=== PATIENT | male | born 1950 | race Caucasian/White ===

== ENCOUNTER 2024-03-04 16:50 | Emergency (ER) | payer MEDICARE, BC, SELFPAY ==
[2024-03-04 17:00] VITALS: BP 147/86; PULSE 87; RESP 16; TEMP 36.9; O2SAT 94; BMI 26.6
--- NOTE | 2024-03-04 17:14 | ED_ITS ---
HPI - Extremity Injury (Lower) General Time Seen by Provider: 17:14 Date Seen: 03/04/24 Chief Complaint: Extremity Pain/Injury, Lower Stated Complaint: L knee injury Time Seen by Provider: 03/04/24 17:10 Source: patient and RN notes reviewed Mode of arrival: ambulatory Limitations: no limitations History of Present Illness HPI Narrative: Amilcar is a very pleasant well-spoken gentleman 73 years of age who comes to the emergency room for evaluation of left knee pain. Amilcar states that he was bowling this evening any does not know if he turned wrong but he had significant pain in the medial aspect of his left knee that caused him to limp. In retrospect he states he fell 1 year ago and when he went to the clinic he was told that he had arthritis. No x-rays were done at that time. However, over the past year he has had continued discomfort. He describes pain after prolonged sitting. He states when he 1st gets up he has a lot of discomfort and the 1st few steps are hard. He notes that after 0 just a bit of walking he is able to walk well but still has mild persisting discomfort. Going up and down steps also seems to cause him pain. He he denies any numbness or tingling with his knee tonight. He is not currently on blood thinners and has no history of cancer. While we are talking he does describe some blood in his urine within the last week. He notes that it is much improved after having had some water and has not recurred. He does note that he is not good about staying hydrated. Related Data Home Medications ?Medication ?Instructions ?Recorded ?Confirmed Tylenol Arthritis 03/04/24 alfuzosin 10 mg tablet,extended 10 mg PO DAILY 03/04/24 03/04/24 release 24 hr aspirin 81 mg capsule 81 mg PO DAILY 03/04/24 03/04/24 atorvastatin 40 mg tablet 40 mg PO DAILY 03/04/24 03/04/24 pantoprazole 40 mg tablet,delayed 40 mg PO DAILY 03/04/24 03/04/24 release Allergies Allergy/AdvReac Type Severity Reaction Status Date / Time No Known Drug Allergies Allergy Verified 03/04/24 17:04 Review of Systems Status of ROS: Reports: 6 or more systems reviewed and unremarkable except as noted in History and below PFSH PFSH Social History Smoking Status: Never smoker Do you use any of these nicotine containing products: None How often do you have a drink containing alcohol: 4 or more times a week How many standard drinks containing alcohol do you have on a typical day: 1 or 2 AUDIT-C Alcohol total score: 4 Non-prescribed substance use: denies use Exam Narrative: Exam Narrative: Alert and oriented. Very well-spoken gentleman in no acute distress. No respiratory distress. Examination of the knee shows no effusion. Palpation along the medial and lateral joint lines without discomfort. No pain with palpation over the patella. Valgus stressing increases pain on the medial joint line. Distally sensation and motor is intact. Const: Vital Signs, click to edit/add: Vital Signs - 24 hr 03/04/24 17:00 Temperature 98.4 F Pulse Rate [Left P ulse Oximeter] 87 Respiratory Rate 16 Blood Pressure [Ri ght Upper Arm] 147/86 H Pulse Oximetry 94 Oxygen Delivery Me thod Room Air Documenting provider has reviewed patient's vital signs: yes Course Course ED Course: At this time will obtain two view of the knee. I did state that this would show us the bony aspect of the knee but likely not the cartilage or ligaments which may actually be causing the problem. Will also obtain urinalysis given what patient describes as gross hematuria. Vital Signs Vital signs: Initial Vital Signs Temperature 98.4 F 03/04/24 17:00 Temperature Source Temporal Artery Scan 03/04/24 17:00 Pulse Rate 87 03/04/24 17:00 Respiratory Rate 16 03/04/24 17:00 Blood Pressure 147/86 H 03/04/24 17:00 Blood Pressure Mean 106 H 03/04/24 17:00 Blood Pressure Position Sitting 03/04/24 17:00 Pulse Oximetry 94 03/04/24 17:00 Oxygen Delivery Method Room Air 03/04/24 17:00 Vital Signs Temperature 98.4 F 03/04/24 17:00 Pulse Rate 87 03/04/24 17:00 Respiratory Rate 16 03/04/24 17:00 Blood Pressure 147/86 H 03/04/24 17:00 Pulse Oximetry 94 03/04/24 17:00 Oxygen Delivery Method Room Air 03/04/24 17:00 Temperature 98.4 F 03/04/24 17:00 Pulse Rate 87 03/04/24 17:00 Respiratory Rate 16 03/04/24 17:00 Blood Pressure 147/86 H 03/04/24 17:00 Pulse Oximetry 94 03/04/24 17:00 Oxygen Delivery Method Room Air 03/04/24 17:00 MDM - Extremity Injury (Lower) MDM Narrative Medical decision making narrative: 1. Left knee pain-no evidence of fracture on x-ray. I suspect based on his history and exam today he has injured his labrum or MCL. I have referred Amilcar to Orthopedics here in town for evaluation and or MRI and PT. he does note that he feels better with the knee immobilizer in place. Does not need crutches at this time. 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 I do not feel that we should be using narcotics in this particular case. 2. Hematuria-no evidence of blood in urine today. Upon further discussion however Amilcar states that he has had blood in his urine previously. At his ag e I do think this prompts a urological evaluation and have referred him to his primary for further follow-up. 3. Disposition -home at this time. Seek medical attention for worsening symptoms. Suggest icing and elevation of the knee. Return as needed. Lab Data Attestation: I reviewed the patient's lab results. Labs: Lab Results 03/04/24 Range/Units 17:30 Urine Color Yellow (Yellow) Urine Appearance Clear (Clear) Urine pH 6.0 (5.0-8.5) Ur Specific [place] 1.020 (1.000-1.030) Urine Protein Negative (Negative) Urine Glucose (UA) Negative (Negative) Urine Ketones Negative (Negative) Urine Blood Negative (Negative) Urine Nitrite Negative (Negative) Urine Bilirubin Negative (Negative) Urine Urobilinogen 0.2 (0.2-1.0) Ur Leukocyte Esterase Trace A (Negative) Urine RBC 0-2 (0-2) Urine WBC 0-2 (0-5) Ur Squamous Epith Cells None (None-Few) Urine Bacteria None (None) Imaging Data Left knee x-ray: My impression: I do not note any acute fractures. Joint space is maintained in the medial compartment. There are signs of some mild arthritis. Radiologist's impression: Bone: No acute fractures or aggressive bone lesions are identified. Joint: Mild osteoarthritis is noted in the medial and patellofemoral compartments. No significant knee effusion is seen. Soft tissue: Unremarkable. No radiopaque foreign bodies are seen. IMPRESSION: 1. No acute osseous injuries or abnormalities are noted. Discharge Plan Discharge Clinical Impression: Left knee pain, Hx of hematuria Additional Instructions: Follow-up with orthopedics for further evaluation, possible MRI and or physical therapy. The phone number for the [facility] is [phone]. Follow-up with your primary for evaluation of blood in the urine. Your urine was clear today with no evidence of blood or infection. We do send the sample for a culture and if it would become positive for an infection you would receive a phone call in the next 24-72 hours. Intermittent icing 20 minutes at a time 3 to 4 times a day would likely be helpful for some of the discomfort your experiencing. Tylenol may help with the pain. Ibuprofen also known as Motrin and Advil is an anti-inflammatory which would likely be more helpful but as you stated you have to be very careful with this because of history of heart problems. Knee immobilizer for comfort. Try to keep leg elevated. Return for worsening symptoms. Prescriptions: No Action atorvastatin 40 mg tablet 40 mg PO DAILY pantoprazole 40 mg tablet,delayed release (DR/EC) 40 mg PO DAILY alfuzosin 10 mg tablet extended release 24 hr 10 mg PO DAILY aspirin 81 mg capsule 81 mg PO DAILY Tylenol Arthritis Follow Up/Referrals: Suresh Urias MD [Primary Care Provider] - Stand Alone Forms: [employer] Info Instructions
--- NOTE | 2024-03-04 17:23 | CRLHL7_ITS ---
For Patients: As a result of the Cures Act, medical imaging exams and procedure reports are released immediately into your electronic medical record. You may view this report before your referring provider. If you have questions, please contact your health care provider. INDICATION: Medial knee pain, injury TECHNIQUE: Knee radiograph 3 views left COMPARISON: None FINDINGS: Bone: No acute fractures or aggressive bone lesions are identified. Joint: Mild osteoarthritis is noted in the medial and patellofemoral compartments. No significant knee effusion is seen. Soft tissue: Unremarkable. No radiopaque foreign bodies are seen. IMPRESSION: 1. No acute osseous injuries or abnormalities are noted. Dictated by: Navid Reyes MD @ 03/04/2024 18:04:44 (Electronically Signed)
[2024-03-04 17:37] LABS: Appearance Urine Clear (Clear); Bilirubin Urine Negative (Negative); Blood Urine Negative (Negative); Color Urine Yellow (Yellow); Glucose Urine Negative (Negative); Ketones Urine Negative (Negative); Leukocyte Esterase Urine Trace (Negative); Nitrite Urine Negative (Negative); Protein Urine Negative (Negative); Urobilinogen Urine 0.2 (0.2-1.0)
[2024-03-04 17:45] LABS: RBC Urine 0-2 (0-2); WBC Urine 0-2 (0-5)
== END 2024-03-04 18:39 | disposition home or self-care (01) ==
PROVIDERS: Emergency Provider Family Medicine; PCP Family Medicine
DX: M25.562 Pain in left knee (principal); Y93.54 Activity, bowling
CPT/HCPCS: 73562; 81001; 87086; 99283

== ENCOUNTER 2024-03-18 07:02 | Outpatient (CLI) | payer MEDICARE, BC, SELFPAY ==
--- NOTE | 2024-03-18 07:15 | MR_ITS ---
[address] [address] Phone:?[phone] Fax:?[phone] Referring Physician Information: Tyrone De Oliveira [address] [facility] [address] Phone:?[phone] Fax:?[phone] Patient:?Amilcar Diaz D.O.B:?1950 Sex:?Male Phone:?[phone] [facility] MRN:?[id number] Exam Date:?03/18/2024 EXAM: MRI of the LEFT KNEE, without contrast CLINICAL: Left knee pain. Evaluate medial meniscus. COMPARISONS: X-rays dated 03/04/2024. TECHNICAL: Multiplanar multisequence MRI of the left knee was obtained. SEDATION: None. CONTRAST: None. FINDINGS: Evaluation of the coronal STIR sequences is limited by motion artifact. Ligaments: ACL: Intact and unremarkable. PCL: Intact and unremarkable. MCL: Intact and unremarkable. LCL: Intact and unremarkable. Posterolateral corner: Popliteus, biceps femoris, iliotibial band, and the popliteofibular ligament appear intact. Posteromedial corner: Semimembranosus, pes anserine tendons and posterior oblique ligament appear intact. Extensor mechanism: Patellar tendon: Intact, without tendinopathy. Quadriceps tendon: Intact, without tendinopathy. Retinacula: Medial and lateral retinacula are intact. Fat pads: There is increased edema involving the quadriceps fat, nonspecific. Patellofemoral joint: Patella: No significant chondromalacia. Trochlea: No significant chondromalacia. Medial compartment: Medial meniscus: There is complex tearing involving the posterior horn and body segment as seen on sagittal series 6 image 7-11 and coronal series 7 image 16- 20. There is displacement of torn meniscal tissue along the peripheral undersurface of the body segment on coronal series 7 image 16-19. Medial cartilage: Small segment of high-grade/full-thickness chondral loss involves the weightbearing medial femoral condyle adjacent to the free edge of the posterior horn medial meniscus on sagittal series 6 image 10. Grade 2-3 chondral thinning involves the medial tibial plateau. Lateral compartment: Lateral meniscus: No evidence of discrete meniscal tear or meniscal displacement. Lateral cartilage: Small segment of high-grade chondral loss involving the medial aspect of the posterior lateral tibial plateau on sagittal series 6 image 20 and coronal series 8 image 22. Lateral femoral condyle cartilage is preserved. Knee joint: Effusion: Physiologic left knee effusion. Intra-articular bodies:?No convincing bodies identified. Popliteal cyst: None. Bones: There is minimal reactive marrow edema involving the peripheral medial tibial plateau adjacent to the medial meniscal tear. No evidence of fracture. IMPRESSION: 1. Tearing of the medial meniscus as above with displacement of torn meniscal tissue along the peripheral undersurface of the body segment medial meniscus. 2. Chondral loss involving the medial and lateral compartments as above. 3. No evidence of ligamentous injury or fracture. JCZ Electronically signed on 03/18/2024 12:38:00 PM by Good Pate D.O.
== END 2024-03-18 07:03 | disposition home or self-care (01) ==
LOC: MRI 07:03
PROVIDERS: PCP Family Medicine; Visit Provider Physician Assistant
DX: M25.562 Pain in left knee (principal); S83.242A Other tear of medial meniscus, current injury, left knee, initial encounter; G89.29 Other chronic pain
CPT/HCPCS: 73721

== ENCOUNTER 2024-07-07 00:12 | Emergency (ER) | payer MEDICARE, BC, SELFPAY ==
--- OUTSIDE RECORDS SUMMARY | 2024-07-07 00:14 | XMS_ITS | Clinical Summary ---
Author Organization [facility] Address [address] [place] [address] Care Team Providers Care Spares Scheduler Name Role Phone Unavailable Primary Care Provider Unavailabl e Source Comments Patient records contain information from all sites at [facility]. For routine questions regarding patient records, call [phone] during business hours, M-F 8:00 AM - 5:00 PM Central Time. Record requests for emergency care only can be directed to [phone] at any time.[facility] Allergies Active Allergy Reactions Criticality Noted Date Comments House Dust Mite Cough 03/12/2019 Medications pantoprazole (PROTONIX) 40 mg EC tablet Take 40 mg by mouth daily. 9 Active omega-3 fatty acids-fish oil 360-1,200 mg capsule Take 1 capsule by mouth daily. Active famciclovir (FAMVIR) 250 mg tablet Take 250 mg by mouth as needed. 9 Active cholecalciferol , vitamin D3, 1,000 Unit tablet Take 1,000 Units by mouth daily. Active calcium carbonate (TUMS) 500 mg (200 mg calcium) chewable tablet Chew 500 mg as needed. Active atorvastatin (LIPITOR) 40 mg tablet Take 40 mg by mouth daily. 9 Active aspirin 81 mg chewable tablet Chew 81 mg daily. 8 Active ascorbic acid, vitamin C, (vitamin C) 1,000 mg tablet Take 1,000 mg by mouth daily. Active alfuzosin (UROXATRAL) 10 mg 24 hr tablet Take 10 mg by mouth daily. 9 Active UNABLE TO FIND Take 1 tablet by mouth daily. Dermatrophin PMG Active losartan (COZAAR) 25 mg tabletIndicatio ns:Chronic Cough,Hypertens ion Essential Primary Take 1 tablet (25 mg total) by mouth daily. 90 tablet 3 1 Active Active Problems Problem Noted Date Diagnosed Date Stroke 06/25/2019 Patent Foramen Ovale 06/25/2019 Encounters Date Type Department Care Team Description 06/11/2024 3:[address] [facility] Comprehensive Visit Department of Urology in [place], [place] [address] [place] [address] Gonzalo Orellana M.D. Benign Prostatic Hyperplasia Without Obstruction (Primary Dx); Symptom Urinary 05/24/2024 Orders Only Department of Urology in [place], [place] [address] [place] [address] Isak Austin M.D. Benign Prostatic Hyperplasia Hypertrophy With Obstruction (Primary Dx) from Last 3 Months Immunizations Immunization Administration Dates Next Due DTaP (Infanrix, Tripedia) 09/25/2008 HZV (ZOSTAVAX) 10/12/2011 HepA Adult 03/12/2019(Deferred: Other - received the series) HepB Adult 03/12/2019(Deferred: Other - received the series date unknown) PCV13 03/12/2019(Deferred: Patient Ref used) RZV (SHINGRIX) 03/05/2019 Rabies, intramuscular, historical 2013,12/25/2013,12/21/2013,2013 Tdap 10/02/2018,09/25/2008 influenza trivalent high dos e (HD)(PF) 03/12/2019(Deferred: Patient Refused) Family History Medical History Relation Name Comments Alcohol abuse Brother 1 herminio joe Liver disease Brother 1 herminio joe Alcohol abuse Brother 2 kim joe Dementia Brother 2 kim joe Liver disease Brother 2 kim joe Hyperlipidemia Brother 3 [place] Hypertension Brother 3 colt joe Coronary artery disease Brother 4 geovany joe Hyperlipidemia Brother 4 geovany joe Hypertension Brother 4 geovany joe Skin cancer Brother 5 Herminio Joe Skin cancer Brother 6 Zi StuartNeill Prostate cancer Father Scott Diaz Coronary artery disease Mother haley diaz Hyperlipidemia Mother haley diaz Hypertension Mother haley diaz Relation Name Status Comments Brother 1 herminio diaz Brother 2 kim diaz Brother 3 colt diaz Brother 4 geovany diaz Brother 5 Herminio Diaz Brother 6 Zi Diaz Father Scott Diaz Mother haley diaz Social History Tobacco Use Types Packs/Day Years Used Date Smoking Tobacco: Never Smokeless Tobacco: Never Alcohol Use Standard Drinks/Week Comments Yes 11 (1 standard drink = 0.6 oz pu re alcohol) [facility] Utilities Answer Date Recorded In the past 12 months has e electric, gas, oil, or water company threatened to shut off services in your home? No 06/08/2024 Humiliation, Afraid, Rape, and Kick questionnair e Answer Date Recorded Fear of Current or Ex-Partner No Emotionally Abused No 03/09/2019 Physically Abused No 03/09/2019 Sexually Abused No 03/09/2019 Social Connection and Isolation Panel [NHANES] A nswer Date Recorded Frequency of Communication with Friends and Fami ly Never 03/09/2019 Frequency of Social Gatherings with Friends and Family Never 03/09/2019 Attends Jehovah'S Witness Services Never 03/09 Active Member of Clubs or Organizations Yes 03/09/2019 Attends Club or Organization Meetings Never 03/09/2019 Marital Status 03/09/2019 AUDIT-C Answer Date Recorded Frequency of Alcohol Consumption 4 or more times a week 03/09/2019 Average Number of Drinks 1 or 2 019 Frequency of Binge Drinking Less than monthly Overall Financial Resource Strain (CARDIA) Answe r Date Recorded Difficulty of Paying Living Expenses Not hard at all 03/09/2019 PHQ-2 Answer Date Recorded PHQ-2 Score 0 03/09/2019 [facility] - Occupational Stress Questionnaire Answer Date Recorded Feeling of Stress To some extent 03/09/2019 Exercise Vital Sign Answer Date Recorde d On average, how many days pe r week do you engage in moderate to strenuous exercise (like a brisk walk)? 1 day 06/08/2024 On average, how many minutes do you engage in exercise at this level? 120 min 06/08/2024 Hunger Vital Sign Answer Date Recorded Within the past 12 months, y ou worried that your food would run out before you got the money to buy more. Never true 06/08/19 Within the past 12 months, t he food you bought just didn't last and you didn't have money to get more. Never true 06/08/2024 PRAPARE - Transportation Answer Date Re corded In the past 12 months, has l ack of transportation kept you from medical appointments or from getting medications? No 11/2024 In the past 12 months, has l ack of transportation kept you from meetings, work, or from getting things needed for daily living? No 06/08/2024 Nutrition Answer Date Recorded On average, how many serving s of fruits and vegetables do you eat per day (serving size is equal to 1 cup or approximately the size of a tennis ball)? 0-2 06/08/2024 Dental Answer Date Recorded Dental: Regular Dentist Yes 06/08/19 Employment Answer Date Recorded Employment status Retired 06/08/2024 Housing Stability Answer Date Recorded What is your living situation today? I have a [facility] place to live 06/08/2024 Education Answer Date Recorded What is the highest level of school you have completed or the highest degree you have received? Bachelor's degree (e.g., BA, AB, BS) 03/09/2019 Sex and Gender Information Value Date Recorded Sex Assigned at Male 05/23/2018 5:05 PM [employer]INT [employer] SU[employer] Legal Sex Male 4:32 AM [employer] SUPER[employer] Gender Identity Male 05/23/2018 5:05 PM [employer] SU[employer] Sexual Orientation Straight 05/23/2018 5: 05 PM [employer] SUPERVISOR Last Filed Vital Signs Vital Sign Reading Time Taken Comments Blood Pressure 114/79 06/25/2019 8:00 AM [employer]INT LINE SUPERVISOR Pulse 92 06/25/2019 8:00 AM [employer]INT LINE SUPERVISOR Temperature 37 C (98.6 F) 06/25/2019 8:00 AM [employer]INT LINE SUPERVISOR Respiratory Rate 19 04/10/2019 1:37 PM [employer] SUPER[employer] Oxygen Saturation 94% 04/10/2019 1:39 PM [employer]INT LINE SUPER[employer]OR Inhaled Oxygen Concentration - - Weight 70.5 kg (155 lb 6.8 oz) 04/10/2019 12:06 PM [employer]INT LINE SUPERVIS[employer] Height 162 cm (5' 3.78) 04/10/2019 12:06 PM [employer] SUPERVIS[employer] Body Mass Index 26.86 04/10/2019 12:06 PM [employer]INT [employer] SUPERVIS[employer] Plan of Treatment Health Maintenance Due Date Last Done Comments CT Colonography 1950 Cologuard 1950 Hepatitis C Screening 1950 Office Visit for Blood Pressure Check / Re-check 1950 RSV vaccine - (32-36 weeks) or 60+ years (1 - Risk 60-74 years 1-dose series) 2010 COVID-19 Vaccine ( - season) 2023 07/24/2020, 07/03/2020 Influenza Vaccine (#1) 2024 Depression Screening (Annual PHQ-2) 05/01/2024 Fall Risk Screen (Annual) 05/01/2024 Creatinine Level (Kidney Function Test) 01/01/2025 01/02/2024, 03/30/2023, 02/15/2022, Additional history exists Potassium Level 01/01/2025 01/02/2024, 03/03, 02/15/2022, Additional history exists Sodium Level 01/01/2025 01/02/2024, 03/03, 02/15/2022, Additional history exists Colonoscopy 02/05/2026 02/05/2021, 11/2020, 05/08/2017 (Performed elsewhere), Additional history exists Colorectal Cancer Surveillance 02/05/2026 Fasting Glucose for Diabetes Screening 01/01/2027 01/02/2024, 03/30/2023, 02/15/2022, Additional history exists DTaP,Tdap,and Td Vaccines (4 - Td or Tdap) 10/02/2028 10/02/2018, 09/25/2008, 09/25/2008 Lipid (Cholesterol) Screening 01/01/2029 01/02/2024, 03/30/2023, 02/15/2022, Additional history exists Zoster Vaccines Completed 06/25/2019, 08/2018, 10/12/2011 Pneumococcal vaccine (50+ years) Completed 02/15/2022, 11/26/2020 IPV Vaccines Aged Out No longer eligi ble based on patient's age to complete this topic Medical Devices Implanted Type Area Pricing Actuary Device Identifier Shelf Expiration Date Model / Serial / Lot Cardiac Stent Cardiac Stent Heart Description:One stent Procedures Procedure Name Priority Date/Time Associated Diagnosis Comments BASIC METABOLIC PANEL, S/P Routine 03/13/2019 6:22 AM [employer]INT LINE SUPERVIS[employer] Cough Chronic from Last 3 Months or Most Recently Relevant to Health Maintenance Results * Basic Metabolic Panel (03/13/2019 6:22 AM PRINT LINE SUPERVISOR) Potassium, S 4.2 3.6 - 5.2 mmol/L 03/13/2019 7:34 AM [employer]INT LINE SUPERVISOR DTL Sodium, S 142 135 - 145 mmol/L 03/13/2019 7:34 AM [employer] SUPERVIS[employer] DTL Chloride, S 100 98 - 107 mmol/L 03/13/2019 7:34 AM [employer] SUPERVISOR DTL Bicarbonate, S 27 22 - 29 mmol/L 03/13/2019 7:34 AM [employer] SUPERVISOR DTL Anion Gap 15 7 - 15 03/13/2019 7:34 AM [employer] SUPERVISOR DTL BUN (Blood Urea Nitrogen), S 14 8 - 24 mg/dL 03/13/2019 7:34 AM PRINT [employer] SUPERVISOR DTL Creatinine 1.13 0.74 - 1.35 mg/dL 03/13/2019 7:34 AM PRINT LINE SUPERVISOR DTL eGFR-Non Black/ 66 >=60 mL/min/BSA 03/13/2019 7:34 AM PRINT LINE SUPERVISOR DTL Comment: ----ADDITIONAL INFORMATION---- Estimated GFR calculated using the 2009 CKD_EPI creatinine equation. eGFR-Black/Afric an Gambian 77 >=60 mL/min/BSA 03/13/2019 7:34 AM PRINT LINE SUPERVISOR DTL Comment: ----ADDITIONAL INFORMATION---- Estimated GFR calculated using the 2009 CKD_EPI creatinine equation. Calcium, Total, S 9.7 8.8 - 10.2 mg/dL 03/13/2019 7:34 AM PRINT LINE SUPERVISOR DTL Glucose, S 103 70 - 140 mg/dL 03/13/2019 7:34 AM PRINT LINE SUPERVISOR DTL Blood (Blood, Venous) 03/13/2019 6:22 AM PRINT LINE SUPERVISOR 03/13/2019 6:44 AM [employer] SUPERVISOR us Alcira Javed M.D. LAB BLOOD ADD-ON Elizabeth l Result [facility] [address] [place] [address], [place] DTL [facility] [address] [place] [address] from Last 3 Months or Most Recently Relevant to Health Maintenance Insurance MEDICARE [facility]
--- OUTSIDE RECORDS SUMMARY | 2024-07-07 00:14 | XMS_ITS | Encounter Summary ---
Author Organization [facility] Address [address] [place] [address] Care Team Providers Care Cardiac/Vascular Sonographer Name Role Phone Unavailable Primary Care Provider Unavailabl e Reason for Visit * Appointment Request (Routine) - Closed Specialty Diagnoses / Procedures Referred By Sagrario t Referred To Contact Urology Diagnoses Benign Prostatic Hyperplasia Hypertrophy With Obstruction Referral ID Status Reason Start Date Expiration Date Visits Re quested Visits Authorized [id number] Closed 05/21/2024 08/21/2025 1 1 Encounter Details Date Type Department Care Team (Latest Contact Info) Description 06/11/2024 3:30 PM [facility] Comprehensive Visit Department of Urology in [place], [place] [address] [place] [phone] Gonzalo Orellana M.D. [address] [place] [id number] Benign Prostatic Hyperplasia Without Obstruction (Primary Dx); Symptom Urinary Social History Tobacco Use Types Packs/Day Years Used Date Smoking Tobacco: Never Smokeless Tobacco: Never Alcohol Use Standard Drinks/Week Comments Yes 11 (1 standard drink = 0.6 oz pu re alcohol) [facility] Utilities Answer Date Recorded In the past [...] with Friends and Family Never 03/09/2019 Attends Islam Services Never 03/09 Active Member of Clubs [...] Answer Date Recorded PHQ-2 Score 0 03/09/2019 [facility] - Occupational Stress [...] money to buy more. Never true 06/08/19 25 Within the past 12 months, t he [...] Date Recorded Dental: Regular Dentist Yes 06/08/19 25 Employment Answer Date Recorded Employment status Retired 06/08/2024 Housing Stability Answer Date Recorded What is your living situation today? I have a [place] place to live 06/08/2024 Education Answer Date Recorded What is the highest level of school you have completed or the highest degree you have received? 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 - 06/11/2024 3:30 PM MST Images from the original note were not included. UROLOGY CLINIC CONSULT NOTE Attending: Dr. Yandel Orellana Referring provider: No ref. provider found CHIEF COMPLAINT/REASON FOR VISIT/CONSULT: BPH HISTORY OF PRESENT ILLNESS: Amilcar Diaz is a 74 y.o. male with HTN, HLD, CAD s/p stentx1 (ASA 81), known PFO (untreated), history of stroke 2016 without deficits, GERD, BPH (currently on alfuzosin) His brother, Ronak and Jatinder both had a HoLEP with Dr. Orellana. He is also Renetta Santos's uncle. Patient notes that in terms of his flow, he has a weak stream with difficulty urinating, postvoid dribbling, [id number], and urge incontinence with inability to completely empty his bladder. In terms of his nocturia, he gets up once per night. The patient denies any dysuria, frequency, urgency, or other problems. He has previously tried tamsulosin and Uroxatral (discontinued due to retrograde ejaculation), and is currently on alfuzosin with moderate retrograde ejaculation which is tolerable. He did have an episode of hematuria in 2018 for which he had a CT urogram (03/2018 with benign renalcysts bilaterally, otherwise negative), but no cystoscopy. He has been cautioned that his urinary flow is improved with retraction of his foreskin. In terms of his continence, he reports no issues. Workup: Cystoscopy never UDS never Prostate volume = Flow/PVR: 03/2019 Peak flow 5 ml/sec Average flow 3 ml/sec Voiding time 40 sec Total voided volume 141 mls Residual urine 277 ml by ultrasound 05/2018 PVR 360 CTU (03/05/18):Bilateral renal cysts - enlarged prostate - no stones, renal masses, or filling defects. I-PSS I-PSS Urinary Symptoms Score: (Patient-Rptd) 18 I-PSS Quality of Life Score: (Patient-Rptd) 3 Smoking History: Never Family history: Father with prostate cancer in 80s Anticoagulation: ASA 81 Other Urologic History: Lab Results Component Value Date PSA 1.7 03/13/2019 EXT Creatinine, S Date/Time Value Ref Range Status 01/02/2024 10:37 AM 1.12 0.70 - 1.20 mg/dL Final 03/30/2023 03:56 PM 1.20 0.70 - 1.20 mg/dL Final 02/15/2022 11:45 AM 1.13 0.72 - 1.25 mg/dL Final CURRENT MEDICATIONS: Current Medications[1] REVIEW OF SYSTEMS: A complete review of systems was performed, all of which were negative except as noted in the HPI. PAST MEDICAL HISTORY: PAST SURGICAL HISTORY: Medical History[2] Coronary stent Vasectomy OBJECTIVE PHYSICAL EXAMINATION: General: Well developed, well nourished, in no apparent distress. Eyes: Lids and conjunctiva normal, no scleral icterus ENMT: Normal external ears and nose, moist mucous membranes Neck: No masses or tenderness, thyroid not grossly enlarged Respiratory: Normal respiratory rate and pattern with no distress CV: Regular rate, palpable pulse GI: No rebound, no guarding, no tenderness, no masses Psychiatric: Normal mood, normal affect, alert and cooperative Neurologic Exam: Alert and oriented x 3, speech normal, follows commands. ASSESSMENT / PLAN ASSESSMENT/PLAN: This is a very pleasant 74 y.o. male with HTN, HLD, CAD s/p stentx1 (on ASA 81), known PFO (untreated), history of stroke 2016 without deficits, GERD, BPH (currently on Uroxatral) Patient was seen with, examined by, and discussed with Dr. Yandel Orellana who is in agreement withthe above plan of treatment. Please refer to their supervisory note for complete assessment & plan. Elio Fofana MD Urology PGY-3 Pager: [phone] [1] Current Outpatient Medications: alfuzosin (UROXATRAL) 10 mg 24 hr tablet, Take 10 mg by mouth daily., Disp: , Rfl: ascorbic acid, vitamin C, (vitamin C) 1,000 mg tablet, Take 1,000 mg by mouth daily., Disp: , Rfl: aspirin 81 mg chewable tablet, Chew 81 mg daily., Disp: , Rfl: atorvastatin (LIPITOR) 40 mg tablet, Take 40 mg by mouth daily., Disp: , Rfl: calcium carbonate (TUMS) 500 mg (200 mg calcium) chewable tablet, Chew 500 mg as needed., Disp: , Rfl: cholecalciferol, vitamin D3, 1,000 Unit tablet, Take 1,000 Units by mouth daily., Disp: , Rfl: famciclovir (FAMVIR) 250 mg tablet, Take 250 mg by mouth as needed., Disp: , Rfl: losartan (COZAAR) 25 mg tablet, Take 1 tablet (25 mg total) by mouth daily., Disp: 90 tablet, Rfl: 3 omega-3 fatty acids-fish oil 360-1,200 mg capsule, Take 1 capsule by mouth daily., Disp: , Rfl: pantoprazole (PROTONIX) 40 mg EC tablet, Take 40 mg by mouth daily., Disp: , Rfl: UNABLE TO FIND, Take 1 tablet by mouth daily. Dermatrophin PMG, Disp: , Rfl: [2] Past Medical History: Diagnosis Date Anxiety Generalized Disorder BenignProstatic Hyperplasia Localized Eczema Gastroesophageal Reflux Disease NOS Headache Hyperlipidemia Hypertension NOS Polyp Colon Stroke (HCC) Transient Ischemic Attack Cosigned by Gonzalo Orellana M.D. at 06/11/2024 3:56 PM MST H BREAKER MACHINE OPERATOR H BREAKER MACHINE OPERATOR Associated attestation - Gonzalo Orellana M.D. - 06/11/2024 4:56 PM BUNCH BREAKER MACHINE OPERATOR I saw and evaluated the patient, participating in the shearer portions of the service. I reviewed the resident/fellow???s note. I agree with the resident/fellow???s findings and plan. This extremely pleasant gentleman that has family with 1 of our long time Urology care members. In terms of his urination he states he has a poor stream and this has been a lifelong issue for him. States that generally is able to generate good pressure but he has low volume. He states that he often has to strain to start his urinary stream. He denies that he is always able to empty his bladder has nocturia with least 1 time per night. He denies any hematuria occasionally gets some dysuria or pressure especially when he starts but it is not consistent. He does note some terminal dribbling but denies any leakage. From a medication standpoint he is taking alfuzosin 10 mg a day which he notes helps a little bit. Family history is significant for a father with prostate cancer. His IPSS score is 28 (5, 5, 4, 4, 5, 4, 1) Bother score of 4 Zhen score of 22 (3, 5, 5, 4, 5) MS HQ short form 11 (5, 2, 2, 2) In terms of his BPH with a long denny discussion regarding the natural history. We discussed various different treatment options including but not limited to maximal medical therapy, minimally invasive surgical therapies and definitive surgical management with procedure such as HoLEP. We discussed that we would need to evaluate his anatomy and get a cystoscopy, prostate ultrasound, uroflow with postvoid residual. We would then have her return visit we can discuss all this in the appropriate treatment for him. At this point he is not sure if he wants to proceed with the treatment and or the evaluation. If and when he does he will contact our department we would schedule these tests for appropriate time for him and then we can make it coordinated plan once we have this information. I answered all of his other questions or concerns he voices understanding will plan on proceeding as outlined above. documented in this encounter Plan of Treatment Not on file documented as of this encounter Visit Diagnoses Diagnosis Benign Prostatic Hyperplasia Without Obstruction- Primary Symptom Urinary documented in this encounter
--- OUTSIDE RECORDS SUMMARY | 2024-07-07 00:14 | XMS_ITS | Clinical Summary ---
Author Organization [facility] Address [address] [place] [address] Care Team Providers Care Optometrist President/Practice Owner Name Role Phone BatelSuresh MD Primary Care Provider + Allergies Active Allergy Reactions Criticality Noted Date Comments House Dust Other - Describe In Comment Field Sneezing Medications calcium carbonate (TUMS) 200 mg calcium (500 mg) chewable tablet Take 500 mg by mouth 4 times daily if needed. Active fish oil-omega-3 fatty acids (FISH OIL) 1,200-360 mg cap Take 1 capsule by mouth once daily. One capsule is 1200 mg-360 mg Active cholecalciferol (VITAMIN D3) 1,000 unit tablet Take 1,000 Units by mouth once daily. Active aspirin chewable 81 mg chewable tabletIndication s:ASHD (arterioscleroti c heart disease) Take 1 tablet by mouth once daily with a meal. 0 8 Active ascorbic acid, vitamin C, (VITAMIN C) 1,000 mg tablet Take 1,000 mg by mouth. Active pantoprazole (PROTONIX) 40 mg delayed-release tabletIndication s:Gastroesophage al reflux disease without esophagitis TAKE ONE TABLET (40 MG) BY MOUTH ONCE DAILY 90 Tablet 2 4 Active atorvastatin (LIPITOR) 40 mg tabletIndication s:ASHD (arterioscleroti c heart disease) TAKE ONE TABLET (40 MG) BY MOUTH NIGHTLY AT BEDTIME 90 Tablet 2 4 Active famciclovir (FAMVIR) 250 mg tabletIndication s:Hx of cold sores TAKE ONE TABLET BY MOUTH THREE TIMES A DAY NEEDED FOR COLD SORES 24 Tablet 5 Active alfuzosin (UROXATRAL) 10 mg Sustained-Releas e tabletIndication s:Benign non-nodular prostatic hyperplasia with lower urinary tract symptoms TAKE ONE TABLET BY MOUTH ONCE EVERY DAY WITH A MEAL DIRECTED . 90 Tablet 1 5 Active alfuzosin (UROXATRAL) 10 mg Sustained-Releas e tabletIndication s:Benign non-nodular prostatic hyperplasia with lower urinary tract symptoms TAKE ONE TABLET BY MOUTH ONCE EVERY DAY WITH A MEAL DIRECTED . 90 Tablet 2 4 06/23/19 25 Discontinu ed(*Availa bility/For mulary change/Cos t of medication ) Active Problems Problem Noted Date Diagnosed Date History of CVA (cerebrovascular accident) 2019 ASHD (arteriosclerotic heart disease) 11/08/2017 Overview (11/09/2017): - 11/02/17 CTA with circumflex disease - 11/08/17 s/p DAIANA to circumflex Vitamin D deficiency 05/24/2016 PFO (patent foramen ovale) 01/01/2013 Ataxia 12/31/2012 Arterial ischemic stroke, ve rtebrobasilar, cerebellar, acute 12/30/2012 Blurred vision, right eye 12/30/2012 Imbalance 12/30/2012 Colon polyp 11/11/2011 Overview (02/09/2021): Colonoscopy 10/2011 polyps repeat in 3 years Colonoscopy 05/2015 polyps repeat in 5 years Colonoscopy 01/2021 3-TA, repeat in 5 years MIGRAINE VARIANT - CLUSTER 08/27/2007 Overview (08/27/2007): Intermittent since 1972. Gastroesophageal reflux disease without esophagi tis 09/22/2006 Allergic rhinitis, cause unspecified 09/22/2006 Resolved Problems Problem Noted Date Diagnosed Date Resolved Date Depression, recurrent 03/30/20232023 Depression, recurrent 07/22/20212021 Unstable angina 11/08/2017 11/08/2017 JUANITA (acute kidney injury) 12/31/2012 HYDE (headache) 12/30/2012 02/15/2022 Encounters Date Type Department Care Team Description 06/21/2024 Refill [facility] [address] [facility] [place] [address] Suresh Urias MD Refill Request (Alfuzosin) 05/30/2024 10:50 AM CULL GRADER Office Visit [facility] [address] [facility] [address] Suresh Urias MD Blood Pressure (Follow up) 05/30/2024 Travel 05/25/2024 Travel 05/03/2024 Telephone [facility] [address] [place] [address] Suresh Urias MD Refill Request (famciclovir) 04/30/2024 12:50 PM CULL GRADER Office Visit [facility] [address] [place] [address] Suresh Urias MD Medicare ANNUAL (subsequent) Visit (73 year old male) 04/30/2024 Travel 04/25/2024 Travel from Last 3 Months Immunizations Immunization Administration Dates Next Due DTaP 09/25/2008 Hepatitis B, Unspecified 03/12/2019(Deferred: Miguel johnson Refused) Influenza Virus, Unspecified 03/12/2019(Deferred : Patient Refused) Pneumococcal Conj 20-valent (Prevnar 20) 02/15/2022 Pneumococcal conj 13-Valent (Prevnar 13) 11/26/2020 Pneumococcal, Unspecified 03/12/2019(Deferred: P atient Refused) Rabies Vaccine 01/01/2014, 4,12/21/2013,12/1812/21/2013 Tdap 10/02/2018,09/25/2008 Zoster (Shingrix-RZV, recombinant) 06/25/2019, Zoster (Zostavax-ZVL, live) 10/12/2011 Family History Medical History Relation Name Comments Hypertension Brother 4 X2 Alcohol/Drug Father of complic ations Asthma Father Heart Disease Mother in her sl eep age 86 Hypertension Mother Relation Name Status Comments Brother 1 Alive Brother 2 Alive Brother 3 Alive Brother 4 Father (Age 85) Mother (Age 86) Social History Tobacco Use Types Packs/Day Years Used Date Smoking Tobacco: Never Smokeless Tobacco: Never Tobacco Cessation:Counseling Given: Yes Alcohol Use Standard Drinks/Week Comments Yes 21 (1 standard drink = 0.6 oz pure alcohol) 1-2 a day when having visitors PHQ-2 Answer Date Recorded PHQ-2 TOTAL SCORE 0 04/25/2024 Social Connections Answer Date Recorded Do you often feel lonely or isolated from those around you? 0 08/16/2023 Financial Resource Strain Answer Date R ecorded Difficulty of Paying Living Expenses 3 08/16/2023 Difficulty of Paying Living Expenses Not on file 08/16/2023 Food Insecurity Answer Date Recorded Do you worry your food will run out before you are able to buy more? 1 08/16/2023 Transportation Needs Answer Date Record ed Does lack of transportation keep you from medica l appointments? 1 08/16/2023 Does lack of transportation keep you from work, meetings or getting things that you need? 1 08/16/2023 Housing Stability Answer Date Recorded What is your housing situation today? 1 08/16/2023 Utilities Answer Date Recorded Do you have trouble paying f or utilities (for example, heat, electricity, water, phone)? 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 file Not on file Not on file Obstetrics History Last Filed Vital Signs Vital Sign Reading Time Taken Comments Blood Pressure 125/77 05/30/2024 11:22 AM CULL GRADER Pulse 76 05/30/2024 10:58 AM CULL GRADER Temperature 36.6 C (97.8 F) 04/30/2024 1:00 PM CULL GRADER Respiratory Rate 18 11/09/2017 8:51 AM CDT Oxygen Saturation 95% 05/30/2024 10:58 AM CULL GRADER Inhaled Oxygen Concentration - - Weight 68.9 kg (152 lb) 05/30/2024 10:58 AM CULL GRADER Height 157.7 cm (5' 2.1) 05/30/2024 10:58 AM CS T Body Mass Index 27.71 05/30/2024 10:58 AM CULL GRADER Plan of Treatment Health Maintenance Due Date Last Done Comments RSV vaccine for adults or (1 - Risk 60-74 years 1-dose series) 2010 ([place]) Influenza for age 65+ 12/31/2023 COVID-19 vaccine series (2023- season) 2023 07/24/2020, 07/03/2020 Depression screening for age 12+ 04/25/2025 04/25/2024, 03/30/2023, 02/15/2022, Additional history exists Medicare Wellness for age 65+ 05/01/2025, 03/30/2023, 02/15/2022, Additional history exists BMI (ht and wt on same day) for age 18+ 05/30/2025 05/30/2024, 04/30/2024, 01/02/2024, Additional history exists Colonoscopy through age 75 02/05/202602/05, 02/05/2021, 02/05/2021, Additional history exists Tetanus booster 10/02/2028 10/02/2018, 09/25/2008 Lipids for age 45-75 01/01/2029 01/02/2024, 03/30/2023, 02/15/2022, Additional history exists Tdap Completed 10/02/2018, 09/25/2008 Zoster (shingles) series for age 50+ Completed 06/25/2019, 03/05/2019, 10/12/2011 Hepatitis C screening for ag e 18-79 Completed 02/15/2022 Pneumococcal series for age 50+ Completed , 11/26/2020 Procedures Procedure Name Priority Date/Time Associated Diagnosis Comments PSA TOTAL Routine 04/30/2024 1:53 PM CULL GRADER Prostate cancer screening VITAMIN D 25 (DEFICIENCY) Routine 04/30/2024 1:53 PM CULL GRADER Vitamin D deficiency LIPID PANEL W REFLEX MEASURED LDL Add On 01/02/2024 10:37 AM CDT Dyslipidemia, goal LDL below 70 ANTI HCV Routine 02/15/2022 11:45 AM CDT Need for hepatitis C screening test COLONOSCOPY SCREENING Routine 02/05/2021 9:13 AM CDT History of colon polyps from Last 3 Months or Most Recently Relevant to Health Maintenance Results * VITAMIN D 25 (DEFICIENCY) (04/30/2024 1:53 PM CULL GRADER) VITAMIN D,25-OH,TOTAL,IA 31 30 - 100 ng/mL [facility] Comment: Vitamin D Status 25-OH Vitamin D: Deficiency: <20 ng/mL Insufficiency: 20 - 29 ng/mL Optimal: > or = 30 ng/mL For 25-OH Vitamin D testing on patients on D2-supplementation and patients for whom quantitation of D2 and D3 fractions is required, the QuestAssureD(TM) 25-OH VIT D, (D2,D3), LC/MS/MS is recommended: order code 00830 (patients >2yrs). See Note 1 Note 1 For additional information, please refer to http://education.Blippex/faq/IFM624 (This link is being provided for informational/ educational purposes only.) Blood BLOOD SPECIMEN / Unknown 04/30/2024 1:53 PM CULL GRADER 04/30/2024 1:56 PM CULL GRADER Suresh Urias MD SEND OUTS Final Re sult [employer] [facility] [address] [place] [address], [facility] [address] [place] [address] * PSA TOTAL (04/30/2024 1:53 PM CULL GRADER) PSA, TOTAL 1.53 < OR = 4.00 ng/mL [facility] Comment: The total PSA value from this assay system is standardized against the WHO standard. The test result will be approximately 20% lower when compared to the equimolar-standardized total PSA (Rk [place]). Comparison of serial PSA results should be interpreted with this fact in mind. This test was performed using the Siemens chemiluminescent method. Values obtained from different assay methods cannot be used interchangeably. PSA levels, regardless of value, should not be interpreted as absolute evidence of the presence or absence of disease. Blood BLOOD SPECIMEN / Unknown 04/30/2024 1:53 PM CULL GRADER 04/30/2024 1:56 PM CULL GRADER Suresh Urias MD CHEMISTRY Final Re sult [employer] [facility] [address] [place] [address], [facility] [address] [place] [address] * LIPID PANEL W REFLEX MEASURED LDL (01/02/2024 10:37 AM CDT) Pathologist [facility] CHOLESTEROL,TOTAL 124 100 - 199 mg/dL 01/03/2024 1:28 AM CDT [facility] Comment: Cholesterol, Total Reference Ranges Desirable <200 mg/dL Borderline 200-239 mg/dL High >=240 mg/dL TRIGLYCERIDES 134 <150 mg/dL 01/03/2024 1:28 AM CDT [facility] HDL CHOLESTEROL 60 >40 mg/dL 1:28 AM CDT [facility] NON-HDL CHOLESTEROL 64 <145 mg/dl 01/03/2024 1:28 AM CDT [facility] CHOL/HDL RATIO 2.07 <4.50 01/03/2024 1:28 AM CDT [facility] LDL CHOLESTEROL 37 <=130 mg/dL 01/03/2024 1:28 AM CDT [facility] VLDL CHOLESTEROL 27 <=30 mg/dL 01/03/2024 1:28 AM CDT [facility] PROVIDER ORDERED STATUS RANDOM 01/03/2024 1:28 AM CDT [facility] Blood BLOOD SPECIMEN / Unknown Venipuncture / Unknown 01/02/2024 10:37 AM CDT 01/02/2024 10:37 AM CDT Suresh Urias MD CHEMISTRY Final Re sult [facility] [address] [place] [address], [place] * ANTI HCV [68920.2] (02/15/2022 11:45 AM CDT) HEPATITIS C ANTIBODY Non-React kelsy Non-React kelsy 02/16/2022 5:52 AM CDT [facility] Comment:Antibodies to HCV no t detected; does not exclude the possibility of exposure to HCV. Blood BLOOD SPECIMEN / Unknown Venipuncture / Unknown 02/15/2022 11:45 AM CDT 02/15/2022 11:45 AM CDT Suresh Urias MD SEND OUTS Final Re sult Performing Organization Address [facility]/ZIP Co de Phone Number [facility] [address] [place] [address], [place] * COLONOSCOPY (02/05/2021 9:20 AM CDT) 02/05/2021 9:20 AM CDT Narrative Transcriptions Dl Flor MD - 02/05/2021 10:22 AM CDT Patient Name: Amilcar Diaz Procedure Date: 02/05/2021 Gender: Male Date of : 1950 Admit Type: Outpatient Procedure: Colonoscopy Proceduralist: Dl Flor MD , Adrienne Becerra RN(Nurse) Referring MD: Suresh Urias Indications/Pre-Op Diagnosis: Surveillance: Personal history ofadenomatous polyps on last colonoscopy 5 years ago, Last colonoscopy: May 2015 Medications: Fentanyl 100 micrograms IV, Midazolam 2 mgIV, The level of sedation administered wasmoderate Procedure Description: The patient had risks, benefits and alternatives explained to andgave informed consent. The patient had a stable cardiopulmonary status and judged an adequate candidate for conscious sedation. The PCF-[id number] [id number] was passed through the anus and advanced tothe cecum, identified by appendiceal orifice and ileocecal valve. The colonoscopy was performed without difficulty. The patient toleratedthe procedure well. The quality of the bowel preparation was good. The ileocecal valve, appendiceal orifice, and rectum were photographed. Complications: No immediate complications. Estimated Blood Loss & Specimen: Estimated blood loss: none. Specimen collected - Yes and sent to Laboratory Findings: The perianal and digital rectal examinations were normal. Two sessile polyps were found in the ascending colon. The polyps were3 mm in size. These polyps were removed with a cold biopsy forceps. Resection and retrieval were complete. A 4 mm polyp was found in the ascending colon. The polyp was sessile. The polyp was removed with a cold snare. Resection and retrieval were complete. The exam was otherwise without abnormality. Impressions/Post-Op Diagnosis: - Two 3 mm polyps in the ascending colon, removed with a cold biopsy forceps. Resected and retrieved. - One 4 mm polyp in the ascending colon, removed with a cold snare. Resected and retrieved. - The examination was otherwise normal. Recommendation: - Patient has a contact number available for emergencies. The signsand symptoms of potential delayed complications were discussed with the patient. Return to normal activities tomorrow. Written discharge instructions were provided to the patient. - Resume previous diet. - Continue present medications. - Await pathology results. - Repeat colonoscopy is recommended for surveillance. The colonoscopy date will be determined after pathology results from today's exambecome available for review. Moderate Sedation: Moderate (conscious) sedation was administered by the endoscopy nurse and supervised by the endoscopist. The following parameters were monitored: oxygen saturation, heart rate, respiratory rate, blood pressure, adequacy of pulmonary ventilation and reponse to care. Please refer to the patient's medical record flowsheets and nursing notes for moderate sedation details. Total physician intraservice time was 14 minutes. Dl Flor MD 02/05/2021 10:21:55 AM This report has been signed electronically. Note Initiated On: 02/05/2021 9:20 AM Procedure Code(s): --- Professional --- 85551, Colonoscopy, flexible; with removalof tumor(s), polyp(s), or other lesion(s) bysnare technique 18762, 59, Colonoscopy, flexible; withbiopsy, single or multiple Diagnosis Code(s): --- Professional --- K63.5, Polyp of colon Z86.010, Personal history of colonicpolyps CPT copyright 2020 [employer]. All rights reserved. The codes documented in this report are preliminary and upon tnt line supervisor reviewmay be revised to meet current compliance requirements. Scope In: 9:56:29 AM Scope Withdrawal Time 0 hours 10 minutes 25 seconds Scope Out: 10:09:27 AM Dl Flor MD PROCEDURE ORD Final Res ult from Last 3 Months or Most Recently Relevant to Health Maintenance Insurance MEDICARE PART A HB ONLY MEDICARE PB ONLY [facility] MEDICARE PART B HB ONLY Advance Directives * Full Code (Latest Code Status on File) Date Activated Date Inactivated Comments 11/08/2017 11:20 AM 11/09/2017 2:34 PM * Full Code Date Activated Date Inactivated Comments 12/30/2012 6:59 PM 01/02/2013 1:20 PM Care Teams Optometrist President/Practice Owner Relationship Specialty Start Date End Date Votel, Suresh Jones MD [address] [place] [address] PCP - General Family Practice 03/27/12
--- OUTSIDE RECORDS SUMMARY | 2024-07-07 00:14 | XMS_ITS | Encounter Summary ---
Author Organization [facility] Address [address] [place] [address] Care Team Providers Care Pipe Line Inspector Name Role Phone Unavailable Primary Care Provider Unavailabl e Reason for Referral * Outpatient (Routine) - Authorized Specialty Diagnoses / Procedures Referred By Contac t Referred To Contact Diagnoses Benign Prostatic Hyperplasia Hypertrophy With Obstruction Procedures Cysto w/ Prostate US Isak Austin M.D. [address] [place] [address] Phone: tel: fax: Gonzalo Orellana M.D. [address] [place] [address] Phone: tel: fax: Referral ID Status Reason Start Date Expiration Date V isits Requested Visits Authorized [id number] Authorized 05/24/2024 08/24/2025 1 1 * Outpatient (Routine) - Authorized Specialty Diagnoses / Procedures Referred By Contac t Referred To Contact Diagnoses Benign Prostatic Hyperplasia Hypertrophy With Obstruction Procedures URO Uroflow Isak Austin M.D. [address] [place] [address] Phone: tel: fax: [facility] Referral ID Status Reason Start Date Expiration Date V isits Requested Visits Authorized [id number] Authorized 05/24/2024 08/24/2025 1 1 Encounter Details Date Type Department Care Team (Late st Contact Info) Description 05/24/2024 Orders Only Department of Urology in [place], [place] [address] [place] [phone] Isak Austin M.D. [address] [place] [phone] Benign Prostatic Hyperplasia Hypertrophy With Obstruction (Primary Dx) Social History Tobacco Use Types Packs/Day Years Used Date Smoking Tobacco: Never Smokeless Tobacco: Never Alcohol Use Standard Drinks/Week Comments Yes 11 (1 standard drink = 0.6 oz pu re alcohol) Humiliation, Afraid, Rape, and Kick questionnair e Answer Date Recorded Fear of Current or Ex-Partner No Emotionally Abused No 03/09/2019 Physically Abused No 03/09/2019 Sexually Abused No 03/09/2019 Social Connection and Isolation Panel [NHANES] A nswer Date Recorded Frequency of Communication with Friends and Fami ly Never 03/09/2019 Frequency of Social Gatherings with Friends and Family Never 03/09/2019 Attends [employer] Never 03/09 Active Member of Clubs [...] Answer Date Recorded PHQ-2 Score 0 03/09/2019 [employer] - Occupational Stress Questionnaire Answer Date Recorded Feeling of Stress To some extent 03/09/2019 Exercise Vital Sign Answer Date Recorde d Days of Exercise per Week 0 days 2018 Minutes of Exercise per Session 0 min 03/09/2019 Hunger Vital Sign Answer Date Recorded Worried About Running Out of Food in the Last Ye ar Never true 03/09/2019 Ran Out of Food in the Last Year Never true 03/09/2019 PRAPARE - Transportation Answer Date Re corded Lack of Transportation (Medical) No 03/09/2019 Lack of Transportation (Non-Medical) No 03/09/2019 Nutrition Answer Date Recorded Nutrition: EVOO Fat Source 12 03/11 On average, how many serving s of fruits and vegetables do you eat per day (serving size is equal to 1 cup or approximately the size of a tennis ball)? 0-1 03/11/2019 Dental Answer Date Recorded Dental: Regular Dentist Unknown 06/26/19 21 Education Answer Date Recorded What is the highest level of school you have completed or the highest degree you have received? Bachelor's degree (e.g., BA, AB, BS) 03/09/2019 Sex and Gender Information Value Date Recorded Sex Assigned at Male 05/23/2018 5:05 PM FISH AND WILDLIFE BIOLOGIST Legal Sex Male 4:32 AM FISH AND WILDLIFE BIOLOGIST Gender Identity Male 05/23/2018 5:05 PM FISH AND WILDLIFE BIOLOGIST Sexual Orientation Straight 05/23/2018 5: 05 PM FISH AND WILDLIFE BIOLOGIST documented as of this encounter Plan of Treatment Scheduled Orders Name Type Priority Associated Diagnoses Orde r Schedule URO Uroflow Procedure Routine Benign Prostatic Hyperplasia Hypertrophy With Obstruction Expected: 05/24/2024, Expires: 08/22/2025 documented as of this encounter Visit Diagnoses Diagnosis Benign Prostatic Hyperplasia Hypertrophy With Obstruction- Primary documented in this encounter
[2024-07-07 00:18] VITALS: BP 184/109; PULSE 95; RESP 16; TEMP 36.9; O2SAT 98; BMI 27.1
--- NOTE | 2024-07-07 00:29 | ED.GENADULT ---
HPI - General Adult General Time Seen by Provider: 00:29 Date Seen: 07/07/24 Chief complaint: Unspecified Complaint, Adult Stated complaint: blood pressure check Time Seen by Provider: 07/07/24 00:28 Source: patient and RN notes reviewed Mode of arrival: ambulatory Limitations: no limitations History of Present Illness HPI narrative: This 74-year-old male is coming into the ER with asymptomatic hypertension. He just decided to check his blood pressure tonight, was 180/100. He has no stroke symptoms, has had a history of a stroke. He has no chest pain, no headache. He had been monitoring his blood pressure for his doctor as some of the values had started to be high. He has read about exercise, lifestyle changes. We discussed minimization of alcohol, no tobacco products as well for a heart healthy, vascular healthy diet. He really does not want to be on medicine but when the number was this high, he was concerned with his history of a stroke. Again, patient is having no stroke symptomatology tonight. He does bring his machine in. Ours is consistent with his reading level. Related Data Home Medications ?Medication ?Instructions ?Recorded ?Confirmed alfuzosin 10 mg tablet,extended 10 mg PO DAILY 03/04/24 07/07/24 release 24 hr aspirin 81 mg capsule 81 mg PO DAILY 03/04/24 07/07/24 atorvastatin 40 mg tablet 40 mg PO DAILY 03/04/24 07/07/24 pantoprazole 40 mg tablet,delayed 40 mg PO DAILY 03/04/24 07/07/24 release Previous Rx's ?Medication ?Instructions ?Recorded amlodipine 5 mg tablet 5 mg PO DAILY #14 tabs 07/07/24 Allergies Allergy/AdvReac Type Severity Reaction Status Date / Time No Known Drug Allergies Allergy Verified 03/20/24 11:02 Review of Systems Status of ROS: Reports: 6 or more systems reviewed and unremarkable except as noted in History and below [facility] Medical History GERD (gastroesophageal reflux disease) ?K21.9 - Gastro-esophageal reflux disease without esophagitis (ICD-10) PFO (patent foramen ovale) ?Q21.12 - Patent foramen ovale (ICD-10) Allergic rhinitis ?J30.9 - Allergic rhinitis, unspecified (ICD-10) CVA (cerebral vascular accident) (12/30/12) ?I63.9 - Cerebral infarction, unspecified (ICD-10) ASHD (arteriosclerotic heart disease) ?I25.10 - Atherosclerotic heart disease of [place] coronary artery without angina pectoris (ICD-10) Surgical History History of coronary artery stent placement (11/08/17) ?Z95.5 - Presence of coronary angioplasty implant and graft (ICD-10) Social History Smoking Status: Never smoker Do you use any of these nicotine containing products: None How often do you have a drink containing alcohol: 4 or more times a week How many standard drinks containing alcohol do you have on a typical day: 1 or 2 AUDIT-C Alcohol total score: 4 Non-prescribed substance use: denies use Exam Const: Vital Signs, click to edit/add: Vital Signs - 24 hr 07/07/24 00:18 Temperature 98.4 F Pulse Rate [Pulse Oximeter] 95 Respiratory Rate 16 Blood Pressure [Ri ght Upper Arm] 184/109 H Pulse Oximetry 98 Oxygen Delivery Me thod Room Air This 74-year-old male is alert, interactive, no apparent distress. Ambulatory into the ED of his own accord. He has normal speech, symmetrical facial function. No jugular venous distension. Lungs are clear, good air entry, no wheezing crackles. Patient is moving all extremities. Does have his blood pressure cuff here and we did confirm his blood pressure cuff is reading similarly with our blood pressure monitoring. Documenting provider has reviewed patient's vital signs: yes Course Course ED Course: This is an asymptomatic patient with history of coronary artery disease with stent placement as well as cerebrovascular disease. Do recommend that he initiate blood pressure management. I have no chemistries on him, do not have all of his history to know if he has been on anything before. I think initiating amlodipine in the in room is a reasonable approach. Will start with 5 mg amlodipine, will give him a dose here tonight and send a 2 week prescription in for him. We have discussed that most common side effect is peripheral edema which will resolve if the medicine is stopped. He needs to follow up with his primary care provider this next week, they can address what potential class of antihypertensive might be best for him. They can also do any needed blood work or evaluation prior to initiating any other class of medicines. He is in agreement with this plan. Vital Signs Vital signs: Initial Vital Signs Temperature 98.4 F 07/07/24 00:18 Temperature Source Temporal Artery Scan 07/07/24 00:18 Pulse Rate 95 07/07/24 00:18 Respiratory Rate 16 07/07/24 00:18 Blood Pressure 184/109 H 07/07/24 00:18 Blood Pressure Mean 134 H 07/07/24 00:18 Blood Pressure Position Sitting 07/07/24 00:18 Pulse Oximetry 98 07/07/24 00:18 Oxygen Delivery Method Room Air 07/07/24 00:18 Vital Signs Temperature 98.4 F 07/07/24 00:18 Pulse Rate 95 07/07/24 00:18 Respiratory Rate 16 07/07/24 00:18 Blood Pressure 184/109 H 07/07/24 00:18 Pulse Oximetry 98 07/07/24 00:18 Oxygen Delivery Method Room Air 07/07/24 00:18 Temperature 98.4 F 07/07/24 00:18 Pulse Rate 95 07/07/24 00:18 Respiratory Rate 16 07/07/24 00:18 Blood Pressure 184/109 H 07/07/24 00:18 Pulse Oximetry 98 07/07/24 00:18 Oxygen Delivery Method Room Air 07/07/24 00:18 Discharge Plan Discharge Clinical Impression: Hypertension Patient Disposition: Home, Self-Care Condition: Stable Instructions: Low-Sodium Diet (ED), Hypertension (ED) Additional Instructions: Need to schedule a follow-up with your primary care provider within the next week. Can continue to track blood pressure values for them. Do recommend that you take the amlodipine. Dose was given here in the ER tonight and can continued to take it before bedtime. With high blood pressure, it is always important to continue to try to employ lifestyle modification such is 30 minutes of daily exercise, heart healthy diet encompassing low-sodium. Activity Level: Activity as Tolerated Discharge Diet: Heart Healthy (2 gm sodium, low fat) Prescriptions: New amlodipine 5 mg tablet 5 mg PO DAILY Qty: 14 0RF No Action atorvastatin 40 mg tablet 40 mg PO DAILY pantoprazole 40 mg tablet,delayed release (DR/EC) 40 mg PO DAILY alfuzosin 10 mg tablet extended release 24 hr 10 mg PO DAILY aspirin 81 mg capsule 81 mg PO DAILY Follow Up/Referrals: Suresh Urias MD [Primary Care Provider] - Stand Alone Forms: [employer] Info Instructions
[2024-07-07] MEDS: AMLODIPINE 5 MG TABLET PO (00:39)
--- OUTSIDE RECORDS SUMMARY | 2024-07-07 00:40 | XMS_ITS | Clinical Summary ---
Author Organization [facility] Address [address] [place] [address] Care Team Providers Care Injection Press Operator Name Role Phone BatelSuresh MD Primary Care [...] Type Department Care Team Description 06/21/2024 Refill [facility] [address] [facility] [id number] Suresh Urias MD Refill Request (Alfuzosin) 05/30/2024 10:50 AM EQUITY SALES ASSISTANT Office Visit [facility] [address] [facility] [id number] Suresh Urias MD Blood Pressure (Follow up) 05/30/2024 Travel 05/25/2024 Travel 05/03/2024 Telephone [facility] [address] [place] [id number] Suresh Urias MD Refill Request (famciclovir) 04/30/2024 12:50 PM EQUITY SALES ASSISTANT Office Visit [facility] [address] [place] [id number] Suresh Urias MD Medicare ANNUAL (subsequent) Visit [...] PM CDT Legal Sex Male 5:26 AM EQUITY SALES ASSISTANT Gender Identity Male 11/08/2020 9:25 PM CDT Sexual Orientation Not on file 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 on file Not on file Not on file Obstetrics History Last Filed Vital Signs Vital Sign Reading Time Taken Comments Blood Pressure 125/77 05/30/2024 11:22 AM EQUITY SALES ASSISTANT Pulse 76 05/30/2024 10:58 AM EQUITY SALES ASSISTANT Temperature 36.6 C (97.8 F) 04/30/2024 1:00 PM EQUITY SALES ASSISTANT Respiratory Rate 18 11/09/2017 8:51 AM CDT Oxygen Saturation 95% 05/30/2024 10:58 AM EQUITY SALES ASSISTANT Inhaled Oxygen Concentration - - Weight 68.9 kg (152 lb) 05/30/2024 10:58 AM EQUITY SALES ASSISTANT Height 157.7 cm (5' 2.1) 05/30/2024 10:58 AM CS T Body Mass Index 27.71 05/30/2024 10:58 AM EQUITY SALES ASSISTANT Plan of Treatment Health Maintenance Due Date [...] Comments PSA TOTAL Routine 04/30/2024 1:53 PM EQUITY SALES ASSISTANT Prostate cancer screening VITAMIN D 25 (DEFICIENCY) Routine 04/30/2024 1:53 PM EQUITY SALES ASSISTANT Vitamin D deficiency LIPID PANEL W REFLEX [...] VITAMIN D 25 (DEFICIENCY) (04/30/2024 1:53 PM EQUITY SALES ASSISTANT) VITAMIN D,25-OH,TOTAL,IA 31 30 - 100 ng/mL [facility] Comment: Vitamin D Status 25-OH Vitamin D: Deficiency: <20 ng/mL Insufficiency: 20 - 29 ng/mL Optimal: > or = 30 ng/mL For 25-OH Vitamin D testing on patients on D2-supplementation and patients for whom quantitation of D2 and D3 fractions is required, the QuestAssureD(TM) 25-OH VIT D, (D2,D3), LC/MS/MS is recommended: order code 25041 (patients >2yrs). See Note 1 Note 1 For additional information, please refer to http://education.[employer]/faq/XUX631 (This link is being provided for informational/ educational purposes only.) Blood BLOOD SPECIMEN / Unknown 04/30/2024 1:53 PM EQUITY SALES ASSISTANT 04/30/2024 1:56 PM EQUITY SALES ASSISTANT Suresh Urias MD SEND OUTS Final Re sult [employer] [facility] [address] [place] [address], [facility] [address] [place] [address] * PSA TOTAL (04/30/2024 1:53 PM EQUITY SALES ASSISTANT) PSA, TOTAL 1.53 < OR = 4.00 ng/mL [facility] Comment: The total PSA value from this assay system is standardized against the WHO standard. The test result will be approximately 20% lower when compared to the equimolar-standardized total PSA ([facility]k [place]). Comparison of serial PSA results should be interpreted with this fact in mind. This test was performed using the Siemens chemiluminescent method. Values obtained from different assay methods cannot be used interchangeably. PSA levels, regardless of value, should not be interpreted as absolute evidence of the presence or absence of disease. Blood BLOOD SPECIMEN / Unknown 04/30/2024 1:53 PM EQUITY SALES ASSISTANT 04/30/2024 1:56 PM EQUITY SALES ASSISTANT Suresh Urias MD CHEMISTRY Final Re sult [employer] [facility] [address] [place] [address], [facility] [address] [place] [address] * LIPID PANEL W REFLEX MEASURED LDL (01/02/2024 10:37 AM CDT) Pathologist [facility] CHOLESTEROL,TOTAL 124 100 - 199 mg/dL 01/03/2024 1:28 AM CDT [facility] Comment: Cholesterol, Total Reference Ranges Desirable <200 mg/dL Borderline 200-239 mg/dL High >=240 mg/dL TRIGLYCERIDES 134 <150 mg/dL 01/03/2024 1:28 AM CDT [facility] HDL CHOLESTEROL 60 >40 mg/dL 1:28 AM CDT [facility] NON-HDL CHOLESTEROL 64 <145 mg/dl 01/03/2024 1:28 AM CDT [facility] CHOL/HDL RATIO 2.07 <4.50 01/03/2024 1:28 AM CDT [facility] LDL CHOLESTEROL 37 <=130 mg/dL 01/03/2024 1:28 AM CDT [facility] VLDL CHOLESTEROL 27 <=30 mg/dL 01/03/2024 1:28 AM CDT [facility] PROVIDER ORDERED STATUS RANDOM 01/03/2024 1:28 AM CDT [facility] Blood BLOOD SPECIMEN / Unknown Venipuncture / Unknown 01/02/2024 10:37 AM CDT 01/02/2024 10:37 AM CDT Suresh Urias MD CHEMISTRY Final Re sult [facility] [address] [place] [address], [place] * ANTI HCV [75363.2] (02/15/2022 11:45 AM CDT) HEPATITIS C ANTIBODY Non-React kelsy Non-React kelsy 02/16/2022 5:52 AM CDT [facility] Comment:Antibodies to HCV no t detected; does not exclude the possibility of exposure to HCV. Blood BLOOD SPECIMEN / Unknown Venipuncture / Unknown 02/15/2022 11:45 AM CDT 02/15/2022 11:45 AM CDT Suresh Urias MD SEND OUTS Final Re sult Performing Organization Address [facility]/ZIP Co de Phone Number [facility] [address] [place] [address], [place] * COLONOSCOPY (02/05/2021 9:20 AM CDT) [...] adequate candidate for conscious sedation. The [id number] was passed through the anus and advanced [...] 9:20 AM Procedure Code(s): --- Professional --- 88840, Colonoscopy, flexible; with removalof tumor(s), polyp(s), or other lesion(s) bysnare technique 62826, 59, Colonoscopy, flexible; withbiopsy, single or multiple Diagnosis Code(s): --- Professional --- K63.5, Polyp of colon Z86.010, Personal history of colonicpolyps CPT copyright 2020 [employer]. All rights reserved. The codes documented in this report are preliminary and upon hospital coder reviewmay be revised to meet current compliance requirements. Scope In: 9:56:29 AM Scope Withdrawal Time 0 hours 10 minutes 25 seconds Scope Out: 10:09:27 AM Dl Flor MD PROCEDURE ORD Final Res ult from Last 3 Months or Most Recently Relevant to Health Maintenance Insurance MEDICARE PART A HB ONLY MEDICARE PB ONLY [facility] MEDICARE PART B HB ONLY Advance Directives * Full Code (Latest Code Status on File) Date Activated Date Inactivated Comments 11/08/2017 11:20 AM 11/09/2017 2:34 PM * Full Code Date Activated Date Inactivated Comments 12/30/2012 6:59 PM 01/02/2013 1:20 PM Care Teams Injection Press Operator Relationship Specialty Start Date End Date Votel, Suresh Jones MD [address] [place] [address] PCP - General Family Practice 03/27/12
--- OUTSIDE RECORDS SUMMARY | 2024-07-07 00:40 | XMS_ITS | Encounter Summary ---
Author Organization [facility] Address [address] [place] [address] Care Team Providers Care Digital Experience Manager Name Role Phone Unavailable Primary Care Provider Unavailabl e Reason for Referral * Outpatient (Routine) - Authorized Specialty Diagnoses / Procedures Referred By Contac t Referred To Contact Diagnoses Benign Prostatic Hyperplasia Hypertrophy With Obstruction Procedures Cysto w/ Prostate US Isak Austin M.D. [address] [place] [address] Phone: tel: fax: Gonzalo Orellana M.D. [address] [place] [address] Phone: tel: fax: Referral ID Status Reason Start Date Expiration Date V isits Requested Visits Authorized [id number] Authorized 05/24/2024 08/24/2025 1 1 * Outpatient (Routine) - Authorized Specialty Diagnoses / Procedures Referred By Contac t Referred To Contact Diagnoses Benign Prostatic Hyperplasia Hypertrophy With Obstruction Procedures URO Uroflow Isak Austin M.D. [address] [place] [address] Phone: tel: fax: [facility] Referral ID Status Reason Start Date Expiration Date V isits Requested Visits Authorized [id number] Authorized 05/24/2024 08/24/2025 1 1 Encounter Details Date Type Department Care Team (Late st Contact Info) Description 05/24/2024 Orders Only Department of Urology in [place], [place] [address] [place] [phone] Isak Austin M.D. [address] [place] [phone] Benign Prostatic Hyperplasia Hypertrophy With Obstruction (Primary [...] with Friends and Family Never 03/09/2019 Attends Latter Day Services Never 03/09 Active Member of Clubs [...] Answer Date Recorded PHQ-2 Score 0 03/09/2019 [place] of Occupat ional Health - Occupational Stress [...] Sex Assigned at Male 05/23/2018 5:05 PM BOILER ATTENDANT Legal Sex Male 4:32 AM BOILER ATTENDANT Gender Identity Male 05/23/2018 5:05 PM BOILER ATTENDANT Sexual Orientation Straight 05/23/2018 5: 05 PM BOILER ATTENDANT documented as of this encounter Plan of Treatment Scheduled Orders Name Type Priority Associated Diagnoses Orde r Schedule URO Uroflow Procedure Routine Benign Prostatic Hyperplasia Hypertrophy With Obstruction Expected: 05/24/2024, Expires: 08/22/2025 documented as of this encounter Visit Diagnoses Diagnosis Benign Prostatic Hyperplasia Hypertrophy With Obstruction- Primary documented in this encounter
--- OUTSIDE RECORDS SUMMARY | 2024-07-07 00:41 | XMS_ITS | Encounter Summary ---
Author Organization [facility] Address [address] [place] [address] Care Team Providers Care Steffen House Supervisor Name Role Phone Unavailable Primary Care Provider Unavailabl e Reason for Visit * Appointment Request (Routine) - Closed Specialty Diagnoses / Procedures Referred By Sagrario t Referred To Contact Urology Diagnoses Benign Prostatic Hyperplasia Hypertrophy With Obstruction Referral ID Status Reason Start Date Expiration Date Visits Re quested Visits Authorized [id number] Closed 05/21/2024 08/21/2025 1 1 Encounter Details Date Type Department Care Team (Latest Contact Info) Description 06/11/2024 3:30 PM [facility] Comprehensive Visit Department of Urology in [place], [place] [address] [place] [address] Gonzalo Orellana M.D. [address] [place] [phone] Benign Prostatic Hyperplasia Without Obstruction (Primary Dx); Symptom Urinary Social History Tobacco Use Types Packs/Day Years Used Date Smoking Tobacco: Never Smokeless Tobacco: Never Alcohol Use Standard Drinks/Week Comments Yes 11 (1 standard drink = 0.6 oz pu re alcohol) [facility] Utilities Answer Date Recorded In the [...] with Friends and Family Never 03/09/2019 Attends Mandaeism Services Never 03/09 Active Member of Clubs [...] Answer Date Recorded PHQ-2 Score 0 03/09/2019 [facility] of Occupat ional Health - Occupational Stress [...] Sex Assigned at Male 05/23/2018 5:05 PM HEALTH SERVICES ADMINISTRATOR Legal Sex Male 4:32 AM HEALTH SERVICES ADMINISTRATOR Gender Identity Male 05/23/2018 5:05 PM HEALTH SERVICES ADMINISTRATOR Sexual Orientation Straight 05/23/2018 5: 05 PM HEALTH SERVICES ADMINISTRATOR documented as of this encounter Consult Notes [...] weak stream with difficulty urinating, postvoid dribbling, [id number], and urge incontinence with inability to completely [...] plan. Elio Fofana MD Urology PGY-3 Pager: [phone] [1] Current Outpatient Medications: alfuzosin (UROXATRAL) 10 [...] Orellana M.D. at 06/11/2024 3:56 PM MST TH SERVICES ADMINISTRATOR TH SERVICES ADMINISTRATOR Associated attestation - Gonzalo Orellana M.D. - 06/11/2024 4:56 PM HEALTH SERVICES ADMINISTRATOR I saw and evaluated the patient, participating [...]
--- OUTSIDE RECORDS SUMMARY | 2024-07-07 00:41 | XMS_ITS | Clinical Summary ---
Author Organization [facility] Address [address] [place] [address] Care Team Providers Care Industrial Accountant Name Role Phone Unavailable Primary Care Provider Unavailabl e Source Comments Patient records contain information from all sites at [facility]. For routine questions regarding patient records, call [phone] during business hours, M-F 8:00 AM - 5:00 PM Central Time. Record requests for emergency care only can be directed to [phone] at any time.[facility] Allergies Active Allergy Reactions Criticality Noted [...] Department Care Team Description 06/11/2024 3:30 PM [facility] Comprehensive Visit Department of Urology in [place], [place] [address] [place] [phone] Gonzalo Orellana M.D. Benign Prostatic Hyperplasia Without Obstruction (Primary Dx); Symptom Urinary 05/24/2024 Orders Only Department of Urology in [place], [place] [address] [place] [address] Isak Austin M.D. Benign Prostatic Hyperplasia Hypertrophy [...] 2 kim joe Hyperlipidemia Brother 3 colt joe Hypertension Brother 3 colt joe Coronary artery [...] Brother 3 colt diaz Brother 4 geovany daiz Brother 5 Herminio Diaz Brother 6 Zi Diaz Father Scott Diaz Mother haley diaz Social History Tobacco Use Types Packs/Day Years Used Date Smoking Tobacco: Never Smokeless Tobacco: Never Alcohol Use Standard Drinks/Week Comments Yes 11 (1 standard drink = 0.6 oz pu re alcohol) [facility] Utilities Answer Date Recorded In the [...] with Friends and Family Never 03/09/2019 Attends Mosque Services Never 03/09 Active Member of Clubs [...] Answer Date Recorded PHQ-2 Score 0 03/09/2019 [facility] [place] of Occupat ional Health - Occupational Stress [...] your living situation today? I have a [facility] place to live 06/08/2024 Education Answer Date Recorded What is the highest level of school you have completed or the highest degree you have received? Bachelor's degree (e.g., BA, AB, BS) 03/09/2019 Sex and Gender Information Value Date Recorded Sex Assigned at Male 05/23/2018 5:05 PM REEL OPERATOR Legal Sex Male 4:32 AM REEL OPERATOR Gender Identity Male 05/23/2018 5:05 PM REEL OPERATOR Sexual Orientation Straight 05/23/2018 5: 05 PM REEL OPERATOR Last Filed Vital Signs Vital Sign Reading Time Taken Comments Blood Pressure 114/79 06/25/2019 8:00 AM REEL OPERATOR Pulse 92 06/25/2019 8:00 AM REEL OPERATOR Temperature 37 C (98.6 F) 06/25/2019 8:00 AM REEL OPERATOR Respiratory Rate 19 04/10/2019 1:37 PM REEL OPERATOR Oxygen Saturation 94% 04/10/2019 1:39 PM REEL OPERATOR Inhaled Oxygen Concentration - - Weight 70.5 kg (155 lb 6.8 oz) 04/10/2019 12:06 PM REEL OPERATOR Height 162 cm (5' 3.78) 04/10/2019 12:06 PM REEL OPERATOR Body Mass Index 26.86 04/10/2019 12:06 PM REEL OPERATOR Plan of Treatment Health Maintenance Due Date [...] this topic Medical Devices Implanted Type Area Furniture Assembly Supervisor Device Identifier Shelf Expiration Date Model / Serial / Lot Cardiac Stent Cardiac Stent Heart Description:One stent Procedures Procedure Name Priority Date/Time Associated Diagnosis Comments BASIC METABOLIC PANEL, S/P Routine 03/13/2019 6:22 AM REEL OPERATOR Cough Chronic from Last 3 Months or Most Recently Relevant to Health Maintenance Results * Basic Metabolic Panel (03/13/2019 6:22 AM REEL OPERATOR) Potassium, S 4.2 3.6 - 5.2 mmol/L 03/13/2019 7:34 AM REEL OPERATOR DTL Sodium, S 142 135 - 145 mmol/L 03/13/2019 7:34 AM REEL OPERATOR DTL Chloride, S 100 98 - 107 mmol/L 03/13/2019 7:34 AM REEL OPERATOR DTL Bicarbonate, S 27 22 - 29 mmol/L 03/13/2019 7:34 AM REEL OPERATOR DTL Anion Gap 15 7 - 15 03/13/2019 7:34 AM REEL OPERATOR DTL BUN (Blood Urea Nitrogen), S 14 8 - 24 mg/dL 03/13/2019 7:34 AM REEL OPERATOR DTL Creatinine 1.13 0.74 - 1.35 mg/dL 03/13/2019 7:34 AM REEL OPERATOR DTL eGFR-Non Black/ 66 >=60 mL/min/BSA 03/13/2019 7:34 AM REEL OPERATOR DTL Comment: ----ADDITIONAL INFORMATION---- Estimated GFR calculated using the 2009 CKD_EPI creatinine equation. eGFR-Black/Afric an Turkish 77 >=60 mL/min/BSA 03/13/2019 7:34 AM REEL OPERATOR DTL Comment: ----ADDITIONAL INFORMATION---- Estimated GFR calculated using the 2009 CKD_EPI creatinine equation. Calcium, Total, S 9.7 8.8 - 10.2 mg/dL 03/13/2019 7:34 AM REEL OPERATOR DTL Glucose, S 103 70 - 140 mg/dL 03/13/2019 7:34 AM REEL OPERATOR DTL Blood (Blood, Venous) 03/13/2019 6:22 AM REEL OPERATOR 03/13/2019 6:44 AM REEL OPERATOR us Alcira Javed M.D. LAB BLOOD ADD-ON Elizabeth l Result [facility] [address] [place] [address], [place] DTL [facility] [address] [place] [address] from Last 3 Months or Most Recently Relevant to Health Maintenance Insurance MEDICARE [facility]
[2024-07-07 00:42] VITALS: BP 178/89; PULSE 90; RESP 16; TEMP 36.9; O2SAT 98
[2024-07-07 00:43] VITALS: BP 178/89; PULSE 90; RESP 16; TEMP 36.9
== END 2024-07-07 00:44 | disposition home or self-care (01) ==
LOC: ED 00:38
PROVIDERS: Emergency Provider Family Medicine; PCP Family Medicine
DX: I10 Essential (primary) hypertension (principal)
CPT/HCPCS: 99283; A9270

== ENCOUNTER 2024-12-02 16:46 | Emergency (ER) | payer MEDICARE, BC, SELFPAY ==
[2024-12-02 16:48] VITALS: BP 141/72; PULSE 92; RESP 18; TEMP 35.9; O2SAT 97; BMI 26.2
--- OUTSIDE RECORDS SUMMARY | 2024-12-02 16:48 | XMS_ITS | Clinical Summary ---
Author Organization [facility] Address [address] [place] [id number] Care Team Providers Care Help Desk Assistant Name Role Phone BatelSuresh MD Primary Care [...] DIRECTED . 90 Tablet 1 5 Active Active Problems Problem Noted Date Diagnosed [...] Encounters Date Type Department Care Team Description 09/07/2024 Travel from Last 3 Months Immunizations Immunization Administration Dates Next Due DTaP 09/25/2008 Hepatitis A (Adult) 03/12/2019 Hepatitis B (Adult) 03/12/2019 Hepatitis B, Unspecified 03/12/2019(Deferred: Miguel johnson Refused) Influenza Virus, Unspecified 03/12/2019(Deferred : Patient Refused) Pneumococcal Conj 20-valent (Prevnar 20) 02/15/2022 Pneumococcal Poly,23-Valent (Pneumovax) 03/12/2019 Pneumococcal conj 13-Valent (Prevnar 13) 11/26/2020 Pneumococcal, Unspecified 03/12/2019(Deferred: P atient Refused) Rabavert 01/01/2014, 4,12/21/2013,12/18 Rabies Vaccine 01/01/2014, 4,12/21/2013,12/1812/21/2013 Tdap 10/02/2018,09/25/2008 Zoster [...] or isolated from those around you? 0 09/07/2024 Financial Resource Strain Answer Date R ecorded Difficulty of Paying Living Expenses 3 09/07/2024 Difficulty of Paying Living Expenses Not on file 09/07/2024 Food Insecurity Answer Date Recorded Do you worry your food will run out before you are able to buy more? 1 09/07/2024 Transportation Needs Answer Date Record ed Does lack of transportation keep you from medica l appointments? 1 09/07/2024 Does lack of transportation keep you from work, meetings or getting things that you need? 1 09/07/2024 Housing Stability Answer Date Recorded What is your housing situation today? 1 09/07/2024 Utilities Answer Date Recorded Do you have trouble paying f or utilities (for example, heat, electricity, water, phone)? 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 Not on file Not on file Obstetrics History Last Filed Vital Signs Vital Sign Reading Time Taken Comments Blood Pressure 140/80 08/13/2024 2:17 PM CDT Pulse 59 08/13/2024 1:47 PM CDT Temperature 36.6 C (97.8 F) 04/30/2024 1:00 PM CARE TRAINER Respiratory Rate 18 11/09/2017 8:51 AM CDT Oxygen Saturation 98% 08/13/2024 1:47 PM CDT Inhaled Oxygen Concentration - - Weight 69.6 kg (153 lb 6.4 oz) 08/13/2024 1:47 P M CDT Height 158.5 cm (5' 2.4) 08/13/2024 1:47 PM CDT Body Mass Index 27.7 08/13/2024 1:47 PM CDT Plan of Treatment Upcoming Encounters Date Type Department Care Team (Late st Contact Info) Description 12/09/2024 10:15 AM CDT Office Visit [facility] [address] [place] [address] Christine Alberts MD [address] [place] [address] Health Maintenance Due Date Last Done Comments RSV vaccine for adults or (1 - Risk 60-74 years 1-dose series) 2010 Hepatitis B series for 19+ ( 2 of 3 - 19+ 3-dose series) 04/09/2019 03/12/2019 COVID-19 vaccine series ( - 2023- season) 2023 07/24/2020, 07/03/2020 Influenza Vaccine (#1) 2024 Depression screening for age 12+ 04/25/2025 04/25/2024, 03/30/2023, 02/15/2022, Additional history exists Medicare Wellness for age 65+ 05/01/2025, 03/30/2023, 02/15/2022, Additional history exists BMI (ht and wt on same day) for age 18+ 08/13/2025 08/13/2024, 07/11/2024, 05/30/2024, Additional history exists Colonoscopy through age 75 02/05/202602/05, 02/05/2021, 02/05/2021, Additional history exists Tetanus booster 10/02/2028 10/02/2018, 09/25/2008 Lipids for age 45-75 01/01/2029 01/02/2024, 03/30/2023, 02/15/2022, Additional history exists Zoster (shingles) series for age 50+ Completed 06/25/2019, 03/05/2019, 10/12/2011 Hepatitis C screening for ag e 18-79 Completed 02/15/2022 Pneumococcal series for age 50+ Completed 02/15/2022, 11/26/2020, 03/12/2019 Procedures Procedure Name Priority Date/Time Associated Diagnosis Comments LIPID PANEL W REFLEX MEASURED LDL Add On 01/02/2024 10:37 AM CDT Dyslipidemia, goal LDL below 70 ANTI HCV Routine 02/15/2022 11:45 AM CDT Need for hepatitis C screening test COLONOSCOPY SCREENING Routine 02/05/2021 9:13 AM CDT History of colon polyps from Last 3 Months or Most Recently Relevant to Health Maintenance Results * LIPID PANEL W REFLEX MEASURED LDL (01/02/2024 10:37 AM CDT) CHOLESTEROL,TOTAL 124 100 - 199 mg/dL 01/03/2024 1:28 AM CDT [facility] Comment: Cholesterol, Total Reference Ranges Desirable <200 mg/dL Borderline 200-239 mg/dL High >=240 mg/dL TRIGLYCERIDES 134 <150 mg/dL 01/03/2024 1:28 AM CDT [facility] HDL CHOLESTEROL 60 >40 mg/dL 1:28 AM CDT [facility] NON-HDL CHOLESTEROL 64 <145 mg/dl 01/03/2024 1:28 AM CDT [facility] CHOL/HDL RATIO 2.07 <4.50 01/03/2024 1:28 AM CDT [facility] LDL CHOLESTEROL 37 <=130 mg/dL 01/03/2024 1:28 AM CDT [facility] VLDL CHOLESTEROL 27 <=30 mg/dL 01/03/2024 1:28 AM CDT [facility] PROVIDER ORDERED STATUS RANDOM 01/03/2024 1:28 AM CDT [facility] Blood BLOOD SPECIMEN / Unknown Venipuncture / Unknown 01/02/2024 10:37 AM CDT 01/02/2024 10:37 AM CDT Suresh Urias MD CHEMISTRY Final Re sult [facility] [address] [place] [address], [place] * ANTI HCV [70112.2] (02/15/2022 11:45 AM CDT) HEPATITIS C ANTIBODY Non-React kelsy Non-React kelsy 02/16/2022 5:52 AM CDT [facility] Comment:Antibodies to HCV no t detected; does not exclude the possibility of exposure to HCV. Blood BLOOD SPECIMEN / Unknown Venipuncture / Unknown 02/15/2022 11:45 AM CDT 02/15/2022 11:45 AM CDT us Suresh Urias MD SEND OUTS Final Re sult [facility] [address] [place] [address], [place] * COLONOSCOPY (02/05/2021 9:20 AM CDT) 02/05/2021 9:20 AM CDT Narrative Transcriptions Dl Flor MD - 02/05/2021 10:22 AM CDT Patient Name: Amilcar Diaz Procedure Date: 02/05/2021 Gender: Male Date of : 1950 Admit Type: Outpatient Procedure: Colonoscopy Proceduralist: Dl Flor MD , Adrienne Becerra, RN(Nurse) Referring MD: Suresh Urias Indications/Pre-Op Diagnosis: [...] adequate candidate for conscious sedation. The [id number] was passed through the anus and advanced [...] 9:20 AM Procedure Code(s): --- Professional --- 13471, Colonoscopy, flexible; with removalof tumor(s), polyp(s), or other lesion(s) bysnare technique 91294, 59, Colonoscopy, flexible; withbiopsy, single or multiple Diagnosis Code(s): --- Professional --- K63.5, Polyp of colon Z86.010, Personal history of colonicpolyps CPT copyright 2020 [employer]. All rights reserved. The codes documented in this report are preliminary and upon icd 9 coder reviewmay be revised to meet current compliance requirements. Scope In: 9:56:29 AM Scope Withdrawal Time 0 hours 10 minutes 25 seconds Scope Out: 10:09:27 AM us lD Flor MD PROCEDURE ORD Final Res ult from Last 3 Months or Most Recently Relevant to Health Maintenance Insurance MEDICARE PART A HB ONLY MEDICARE PB ONLY [facility] MEDICARE PART B HB ONLY Advance Directives * Full Code (Latest Code Status on File) Date Activated Date Inactivated Comments 11/08/2017 11:20 AM 11/09/2017 2:34 PM * Full Code Date Activated Date Inactivated Comments 12/30/2012 6:59 PM 01/02/2013 1:20 PM Care Teams Help Desk Assistant Relationship Specialty Start Date End Date Votel, Suresh Jones MD [address] [place] [address] PCP - General Family Practice 03/27/12
--- OUTSIDE RECORDS SUMMARY | 2024-12-02 16:48 | XMS_ITS | Clinical Summary ---
Author Organization [facility] Address [address] [place] [address] Care Team Providers Care Manager Creative Name Role Phone Unavailable Primary Care Provider Unavailabl e Source Comments Patient records contain information from all sites at [facility]. For routine questions regarding patient records, call [phone] during business hours, M-F 8:00 AM - 5:00 PM Central Time. Record requests for emergency care only can be directed to [phone] at any time.[facility] Allergies Active Allergy Reactions Criticality Noted Date Comments House Dust Mite Cough 03/12/2019 Medications * This document contains information received from the source organization and may not represent a complete record from that organization. pantoprazole (PROTONIX) 40 mg EC tablet Take [...] Date Stroke 06/25/2019 Patent Foramen Ovale 06/25/2019 Immunizations Immunization Administration Dates Next Due DTaP [...] joe Coronary artery disease Brother 4 geovany oje Hyperlipidemia Brother 4 geovany joe Hypertension Brother 4 geovany joe Skin cancer Brother 5 Herminio Joe Skin cancer Brother 6 Zi Joe Prostate cancer Father Scott StuartNeill Coronary artery disease Mother haley joe Hyperlipidemia Mother haley joe Hypertension Mother haley joe Relation Name Status Comments Brother 1 herminio joe Brother 2 kim joe Brother 3 colt joe Brother 4 geovany joe Brother 5 Herminio Joe Brother 6 Zi Joe Father Scott Joe Mother haley joe Social History Tobacco Use Types Packs/Day Years Used Date Smoking Tobacco: Never Smokeless Tobacco: Never Alcohol Use Standard Drinks/Week Comments Yes 11 (1 standard drink = 0.6 oz pu re alcohol) [facility] Utilities Answer Date Recorded In the past 12 months has th e electric, gas, oil, or water company threatened to shut off services in your home? No 06/08/2024 Humiliation, Afraid, Rape, and Kick questionnair e Answer Date Recorded Fear of Current or Ex-Partner No Emotionally Abused No 03/09/2019 Physically Abused No 03/09/2019 Sexually Abused No 03/09/2019 Hunger Vital Sign Answer Date Recorded Within [...] things needed for daily living? No 06/08/2024 Housing Stability Answer Date Recorded What is your living situation today? [facility] live 06/08/2024 Education Answer Date Recorded What is the highest level of school you have completed or the highest degree you have received? Bachelor's degree (e.g., BA, AB, BS) 03/09/2019 Sex and Gender Information Value Date Recorded Sex Assigned at Male 05/23/2018 5:05 PM LENS GRINDER AND POLISHER Legal Sex Male 4:32 AM LENS GRINDER AND POLISHER Gender Identity Male 05/23/2018 5:05 PM LENS GRINDER AND POLISHER Sexual Orientation Straight 05/23/2018 5: 05 PM LENS GRINDER AND POLISHER Last Filed Vital Signs Vital Sign Reading Time Taken Comments Blood Pressure 114/79 06/25/2019 8:00 AM LENS GRINDER AND POLISHER Pulse 92 06/25/2019 8:00 AM LENS GRINDER AND POLISHER Temperature 37 C (98.6 F) 06/25/2019 8:00 AM LENS GRINDER AND POLISHER Respiratory Rate 19 04/10/2019 1:37 PM LENS GRINDER AND POLISHER Oxygen Saturation 94% 04/10/2019 1:39 PM LENS GRINDER AND POLISHER Inhaled Oxygen Concentration - - Weight 70.5 kg (155 lb 6.8 oz) 04/10/2019 12:06 PM LENS GRINDER AND POLISHER Height 162 cm (5' 3.78) 04/10/2019 12:06 PM LENS GRINDER AND POLISHER Body Mass Index 26.86 04/10/2019 12:06 PM LENS GRINDER AND POLISHER Plan of Treatment Health Maintenance Due Date Last Done Comments CT Colonography 1950 Cologuard 1950 Hepatitis C Screening 1950 Office Visit for Blood Pressure Check / Re-check 1950 RSV vaccine - (32-36 weeks) or 60+ years (1 - Risk 60-74 years 1-dose series) 2010 COVID-19 Vaccine ( season) 2023 07/24/2020, 07/03/2020 Depression Screening (Annual PHQ-2) 05/01/2024 Fall Risk Screen (Annual) 05/01/2024 Creatinine Level (Kidney Function Test) 01/01/2025 01/02/2024, 03/30/2023, 02/15/2022, Additional history exists Potassium Level 01/01/2025 01/02/2024, 03/03, 02/15/2022, Additional history exists Sodium Level 01/01/2025 01/02/2024, 03/03, 02/15/2022, Additional history exists Influenza Vaccine (#1) 2025 Colonoscopy 02/05/2026 02/05/2021, 11/2020, 05/08/2017 (Performed elsewhere), Additional history exists Colorectal Cancer Surveillance 02/05/2026 Fasting Glucose for Diabetes Screening 01/01/2027 01/02/2024, 03/30/2023, 02/15/2022, Additional history exists DTaP,Tdap,and Td Vaccines (4 - Td or Tdap) 10/02/2028 10/02/2018, 09/25/2008, 09/25/2008 Lipid (Cholesterol) Screening 01/01/2029 01/02/2024, 03/30/2023, 02/15/2022, Additional history exists Zoster Vaccines Completed 06/25/2019, 11/0 08/2018, 10/12/2011 Pneumococcal vaccine (50+ years) Completed 02/15/2022, 11/26/2020, 03/12/2019 IPV Vaccines Aged Out No longer eligi ble based on patient's age to complete this topic Medical Devices Implanted Type Area Title 1 Tutor Device Identifier Shelf Expiration Date Model / Serial / Lot Cardiac Stent Cardiac Stent Heart Description:One stent Procedures Procedure Name Priority Date/Time Associated Diagnosis Comments BASIC METABOLIC PANEL, S/P Routine 03/13/2019 6:22 AM LENS GRINDER AND POLISHER Cough Chronic from Last 3 Months or Most Recently Relevant to Health Maintenance Results * Basic Metabolic Panel (03/13/2019 6:22 AM LENS GRINDER AND POLISHER) Pathologist [facility] Potassium, S 4.2 3.6 - 5.2 mmol/L 03/13/2019 7:34 AM LENS GRINDER AND POLISHER DTL Sodium, S 142 135 - 145 mmol/L 03/13/2019 7:34 AM LENS GR[employer]ER AND POLISHER DTL Chloride, S 100 98 - 107 mmol/L 03/13/2019 7:34 AM LENS [employer]ER [employer] POLISHER DTL Bicarbonate, S 27 22 - 29 mmol/L 03/13/2019 7:34 AM LENS [employer]ER [employer] POLISHER DTL Anion Gap 15 7 - 15 03/13/2019 7:34 AM LENS [employer]ER [employer] POLISHER DTL BUN (Blood Urea Nitrogen), S 14 8 - 24 mg/dL 03/13/2019 7:34 AM LENS [employer] POLISHER DTL Creatinine 1.13 0.74 - 1.35 mg/dL 03/13/2019 7:34 AM LENS GR[employer]ER AND POLISHER DTL eGFR-Non Black/ 66 >=60 mL/min/BSA 03/13/2019 7:34 AM [employer]ER [employer] POLISHER DTL Comment: ----ADDITIONAL INFORMATION---- Estimated GFR calculated using the 2009 CKD_EPI creatinine equation. eGFR-Black/Afric an Ghanaian 77 >=60 mL/min/BSA 03/13/2019 7:34 AM LENS GR[employer]ER AND POLISHER DTL Comment: ----ADDITIONAL INFORMATION---- Estimated GFR calculated using the 2009 CKD_EPI creatinine equation. Calcium, Total, S 9.7 8.8 - 10.2 mg/dL 03/13/2019 7:34 AM LENS GR[employer]ER AND POLISHER DTL Glucose, S 103 70 - 140 mg/dL 03/13/2019 7:34 AM LENS GR[employer]ER AND POLISHER DTL Blood (Blood, Venous) 03/13/2019 6:22 AM LENS GR[employer]ER AND POLISHER 03/13/2019 6:44 AM LENS GR[employer]ER AND POLISHER Alcira Javed M.D. LAB BLOOD ADD-ON Elizabeth l Result [facility] [address] [place] [address], [place] DTL [facility] [address] [place] [address] from Last 3 Months or Most Recently Relevant to Health Maintenance Insurance MEDICARE [facility]
[2024-12-02 17:01] LABS: Appearance Urine Clear (Clear)
--- NOTE | 2024-12-02 18:00 | ED.GENADULT ---
HPI - General Adult General Chief complaint: Urogenital Problems, Male Stated complaint: uti Time Seen by Provider: 12/02/24 17:53 Source: patient Mode of arrival: ambulatory Limitations: no limitations History of Present Illness HPI narrative: 74-year-old male presenting today with increased urinary frequency and urgency. This has been going on for approximately 2 days. He denies any fevers or chills. He denies any blood in his urine, he denies any change in the color or sent of his urine. He does state that he has a history prostatic hypertrophy, but never has he had to urinate as frequently as he had to this weekend. He states that he has to urinate every 10 minutes. He states when he goes very little comes out and it causes him discomfort. He denies any swelling of the penis or scrotum. Related Data Home Medications ?Medication ?Instructions ?Recorded ?Confirmed alfuzosin 10 mg tablet,extended 10 mg PO DAILY 03/04/24 12/02/24 release 24 hr aspirin 81 mg capsule 81 mg PO DAILY 03/04/24 12/02/24 atorvastatin 40 mg tablet 40 mg PO DAILY 03/04/24 12/02/24 pantoprazole 40 mg tablet,delayed 40 mg PO DAILY 03/04/24 12/02/24 release Allergies Allergy/AdvReac Type Severity Reaction Status Date / Time No Known Drug Allergies Allergy Verified 03/20/24 11:02 Review of Systems Status of ROS: Reports: 10 or more systems reviewed and unremarkable except as noted in History and below PFSH PFS Medical History GERD (gastroesophageal reflux disease) ?K21.9 - Gastro-esophageal reflux disease without esophagitis (ICD-10) PFO (patent foramen ovale) ?Q21.12 - Patent foramen ovale (ICD-10) Allergic rhinitis ?J30.9 - Allergic rhinitis, unspecified (ICD-10) CVA (cerebral vascular accident) (12/30/12) ?I63.9 - Cerebral infarction, unspecified (ICD-10) ASHD (arteriosclerotic heart disease) ?I25.10 - Atherosclerotic heart disease of [place] coronary artery without angina pectoris (ICD-10) Surgical History History of coronary artery stent placement (11/08/17) ?Z95.5 - Presence of coronary angioplasty implant and graft (ICD-10) Social History Smoking Status: Never smoker Do you use any of these nicotine containing products: None How often do you have a drink containing alcohol: 4 or more times a week How many standard drinks containing alcohol do you have on a typical day: 1 or 2 AUDIT-C Alcohol total score: 4 Non-prescribed substance use: denies use Exam Narrative: Exam Narrative: Well-nourished well-developed patient in no acute distress. Alert and oriented. Answers questions appropriately. Mood and affect are appropriate. Thoughts are goal oriented and rational. No tangential or magical thinking noted. Patient speaks in full sentences without needing to catch His breath. HEENT: Normocephalic atraumatic. Extraocular muscles are intact. Conjunctivae are moist without any icterus noted. Moist mucous membranes. Abdomen: Soft with normal bowel sounds. He does have mild suprapubic tenderness. Skin: Well perfused without any obvious rashes. Const: Vital Signs, click to edit/add: Vital Signs - 24 hr 12/02/24 16:48 Temperature 96.7 F L Pulse Rate [Pulse Oximeter] 92 Respiratory Rate 18 Blood Pressure [Ri ght Upper Arm] 141/72 H Pulse Oximetry 97 Oxygen Delivery Me thod Room Air Course Course ED Course: UA was obtained, this was entirely normal. We did proceed with a bladder scan. this showed 360 mL of urine, right after the patient had urinated Multiple times. Because of this we did go ahead and proceed with Fay insertion. 550 mL of clear straw-colored urine drained after Fay insertion. Vital Signs Vital signs: Initial Vital Signs Temperature 96.7 F L 12/02/24 16:48 Temperature Source Temporal Artery Scan 12/02/24 16:48 Pulse Rate 92 12/02/24 16:48 Respiratory Rate 18 12/02/24 16:48 Blood Pressure 141/72 H 12/02/24 16:48 Blood Pressure Mean 95 12/02/24 16:48 Blood Pressure Position Sitting 12/02/24 16:48 Pulse Oximetry 97 12/02/24 16:48 Oxygen Delivery Method Room Air 12/02/24 16:48 Vital Signs Temperature 96.7 F L 12/02/24 16:48 Pulse Rate 92 12/02/24 16:48 Respiratory Rate 18 12/02/24 16:48 Blood Pressure 141/72 H 12/02/24 16:48 Pulse Oximetry 97 12/02/24 16:48 Oxygen Delivery Method Room Air 12/02/24 16:48 Temperature 96.7 F L 12/02/24 16:48 Pulse Rate 92 12/02/24 16:48 Respiratory Rate 18 12/02/24 16:48 Blood Pressure 141/72 H 12/02/24 16:48 Pulse Oximetry 97 12/02/24 16:48 Oxygen Delivery Method Room Air 12/02/24 16:48 Medical Decision Making MDM Narrative Medical decision making narrative: 74-year-old male with acute urinary retention. Indwelling catheter was placed. Patient will follow-up with primary care in 2-3 days for removal and follow-up plan. Lab Data Lab results reviewed: Yes I reviewed the patient's lab results Labs: Lab Results 12/02/24 Range/Units 16:53 Urine Color Yellow (Yellow) Urine Appearance Clear (Clear) Urine pH 6.0 (5.0-8.5) Ur Specific [place] 1.015 (1.000-1.030) Urine Protein Negative (Negative) Urine Glucose (UA) Negative (Negative) Urine Ketones Negative (Negative) Urine Blood Negative (Negative) Urine Nitrite Negative (Negative) Urine Bilirubin Negative (Negative) Urine Urobilinogen 0.2 (0.2-1.0) Ur Leukocyte Esterase Negative (Negative) Discharge Plan Discharge Clinical Impression: Acute urinary retention Patient Disposition: Home, Self-Care Condition: Stable Instructions: Fay Catheter Placement and Care (ED), How to Change a Catheter Drainage Bag (DC) Additional Instructions: Follow-up with your primary care provider in 2-3 days to discuss removal of the urinary catheter and next steps in management. Prescriptions: No Action atorvastatin 40 mg tablet 40 mg PO DAILY pantoprazole 40 mg tablet,delayed release (DR/EC) 40 mg PO DAILY alfuzosin 10 mg tablet extended release 24 hr 10 mg PO DAILY aspirin 81 mg capsule 81 mg PO DAILY Follow Up/Referrals: Suresh Urias MD [Primary Care Provider, Family Practice] Stand Alone Forms: extraTKT Info Instructions
[2024-12-02 19:30] VITALS: BP 128/68; PULSE 74; RESP 18; O2SAT 97
== END 2024-12-02 19:40 | disposition home or self-care (01) ==
PROVIDERS: Emergency Provider Family Medicine; PCP Family Medicine
DX: R33.9 Retention of urine, unspecified (principal)
CPT/HCPCS: 51702; 81003; 99283; 99284

== ENCOUNTER 2024-12-04 21:24 | Emergency (ER) | payer MEDICARE, BC, SELFPAY ==
--- OUTSIDE RECORDS SUMMARY | 2024-12-04 21:26 | XMS_ITS | Clinical Summary ---
Author Organization [facility] Address [address] [place] [address] Care Team Providers Care District Manager Postal Service Name Role Phone BatelSuresh MD Primary Care [...] DIRECTED . 90 Tablet 1 5 Active finasteride (PROSCAR) 5 mg tabletIndication s:BPH with urinary obstruction Take 1 Tablet (5 mg) by mouth once daily in the morning. 90 Tablet 1 5 Active Active Problems [...] Encounters Date Type Department Care Team Description 12/04/2024 2:55 PM CDT Office Visit [facility] [address] [place] [address] Suresh Urias MD ER Follow up (urinary, [place], 12/02/24, catheter) 12/04/2024 Travel 12/02/2024 Telephone [facility] [address] [place] [address] Suresh Urias MD Appointment Request 09/07/2024 Travel from Last 3 Months Immunizations Immunization Administration Dates Next Due DTaP 09/25/2008 Hepatitis A (Adult) 03/12/2019 Hepatitis B (Adult) 03/12/2019 Hepatitis B, Unspecified 03/12/2019(Deferred: Miguel tiemiguelina Refused) Influenza Virus, Unspecified 03/12/2019(Deferred : Patient [...] PM CDT Legal Sex Male 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 Gender Identity Male 11/08/2020 9:25 PM CDT Sexual Orientation Not on file 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 Not on file Not on file Not on file Obstetrics History Last Filed Vital Signs Vital Sign Reading Time Taken Comments Blood Pressure 140/80 08/13/2024 2:17 PM CDT Pulse 86 12/04/2024 3:01 PM CDT Temperature 36.6 C (97.8 F) 12/04/2024 3:01 PM CDT Respiratory Rate 18 11/09/2017 8:51 AM CDT Oxygen Saturation 95% 12/04/2024 3:01 PM CDT Inhaled Oxygen Concentration - - Weight 68.4 kg (150 lb 14.4 oz) 12/04/2024 3:01 PM CDT Height 158.5 cm (5' 2.4) 12/04/2024 3:01 PM CDT Body Mass Index 27.25 12/04/2024 3:01 PM CDT Plan of Treatment Health Maintenance Due Date [...] wt on same day) for age 18+ 12/04/2025 12/04/2024, 08/13/2024, 07/11/2024, Additional history exists Colonoscopy through age 75 [...] - 199 mg/dL 01/03/2024 1:28 AM CDT [facility] Comment: Cholesterol, Total Reference Ranges Desirable <200 mg/dL Borderline 200-239 mg/dL High >=240 mg/dL TRIGLYCERIDES 134 <150 mg/dL 01/03/2024 1:28 AM CDT [facility] HDL CHOLESTEROL 60 >40 mg/dL 1:28 AM CDT [facility] NON-HDL CHOLESTEROL 64 <145 mg/dl 01/03/2024 1:28 AM CDT [facility] CHOL/HDL RATIO 2.07 <4.50 01/03/2024 1:28 AM CDT [facility] LDL CHOLESTEROL 37 <=130 mg/dL 01/03/2024 1:28 AM CDT [facility] VLDL CHOLESTEROL 27 <=30 mg/dL 01/03/2024 1:28 AM CDT [facility] PROVIDER ORDERED STATUS RANDOM 01/03/2024 1:28 AM CDT [facility] Blood BLOOD SPECIMEN / Unknown Venipuncture / Unknown 01/02/2024 10:37 AM CDT 01/02/2024 10:37 AM CDT us Suresh Urias MD CHEMISTRY Final Re sult [facility] [address] [place] [address], [place] * ANTI HCV [24506.2] (02/15/2022 11:45 AM CDT) HEPATITIS C ANTIBODY Non-React kelsy Non-React kelsy 02/16/2022 5:52 AM CDT [facility] Comment:Antibodies to HCV no t detected; does not exclude the possibility of exposure to HCV. Blood BLOOD SPECIMEN / Unknown Venipuncture / Unknown 02/15/2022 11:45 AM CDT 02/15/2022 11:45 AM CDT us Suresh Urias MD SEND OUTS Final Re sult [facility] [address] [place] [address], [place] * COLONOSCOPY (02/05/2021 9:20 AM CDT) [...] adequate candidate for conscious sedation. The [id number] was passed through the anus and advanced [...] 9:20 AM Procedure Code(s): --- Professional --- 54532, Colonoscopy, flexible; with removalof tumor(s), polyp(s), or other lesion(s) byemma technique 64449, 59, Colonoscopy, flexible; withbiopsy, single or multiple Diagnosis Code(s): --- Professional --- K63.5, Polyp of colon Z86.010, Personal history of colonicpolyps CPT copyright 2020 [employer]. All rights reserved. The codes documented in this report are preliminary and upon coder operator reviewmay be revised to meet current compliance requirements. Scope In: 9:56:29 AM Scope Withdrawal Time 0 hours 10 minutes 25 seconds Scope Out: 10:09:27 AM Dl Flor MD PROCEDURE ORD Final Res ult from Last 3 Months or Most Recently Relevant to Health Maintenance Insurance MEDICARE PART A HB ONLY MEDICARE PB ONLY [facility] MEDICARE PART B HB ONLY Advance Directives * Full Code (Latest Code Status on File) Date Activated Date Inactivated Comments 11/08/2017 11:20 AM 11/09/2017 2:34 PM * Full Code Date Activated Date Inactivated Comments 12/30/2012 6:59 PM 01/02/2013 1:20 PM Care Teams District Manager Postal Service Relationship Specialty Start Date End Date Votel, Suresh Jones MD [address] [place] [address] PCP - General Family Practice 03/27/12
--- OUTSIDE RECORDS SUMMARY | 2024-12-04 21:27 | XMS_ITS | Clinical Summary ---
Author Organization [facility] Address [address] [place] [address] Care Team Providers Care Talent Development Consultant Name Role Phone Unavailable Primary Care Provider Unavailabl e Source Comments Patient records contain information from all sites at [facility]. For routine questions regarding patient records, call [phone] during business hours, M-F 8:00 AM - 5:00 PM Central Time. Record requests for emergency care only can be directed to [phone] at any time.[facility] Allergies Active Allergy Reactions Criticality Noted [...] joe Coronary artery disease Brother 4 geovany jeo Hyperlipidemia Brother 4 geovany joe Hypertension Brother [...] = 0.6 oz pu re alcohol) [facility] Utilities Answer Date Recorded In [...] your living situation today? I have a [facility] place to live 06/08/2024 Education Answer Date Recorded What is the highest level of school you have completed or the highest degree you have received? Bachelor's degree (e.g., BA, AB, BS) 03/09/2019 Sex and Gender Information Value Date Recorded Sex Assigned at Male 05/23/2018 5:05 PM RUBY DEVELOPER Legal Sex Male 4:32 AM RUBY DEVELOPER Gender Identity Male 05/23/2018 5:05 PM RUBY DEVELOPER Sexual Orientation Straight 05/23/2018 5: 05 PM RUBY DEVELOPER Last Filed Vital Signs Vital Sign Reading Time Taken Comments Blood Pressure 114/79 06/25/2019 8:00 AM RUBY DEVELOPER Pulse 92 06/25/2019 8:00 AM RUBY DEVELOPER Temperature 37 C (98.6 F) 06/25/2019 8:00 AM RUBY DEVELOPER Respiratory Rate 19 04/10/2019 1:37 PM RUBY DEVELOPER Oxygen Saturation 94% 04/10/2019 1:39 PM RUBY DEVELOPER Inhaled Oxygen Concentration - - Weight 70.5 kg (155 lb 6.8 oz) 04/10/2019 12:06 PM RUBY DEVELOPER Height 162 cm (5' 3.78) 04/10/2019 12:06 PM RUBY DEVELOPER Body Mass Index 26.86 04/10/2019 12:06 PM RUBY DEVELOPER Plan of Treatment Health Maintenance Due Date [...] this topic Medical Devices Implanted Type Area Paver Layer Device Identifier Shelf Expiration Date Model / Serial / Lot Cardiac Stent Cardiac Stent Heart Description:One stent Procedures Procedure Name Priority Date/Time Associated Diagnosis Comments BASIC METABOLIC PANEL, S/P Routine 03/13/2019 6:22 AM RUBY DEVELOPER Cough Chronic from Last 3 Months or Most Recently Relevant to Health Maintenance Results * Basic Metabolic Panel (03/13/2019 6:22 AM RUBY DEVELOPER) Pathologist [facility] Potassium, S 4.2 3.6 - 5.2 mmol/L 03/13/2019 7:34 AM RUBY DEVELOPER DTL Sodium, S 142 135 - 145 mmol/L 03/13/2019 7:34 AM RUBY DEVELOPER DTL Chloride, S 100 98 - 107 mmol/L 03/13/2019 7:34 AM RUBY DEVELOPER DTL Bicarbonate, S 27 22 - 29 mmol/L 03/13/2019 7:34 AM RUBY DEVELOPER DTL Anion Gap 15 7 - 15 03/13/2019 7:34 AM RUBY DEVELOPER DTL BUN (Blood Urea Nitrogen), S 14 8 - 24 mg/dL 03/13/2019 7:34 AM RUBY DEVELOPER DTL Creatinine 1.13 0.74 - 1.35 mg/dL 03/13/2019 7:34 AM RUBY DEVELOPER DTL eGFR-Non Black/ 66 >=60 mL/min/BSA 03/13/2019 7:34 AM RUBY DEVELOPER DTL Comment: ----ADDITIONAL INFORMATION---- Estimated GFR calculated using the 2009 CKD_EPI creatinine equation. eGFR-Black/Afric an Hungarian 77 >=60 mL/min/BSA 03/13/2019 7:34 AM RUBY DEVELOPER DTL Comment: ----ADDITIONAL INFORMATION---- Estimated GFR calculated using the 2009 CKD_EPI creatinine equation. Calcium, Total, S 9.7 8.8 - 10.2 mg/dL 03/13/2019 7:34 AM RUBY DEVELOPER DTL Glucose, S 103 70 - 140 mg/dL 03/13/2019 7:34 AM RUBY DEVELOPER DTL Blood (Blood, Venous) 03/13/2019 6:22 AM RUBY DEVELOPER 03/13/2019 6:44 AM RUBY DEVELOPER Alcira Javed M.D. LAB BLOOD ADD-ON Elizabeth l Result [facility] [address] [place] [address], [place] DTL [facility] [address] [place] [address] from Last 3 Months or Most Recently Relevant to Health Maintenance Insurance MEDICARE [facility]
[2024-12-04 21:31] VITALS: BP 175/88; PULSE 82; RESP 18; TEMP 36.5; O2SAT 96
--- NOTE | 2024-12-04 21:52 | ED_ITS ---
HPI - Male Genitourinary General Time Seen by Provider: 21:52 Date Seen: 12/04/24 Chief complaint: Urogenital Problems, Male Stated complaint: unable to urinate/cath taken out today Time Seen by Provider: 12/04/24 21:52 Source: patient Mode of arrival: ambulatory History of Present Illness HPI Narrative: Amilcar is a 74-year-old male who presents to the emergency department for evaluation of urinary retention. Patient was recently seen in the emergency department on Monday and 12/02/2024 for increased urinary frequency, urgency, as well as urinary retention. Patient had Fay catheter placed at that time. Patient states that he went to his primary care provider's office today and had his Fay catheter removed. Shortly after going home he was unable to urinate so came back in for ongoing urinary tension. Patient reports urinary tension but denies any fever, chills, nausea, vomiting, abdominal pain, flank pain, no other complaints. Patient notes some blood in the urine. Patient is not on chronic anticoagulation, takes 81 mg aspirin daily. No other complaints. Related Data Home Medications ?Medication ?Instructions ?Recorded ?Confirmed alfuzosin 10 mg tablet,extended 10 mg PO DAILY 4 12/02/24 release 24 hr aspirin 81 mg capsule 81 mg PO DAILY 03/04/2408/23 atorvastatin 40 mg tablet 40 mg PO DAILY 03/04/2408/23 pantoprazole 40 mg tablet,delayed 40 mg PO DAILY 03/0412/02/24 release Allergies Allergy/AdvReac Type Severity Reaction Status Date / Time No Known Drug Allergies Allergy Verified 12/04/24 21:34 Review of Systems Narrative: Past medical history, past surgical history, medications, allergies, family history, and social history were reviewed with the patient. No additional pertinent items. A medically appropriate review of systems was performed with pertinent positives and negatives noted in HPI, all other systems negative. [facility] Medical History GERD (gastroesophageal reflux disease) ?K21.9 - Gastro-esophageal reflux disease without esophagitis (ICD-10) PFO (patent foramen ovale) ?Q21.12 - Patent foramen ovale (ICD-10) Allergic rhinitis ?J30.9 - Allergic rhinitis, unspecified (ICD-10) CVA (cerebral vascular accident) (12/30/12) ?I63.9 - Cerebral infarction, unspecified (ICD-10) ASHD (arteriosclerotic heart disease) ?I25.10 - Atherosclerotic heart disease of torres martinez coronary artery without angina pectoris (ICD-10) Surgical History History of coronary artery stent placement (11/08/17) ?Z95.5 - Presence of coronary angioplasty implant and graft (ICD-10) Social History Smoking Status: Never smoker Do you use any of these nicotine containing products: None How often do you have a drink containing alcohol: 4 or more times a week How many standard drinks containing alcohol do you have on a typical day: 1 or 2 AUDIT-C Alcohol total score: 4 Non-prescribed substance use: denies use Exam Narrative: Exam Narrative: General: Afebrile, no acute distress HEENT: Normocephalic, atraumatic, conjunctiva normal. MMM Neck: non-tender, supple Cardio: regular rate. regular rhythm Resp: Normal work of breathing, no respiratory distress, lungs clear bilat erally, no wheezing, rhonchi, rales Chest/Back: no visual signs of trauma, no midline tenderness, no CVA tenderness Abdomen: soft, non distension, no tenderness, no peritoneal signs Neuro: alert and fully oriented. CN II-XII grossly intact. Grossly normal strength and sensation in all extremities. MSK: no deformities. Normal range of motion Integumentary/Skin: no rash visualized, normal color Psych: normal affect, normal behavior Const: Vital Signs, click to edit/add: Vital Signs - 24 hr 12/04/24 21:31 Temperature 97.7 F Pulse Rate [Right Pulse Oximeter] 82 Respiratory Rate 18 Blood Pressure [Ri ght Upper Arm] 175/88 H Pulse Oximetry 96 Oxygen Delivery Me thod Room Air Course Vital Signs Vital signs: Initial Vital Signs Temperature 97.7 F 12/04/24 21:31 Temperature Source Temporal Artery Scan 12/04/24 21:31 Pulse Rate 82 12/04/24 21:31 Pulse Rhythm Regular 12/04/24 21:31 Respiratory Rate 18 12/04/24 21:31 Blood Pressure 175/88 H 12/04/24 21:31 Blood Pressure Mean 117 H 12/04/24 21:31 Blood Pressure Position Sitting 12/04/24 21:31 Pulse Oximetry 96 12/04/24 21:31 Oxygen Delivery Method Room Air 12/04/24 21:31 Vital Signs Temperature 97.7 F 12/04/24 21:31 Pulse Rate 82 12/04/24 21:31 Respiratory Rate 18 12/04/24 21:31 Blood Pressure 175/88 H 12/04/24 21:31 Pulse Oximetry 96 12/04/24 21:31 Oxygen Delivery Method Room Air 12/04/24 21:31 Temperature 97.7 F 12/04/24 21:31 Pulse Rate 82 12/04/24 21:31 Respiratory Rate 18 12/04/24 21:31 Blood Pressure 175/88 H 12/04/24 21:31 Pulse Oximetry 96 12/04/24 21:31 Oxygen Delivery Method Room Air 12/04/24 21:31 MDM - Male Genitourinary MDM Narrative Medical decision making narrative: Amilcar is a 74-year-old male who presents to the emergency department for evaluation of urinary retention. Upon arrival patient is nontoxic appearing, afebrile, no distress. Upon arrival bladder scan performed, patient with urinary retention so Fay catheter was placed. Patient reports significant improvement of symptoms after Fay catheter placed and would like to go home with Fay catheter. Patient overall nontoxic appearing, afebrile, no abdominal pain, flank pain urinalysis with blood, trace leukocyte Estrace, at this time will hold off on antibiotics, follow-up culture. Discussed with patient and recommend close outpatient follow-up with primary care provider as well as Urology. Patient states that he does follow with Urology at [facility] and will arrange follow-up for voiding trial/Fay catheter removal, as well as further evaluation. Strict return precautions discussed if high fever, severe pain, hematuria, no urine output, or any worsening symptoms. Patient understands and agrees the plan. Medical Records Attestation: I reviewed the patient's medical records. Lab Data Attestation: I reviewed the patient's lab results. Labs: Lab Results 12/04/24 Range/Units 22:00 Urine Color Yellow (Yellow) Urine Appearance Turbid A (Clear) Urine pH 6.0 (5.0-8.5) Ur Specific [place] 1.010 (1.000-1.030) Urine Protein 1+ A (Negative) Urine Glucose (UA) Negative (Negative) Urine Ketones Negative (Negative) Urine Blood 3+ A (Negative) Urine Nitrite Negative (Negative) Urine Bilirubin Negative (Negative) Urine Urobilinogen 0.2 (0.2-1.0) Ur Leukocyte Esterase Trace A (Negative) Urine RBC 25-50 A (0-2) Urine WBC 2-5 (0-5) Ur Squamous Epith Cells Few (None-Few) Urine Bacteria Few A (None) Discharge Plan Discharge Clinical Impression: Acute urinary retention Patient Disposition: Home, Self-Care Condition: Improved Instructions: Urinary Retention in Men (ED), Fay Catheter Placement and Care (ED) Additional Instructions: Please follow-up with your primary care provider in the next 5-7 days for further evaluation and follow-up. Please follow-up with urology in the next 1-2 weeks for voiding trial. Please call the urology office in the morning, let them know you were in the emergency department for urinary retention and had a Fay catheter placed and that you will need follow-up regarding urinary retension as well as a voiding trial. Please rest, drink plenty of water. Please take Tylenol or ibuprofen as needed for pain. Please return to the [facility] r[facility] department if he develops high fever, severe abdominal pain, no urinary output, or any worsening symptoms. It was a pleasure taking care of you today. Prescriptions: No Action atorvastatin 40 mg tablet 40 mg PO DAILY pantoprazole 40 mg tablet,delayed release (DR/EC) 40 mg PO DAILY alfuzosin 10 mg tablet extended release 24 hr 10 mg PO DAILY aspirin 81 mg capsule 81 mg PO DAILY Follow Up/Referrals: Suresh Urias MD [Primary Care Provider, Family Practice] Stand Alone Forms: [employer] Info Instructions
[2024-12-04 22:10] LABS: Appearance Urine Turbid (Clear)
== END 2024-12-04 23:01 | disposition home or self-care (01) ==
LOC: ED 22:44
PROVIDERS: Emergency Provider Emergency Medicine; PCP Family Medicine
DX: R33.9 Retention of urine, unspecified (principal)
CPT/HCPCS: 51702; 81001; 87086; 99283; 99285

== ENCOUNTER 2024-12-25 20:08 | Emergency (ER) | payer MEDICARE, BC, SELFPAY ==
--- OUTSIDE RECORDS SUMMARY | 2024-12-24 15:00 | XMS_ITS | Encounter Summary ---
Author Organization [facility] Address [address] [place] [address] Care Team Providers Care Front Clerk Name Role Phone Unavailable Primary Care Provider Unavailabl e Reason for Referral * Outpatient (Routine) - Closed Specialty Diagnoses / Procedures Referred By Contac t Referred To Contact Diagnoses Benign Prostatic Hyperplasia Without Obstruction Procedures URO Uroflow Rosalia Doyle M.D. [address] [place] [address] Phone: tel: fax: [facility] Referral ID Status Reason Start Date Expiration Date Visits Re quested Visits Authorized [id number] Closed 12/24/2024 03/26/2026 1 1 Reason for Visit * Outpatient (Routine) - Closed Specialty Diagnoses / Procedures Referred By Contbecki t Referred To Contact Diagnoses Benign Prostatic Hyperplasia Without Obstruction Procedures Cysto w/ Prostate US Rosalia Doyle M.D. [address] [place] [address] Phone: tel: fax: Rosalia Doyle M.D. [address] [place] [address] Phone: tel: fax: Referral ID Status Reason Start Date Expiration Date Visits Re quested Visits Authorized [id number] Closed 12/11/2024 03/13/2026 1 1 Encounter Details Date Type Department Care Team (Latest Contact Info) Description 12/24/2024 3:00 PM CDT Procedure visit Department of Urology in [place], [place] [address] [place] [address] Rosalia Doyle M.D. [address] [place] [address] Benign Prostatic Hyperplasia Without Obstruction (Primary Dx) Social History Tobacco Use Types Packs/Day Years Used Date Smoking Tobacco: Never Smokeless Tobacco: Never Alcohol Use Standard Drinks/Week Comments Yes 14 (1 standard drink = 0.6 oz pu re alcohol) [facility] Utilities Answer Date Recorded In the [...] your living situation today? I have a [facility] place to live 06/08/2024 Education Answer Date Recorded What is the highest level of school you have completed or the highest degree you have received? Bachelor's degree (e.g., BA, AB, BS) 03/09/2019 Sex and Gender Information Value Date Recorded Sex Assigned at Male 05/23/2018 5:05 PM TACTICAL INTELLIGENCE OFFICER Legal Sex Male 4:32 AM TACTICAL INTELLIGENCE OFFICER Gender Identity Male 05/23/2018 5:05 PM TACTICAL INTELLIGENCE OFFICER Sexual Orientation Straight 05/23/2018 5: 05 PM TACTICAL INTELLIGENCE OFFICER documented as of this encounter Progress Notes * Alena Miles, L.P.N. - 12/24/2024 3:00 PM CDT An 18 slovenian bard was removed for the cystoscopy and prostate US. It contained 10 ml's. In the balloon and was attached to a conveen leg bag. documented in this encounter Plan of Treatment Scheduled Orders Name Type Priority Associated Diagnoses Orde r Schedule URO Uroflow Procedure Routine Benign Prostatic Hyperplasia Without Obstruction Expected: 12/24/2024, Expires: 03/26/2026 documented as of this encounter Visit Diagnoses Diagnosis Benign Prostatic Hyperplasia Without Obstruction- Primary documented in this encounter
--- OUTSIDE RECORDS SUMMARY | 2024-12-24 15:30 | XMS_ITS | Encounter Summary ---
Author Organization [facility] Address [address] [place] [address] Care Team Providers Care Load Dropper Name Role Phone Unavailable Primary Care Provider Unavailabl e Reason for Visit * Reason Comments Benign Prostatic Hypertrophy Uroflow * Outpatient (Routine) - Closed Specialty Diagnoses / Procedures Referred By Sagrario t Referred To Contact Diagnoses Benign Prostatic Hyperplasia Without Obstruction Procedures URO Uroflow Rosalia Doyle M.D. [address] [place] [phone] Phone: tel: fax: [facility] Referral ID Status Reason Start Date Expiration Date Visits Re quested Visits Authorized [id number] Closed 12/24/2024 03/26/2026 1 1 Encounter Details Date Type Department Care Team (Latest Contact Info) Description 12/24/2024 3:30 PM CDT Procedure visit Department of Urology in [place], [place] [address] [place] [phone] Rosalia Doyle M.D. [address] [place] [phone] Kisha Hopkins R.N. [address] [place] [phone] Benign Prostatic Hyperplasia Without Obstruction Social History Tobacco Use Types Packs/Day Years Used Date Smoking Tobacco: Never Smokeless Tobacco: Never Alcohol Use Standard Drinks/Week Comments Yes 14 (1 standard drink = 0.6 oz pu re alcohol) [facility] Utilities Answer Date Recorded In [...] living situation today? I have a [facility] place to live 06/08/2024 Education Answer Date Recorded What is the highest level of school you have completed or the highest degree you have received? Bachelor's degree (e.g., BA, AB, BS) 03/09/2019 Sex and Gender Information Value Date Recorded Sex Assigned at Male 05/23/2018 5:05 PM TAPPER HAND Legal Sex Male 4:32 AM TAPPER HAND Gender Identity Male 05/23/2018 5:05 PM TAPPER HAND Sexual Orientation Straight 05/23/2018 5: 05 PM TAPPER HAND documented as of this encounter Plan of Treatment Not on file documented as of this encounter Visit Diagnoses Diagnosis Benign Prostatic Hyperplasia Without Obstruction documented in this encounter
--- OUTSIDE RECORDS SUMMARY | 2024-12-24 16:00 | XMS_ITS | Encounter Summary ---
Author Organization [facility] Address [address] [place] [address] Care Team Providers Care Sporting Goods Sales Manager Name Role Phone Unavailable Primary Care Provider Unavailabl e Reason for Visit * Outpatient (Routine) - Closed Specialty Diagnoses / Procedures Referred By Sagrario t Referred To Contact Urology Rosalia Doyle M.D. 200 [place] [address] Phone: tel: fax: [facility] Referral ID Status Reason Start Date Expiration Date Visits Re quested Visits Authorized [id number] Closed 12/10/2024 06/11/2026 1 1 Encounter Details Date Type Department Care Team (Late st Contact Info) Description 12/24/2024 4:00 PM CDT Office Visit Department of Urology in [place], [place] [address] [place] [phone] Rosalia Doyle M.D. [address] [place] [phone] Benign Prostatic Hyperplasia Without Obstruction (Primary Dx) Social History Tobacco Use Types Packs/Day Years Used Date Smoking Tobacco: Never Smokeless Tobacco: Never Alcohol Use Standard Drinks/Week Comments Yes 14 (1 standard drink = 0.6 oz pu re alcohol) [facility] Utilities Answer Date Recorded In the [...] your living situation today? I have a [facility] place to live 06/08/2024 Education Answer Date Recorded What is the highest level of school you have completed or the highest degree you have received? Bachelor's degree (e.g., BA, AB, BS) 03/09/2019 Sex and Gender Information Value Date Recorded Sex Assigned at Male 05/23/2018 5:05 PM WAREHOUSE SUPERVISOR 3RD SHIFT Legal Sex Male 4:32 AM WAREHOUSE SUPERVISOR 3RD SHIFT Gender Identity Male 05/23/2018 5:05 PM WAREHOUSE SUPERVISOR 3RD SHIFT Sexual Orientation Straight 05/23/2018 5: 05 PM WAREHOUSE SUPERVISOR 3RD SHIFT documented as of this encounter Progress Notes [...]
--- OUTSIDE RECORDS SUMMARY | 2024-12-25 20:09 | XMS_ITS | Encounter Summary ---
Author Organization [facility] Address [address] [place] [address] Care Team Providers Care Drill Press Operator Name Role Phone Unavailable Primary Care Provider Unavailabl e Reason for Referral * Outpatient (Routine) - Authorized Specialty Diagnoses / Procedures Referred By Contac t Referred To Contact Diagnoses Symptom Urinary Procedures URO Uroflow Rosalia Doyle M.D. [address] [place] [address] Phone: tel: fax: [facility] Referral ID Status Reason Start Date Expiration Date V isits Requested Visits Authorized [id number] Authorized 12/10/2024 03/12/2026 1 1 * Outpatient (Routine) - Closed Specialty Diagnoses / Procedures Referred By Contac t Referred To Contact Urology Rosalia Doyle M.D. [address] [place] [address] Phone: tel: fax: [facility] Referral ID Status Reason Start Date Expiration Date Visits Re quested Visits Authorized [id number] Closed 12/10/2024 06/11/2026 1 1 Encounter Details Date Type Department Care Team (Late st Contact Info) Description 12/10/2024 Orders Only Department of Urology in [place], [place] [address] [place] [phone] Rosalia Doyle M.D. [address] [place] [address] Symptom Urinary (Primary Dx) Social History Tobacco Use Types Packs/Day Years Used Date Smoking Tobacco: Never Smokeless Tobacco: Never Alcohol Use Standard Drinks/Week Comments Yes 11 (1 standard drink = 0.6 oz pu re alcohol) [facility] Utilities Answer Date Recorded In the [...] Sex Assigned at Male 05/23/2018 5:05 PM DIRECTOR OF LEARNING Legal Sex Male 4:32 AM DIRECTOR OF LEARNING Gender Identity Male 05/23/2018 5:05 PM DIRECTOR OF LEARNING Sexual Orientation Straight 05/23/2018 5: 05 PM DIRECTOR OF LEARNING documented as of this encounter Plan of Treatment Scheduled Orders Name Type Priority Associated Diagnoses Orde r Schedule URO Uroflow Procedure Routine Symptom Urinary Expected: 12/24/2024, Expires: 03/12/2026 PSA (Prostate-Specific Antigen), Diagnostic Lab Routine Symptom Urinary Expected: 06/12/2025 (Approximate), Expires: 03/12/2026 Scheduled Referrals Name Type Priority Associated Diagnoses Orde r Schedule Urology office visit (clinic) Outpatient Referral Routine Expected: 12/24/2024, Expires: 03/12/2026 documented as of this encounter Visit Diagnoses Diagnosis Symptom Urinary- Primary documented in this encounter
--- OUTSIDE RECORDS SUMMARY | 2024-12-25 20:09 | XMS_ITS | Encounter Summary ---
Author Organization [facility] Address [address] [place] [address] Care Team Providers Care Television Servicer Name Role Phone Unavailable Primary Care Provider Unavailabl e Reason for Referral * Outpatient (Routine) - Closed Specialty Diagnoses / Procedures Referred By Contac t Referred To Contact Diagnoses Benign Prostatic Hyperplasia Without Obstruction Procedures Cysto w/ Prostate US Rosalia Doyle M.D. [address] [place] [phone] Phone: tel: fax: Rosalia Doyle M.D. [address] [place] [phone] Phone: tel: fax: Referral ID Status Reason Start Date Expiration Date Visits Re quested Visits Authorized [id number] Closed 12/11/2024 03/13/2026 1 1 Encounter Details Date Type Department Care Team (Late Contact Info) Description 12/11/2024 Orders Only Department of Urology in [place], [place] [address] [place] [phone] Rosalia Doyle M.D. [address] [place] [phone] Benign Prostatic Hyperplasia Without Obstruction (Primary Dx) Social History Tobacco Use Types Packs/Day Years Used Date Smoking Tobacco: Never Smokeless Tobacco: Never Alcohol Use Standard Drinks/Week Comments Yes 11 (1 standard drink = 0.6 oz pu re alcohol) [facility] Utilities Answer Date Recorded In [...] your living situation today? I have a [facility] place to live 06/08/2024 Education Answer Date Recorded What is the highest level of school you have completed or the highest degree you have received? Bachelor's degree (e.g., BA, AB, BS) 03/09/2019 Sex and Gender Information Value Date Recorded Sex Assigned at Male 05/23/2018 5:05 PM ALMOND BLANCHER Legal Sex Male 4:32 AM ALMOND BLANCHER Gender Identity Male 05/23/2018 5:05 PM ALMOND BLANCHER Sexual Orientation Straight 05/23/2018 5: 05 PM ALMOND BLANCHER documented as of this encounter Plan of Treatment Not on file documented as of this encounter Visit Diagnoses Diagnosis Benign Prostatic Hyperplasia Without Obstruction- Primary documented in this encounter
--- OUTSIDE RECORDS SUMMARY | 2024-12-25 20:09 | XMS_ITS | Clinical Summary ---
Author Organization [facility] Address [address] [place] [address] Care Team Providers Care Proj Engineer Name Role Phone Unavailable Primary Care Provider Unavailabl e Source Comments Patient records contain information from all sites at [facility]. For routine questions regarding patient records, call [phone] during business hours, M-F 8:00 AM - 5:00 PM Central Time. Record requests for emergency care only can be directed to [phone] at any time.[facility] Allergies Active Allergy Reactions Criticality Noted Date [...] mouth daily. 90 tablet 3 1 Active silodosin (Rapaflo) 8 mg capsule Take 1 capsule (8 mg total) by mouth daily. 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 Date Type Department Care Team Description 12/25/2024 Clinical Communication Department of Urology in [place], [place] [address] [place] [phone] Gonzalo Orellana M.D. 12/25/2024 Clinical Communication Department of Urology in [place], [place] [address] [place] [phone] Rosalia Doyle M.D. 12/24/2024 4:00 PM CDT Office Visit Department of Urology in [place], [place] [address] [place] [phone] Rosalia Doyle M.D. Benign Prostatic Hyperplasia Without Obstruction (Primary Dx) 12/24/2024 3:30 PM CDT Procedure visit Department of Urology in [place], [place] [address] [place] [phone] Rosalia Doyle M.D. Hayden, Anna L, R.NDomitila Benign Prostatic Hyperplasia Without Obstruction 12/24/2024 3:00 PM CDT Procedure visit Department of Urology in [place], [place] [address] [place] [address] Rosalia Doyle M.D. Benign Prostatic Hyperplasia Without Obstruction (Primary Dx) 12/11/2024 Orders Only Department of Urology in [place], [place] [address] [place] [address] Rosalia Doyle M.D. Benign Prostatic Hyperplasia Without Obstruction (Primary Dx) 12/10/2024 Orders Only Department of Urology in [place], [place] [address] [place] [address] Rosalia Doyle M.D. Symptom Urinary (Primary Dx) from Last 3 Months Immunizations [...] drink = 0.6 oz pu re alcohol) [facility] Utilities Answer Date Recorded In [...] your living situation today? I have a [facility] place to live 06/08/2024 Education Answer Date Recorded What is the highest level of school you have completed or the highest degree you have received? Bachelor's degree (e.g., BA, AB, BS) 03/09/2019 Sex and Gender Information Value Date Recorded Sex Assigned at Male 05/23/2018 5:05 PM BLACK PICKLER Legal Sex Male 4:32 AM BLACK PICKLER Gender Identity Male 05/23/2018 5:05 PM BLACK PICKLER Sexual Orientation Straight 05/23/2018 5: 05 PM BLACK PICKLER Last Filed Vital Signs Vital Sign Reading Time Taken Comments Blood Pressure 114/79 06/25/2019 8:00 AM BLACK PICKLER Pulse 92 06/25/2019 8:00 AM BLACK PICKLER Temperature 37 C (98.6 F) 06/25/2019 8:00 AM BLACK PICKLER Respiratory Rate 19 04/10/2019 1:37 PM BLACK PICKLER Oxygen Saturation 94% 04/10/2019 1:39 PM BLACK PICKLER Inhaled Oxygen Concentration - - Weight 70.5 kg (155 lb 6.8 oz) 04/10/2019 12:06 PM BLACK PICKLER Height 162 cm (5' 3.78) 04/10/2019 12:06 PM BLACK PICKLER Body Mass Index 26.86 04/10/2019 12:06 PM BLACK PICKLER Plan of Treatment Health Maintenance Due Date Last Done Comments CT Colonography 1950 Cologuard 1950 Hepatitis C Screening 1950 Office Visit for Blood Pressure Check / Re-check 1950 RSV vaccine - (32-36 weeks) or 60+ years (1 - Risk 60-74 years 1-dose series) 2010 COVID-19 Vaccine ( season) 2023 07/24/2020, 07/03/2020 Depression Screening (Annual PHQ-2) 05/01/2024 Fall Risk Screen (Annual) 05/01/2024 Influenza Vaccine (#1) 2024 Creatinine Level (Kidney Function Test) 01/01/2025 01/02/2024, [...] this topic Medical Devices Implanted Type Area Education Professional Device Identifier Shelf Expiration Date Model / Serial / Lot Cardiac Stent Cardiac Stent Heart Description:One stent Procedures Procedure Name Priority Date/Time Associated Diagnosis Comments BASIC METABOLIC PANEL, S/P Routine 03/13/2019 6:22 AM BLACK PICKLER Cough Chronic from Last 3 Months or Most Recently Relevant to Health Maintenance Results * Basic Metabolic Panel (03/13/2019 6:22 AM BLACK PICKLER) Pathologist [facility] Potassium, S 4.2 3.6 - 5.2 mmol/L 03/13/2019 7:34 AM BLACK PICKLER DTL Sodium, S 142 135 - 145 mmol/L 03/13/2019 7:34 AM BLACK PICKLER DTL Chloride, S 100 98 - 107 mmol/L 03/13/2019 7:34 AM BLACK PICKLER DTL Bicarbonate, S 27 22 - 29 mmol/L 03/13/2019 7:34 AM BLACK PICKLER DTL Anion Gap 15 7 - 15 03/13/2019 7:34 AM BLACK PICKLER DTL BUN (Blood Urea Nitrogen), S 14 8 - 24 mg/dL 03/13/2019 7:34 AM BLACK PICKLER DTL Creatinine 1.13 0.74 - 1.35 mg/dL 03/13/2019 7:34 AM BLACK PICKLER DTL eGFR-Non Black/ 66 >=60 mL/min/BSA 03/13/2019 7:34 AM BLACK PICKLER DTL Comment: ----ADDITIONAL INFORMATION---- Estimated GFR calculated using the 2009 CKD_EPI creatinine equation. eGFR-Black/Afric an Citizen Of [place] 77 >=60 mL/min/BSA 03/13/2019 7:34 AM BLACK PICKLER DTL Comment: ----ADDITIONAL INFORMATION---- Estimated GFR calculated using the 2009 CKD_EPI creatinine equation. Calcium, Total, S 9.7 8.8 - 10.2 mg/dL 03/13/2019 7:34 AM BLACK PICKLER DTL Glucose, S 103 70 - 140 mg/dL 03/13/2019 7:34 AM BLACK PICKLER DTL Blood (Blood, Venous) 03/13/2019 6:22 AM BLACK PICKLER 03/13/2019 6:44 AM BLACK PICKLER Alcira Javed M.D. LAB BLOOD ADD-ON Elizabeth l Result [facility] [address] [place] [address], [place] DTL [place] [facility] [address] [place] [address] from Last 3 Months or Most Recently Relevant to Health Maintenance Insurance MEDICARE [facility]
--- OUTSIDE RECORDS SUMMARY | 2024-12-25 20:09 | XMS_ITS | Encounter Summary ---
Author Organization [facility] Address [address] [place] [address] Care Team Providers Care Licensed Sales Producer Name Role Phone Unavailable Primary Care Provider Unavailabl e Encounter Details Date Type Department Care Team (Late st Contact Info) Description 12/25/2024 Clinical Communication Department of Urology in [place], [place] [address] [place] [address] Rosalia Doyle M.D. [address] [place] [address] Social History Tobacco Use Types Packs/Day Years Used Date Smoking Tobacco: Never Smokeless Tobacco: Never Alcohol Use Standard Drinks/Week Comments Yes 14 (1 standard drink = 0.6 oz pu re alcohol) [facility] Utilities Answer Date Recorded In the past 12 months has e Travel Notes, gas, oil, or water [employer] threatened to shut off services in your [...] your living situation today? I have a [facility] place to live 06/08/2024 Education Answer Date Recorded What is the highest level of school you have completed or the highest degree you have received? Bachelor's degree (e.g., BA, AB, BS) 03/09/2019 Sex and Gender Information Value Date Recorded Sex Assigned at Male 05/23/2018 5:05 PM FREIGHT HUSTLER Legal Sex Male 4:32 AM FREIGHT HUSTLER Gender Identity Male 05/23/2018 5:05 PM FREIGHT HUSTLER Sexual Orientation Straight 05/23/2018 5: 05 PM FREIGHT HUSTLER documented as of this encounter Plan of Treatment Not on file documented as of this encounter Visit Diagnoses Not on filedocumented in this encounter
--- OUTSIDE RECORDS SUMMARY | 2024-12-25 20:09 | XMS_ITS | Encounter Summary ---
Author Organization [facility] Address [address] [place] [address] Care Team Providers Care Sales And Marketing Administrator Name Role Phone Unavailable Primary Care Provider Unavailabl e Encounter Details Date Type Department Care Team (Late st Contact Info) Description 12/25/2024 Clinical Communication Department of Urology in [place], [place] [address] [place] [address] Gonzalo Orellana M.D. [address] [place] [phone] Social History Tobacco Use Types Packs/Day Years Used Date Smoking Tobacco: Never Smokeless Tobacco: Never Alcohol Use Standard Drinks/Week Comments Yes 14 (1 standard drink = 0.6 oz pu re alcohol) [facility] Utilities Answer Date Recorded In the past [...] Sex Assigned at Male 05/23/2018 5:05 PM SPECIAL PROGRAMS DIRECTOR Legal Sex Male 4:32 AM SPECIAL PROGRAMS DIRECTOR Gender Identity Male 05/23/2018 5:05 PM SPECIAL PROGRAMS DIRECTOR Sexual Orientation Straight 05/23/2018 5: 05 PM SPECIAL PROGRAMS DIRECTOR documented as of this encounter Miscellaneous Notes * Telephone Encounter - Renetta Mills - 12/25/2024 5:57 PM MST Patient had recent Cysto work up in [facility]. Called to see if Esteban had sooner surgery availability. documented in this encounter Plan of Treatment Not on file documented as of this encounter Visit Diagnoses Not on filedocumented in this encounter
--- OUTSIDE RECORDS SUMMARY | 2024-12-25 20:09 | XMS_ITS | Clinical Summary ---
Author Organization [facility] Address [address] [place] [address] Care Team Providers Care Pit Furnace Melter Name Role Phone BatelSuresh MD Primary Care [...] daily. Active aspirin chewable 81 mg chewable tabletIndicatio ns:ASHD (arteriosclerot ic heart disease) Take 1 tablet by mouth once daily with a meal. 0 11/09/19 18 Active ascorbic acid, vitamin C, (VITAMIN C) 1,000 mg tablet Take 1,000 mg by mouth. Active famciclovir (FAMVIR) 250 mg tabletIndicatio ns:Hx of cold sores TAKE ONE TABLET BY MOUTH THREE TIMES A DAY NEEDED FOR COLD SORES 24 Tablet 05/06/19 25 Active pantoprazole (PROTONIX) 40 mg delayed-release tabletIndicatio ns:Gastroesopha geal reflux disease without esophagitis TAKE ONE TABLET BY MOUTH ONCE DAILY 90 Tablet 3 12/11/19 25 Active alfuzosin (UROXATRAL) 10 mg Sustained-Relea se tabletIndicatio ns:Benign non-nodular prostatic hyperplasia with lower urinary tract symptoms Take 1 Tablet (10 mg) by mouth once daily with a meal. As Directed. 30 Tablet 12/11/19 25 Active atorvastatin (LIPITOR) 40 mg tabletIndicatio ns:ASHD (arteriosclerot ic heart disease) Take 1 Tablet (40 mg) by mouth at bedtime. 90 Tablet 3 12/11/19 25 Active pantoprazole (PROTONIX) 40 mg delayed-release tabletIndicatio ns:Gastroesopha geal reflux disease without esophagitis TAKE ONE TABLET (40 MG) BY MOUTH ONCE DAILY 90 Tablet 2 03/11/20 24 025 Discontinued atorvastatin (LIPITOR) 40 mg tabletIndicatio ns:ASHD (arteriosclerot ic heart disease) TAKE ONE TABLET (40 MG) BY MOUTH NIGHTLY AT BEDTIME 90 Tablet 2 03/11/20 24 025 Discontinued alfuzosin (UROXATRAL) 10 mg Sustained-Relea se tabletIndicatio ns:Benign non-nodular prostatic hyperplasia with lower urinary tract symptoms TAKE ONE TABLET BY MOUTH ONCE EVERY DAY WITH A MEAL DIRECTED . 90 Tablet 1 06/23/19 25 025 Discontinued finasteride (PROSCAR) 5 mg tabletIndicatio ns:BPH with urinary obstruction Take 1 Tablet (5 mg) by mouth once daily in the morning. 90 Tablet 1 12/05/19 25 025 Discontinued(*A llergic/Adverse Rxn/Side Effects) Active Problems Problem Noted Date Diagnosed Date [...] Encounters Date Type Department Care Team Description 12/17/2024 9:10 AM CDT Office Visit [facility] [address] [place] [address] Suresh Urias MD ER Follow up ([place], 12/04/24, catheter); Medication Management 12/16/2024 Travel 12/15/2024 Telephone [facility] [address] [place] [address] Suresh Urias MD Appointment Request 12/15/2024 Nurse Triage [facility] [address] [place] [address] Suresh Urias MD Urinary Problem 12/08/2024 Refill [facility] [address] [place] [address] Suresh Urias MD Refill Request (Pantoprazole, Alfuzosin, Atorvastatin) 12/04/2024 2:55 PM CDT Office Visit [facility] [address] [place] [address] Suresh Urias MD ER Follow up (urinary, [place], 12/02/24, catheter) 12/04/2024 Travel 12/02/2024 Telephone [facility] [address] [place] [address] Suresh Urias MD Appointment Request from Last 3 Months Immunizations Immunization Administration [...] PM CDT Legal Sex Male 5:26 AM WEBSPHERE COMMERCE ARCHITECT Gender Identity Male 11/08/2020 9:25 PM CDT Sexual Orientation Not on file 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 Not on file Not on file Obstetrics History Last Filed Vital Signs Vital Sign Reading Time Taken Comments Blood Pressure 124/73 12/17/2024 9:13 AM CDT Pulse 73 12/17/2024 9:13 AM CDT Temperature 36.6 C (97.8 F) 12/04/2024 3:01 PM CDT Respiratory Rate 18 11/09/2017 8:51 AM CDT Oxygen Saturation 96% 12/17/2024 9:13 AM CDT Inhaled Oxygen Concentration - - Weight 67.9 kg (149 lb 12.8 oz) 12/17/2024 9:13 AM CDT Height 158.5 cm (5' 2.4) 12/17/2024 9:13 AM CDT Body Mass Index 27.05 12/17/2024 9:13 AM CDT Plan of Treatment Health Maintenance Due Date Last Done Comments RSV vaccine for adults or (1 - Risk 60-74 years 1-dose series) 2010 Hepatitis B series for 19+ ( 2 of 3 - 19+ 3-dose series) 04/09/2019 03/12/2019 COVID-19 vaccine series ( season) 2023 07/24/2020, 07/03/2020 Influenza Vaccine (#1) 2024 Depression screening for age 12+ 04/25/2025 04/25/2024, 03/30/2023, 02/15/2022, Additional history exists Medicare Wellness for age 65+ 05/01/2025, 03/30/2023, 02/15/2022, Additional history exists BMI (ht and wt on same day) for age 18+ 12/17/2025 12/17/2024, 12/04/2024, 08/13/2024, Additional history exists Colonoscopy through age 75 [...] - 199 mg/dL 01/03/2024 1:28 AM CDT [facility] Comment: Cholesterol, Total Reference Ranges Desirable <200 mg/dL Borderline 200-239 mg/dL High >=240 mg/dL TRIGLYCERIDES 134 <150 mg/dL 01/03/2024 1:28 AM CDT [facility] HDL CHOLESTEROL 60 >40 mg/dL 1:28 AM CDT [facility] NON-HDL CHOLESTEROL 64 <145 mg/dl 01/03/2024 1:28 AM CDT [facility] CHOL/HDL RATIO 2.07 <4.50 01/03/2024 1:28 AM CDT [facility] LDL CHOLESTEROL 37 <=130 mg/dL 01/03/2024 1:28 AM CDT [facility] VLDL CHOLESTEROL 27 <=30 mg/dL 01/03/2024 1:28 AM CDT [facility] PROVIDER ORDERED STATUS RANDOM 01/03/2024 1:28 AM CDT [facility] Blood BLOOD SPECIMEN / Unknown Venipuncture / Unknown 01/02/2024 10:37 AM CDT 01/02/2024 10:37 AM CDT Suresh Urias MD CHEMISTRY Final Re sult [facility] [address] [place] [address], [place] * ANTI HCV [[id number]] (02/15/2022 11:45 AM CDT) HEPATITIS C ANTIBODY Non-React kelsy Non-React kelsy 02/16/2022 5:52 AM CDT [facility] Comment:Antibodies to HCV no t detected; does not exclude the possibility of exposure to HCV. Blood BLOOD SPECIMEN / Unknown Venipuncture / Unknown 02/15/2022 11:45 AM CDT 02/15/2022 11:45 AM CDT us Suresh Urias MD SEND OUTS Final Re sult [facility] [address] [place] [address], [place] * COLONOSCOPY (02/05/2021 9:20 AM CDT) [...] adequate candidate for conscious sedation. The PCF-[id number] [id number] was passed through the anus and advanced [...] 9:20 AM Procedure Code(s): --- Professional --- 71995, Colonoscopy, flexible; with removalof tumor(s), polyp(s), or other lesion(s) bysnare technique 29727, 59, Colonoscopy, flexible; withbiopsy, single or multiple Diagnosis Code(s): --- Professional --- K63.5, Polyp of colon Z86.010, Personal history of colonicpolyps CPT copyright 2020 [employer]. All rights reserved. The codes documented in this report are preliminary and upon duct layer reviewmay be revised to meet current compliance requirements. Scope In: 9:56:29 AM Scope Withdrawal Time 0 hours 10 minutes 25 seconds Scope Out: 10:09:27 AM us Dl Flor MD PROCEDURE ORD Final Res ult from Last 3 Months or Most Recently Relevant to Health Maintenance Insurance MEDICARE PART A HB ONLY MEDICARE PB ONLY [facility] MEDICARE PART B HB ONLY Advance Directives * Full Code (Latest Code Status on File) Date Activated Date Inactivated Comments 11/08/2017 11:20 AM 11/09/2017 2:34 PM * Full Code Date Activated Date Inactivated Comments 12/30/2012 6:59 PM 01/02/2013 1:20 PM Care Teams Pit Furnace Melter Relationship Specialty Start Date End Date Votel, Suresh Jones MD [address] [place] [address] PCP - General Family Practice 03/27/12
--- NOTE | 2024-12-25 20:12 | ED.GENADULT ---
HPI - General Adult General Time Seen by Provider: 20:12 Date Seen: 12/25/24 Chief complaint: Urogenital Problems, Male Stated complaint: possible UTI Time Seen by Provider: 12/25/24 20:12 Source: patient Mode of arrival: ambulatory Limitations: no limitations History of Present Illness HPI narrative: 74-year-old male who presents today with painful urination and frequency. Patient had a catheter placed for urinary retention a couple of weeks ago. That was removed yesterday and patient had cystoscopy. Since then he has had urinary frequency and also pain with urination. This was getting little better during the day but then worse tonight. Denies fever, chills, nausea, vomiting. No suprapubic pain, mainly having pain in the penis. Does not feel like he is retaining significantly at this point. Has passed small amount of stool procedure as well. Related Data Home Medications ?Medication ?Instructions ?Recorded ?Confirmed alfuzosin 10 mg tablet,extended 10 mg PO DAILY 03/04/24 12/14/24 release 24 hr aspirin 81 mg capsule 81 mg PO DAILY 03/04/24 12/14/24 atorvastatin 40 mg tablet 40 mg PO DAILY 03/04/24 12/14/24 pantoprazole 40 mg tablet,delayed 40 mg PO DAILY 03/04/24 12/14/24 release Allergies Allergy/AdvReac Type Severity Reaction Status Date / Time No Known Drug Allergies Allergy Verified 12/14/24 09:20 [facility] Medical History GERD (gastroesophageal reflux disease) ?K21.9 - Gastro-esophageal reflux disease without esophagitis (ICD-10) PFO (patent foramen ovale) ?Q21.12 - Patent foramen ovale (ICD-10) Allergic rhinitis ?J30.9 - Allergic rhinitis, unspecified (ICD-10) CVA (cerebral vascular accident) (12/30/12) ?I63.9 - Cerebral infarction, unspecified (ICD-10) ASHD (arteriosclerotic heart disease) ?I25.10 - Atherosclerotic heart disease of [place] coronary artery without angina pectoris (ICD-10) Surgical History History of coronary artery stent placement (11/08/17) ?Z95.5 - Presence of coronary angioplasty implant and graft (ICD-10) Social History Smoking Status: Never smoker Do you use any of these nicotine containing products: None How often do you have a drink containing alcohol: 4 or more times a week How many standard drinks containing alcohol do you have on a typical day: 1 or 2 AUDIT-C Alcohol total score: 4 Non-prescribed substance use: denies use Exam Narrative: Exam Narrative: General: Well-developed and well-nourished, no acute distress Head: Atraumatic and normocephalic Eyes: Pupils are equal reactive, extraocular motions intact, conjunctiva clear ENT: External nose and ears are normal, posterior pharynx without erythema or exudate Neck: No midline cervical tenderness, full spontaneous range of motion the neck, trachea midline, no adenopathy Heart: Regular rate and rhythm no murmurs or thrills Lungs: Clear to auscultation bilaterally without wheezes or crackles Abdomen: Soft, nontender, nondistended with active bowel sounds Musculoskeletal: No tenderness, deformity, or edema Neurologic: Awake, alert, and oriented x3, no gross focal neurologic deficits, cranial nerves intact as tested Psych: Mood and affect are appropriate Skin: No rashes Const: Vital Signs, click to edit/add: Vital Signs - 24 hr 12/25/24 20:16 Temperature 98.6 F Pulse Rate [Pulse Oximeter] 104 H Respiratory Rate 18 Blood Pressure [Ri ght Upper Arm] 126/85 Pulse Oximetry 98 Oxygen Delivery Me thod Room Air Course Course ED Course: Reviewed urology note from yesterday, history of urinary retention and 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 No urinalysis done at that time. Reviewed most recent urine testing from December 04 which was positive for blood but culture negative. Patient presents today with dysuria and urinary frequency in setting a cystoscopy yesterday. Denies fever, chills, nausea, vomiting. On exam here, mildly tachycardic otherwise vital is stable. No suprapubic tenderness. Urinalysis is pending. If this shows sign of infection, will plan to start antibiotics and close follow-up with urology. If negative, will discuss with urology options for symptom management. Reevaluation(s) Time of Reevaluation #1: 20:49 Reevaluation #1: Urinalysis independently interpreted by me is consistent with urinary infection, patient will be started on ciprofloxacin, no prior positive cultures for comparison Vital Signs Vital signs: Initial Vital Signs Temperature 98.6 F 12/25/24 20:16 Temperature Source Temporal Artery Scan 12/25/24 20:16 Pulse Rate 104 H 12/25/24 20:16 Respiratory Rate 18 12/25/24 20:16 Blood Pressure 126/85 12/25/24 20:16 Blood Pressure Mean 98 12/25/24 20:16 Blood Pressure Position Sitting 12/25/24 20:16 Pulse Oximetry 98 12/25/24 20:16 Oxygen Delivery Method Room Air 12/25/24 20:16 Vital Signs Temperature 98.6 F 12/25/24 20:16 Pulse Rate 104 H 12/25/24 20:16 Respiratory Rate 18 12/25/24 20:16 Blood Pressure 126/85 12/25/24 20:16 Pulse Oximetry 98 12/25/24 20:16 Oxygen Delivery Method Room Air 12/25/24 20:16 Temperature 98.6 F 12/25/24 20:16 Pulse Rate 104 H 12/25/24 20:16 Respiratory Rate 18 12/25/24 20:16 Blood Pressure 126/85 12/25/24 20:16 Pulse Oximetry 98 12/25/24 20:16 Oxygen Delivery Method Room Air 12/25/24 20:16 Medical Decision Making Lab Data Labs: Lab Results 12/25/24 Range/Units 20:10 Urine Color Yellow (Yellow) Urine Appearance Clear (Clear) Urine pH 5.5 (5.0-8.5) Ur Specific [place] <= 1.005 (1.000-1.030) Urine Protein 1+ A (Negative) Urine Glucose (UA) Negative (Negative) Urine Ketones Negative (Negative) Urine Blood 2+ A (Negative) Urine Nitrite Negative (Negative) Urine Bilirubin Negative (Negative) Urine Urobilinogen 0.2 (0.2-1.0) Ur Leukocyte Esterase 3+ A (Negative) Urine RBC 10-25 A (0-2) Urine WBC 25-50 A (0-5) Ur Squamous Epith Cells Few (None-Few) Urine Bacteria Many A (None) Discharge Plan Discharge Clinical Impression: Urinary tract infection Patient Disposition: Home, Self-Care Condition: Stable Instructions: Urinary Tract Infection in Men (ED) Additional Instructions: Start ciprofloxacin as prescribed Take Pyridium for discomfort Contact your urologist in the morning Activity Level: Activity as Tolerated Discharge Diet: Regular Prescriptions: No Action atorvastatin 40 mg tablet 40 mg PO DAILY pantoprazole 40 mg tablet,delayed release (DR/EC) 40 mg PO DAILY alfuzosin 10 mg tablet extended release 24 hr 10 mg PO DAILY aspirin 81 mg capsule 81 mg PO DAILY Follow Up/Referrals: Suresh Urias MD [Primary Care Provider, Family Practice] Stand Alone Forms: GB Environmental Info Instructions
[2024-12-25 20:16] VITALS: BP 126/85; PULSE 104; RESP 18; TEMP 37; O2SAT 98; BMI 26.6
[2024-12-25 20:42] LABS: Appearance Urine Clear (Clear)
== END 2024-12-25 21:11 | disposition home or self-care (01) ==
PROVIDERS: Emergency Provider Family Medicine; PCP Family Medicine
DX: N39.0 Urinary tract infection, site not specified (principal)
CPT/HCPCS: 81001; 87086; 99283; 99284

== ENCOUNTER 2024-12-26 13:08 | Emergency (ER) | payer MEDICARE, BC, SELFPAY ==
--- OUTSIDE RECORDS SUMMARY | 2024-12-24 15:00 | XMS_ITS | Encounter Summary ---
Author Organization [facility] Address [address] [place] [address] Care Team Providers Care Gas Stove Servicer Helper Name Role Phone Unavailable Primary Care Provider Unavailabl e Reason for Referral * Outpatient (Routine) - Closed Specialty Diagnoses / Procedures Referred By Contac t Referred To Contact Diagnoses Benign Prostatic Hyperplasia Without Obstruction Procedures URO Uroflow Rosalia Doyle M.D. [address] [place] [address] Phone: tel: fax: [facility] Referral ID Status Reason Start Date Expiration Date Visits Re quested Visits Authorized [id number] Closed 12/24/2024 03/26/2026 1 1 Reason for Visit * Outpatient (Routine) - Closed Specialty Diagnoses / Procedures Referred By Contbecki t Referred To Contact Diagnoses Benign Prostatic Hyperplasia Without Obstruction Procedures Cysto w/ Prostate US Rosalia Doyle M.D. [address] [place] [address] Phone: tel: fax: Rosalia Doyle M.D. [address] [place] [address] Phone: tel: fax: Referral ID Status Reason Start Date Expiration Date Visits Re quested Visits Authorized [id number] Closed 12/11/2024 03/13/2026 1 1 Encounter Details Date Type Department Care Team (Latest Contact Info) Description 12/24/2024 3:00 PM CDT Procedure visit Department of Urology in [place], [place] [address] [place] [address] Rosalia Doyle M.D. [address] [place] [address] Benign Prostatic Hyperplasia Without Obstruction (Primary Dx) Social History Tobacco Use Types Packs/Day Years Used Date Smoking Tobacco: Never Smokeless Tobacco: Never Alcohol Use Standard Drinks/Week Comments Yes 14 (1 standard drink = 0.6 oz pu re alcohol) [facility] Utilities Answer Date Recorded In the past [...] your living situation today? I have a [facility] place to live 06/08/2024 Education Answer Date Recorded What is the highest level of school you have completed or the highest degree you have received? Bachelor's degree (e.g., BA, AB, BS) 03/09/2019 Sex and Gender Information Value Date Recorded Sex Assigned at Male 05/23/2018 5:05 PM DOCUMENTATION SPEC Legal Sex Male 4:32 AM DOCUMENTATION SPEC Gender Identity Male 05/23/2018 5:05 PM DOCUMENTATION SPEC Sexual Orientation Straight 05/23/2018 5: 05 PM DOCUMENTATION SPEC documented as of this encounter Progress Notes * Alena Miles L.P.N. - 12/24/2024 3:00 PM CDT An 18 german bard was removed for the cystoscopy and prostate US. It contained 10 ml's. In the balloon and was attached to a conveen leg bag. documented in this encounter Plan of Treatment Upcoming Encounters Date Type Department Care Team (Latest Contact Info) Description 03/10/2025 12:33 PM DOCUMENTATION SPEC Hospital Encounter [facility] 4 AM ADMIT [address] [place] [address] Rosalia Doyle M.D. [address] [place] [address] 03/10/2025 12:33 PM DOCUMENTATION SPEC - 03/10/2025 2:42 PM DOCUMENTATION SPEC Surgery [facility] MAIN OR [address] [place] [address] Rosalia Doyle M.D. [address] [place] [address] TRANSURETHRAL WATERJET ABLATION OF THE PROSTATE, 50g Scheduled Orders Name Type Priority Associated Diagnoses Orde r Schedule URO Uroflow Procedure Routine Benign Prostatic Hyperplasia Without Obstruction Expected: 12/24/2024, Expires: 03/26/2026 Scheduled Procedures Name Priority Associated Diagnoses Date/Ti me TRANSURETHRAL WATERJET ABLATION OF THE PROSTATE Benign Prostatic Hyperplasia Without Obstruction Symptom Urinary 03/10/2025 12:33 PM DOCUMENTATION SPEC documented as of this encounter Visit Diagnoses Diagnosis Benign Prostatic Hyperplasia Without Obstruction- Primary Benign Prostatic Hyperplasia Without Obstruction Symptom Urinary Benign Prostatic Hyperplasia Without Obstruction Symptom Urinary documented in this encounter
--- OUTSIDE RECORDS SUMMARY | 2024-12-24 15:30 | XMS_ITS | Encounter Summary ---
Author Organization [facility] Address [address] [place] [address] Care Team Providers Care Line Maintenance Technician Name Role Phone Unavailable Primary Care Provider Unavailabl e Reason for Visit * Reason Comments Benign Prostatic Hypertrophy Uroflow * Outpatient (Routine) - Closed Specialty Diagnoses / Procedures Referred By Sagrario t Referred To Contact Diagnoses Benign Prostatic Hyperplasia Without Obstruction Procedures URO Uroflow Rosalia Doyle M.D. [address] [place] [phone] Phone: tel: fax: [facility] Referral ID Status Reason Start Date Expiration Date Visits Re quested Visits Authorized [id number] Closed 12/24/2024 03/26/2026 1 1 Encounter Details Date Type Department Care Team (Latest Contact Info) Description 12/24/2024 3:30 PM CDT Procedure visit Department of Urology in [place], [place] [address] [place] [phone] Rosalia Doyle M.D. [address] [place] [phone] Kisha Hopkins R.N. [address] [place] [phone] Benign Prostatic Hyperplasia Without Obstruction Social History Tobacco Use Types Packs/Day Years Used Date Smoking Tobacco: Never Smokeless Tobacco: Never Alcohol Use Standard Drinks/Week Comments Yes 14 (1 standard drink = 0.6 oz pu re alcohol) [facility] Utilities Answer Date Recorded In the past [...] your living situation today? I have a [facility] place to live 06/08/2024 Education Answer Date Recorded What is the highest level of school you have completed or the highest degree you have received? Bachelor's degree (e.g., BA, AB, BS) 03/09/2019 Sex and Gender Information Value Date Recorded Sex Assigned at Male 05/23/2018 5:05 PM INCOME TAX PREPARER Legal Sex Male 4:32 AM INCOME TAX PREPARER Gender Identity Male 05/23/2018 5:05 PM INCOME TAX PREPARER Sexual Orientation Straight 05/23/2018 5: 05 PM INCOME TAX PREPARER documented as of this encounter Progress Notes * Kisha Hopkins, DebiN. - 12/24/2024 3:30 PM CDT CHIEF COMPLAINT Patient here for a complex uroflow via calibrated electronic equipment and a residual urine check by ultrasound. IMPRESSION/REPORT/PLAN Dr. Ryan (Abhijit) Jose Antonio Doyle ordered the patient to have a complex uroflow with residual urine check via ultrasound. Patient had a mild urge to void. Uroflow was completed at this time. Patient voided 36 mL's and had a ultrasound residual of 116 mL's. Patient rates pain at 0 on the 0 to 10 pain scale post procedure. documented in this encounter Plan of Treatment Upcoming Encounters Date Type Department Care Team (Latest Contact Info) Description 03/10/2025 12:33 PM INCOME TAX PREPARER Hospital Encounter [facility]ST [facility] 01 4 AM ADMIT [address] [place] [phone] Rosalia Doyle M.D. [address] [place] [phone] 03/10/2025 12:33 PM INCOME TAX PREPARER - 03/10/2025 2:42 PM INCOME TAX PREPARER Surgery RST [facility] MAIN OR [address] [place] [phone] Rosalia Doyle M.D. [address] [place] [phone] TRANSURETHRAL WATERJET ABLATION OF THE PROSTATE, 50g Scheduled Procedures Name Priority Associated Diagnoses Date/Ti nj TRANSURETHRAL WATERJET ABLATION OF THE PROSTATE Benign Prostatic Hyperplasia Without Obstruction Symptom Urinary 03/10/2025 12:33 PM INCOME TAX PREPARER documented as of this encounter Visit Diagnoses Diagnosis Benign Prostatic Hyperplasia Without Obstruction Benign Prostatic Hyperplasia Without Obstruction Symptom Urinary Benign Prostatic Hyperplasia Without Obstruction Symptom Urinary documented in this encounter
--- OUTSIDE RECORDS SUMMARY | 2024-12-24 16:00 | XMS_ITS | Encounter Summary ---
Author Organization [facility] Address [address] [place] [address] Care Team Providers Care Client Support Manager Name Role Phone Unavailable Primary Care Provider Unavailabl e Reason for Visit * Outpatient (Routine) - Closed Specialty Diagnoses / Procedures Referred By Sagrario t Referred To Contact Urology Rosalia Doyle M.D. 200 [place] [address] Phone: tel: fax: [facility] Referral ID Status Reason Start Date Expiration Date Visits Re quested Visits Authorized [id number] Closed 12/10/2024 06/11/2026 1 1 Encounter Details Date Type Department Care Team (Late st Contact Info) Description 12/24/2024 4:00 PM CDT Office Visit Department of Urology in [place], [place] [address] [place] [phone] Rosalia Doyle M.D. [address] [place] [phone] Benign Prostatic Hyperplasia Without Obstruction (Primary Dx) Social History Tobacco Use Types Packs/Day Years Used Date Smoking Tobacco: Never Smokeless Tobacco: Never Alcohol Use Standard Drinks/Week Comments Yes 14 (1 standard drink = 0.6 oz pu re alcohol) [facility] Utilities Answer Date Recorded In [...] your living situation today? I have a [facility] place to live 06/08/2024 Education Answer Date Recorded What is the highest level of school you have completed or the highest degree you have received? Bachelor's degree (e.g., BA, AB, BS) 03/09/2019 Sex and Gender Information Value Date Recorded Sex Assigned at Male 05/23/2018 5:05 PM DERRICK BOAT CAPTAIN Legal Sex Male 4:32 AM DERRICK BOAT CAPTAIN Gender Identity Male 05/23/2018 5:05 PM DERRICK BOAT CAPTAIN Sexual Orientation Straight 05/23/2018 5: 05 PM DERRICK BOAT CAPTAIN documented as of this encounter Progress Notes * Rosalia Doyle M.D. - 12/24/2024 4:00 PM CDT SUBJECTIVE REQUESTING PROVIDER Rosalia Doyle M.D. REASON FOR VISIT Retention HISTORY OF PRESENT ILLNESS 74 yo M with hx of BPH on alfuzosin for some time. He has had several episodes of retention. Most recently on the . Cysto showing a median lobe, prostate Measured at 50 G. Lab Results Component Value Date PSA 1.7 03/13/[address] Orellana previously. OBJECTIVE Physical Exam Uncircumcised phallus- normal meatus ASSESSMENT / PLAN BPH with retention Assessment: BPH with obstruction Plan: To the OR for surgery Surgery: Aquablation The risks benefits and alternatives of the procedure were discussed. The alternatives include: Medical management, laser intervention, TUIP, intermittent catheterization. Given the size of the prostate, we felt the best option would be aquablation. The risks to all surgery include bleeding, infection, damage to surrounding structures, positioninginjuries and the risks of anesthesia, which include: deep vein thrombosis, pulmonary embolism, stroke, aspiration, pneumonia, heart attacks, and . The risks of this procedure in particular include: bladder neck contractures, stress urinary incontinence <1%, urge urinary incontinence, urethral strictures <1%, prolonged catheterization, retrograde ejaculation 10%, damage to bladder and ureters, incontinence, worsening urinary symptoms, sometimes requiring anticholinergics or botox. The patient understands the risk of the procedure and is willing to proceed. Signed by: Abhijit Doyle M.D. 12/24/2024 4:01 PM CDT CC note : Rosalia Doyle M.D. documented in this encounter Plan of Treatment Upcoming Encounters Date Type Department Care Team (Latest Contact Info) Description 03/10/2025 12:33 PM [facility] Hospital Encounter RST RO 01 4 AM ADMIT [address] [place] [phone] Rosalia Doyle M.D. [address] [place] [phone] 03/10/2025 12:33 PM DERRICK BOAT CAPTAIN - 03/10/2025 2:42 PM [facility] Surgery RST [facility] MA[facility] [address] [place] [address] Rosalia Doyle M.D. [address] [place] [address] TRANSURETHRAL WATERJET ABLATION OF THE PROSTATE, 50g Scheduled Procedures Name Priority Associated Diagnoses Date/Ti ca TRANSURETHRAL WATERJET ABLATION OF THE PROSTATE Benign Prostatic Hyperplasia Without Obstruction Symptom Urinary 03/10/2025 12:33 PM DERRICK BOAT CAPTAIN documented as of this encounter Visit Diagnoses Diagnosis Benign Prostatic Hyperplasia Without Obstruction- Primary Benign Prostatic Hyperplasia Without Obstruction Symptom Urinary documented in this encounter
--- OUTSIDE RECORDS SUMMARY | 2024-12-26 13:11 | XMS_ITS | Encounter Summary ---
Author Organization [facility] Address [address] [place] [address] Care Team Providers Care Early Morning Babysitter Name Role Phone Unavailable Primary Care Provider Unavailabl e Encounter Details Date Type Department Care Team (Late st Contact Info) Description 12/25/2024 Clinical Communication Department of Urology in [place], [place] [address] [place] [phone] Gonzalo Orellana M.D. [address] [place] [phone] Social History Tobacco Use Types Packs/Day Years Used Date Smoking Tobacco: Never Smokeless Tobacco: Never Alcohol Use Standard Drinks/Week Comments Yes 14 (1 standard drink = 0.6 oz pu re alcohol) [facility] Utilities Answer Date Recorded In the past [...] your living situation today? I have a [facility] place to live 06/08/2024 Education Answer Date Recorded What is the highest level of school you have completed or the highest degree you have received? Bachelor's degree (e.g., BA, AB, BS) 03/09/2019 Sex and Gender Information Value Date Recorded Sex Assigned at Male 05/23/2018 5:05 PM COOL ROOFING INSTALLER Legal Sex Male 4:32 AM COOL ROOFING INSTALLER Gender Identity Male 05/23/2018 5:05 PM COOL ROOFING INSTALLER Sexual Orientation Straight 05/23/2018 5: 05 PM COOL ROOFING INSTALLER documented as of this encounter Miscellaneous Notes * Telephone Encounter - Renetta Mills - 12/25/2024 5:57 PM MST Patient had recent Cysto work up in [facility]. Called to see if Esteban had sooner surgery availability. documented in this encounter Plan of Treatment Upcoming Encounters Date Type Department Care Team (Latest Contact Info) Description 03/10/2025 12:33 PM COOL ROOFING INSTALLER Hospital Encounter [facility] 4 AM ADMIT [address] [place] [phone] Rosalia Doyle M.D. [address] [place] [phone] 03/10/2025 12:33 PM COOL ROOFING INSTALLER - 03/10/2025 2:42 PM COOL ROOFING INSTALLER Surgery [facility] OR [address] [place] [phone] Rosalia Doyle M.D. [address] [place] [address] TRANSURETHRAL WATERJET ABLATION OF THE PROSTATE, 50g Scheduled Procedures Name Priority Associated Diagnoses Date/Ti wv TRANSURETHRAL WATERJET ABLATION OF THE PROSTATE Benign Prostatic Hyperplasia Without Obstruction Symptom Urinary 03/10/2025 12:33 PM COOL ROOFING INSTALLER documented as of this encounter Visit Diagnoses Not on filedocumented in this encounter
--- OUTSIDE RECORDS SUMMARY | 2024-12-26 13:11 | XMS_ITS | Encounter Summary ---
Author Organization [facility] Address [address] [place] [address] Care Team Providers Care Emissions Testing And Repair Technician Name Role Phone Unavailable Primary Care Provider Unavailabl e Encounter Details Date Type Department Care Team (Late st Contact Info) Description 12/25/2024 Clinical Communication Department of Urology in [place], [place] [address] [place] [address] Rosalia Doyle M.D. [address] [place] [address] Social History Tobacco Use Types Packs/Day Years Used Date Smoking Tobacco: Never Smokeless Tobacco: Never Alcohol Use Standard Drinks/Week Comments Yes 14 (1 standard drink = 0.6 oz pu re alcohol) [facility] Utilities Answer Date Recorded In the past 12 months has e [employer], gas, oil, or water [employer] threatened to shut off services in your [...] your living situation today? I have a [facility] place to live 06/08/2024 Education Answer Date Recorded What is the highest level of school you have completed or the highest degree you have received? Bachelor's degree (e.g., BA, AB, BS) 03/09/2019 Sex and Gender Information Value Date Recorded Sex Assigned at Male 05/23/2018 5:05 PM GASTROENTEROLOGY TECHNICIAN Legal Sex Male 4:32 AM GASTROENTEROLOGY TECHNICIAN Gender Identity Male 05/23/2018 5:05 PM GASTROENTEROLOGY TECHNICIAN Sexual Orientation Straight 05/23/2018 5: 05 PM GASTROENTEROLOGY TECHNICIAN documented as of this encounter Plan of Treatment Upcoming Encounters Date Type Department Care Team (Latest Contact Info) Description 03/10/2025 12:33 PM GASTROENTEROLOGY TECHNICIAN Hospital Encounter [facility] 4 AM ADMIT [address] [place] [address] Rosalia Doyle M.D. [address] [place] [address] 03/10/2025 12:33 PM GASTROENTEROLOGY TECHNICIAN - 03/10/2025 2:42 PM GASTROENTEROLOGY TECHNICIAN Surgery [facility] MAIN OR [address] [place] [address] Rosalia Doyle M.D. [address] [place] [address] TRANSURETHRAL WATERJET ABLATION OF THE PROSTATE, 50g Scheduled Procedures Name Priority Associated Diagnoses Date/Ti oh TRANSURETHRAL WATERJET ABLATION OF THE PROSTATE Benign Prostatic Hyperplasia Without Obstruction Symptom Urinary 03/10/2025 12:33 PM GASTROENTEROLOGY TECHNICIAN documented as of this encounter Visit Diagnoses Not on filedocumented in this encounter
--- OUTSIDE RECORDS SUMMARY | 2024-12-26 13:11 | XMS_ITS | Encounter Summary ---
Author Organization [facility] Address [address] [place] [id number] Care Team Providers Care Landscape Artist Name Role Phone Unavailable Primary Care Provider Unavailabl e Reason for Referral * Outpatient (Routine) - Closed Specialty Diagnoses / Procedures Referred By Contac t Referred To Contact Diagnoses Benign Prostatic Hyperplasia Without Obstruction Procedures Cysto w/ Prostate US Rosalia Doyle M.D. [address] [place] [phone] Phone: tel: fax: Rosalia Doyle M.D. [address] [place] [phone] Phone: tel: fax: Referral ID Status Reason Start Date Expiration Date Visits Re quested Visits Authorized [id number] Closed 12/11/2024 03/13/2026 1 1 Encounter Details Date Type Department Care Team (Late Contact Info) Description 12/11/2024 Orders Only Department of Urology in [place], [place] [address] [place] [phone] Rosalia Doyle M.D. [address] [place] [phone] Benign Prostatic Hyperplasia Without Obstruction (Primary Dx) Social History Tobacco Use Types Packs/Day Years Used Date Smoking Tobacco: Never Smokeless Tobacco: Never Alcohol Use Standard Drinks/Week Comments Yes 11 (1 standard drink = 0.6 oz pu re alcohol) [facility] Utilities Answer Date Recorded In the [...] your living situation today? I have a [facility] place to live 06/08/2024 Education Answer Date Recorded What is the highest level of school you have completed or the highest degree you have received? Bachelor's degree (e.g., BA, AB, BS) 03/09/2019 Sex and Gender Information Value Date Recorded Sex Assigned at Male 05/23/2018 5:05 PM HAND SHAPER Legal Sex Male 4:32 AM HAND SHAPER Gender Identity Male 05/23/2018 5:05 PM HAND SHAPER Sexual Orientation Straight 05/23/2018 5: 05 PM HAND SHAPER documented as of this encounter Plan of Treatment Upcoming Encounters Date Type Department Care Team (Latest Contact Info) Description 03/10/2025 12:33 PM HAND SHAPER Hospital Encounter [facility] 01 4 AM ADMIT [address] [place] [address] Rosalia Doyle M.D. [address] [place] [address] 03/10/2025 12:33 PM HAND SHAPER - 03/10/2025 2:42 PM HAND SHAPER Surgery [facility] MAIN OR [address] [place] [address] Rosalia Doyle M.D. [address] [place] [address] TRANSURETHRAL WATERJET ABLATION OF THE PROSTATE, 50g Scheduled Procedures Name Priority Associated Diagnoses Date/Ti ga TRANSURETHRAL WATERJET ABLATION OF THE PROSTATE Benign Prostatic Hyperplasia Without Obstruction Symptom Urinary 03/10/2025 12:33 PM HAND SHAPER documented as of this encounter Visit Diagnoses Diagnosis Benign Prostatic Hyperplasia Without Obstruction- Primary Benign Prostatic Hyperplasia Without Obstruction Symptom Urinary documented in this encounter
--- OUTSIDE RECORDS SUMMARY | 2024-12-26 13:11 | XMS_ITS | Clinical Summary ---
Author Organization [facility] Address [address] [place] [address] Care Team Providers Care Senior Naval Parachutist Name Role Phone BatelSuresh MD Primary Care [...] Description 12/17/2024 9:10 AM CDT Office Visit [facility] [place] [address] [place] [address] Suresh Urias MD ER Follow up ([place], 12/04/24, catheter); Medication Management 12/16/2024 Travel 12/15/2024 Telephone [facility] [place] [address] [place] [address] Suresh Urias MD Appointment Request 12/15/2024 Nurse Triage [facility] [place] [address] [place] [address] Suresh Urias MD Urinary Problem 12/08/2024 Refill [facility] [place] [address] [place] [address] Suresh Urias MD Refill Request (Pantoprazole, Alfuzosin, Atorvastatin) 12/04/2024 2:55 PM CDT Office Visit [facility] [place] [address] [place] [address] Suresh Urias MD ER Follow up (urinary, [place], 12/02/24, catheter) 12/04/2024 Travel 12/02/2024 Telephone [facility] [place] [address] [place] [address] Suresh Urias MD Appointment Request from Last [...] PM CDT Legal Sex Male 5:26 AM MANAGER RN CASE Gender Identity Male 11/08/2020 9:25 PM CDT Sexual Orientation Not on file 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 [employer] LABORAT[facility] Comment: Cholesterol, Total Reference Ranges Desirable <200 mg/dL Borderline 200-239 mg/dL High >=240 mg/dL TRIGLYCERIDES 134 <150 mg/dL 01/03/2024 1:28 AM CDT [facility] [employer] LAB[facility] HDL CHOLESTEROL 60 >40 mg/dL 1:28 AM CDT [facility] NON-HDL CHOLESTEROL 64 <145 mg/dl 01/03/2024 1:28 AM CDT [facility] CHOL/HDL RATIO 2.07 <4.50 01/03/2024 1:28 AM CDT [facility] TR[facility] LDL CHOLESTEROL 37 <=130 mg/dL 01/03/2024 1:28 AM CDT [facility] VLDL CHOLESTEROL 27 <=30 mg/dL 01/03/2024 1:28 AM CDT [facility] TR[facility] PROVIDER ORDERED STATUS RANDOM 01/03/2024 1:28 AM [facility]T [facility] Blood BLOOD SPECIMEN / Unknown Venipuncture / Unknown 01/02/2024 10:37 AM CDT 01/02/2024 10:37 AM CDT Suresh Urias MD CHEMISTRY Final Re sult [facility] LABOR[facility] [address] [place] [address], [place] * ANTI HCV [19049.2] (02/15/2022 11:45 AM CDT) HEPATITIS C ANTIBODY Non-React kelsy Non-React kelsy 02/16/2022 5:52 AM CDT [facility] TRAL LABORATORY Comment:Antibodies to HCV no t detected; does not exclude the possibility of exposure to HCV. Blood BLOOD SPECIMEN / Unknown Venipuncture / Unknown 02/15/2022 11:45 AM CDT 02/15/2022 11:45 AM CDT us Suresh Urias MD SEND OUTS Final Re sult [facility] LAB[facility] [address] [place] [address], [place] * COLONOSCOPY (02/05/2021 9:20 AM CDT) [...] adequate candidate for conscious sedation. The [id number] was passed through the anus and advanced [...] 9:20 AM Procedure Code(s): --- Professional --- 73174, Colonoscopy, flexible; with removalof tumor(s), polyp(s), or other lesion(s) bysnare technique 12765, 59, Colonoscopy, flexible; withbiopsy, single or multiple Diagnosis Code(s): --- Professional --- K63.5, Polyp of colon Z86.010, Personal history of colonicpolyps CPT copyright 2020 [employer]. All rights reserved. The codes documented in this report are preliminary and upon gas distribution supervisor reviewmay be revised to meet current compliance requirements. Scope In: 9:56:29 AM Scope Withdrawal Time 0 hours 10 minutes 25 seconds Scope Out: 10:09:27 AM us Dl Flor MD PROCEDURE ORD Final Res ult from Last 3 Months or Most Recently Relevant to Health Maintenance Insurance MEDICARE PART A HB ONLY MEDICARE PB ONLY [facility] MEDICARE PART B HB ONLY Advance Directives * Full Code (Latest Code Status on File) Date Activated Date Inactivated Comments 11/08/2017 11:20 AM 11/09/2017 2:34 PM * Full Code Date Activated Date Inactivated Comments 12/30/2012 6:59 PM 01/02/2013 1:20 PM Care Teams Senior Naval Parachutist Relationship Specialty Start Date End Date Votel, Suresh Jones MD [address] [place] [address] PCP - General Family Practice 03/27/12
--- OUTSIDE RECORDS SUMMARY | 2024-12-26 13:11 | XMS_ITS | Clinical Summary ---
Author Organization [facility] Address [address] [place] [address] Care Team Providers Care Sample Selector Name Role Phone Unavailable Primary Care Provider Unavailabl e Source Comments Patient records contain information from all sites at [facility]. For routine questions regarding patient records, call [phone] during business hours, M-F 8:00 AM - 5:00 PM Central Time. Record requests for emergency care only can be directed to [phone] at any time.[facility] Allergies Active Allergy Reactions Criticality Noted [...] Active Problems Problem Noted Date Diagnosed Date Benign Prostatic Hyperplasia Without Obstruction 12/26/2024 Symptom Urinary 12/26/2024 Stroke 06/25/2019 Patent Foramen Ovale 06/25/2019 Encounters * This document contains information received from the source organization and may not represent a complete record from that organization. Date Type Department Care Team Description 12/25/2024 Clinical Communication Department of Urology in [place], [place] [address] [place] [address] Gonzalo Orellana M.D. 12/25/2024 Clinical Communication Department of Urology in [place], [place] [address] [place] [address] Rosalia Doyle M.D. 12/24/2024 4:00 PM CDT Office Visit Department of Urology in [place], [place] [address] [place] [address] Rosalia Doyle M.D. Benign Prostatic Hyperplasia Without Obstruction (Primary Dx) 12/24/2024 3:30 PM CDT Procedure visit Department of Urology in [place], [place] [address] [place] [address] Rosalia Doyle M.D. Hayden, Anna L, R.NDomitila Benign Prostatic Hyperplasia Without Obstruction 12/24/2024 3:00 PM CDT Procedure visit Department of Urology in [place], [place] [address] [place] [address] Doyle, J, M.D. Benign Prostatic Hyperplasia Without Obstruction (Primary Dx) 12/11/2024 Orders Only Department of Urology in [place], [place] [address] [place] [address] Rosalia Doyle M.D. Benign Prostatic Hyperplasia Without Obstruction (Primary Dx) 12/10/2024 Orders Only Department of Urology in [place], [place] [address] [place] [address] Rosalia Doyle M.D. Symptom Urinary (Primary Dx) [...] 6 Zi Joe Prostate cancer Father Scott Joe Coronary artery disease Mother haley joe Hyperlipidemia [...] your living situation today? I have a [facility] place to live 06/08/2024 Education Answer Date Recorded What is the highest level of school you have completed or the highest degree you have received? Bachelor's degree (e.g., BA, AB, BS) 03/09/2019 Sex and Gender Information Value Date Recorded Sex Assigned at Male 05/23/2018 5:05 PM HEALTH AND FITNESS PROFESSOR Legal Sex Male 4:32 AM HEALTH AND FITNESS PROFESSOR Gender Identity Male 05/23/2018 5:05 PM HEALTH AND FITNESS PROFESSOR Sexual Orientation Straight 05/23/2018 5: 05 PM HEALTH AND FITNESS PROFESSOR Last Filed Vital Signs Vital Sign Reading Time Taken Comments Blood Pressure 114/79 06/25/2019 8:00 AM HEALTH AND FITNESS PROFESSOR Pulse 92 06/25/2019 8:00 AM HEALTH AND FITNESS PROFESSOR Temperature 37 C (98.6 F) 06/25/2019 8:00 AM HEALTH AND FITNESS PROFESSOR Respiratory Rate 19 04/10/2019 1:37 PM HEALTH AND FITNESS PROFESSOR Oxygen Saturation 94% 04/10/2019 1:39 PM HEALTH AND FITNESS PROFESSOR Inhaled Oxygen Concentration - - Weight 70.5 kg (155 lb 6.8 oz) 04/10/2019 12:06 PM HEALTH AND FITNESS PROFESSOR Height 162 cm (5' 3.78) 04/10/2019 12:06 PM HEALTH AND FITNESS PROFESSOR Body Mass Index 26.86 04/10/2019 12:06 PM HEALTH AND FITNESS PROFESSOR Plan of Treatment Upcoming Encounters Date Type Department Care Team (Latest Contact Info) Description 03/10/2025 12:33 PM HEALTH AND FITNESS PROFESSOR Hospital Encounter [facility] 01 4 AM ADMIT [address] [place] [phone] Rosalia Doyle M.D. [address] [place] [address] 03/10/2025 12:33 PM HEALTH AND FITNESS PROFESSOR - 03/10/2025 2:42 PM HEALTH AND FITNESS PROFESSOR Surgery [facility] MAIN OR [address] [place] [address] Rosalia Doyle M.D. [address] [place] [phone] TRANSURETHRAL WATERJET ABLATION OF THE PROSTATE, 50g Scheduled Procedures Name Priority Associated Diagnoses Date/Ti me TRANSURETHRAL WATERJET ABLATION OF THE PROSTATE Benign Prostatic Hyperplasia Without Obstruction Symptom Urinary 03/10/2025 12:33 PM HEALTH AND FITNESS PROFESSOR Health Maintenance Due Date Last Done Comments [...] on patient's age to complete this topic Goals Goal Patient Goal Type Associated Problems Recent Progress Patient-Stated? Author Autogenerat ed Goal Care Plan Autogenerated Problem No Sarah Goodrich, R.N. Medical Devices Implanted Type Area Cullet Crusher Device Identifier Shelf Expiration Date Model / Serial / Lot Cardiac Stent Cardiac Stent Heart Description:One stent Procedures Procedure Name Priority Date/Time Associated Diagnosis Comments BASIC METABOLIC PANEL, S/P Routine 03/13/2019 6:22 AM HEALTH AND FITNESS PROFESSOR Cough Chronic from Last 3 Months or Most Recently Relevant to Health Maintenance Results * Basic Metabolic Panel (03/13/2019 6:22 AM HEALTH AND FITNESS PROFESSOR) Potassium, S 4.2 3.6 - 5.2 mmol/L 03/13/2019 7:34 AM HEALTH AND FITNESS PROFESSOR DTL Sodium, S 142 135 - 145 mmol/L 03/13/2019 7:34 AM HEALTH AND FITNESS PROFESSOR DTL Chloride, S 100 98 - 107 mmol/L 03/13/2019 7:34 AM HEALTH AND FITNESS PROFESSOR DTL Bicarbonate, S 27 22 - 29 mmol/L 03/13/2019 7:34 AM HEALTH AND FITNESS PROFESSOR DTL Anion Gap 15 7 - 15 03/13/2019 7:34 AM HEALTH AND FITNESS PROFESSOR DTL BUN (Blood Urea Nitrogen), S 14 8 - 24 mg/dL 03/13/2019 7:34 AM HEALTH AND FITNESS PROFESSOR DTL Creatinine 1.13 0.74 - 1.35 mg/dL 03/13/2019 7:34 AM HEALTH AND FITNESS PROFESSOR DTL eGFR-Non Black/ 66 >=60 mL/min/BSA 03/13/2019 7:34 AM HEALTH AND FITNESS PROFESSOR DTL Comment: ----ADDITIONAL INFORMATION---- Estimated GFR calculated using the 2009 CKD_EPI creatinine equation. eGFR-Black/Afric an Citizen Of [place] 77 >=60 mL/min/BSA 03/13/2019 7:34 AM HEALTH AND FITNESS PROFESSOR DTL Comment: ----ADDITIONAL INFORMATION---- Estimated GFR calculated using the 2009 CKD_EPI creatinine equation. Calcium, Total, S 9.7 8.8 - 10.2 mg/dL 03/13/2019 7:34 AM HEALTH AND FITNESS PROFESSOR DTL Glucose, S 103 70 - 140 mg/dL 03/13/2019 7:34 AM HEALTH AND FITNESS PROFESSOR DTL Blood (Blood, Venous) 03/13/2019 6:22 AM HEALTH AND FITNESS PROFESSOR 03/13/2019 6:44 AM HEALTH AND FITNESS PROFESSOR Alcira Javed M.D. LAB BLOOD ADD-ON Elizabeth l Result [facility] [address] [place], [place] [phone] [place] [address] [facility] [address] [place] [address] from Last 3 Months or Most Recently Relevant to Health Maintenance Additional Health Concerns Active Problems Noted Date Diagnosed Date Autogenerated Problem 12/26/2024 Insurance MEDICARE [facility]
--- OUTSIDE RECORDS SUMMARY | 2024-12-26 13:11 | XMS_ITS | Encounter Summary ---
Author Organization [facility] Address [address] [place] [address] Care Team Providers Care Crude Oil Driver Name Role Phone Unavailable Primary Care Provider Unavailabl e Reason for Referral * Outpatient (Routine) - Authorized Specialty Diagnoses / Procedures Referred By Contac t Referred To Contact Diagnoses Symptom Urinary Procedures URO Uroflow Rosalia Doyle M.D. [address] [place] [address] Phone: tel: fax: [facility] Referral ID Status Reason Start Date Expiration Date V isits Requested Visits Authorized [id number] Authorized 12/10/2024 03/12/2026 1 1 * Outpatient (Routine) - Closed Specialty Diagnoses / Procedures Referred By Contac t Referred To Contact Urology Rosalia Doyle M.D. [address] [place] [address] Phone: tel: fax: [facility] Referral ID Status Reason Start Date Expiration Date Visits Re quested Visits Authorized [id number] Closed 12/10/2024 06/11/2026 1 1 Encounter Details Date Type Department Care Team (Late st Contact Info) Description 12/10/2024 Orders Only Department of Urology in [place], [place] [address] [place] [address] Rosalia Doyle M.D. [address] [place] [address] Symptom Urinary (Primary Dx) Social History Tobacco Use Types Packs/Day Years Used Date Smoking Tobacco: Never Smokeless Tobacco: Never Alcohol Use Standard Drinks/Week Comments Yes 11 (1 standard drink = 0.6 oz pu re alcohol) [facility] Utilities Answer Date Recorded In the past [...] your living situation today? I have a [facility] place to live 06/08/2024 Education Answer Date Recorded What is the highest level of school you have completed or the highest degree you have received? Bachelor's degree (e.g., BA, AB, BS) 03/09/2019 Sex and Gender Information Value Date Recorded Sex Assigned at Male 05/23/2018 5:05 PM RN RELIEF CHARGE Legal Sex Male 4:32 AM RN RELIEF CHARGE Gender Identity Male 05/23/2018 5:05 PM RN RELIEF CHARGE Sexual Orientation Straight 05/23/2018 5: 05 PM RN RELIEF CHARGE documented as of this encounter Plan of Treatment Upcoming Encounters Date Type Department Care Team (Latest Contact Info) Description 03/10/2025 12:33 PM RN RELIEF CHARGE Hospital Encounter [facility] 01 4 AM ADMIT [address] [place] [address] Rosalia Doyle M.D. [address] [place] [phone] 03/10/2025 12:33 PM RN RELIEF CHARGE - 03/10/2025 2:42 PM RN RELIEF CHARGE Surgery [facility] MAIN OR [address] [place] [phone] Rosalia Doyle M.D. [address] [place] [address] TRANSURETHRAL WATERJET ABLATION OF THE PROSTATE, 50g Scheduled Orders Name Type Priority Associated Diagnoses Orde r Schedule URO Uroflow Procedure Routine Symptom Urinary Expected: 12/24/2024, Expires: 03/12/2026 PSA (Prostate-Specific Antigen), Diagnostic Lab Routine Symptom Urinary Expected: 06/12/2025 (Approximate), Expires: 03/12/2026 Scheduled Procedures Name Priority Associated Diagnoses Date/Ti me TRANSURETHRAL WATERJET ABLATION OF THE PROSTATE Benign Prostatic Hyperplasia Without Obstruction Symptom Urinary 03/10/2025 12:33 PM RN RELIEF CHARGE Scheduled Referrals Name Type Priority Associated Diagnoses Orde r Schedule Urology office visit (clinic) Outpatient Referral Routine Expected: 12/24/2024, Expires: 03/12/2026 documented as of this encounter Visit Diagnoses Diagnosis Symptom Urinary- Primary Benign Prostatic Hyperplasia Without Obstruction Symptom Urinary documented in this encounter
[2024-12-26 13:13] VITALS: BP 112/73; PULSE 102; RESP 16; TEMP 36.2; O2SAT 97; BMI 25.9
--- NOTE | 2024-12-26 13:15 | ED.GENADULT ---
HPI - General Adult General Date Seen: 12/26/24 Chief complaint: Urogenital Problems, Male Stated complaint: Needs tejada placement Time Seen by Provider: 12/26/24 13:15 History of Present Illness HPI narrative: 74 year old male presenting to the ER today with concern for inability to empty his bladder and frequent urination. Per medical record was seen here in the ER on December 02 with urinary frequency and urgency ongoing for 2 days at that time. Urinalysis was negative. He apparently had urinary retention had placement of a Tejada catheter On 12/04 he saw PCP and had the Tejada catheter removed . However had recurrent urinary retention so presented back to the ER and had placement of a 2nd Tejada catheter that night, on 12/04. Urinalysis showed hematuria (25-50 rbc's) but only 2-5 WBC, negative nitrite, trace leukocyte esterase. Plan was for him to have follow-up with primary care and Neurology through [facility]. Presented to urgent care on 12/14 with right-sided low back pain, cloudy urine, fevers and chills. Per notes urgent care thought his back pain was probably musculoskeletal. Also per Urgent Care notes he had an upcoming appointment to see male Urology on 12/24 I do not have records from his [facility] visit but he apparently had his Tejada catheter removed. Per patient, he had his Tejada catheter removed. He had a cystoscopy that apparently showed unusual growth around his urethra. It does not sound like he bladder cancer. It sounds like they might be planning a TURP in a couple of weeks. He also had a rectal exam. He presented back in the [facility] ER yesterday on 12/25 with urinary frequency and pain with urination. Urinalysis showed 10-25 RBC, 25-50 WBC, negative nitrite, 3+ leukocyte esterase. Diagnosed with UTI. Prescribe ciprofloxacin. So far urine culture results only indicate Gram-negative rods but not species or sensitivity data. He has been able to take 2 doses of his Cipro. Throughout the night last night he had urinary frequency with urge to urinate about every 5 minutes all night long. When he goes he only pees less than oz of urine. Urine is yellow, not bloody or cloudy. He is not having suprapubic pain or flank pain. No fever chills or vomiting. He message his urologist at [facility] this morning about his urinary frequency and was told to come back to the ER to get a Tejada catheter placed. His urologist suspects that with his infection and urinary frequency he is probably retaining urine again. He denies fever chills, nausea vomiting. He is not having lot of pain in his abdomen. No flank pain. No fevers. Related Data Home Medications ?Medication ?Instructions ?Recorded ?Confirmed alfuzosin 10 mg tablet,extended 10 mg PO DAILY 03/04/24 12/26/24 release 24 hr aspirin 81 mg capsule 81 mg PO DAILY 03/04/24 12/26/24 atorvastatin 40 mg tablet 40 mg PO DAILY 03/04/24 12/26/24 pantoprazole 40 mg tablet,delayed 40 mg PO DAILY 03/04/24 12/26/24 release Allergies Allergy/AdvReac Type Severity Reaction Status Date / Time No Known Drug Allergies Allergy Verified 12/26/24 13:17 [facility] Medical History GERD (gastroesophageal reflux disease) ?K21.9 - Gastro-esophageal reflux disease without esophagitis (ICD-10) PFO (patent foramen ovale) ?Q21.12 - Patent foramen ovale (ICD-10) Allergic rhinitis ?J30.9 - Allergic rhinitis, unspecified (ICD-10) CVA (cerebral vascular accident) (12/30/12) ?I63.9 - Cerebral infarction, unspecified (ICD-10) ASHD (arteriosclerotic heart disease) ?I25.10 - Atherosclerotic heart disease of [place] coronary artery without angina pectoris (ICD-10) Surgical History History of coronary artery stent placement (11/08/17) ?Z95.5 - Presence of coronary angioplasty implant and graft (ICD-10) Social History Smoking Status: Never smoker Do you use any of these nicotine containing products: None How often do you have a drink containing alcohol: 4 or more times a week How many standard drinks containing alcohol do you have on a typical day: 1 or 2 AUDIT-C Alcohol total score: 4 Non-prescribed substance use: denies use Exam Narrative: Exam Narrative: Constitutional: Appears well-developed and well-nourished. Alert. Conversant. Non toxic. HENT: Head: Atraumatic. Nose: Nose normal. Mouth/Throat: Oral mucosa is clear and moist. no trismus. Eyes: Conjunctivae normal. EOM normal. Pupils equal, round, and reactive to light. No scleral icterus. Neck: Normal range of motion. Neck supple. No tracheal deviation present. Cardiovascular: Normal rate, regular rhythm. No gallop. No friction rub. No murmur heard. Symmetric radial artery pulses Pulmonary/Chest: Effort normal. No stridor. No respiratory distress. Abdominal: Soft. No distension. No mass. No suprapubic or CVA tenderness. No rebound. No guarding. Musculoskeletal: RUE: Normal range of motion. No tenderness. No deformity LUE: Normal range of motion. No tenderness. No deformity RLE: Normal range of motion. No edema. No tenderness. No deformity LLE: Normal range of motion. No edema. No tenderness. No deformity Neurological: Alert and oriented to person, place, and time. Normal strength. CN II-VII intact. No sensory deficit. GCS eye subscore is 4. GCS verbal subscore is 5. GCS motor subscore is 6. Normal coordination Skin: Skin is warm and dry. No rash noted. No pallor. Normal capillary refill. Psychiatric: Normal mood. Normal affect. Polite Const: Vital Signs, click to edit/add: Vital Signs - 24 hr 12/26/24 13:13 Temperature 97.1 F L Pulse Rate [Pulse Oximeter] 102 H Respiratory Rate 16 Blood Pressure [Ri ght Upper Arm] 112/73 Pulse Oximetry 97 Course Course ED Course: Patient room to the ER bed 5. History and physical performed. Bedside bladder scan ultrasound showed a bladder volume of 230 and 240 mL on 2s consecutive readings. Patient felt the urge to urinate. He went to the bathroom but could not void. At this point we suspect that he probably is retaining urine and I actually suspect his bladder scan is probably under estimating his bladder volume. Will go ahead with Tejada catheter placement. Vital Signs Vital signs: Initial Vital Signs Temperature 97.1 F L 12/26/24 13:13 Temperature Source Temporal Artery Scan 12/26/24 13:13 Pulse Rate 102 H 12/26/24 13:13 Respiratory Rate 16 12/26/24 13:13 Blood Pressure 112/73 12/26/24 13:13 Blood Pressure Mean 86 12/26/24 13:13 Pulse Oximetry 97 12/26/24 13:13 Vital Signs Temperature 97.1 F L 12/26/24 13:13 Pulse Rate 102 H 12/26/24 13:13 Respiratory Rate 16 12/26/24 13:13 Blood Pressure 112/73 12/26/24 13:13 Pulse Oximetry 97 12/26/24 13:13 Temperature 97.1 F L 12/26/24 13:13 Pulse Rate 102 H 12/26/24 13:13 Respiratory Rate 16 12/26/24 13:13 Blood Pressure 112/73 12/26/24 13:13 Pulse Oximetry 97 12/26/24 13:13 Medical Decision Making MDM Narrative Medical decision making narrative: Pleasant 74-year-old gentleman presenting to the ER today with the significant urinary frequency all night long in the setting of a urinary tract infection. He also has a recent problem with urinary retention requiring Tejada catheter placement at this facility earlier this month. His urologist senfederico min with concern that he is probably retaining urine again. Overall the patient is pleasant, conversant, hemodynamically stable (borderline tachycardia triage but otherwise normal) and well-appearing. No significant abdominal or flank tenderness on exam. He he initial bladder scan showed only a couple 100 mL of urine but we placed a Tejada catheter and actually got out about 700 mL of urine. He was clearly at in urinary retention which was what was causing his urinary frequency overnight. He is already on Cipro for urinary tract infection. Urine culture obtained yesterday in the ER is growing Gram-negative rods but we do not have a species ID or sensitivity data. I encouraged the patient to continue on his Cipro. We will contact him if were culture and sensitivity data indicate that we need to change antibiotics. At this point I do not see any clinical evidence for urosepsis, pyelonephritis. At this point I do not think he labs workup, CT imaging, or admission. He understands Tejada catheter care. He will follow-up with his urologist at [facility]. I would advise follow-up within 1-2 weeks for recheck to consider per clear catheter removal after treatment of urinary tract infection. Also, ideally would be nice for him to get his prostate surgery done at [facility] to obviate the need for long-term Tejada catheter placement. Patient says that the surgery is currently scheduled for early March. He will work with his Urology team see if that surgery can be moved up. Questions answered. Patient is comfortable plan to discharge home and would like to go home and take a nap, since he was up all night with urinary frequency. Discharge Plan Discharge Clinical Impression: Acute urinary retention, Acute UTI Patient Disposition: Home, Self-Care Condition: Stable Instructions: Urinary Retention in Men (ED), Tejada Catheter Placement and Care (ED) Additional Instructions: As we discussed, please care for your with CT Tejada catheter and avoid tugging on the catheter which can could injure your urethra. Please follow-up with your urologist at [facility] within 1-2 weeks for recheck. Please continue on your current antibiotic (Cipro). The urine culture from your infection has not resulted from the laboratory had. If it shows an unusual strain of bacteria, you will receive a phone call from the [facility] ER to change your antibiotics. In the meantime, if you notice worsening symptoms such as nausea vomiting, fever chills, kidney pain, weakness, or have other worsening symptoms, please come back to the ER right away. Prescriptions: No Action atorvastatin 40 mg tablet 40 mg PO DAILY pantoprazole 40 mg tablet,delayed release (DR/EC) 40 mg PO DAILY alfuzosin 10 mg tablet extended release 24 hr 10 mg PO DAILY aspirin 81 mg capsule 81 mg PO DAILY Follow Up/Referrals: Suresh Urias MD [Primary Care Provider, Family Practice] Stand Alone Forms: Comunitae Info Instructions
== END 2024-12-26 14:32 | disposition home or self-care (01) ==
PROVIDERS: Emergency Provider Emergency Medicine; PCP Family Medicine
DX: R33.9 Retention of urine, unspecified (principal); N39.0 Urinary tract infection, site not specified
CPT/HCPCS: 51702; 99282; 99283

== ENCOUNTER 2025-03-24 22:08 | Emergency (ER) | payer MEDICARE, BC, SELFPAY ==
--- OUTSIDE RECORDS SUMMARY | 2025-02-12 11:30 | XMS_ITS | Encounter Summary ---
Author Organization [facility] Address [address] [place] [id number] Care Team Providers Care Stars Analytical Lead Name Role Phone Unavailable Primary Care Provider Unavailabl e Reason for Visit * Reason Onset Date Comments Pre-visit Intake 02/12/2025 Encounter Details Date Type Department Care Team (Latest Contact Info) Description 02/12/2025 12:30 PM CDT Clinical Communication Virtual Review in [place], [place] [address] [place] [address] Pre-visit Intake Social History Tobacco Use Types Packs/Day Years Used Date Smoking Tobacco: Never Smokeless Tobacco: Never Alcohol Use Standard Drinks/Week Comments Yes 14 (1 standard drink = 0.6 oz pu re alcohol) [facility] Utilities Answer Date Recorded In the past 12 months has [employer], gas, oil, or water [employer] threatened to shut off services in your [...] your living situation today? I have a [facility] place to live 06/08/2024 Education Answer Date Recorded What is the highest level of school you have completed or the highest degree you have received? Bachelor's degree (e.g., BA, AB, BS) 03/09/2019 Sex and Gender Information Value Date Recorded Sex Assigned at Male 05/23/2018 5:05 PM TENSIONING MACHINE OPERATOR Legal Sex Male 4:32 AM TENSIONING MACHINE OPERATOR Gender Identity Male 05/23/2018 5:05 PM TENSIONING MACHINE OPERATOR Sexual Orientation Straight 05/23/2018 5: 05 PM TENSIONING MACHINE OPERATOR documented as of this encounter Plan of Treatment Upcoming Encounters Date Type Department Care Team (Latest Contact Info) Description 05/22/2025 3:30 PM TENSIONING MACHINE OPERATOR Clinical Communication Virtual Review in [address] [phone] 06/03/2025 11:00 AM TENSIONING MACHINE OPERATOR Lab Department of Laboratory Medicine and Pathology, [facility] in [address] [phone] Gagandeep Cook M.D. [address] [place] [phone] 06/03/2025 1:15 PM TENSIONING MACHINE OPERATOR Procedure visit Department of Urology in [address] [phone] Gagandeep Cook M.D. [address] [place] [phone] 06/03/2025 3:00 PM TENSIONING MACHINE OPERATOR Office Visit Department of Urology in [address] [phone] Darrion Wyatt P.A.-C., M.S. [address] [place] [phone] documented as of this encounter Visit Diagnoses Not on filedocumented in this encounter
--- OUTSIDE RECORDS SUMMARY | 2025-02-17 10:00 | XMS_ITS | Encounter Summary ---
Author Organization [facility] Address [address] [place] [address] Care Team Providers Care Otr Owner Operator Truck Driver Name Role Phone Unavailable Primary Care Provider Unavailabl e Reason for Visit * Outpatient (Routine) - Closed Specialty Diagnoses / Procedures Referred By Contbecki t Referred To Contact Anesthesiology Diagnoses Benign Prostatic Hyperplasia Without Obstruction Symptom Urinary Rosalia Doyle M.D. [address] [place] [address] Phone: tel: fax: [facility] System Referral ID Status Reason Start Date Expiration Date Visits Re quested Visits Authorized [id number] Closed 12/26/2024 06/27/2026 1 1 Encounter Details Date Type Department Care Team (Latest Contact Info) Description 02/17/2025 11:00 AM CDT Telemedicine Preoperative Evaluation Center in [place], [place] [address] [place] [phone] Rosalia Doyle M.D. [address] [place] [phone] Yevgeniy Hooks, JUDIE, C.N.P., M.S. [address] [place] [phone] Preanesthetic Medical Exam (Primary Dx); Benign Prostatic Hyperplasia Hypertrophy With Obstruction; Infection Urinary Tract Personal History; Hypertension Essential Primary; Atherosclerotic Heart Disease Of [place] Coronary Artery Without Angina Pectoris; Coronary Stent [...] drink = 0.6 oz pu re alcohol) [facility] Utilities Answer Date Recorded In the past 12 months has th e electric, gas, oil, or water [employer] threatened to shut off services in [...] your living situation today? I have a [employer] [facility] place to live 06/08/2024 Education Answer Date Recorded What is the highest level of school you have completed or the highest degree you have received? Bachelor's degree (e.g., BA, AB, BS) 03/09/2019 Sex and Gender Information Value Date Recorded Sex Assigned at Male 05/23/2018 5:05 PM ADVERTISEMENT COMPOSITOR Legal Sex Male 4:32 AM ADVERTISEMENT COMPOSITOR Gender Identity Male 05/23/2018 5:05 PM ADVERTISEMENT COMPOSITOR Sexual Orientation Straight 05/23/2018 5: 05 PM ADVERTISEMENT COMPOSITOR documented as of this encounter Last Filed [...] by Yevgeniy Hooks APRN, Anne.Polina.Carmela., M.S. in [facility] to the patient in Patient's Home This [...] from 02/17/2025 in Preoperative Evaluation Center in [place], [place] DASI Total Score 26.95 Estimated V02 [...] Lab: - 03/10/2025 BMP preop scheduled. ECG: [facility] 03/10/2025 ECG preop scheduled. ECHO: - 04/10/2019 TTE final impression: (stroke indication) 1. Atrial septal aneurysm with hyperdynamic atrial septum and patent foramen ovale. 2. Large hutit-se-xwgl shunt at atrial level at rest and [...] Essential Primary #5 Atherosclerotic Heart Disease Of [place] Coronary Artery Without Angina Pectoris #6 Coronary [...] for PFO closure, very large aneurysmal PFO qwbra-tr-avse shunt. No angina/CHF/SOB. No AFib history. PFO closure recommended, working with insurance. (No surgical intervention/cardiology follow-up since.) Counseled to follow-up with [place] cardiology or local cardiology following recovery surgery [...] procedure: Yes Further Recommendations: None PATIENT EDUCATION: [facility] Checklist For Surgical Patient's (pamphlet link: Instructions To Get Ready for Your Surgery or Procedure [facility]:[place]). I spent 60 minutes face to face and non-face to face caring for the patient today. documented in this encounter Plan of Treatment Upcoming Encounters Date Type Department Care Team (Latest Contact Info) Description 05/22/2025 3:30 PM ADVERTISEMENT COMPOSITOR Clinical Communication Virtual Review in [place] [address] [place] [phone] 06/03/2025 11:00 AM ADVERTISEMENT COMPOSITOR Lab Department of Laboratory Medicine and Pathology, [facility], in [place], [place] [address] [place] [phone] Gagandeep Cook M.D. [address] [place] [phone] 06/03/2025 1:15 PM ADVERTISEMENT COMPOSITOR Procedure visit Department of Urology in [place], [place] [address] [place] [phone] Gagandeep Cook M.D. [address] [place] [phone] 06/03/2025 3:00 PM ADVERTISEMENT COMPOSITOR Office Visit Department of Urology in [place], [place] [address] [place] [phone] Darrion Wyatt, PSamuel-C., M.S. [address] [place] [phone] documented as of this encounter Visit Diagnoses Diagnosis Preanesthetic Medical Exam- Primary Benign Prostatic Hyperplasia Hypertrophy With Obstruction Infection Urinary Tract Personal History Hypertension Essential Primary Atherosclerotic Heart Disease Of [place] Coronary Artery Without Angina Pectoris Coronary Stent Status Post Patent Foramen Ovale (HCC) Hyperlipidemia Transient Ischemic Attack Personal History Or Stroke Personal History Gastroesophageal Reflux Disease Herpesviral Vesicular Dermatitis Overweight Body Mass Index 25-29.9 Adult documented in this encounter
--- OUTSIDE RECORDS SUMMARY | 2025-03-10 10:39 | XMS_ITS | Encounter Summary ---
Author Organization [facility] Address [address] [place] [address] Care Team Providers Care Truss Puller Helper Name Role Phone Elsewhere, Pcp Primary Care Provider Unavailabl e Reason for Referral * Medication Prior Authorization - Closed Specialty Diagnoses / Procedures Referred By Contac t Referred To Contact Diagnoses Benign Prostatic Hyperplasia Without Obstruction Gagandeep Cook M.D. [address] [place] [address] Phone: tel: fax: Referral ID Status Reason Start Date Expiration Date Visits Re quested Visits Authorized [id number] Closed 1 1 SOURCE OPERATOR * Outpatient (Routine) - Authorized Specialty Diagnoses / Procedures Referred By Contac t Referred To Contact Diagnoses Benign Prostatic Hyperplasia Without Obstruction Procedures URO Uroflow Gagandeep Cook M.D. [address] [place] [address] Phone: tel: fax: [facility] Referral ID Status Reason Start Date Expiration Date V isits Requested Visits Authorized [id number] Authorized 03/10/2025 06/10/2026 1 1 SOURCE OPERATOR * Outpatient (Routine) - Authorized Specialty Diagnoses / Procedures Referred By Sagrario t Referred To Contact Urology Gagandeep Cook M.D. [address] [place] [phone] Phone: tel: fax: Darrion Wyatt P.A.-C., M.S. [address] [place] [phone] Phone: tel: fax: Referral ID Status Reason Start Date Expiration Date V isits Requested Visits Authorized [id number] Authorized 03/10/2025 09/09/2026 1 1 SOURCE OPERATOR Encounter Details Date Type Department Care Team (Latest Contact Info) Description 03/10/2025 10:39 AM LIVE SOURCE OPERATOR - 03/10/2025 4:51 PM LIVE SOURCE OPERATOR Hospital Encounter Outpatient Surgery Unit in [place], [place] [address] [place] [phone] Rosalia Doyle M.D. [address] [place] [phone] Benign Prostatic Hyperplasia Without Obstruction; Symptom Urinary Discharge Disposition: Home or Self Care Social History Tobacco Use Types Packs/Day Years Used Date Smoking Tobacco: Never Smokeless Tobacco: Never Alcohol Use Standard Drinks/Week Comments Yes 14 (1 standard drink = 0.6 oz pu re alcohol) [facility] Utilities Answer Date Recorded In the past 12 months has [employer] gas, oil, or water [employer] threatened to shut off services in your [...] Sex Assigned at Male 05/23/2018 5:05 PM LIVE SOURCE OPERATOR Legal Sex Male 4:32 AM LIVE SOURCE OPERATOR Gender Identity Male 05/23/2018 5:05 PM LIVE SOURCE OPERATOR Sexual Orientation Straight 05/23/2018 5: 05 PM LIVE SOURCE OPERATOR documented as of this encounter Last Filed Vital Signs Vital Sign Reading Time Taken Comments Blood Pressure 125/80 03/10/2025 4:00 PM LIVE SOURCE OPERATOR Pulse 66 03/10/2025 4:00 PM LIVE SOURCE OPERATOR Temperature 36.2 C (97.2 F) 03/10/2025 3:10 PM LIVE SOURCE OPERATOR Respiratory Rate 16 03/10/2025 4:0 0 PM LIVE SOURCE OPERATOR Oxygen Saturation 96% 03/10/2025 4:00 PM LIVE SOURCE OPERATOR Inhaled Oxygen Concentration - - Weight 67.1 kg (147 lb 14.9 oz) 025 11:01 AM LIVE SOURCE OPERATOR Height 155 cm (5' 1.02) 03/10/2025 11: 01 AM LIVE SOURCE OPERATOR Body Mass Index 27.93 03/10/2025 11:01 AM LIVE SOURCE OPERATOR documented in this encounter Medications at Time of Discharge alfuzosin (UROXATRAL) 10 mg 24 hr tablet Take 10 mg by mouth daily. 03/05/2019 amLODIPine (Norvasc) 5 mg tablet Take 5 mg by mouth daily. aspirin 81 mg chewable tablet Chew 81 mg daily. 11/08/2017 atorvastatin (LIPITOR) 40 mg tablet Take 40 mg by mouth daily. 03/05/2019 calcium carbonate (TUMS) 500 mg (200 mg calcium) chewable tablet Chew 500 mg as needed. famciclovir (FAMVIR) 250 mg tablet Take 250 mg by mouth as needed. 03/05/2019 levoFLOXacin (Levaquin) 500 mg tabletIndication s:Benign Prostatic Hyperplasia Without Obstruction Take 1 tablet (500 mg total) by mouth daily. 7 tablet 03/03/2025 pantoprazole (PROTONIX) 40 mg EC tablet Take 40 mg by mouth daily. 02/22/2019 acetaminophen (TylenoL) 500 mg tablet Take 1 tablet (500 mg total) by mouth every 6 (six) hours as needed for pain. 100 tablet 03/10/2025 ascorbic acid, vitamin C, (vitamin C) 1,000 mg tablet Take 1,000 mg by mouth daily. cholecalciferol, vitamin D3, 1,000 Unit tablet Take 1,000 Units by mouth daily. levoFLOXacin (Levaquin) 500 mg tabletIndication s:Benign Prostatic Hyperplasia Without Obstruction Take 1 tablet (500 mg total) by mouth daily. Take morning of catheter removal. 1 tablet 03/10/2025 4:57 PM LIVE SOURCE OPERATOR 03/10/2025 lidocaine HCL (Glydo) 2 % topical jellyIndications :Benign Prostatic Hyperplasia Without Obstruction Insert 5 mL (1 Application total) into the urethra once. Apply as needed 4 times daily to tip of of penis for catheter pain. You do not need to use the entire applicator. 5 applicator 03/10/2025 4:57 PM LIVE SOURCE OPERATOR 03/10/2025 omega-3 fatty acids-fish oil 360-1,200 mg capsule Take 1 capsule by mouth daily. oxyBUTYnin (Ditropan) 5 mg tablet Take 1 tablet (5 mg total) by mouth 3 (three) times a day. Do not take morning of or night before catheter removal. 21 tablet 03/10/2025 4:57 PM LIVE SOURCE OPERATOR 03/10/2025 sennosides-docus ate sodium (Senna with Docusate Sodium) 8.6-50 mg per tablet Take 1 tablet by mouth 2 (two) times a day. 100 tablet 03/10/2025 documented as of this encounter OR Notes * Op Note - Gagandeep Cook M.D. - 03/10/2025 12:57 PM CST Pre-op Diagnosis Benign Prostatic Hyperplasia Without Obstruction Symptom Urinary Post-op Diagnosis Benign Prostatic Hyperplasia Without Obstruction Symptom Urinary Customer Acquisition Specialist A first leveler actively participated and was necessary for one or more of the following: opening, exposure and visualization, maintaining hemostasis, wound closure resulting in its safe and expeditious completion. Findings 50g Approx 6.5 minutes aqua time Complications None Operative Note Narrative The patient was brought to the operating room. Site and scope of surgery were confirmed with the patient and the patient's identity was confirmed. General anesthesia was achieved without complications. Patient was then placed in low dorsal lithotomy position. Genitals were prepped and draped in thestandard sterile fashion. Appropriate time-out was performed and intravenous antibiotics were given. The TRUS stepper was mounted to the articulating arm and secured to the OR bed. The ultrasound probe was attached to the stepper. The ultrasound probe was aligned and confirmation made that the prostate is centered and aligned using both transverse and sagittal views. The bladder neck, verumontanumand the central/transition zones were identified. The AQUABEAM handpiece was then inserted cystoscopically. The location of the verumontanum was noted during hand piece insertion. The AQUABEAM handpiece was secured to the handpiece articulating arm. Confirmed alignment of AQUABEAM handpiece and TRUS probe to be parallel and colinear. Confirmation that AQUABEAM nozzle was centered and anterior to the bladder neck. The cystoscope was then retracted to visualize the veru and external sphincter andthe cystoscope tip was positioned just proximal to the external sphincter. We reconfirmed alignmentof the TRUS probe with the AQUABEAM handpiece and compression was applied to the probe. Horizontal a lignment of the handpiece water jet nozzle was performed. The Aquablation treatment zones were planned utilizing real-time TRUS to visualize the contour of the prostate and the depth and radial angles of resection were defined in the transverse view. In thesagittal view, the AQUABEAM nozzle was identified and positioned registered within the software. The treatment contours were then adjusted to conform to the intended resection margins. All aspects ofthe prostate, bladder neck and veru were marked and confirmed in the treatment contour. The Aquablation treatment was then started following the resection contour confirmed under ultrasound guidance.The treatment plan was then adjusted as needed and a second pass was performed. Total Aquablation resection time: Approximately 6.5 minutes. Once Aquablation resection was complete, the resectoscope was inserted and tissue and clot evacuation was then performed with cauterization using the loop for adequate hemostasis. This was performed until the urine was light pink in color. A Fay catheter was then inserted and the balloon was inflated to 30 cc. CBI was initiated and the ultrasound probe was removed. The patient was then awakenedand brought to recovery in stable condition and tolerated the procedure well. Martínez Cook M.D. Cosigned by Rosalia Doyle M.D. at 03/11/2025 8:38 AM LIVE SOURCE OPERATOR SOURCE OPERATOR SOURCE OPERATOR documented in this encounter Plan of Treatment Upcoming Encounters Date Type Department Care Team (Latest Contact Info) Description 05/22/2025 3:30 PM LIVE SOURCE OPERATOR Clinical Communication Virtual Review in [address] [phone] 06/03/2025 11:00 AM LIVE SOURCE OPERATOR Lab Department of Laboratory Medicine and Pathology, [facility] in [address] [phone] Gagandeep Cook M.D. [address] [place] [phone] 06/03/2025 1:15 PM LIVE SOURCE OPERATOR Procedure visit Department of Urology in [address] [phone] Gagandeep Cook M.D. [address] [place] [phone] 06/03/2025 3:00 PM LIVE SOURCE OPERATOR Office Visit Department of Urology in [address] [phone] Darrion Wyatt P.A.-C., M.S. [address] [place] [phone] Scheduled Orders Name Type Priority Associated Diagnoses Orde r Schedule PSA (Prostate-Specific Antigen), Diagnostic Lab Routine Benign Prostatic Hyperplasia Without Obstruction Symptom Urinary Expected: 06/10/2025, Expires: 03/10/2026 URO Uroflow Procedure Routine Benign Prostatic Hyperplasia Without Obstruction Expected: 06/10/2025, Expires: 03/10/2026 Scheduled Referrals Name Type Priority Associated Diagnoses Orde r Schedule Urology Post Op (clinic) Outpatient Referral Routine Expected: 06/10/2025, Expires: 03/10/2026 documented as of this encounter Procedures Procedure Name Priority Date/Time Associated Diagnosis Comments ADULT OXYGEN THERAPY Routine 03/10/2025 1:55 PM LIVE SOURCE OPERATOR SURGICAL PATHOLOGY, [facility] Routine 03/10/2025 1:38 PM LIVE SOURCE OPERATOR Benign Prostatic Hyperplasia Without Obstruction Symptom Urinary TRANSURETHRAL WATERJET ABLATION OF THE PROSTATE 03/10/2025 12:14 PM LIVE SOURCE OPERATOR Benign Prostatic Hyperplasia Without Obstruction Symptom Urinary documented in this encounter Results * Surgical Pathology, [facility] (03/10/2025 1:38 PM LIVE SOURCE OPERATOR) 03/13/2025 1:38 PM LIVE SOURCE OPERATOR METH Participated in the Interpretation Maribel Lucas M.D. -Pathology Resident 03/13/2025 1:38 PM LIVE SOURCE OPERATOR METH Report electronically signed by Slava Gatica M.D. I verify that I have examined all relevant slides/materials for the specimen(s) and rendered or confirmed the diagnosis. 03/13/2025 1:38 PM LIVE SOURCE OPERATOR METH Gross Description A. Received fresh labeled prostate chips is a 5.5 gram, 5 x 3.5 x 1.5 cm aggregate of rubbery, aguilar-pink tissue. All submitted for permanent sections. Grossed by Ricki Benavides MDomitilaS., PA([facility]). 03/13/2025 1:38 PM LIVE SOURCE OPERATOR METH Block Summary A Prostate chips A1 Prostate chips 1 A2 Prostate chips 2 A3 Prostate chips 3 A4 Prostate chips 4 A5 Prostate chips 5 A6 Prostate chips 6 03/13/2025 1:38 PM LIVE SOURCE OPERATOR METH Interpretation FINAL DIAGNOSIS A. Prostate, transurethral resection: Nodular hyperplasia Digital imaging was used in the diagnostic assessment of this case. 03/13/2025 1:38 PM LIVE SOURCE OPERATOR METH Tissue (Prostate) 03/10/2025 1:38 PM LIVE SOURCE OPERATOR us Rosalia Doyle M.D. LAB SURG PATH ORDERABLES Final R esult [facility] [address] [place] [address], [facility] METH [address] [facility] [address] [place] [address] documented in this encounter Visit Diagnoses Diagnosis Benign Prostatic Hyperplasia Without Obstruction Symptom Urinary documented in this encounter Admitting Diagnoses Diagnosis Benign Prostatic Hyperplasia Without Obstruction Symptom Urinary documented in this encounter Administered Medications Inactive Administered Medications - up to 3 most recent administrations Medication Order MAR Action Action Date Dose Rate Site acetaminophen tablet 1,000 mg (TylenoL) 1,000 mg, oral, Once, On Mon03/10/25 at 1145, For 1 dose, Pre-Op, PreOp give in preprocedural area. Given 03/10/2025 11:24 AM LIVE SOURCE OPERATOR 1,000 mg levoFLOXacin in D5W IVPB 500 mg (Levaquin) 500 mg, intravenous, at 100 mL/hr, Administer over 60 Minutes, Once, On Mon03/10/25 at 1145, For 1 dose, Pre-Op, Drug Monitoring Program: Pharmacist to adjust medication dosing based on indication and drug clearance factors., Indications: Prophylaxis, surgicalIndications:Prophylax is, surgical New Bag 03/10/2025 11:25 AM LIVE SOURCE OPERATOR 500 mg 100 mL/hr NaCl 0.9 % irrigation solution 3,000 mL 3,000 mL, irrigation, Continuous, Starting on Mon03/10/25 at 1430 New Bag 03/10/2025 2:53 PM LIVE SOURCE OPERATOR 3,000 mL documented in this encounter Active and Recently Administered Medications Times are shown in LIVE SOURCE OPERATOR. Scheduled Medication Order 03/08/2025 03/09/2025 03/10/2025 acetaminophen tablet 1,000 mg (TylenoL) (COMPLETED) 1,000 mg, oral, Once, On Mon03/10/25 at 1145, For 1 dose, Pre-Op, PreOp give in preprocedural area. 1124 (Given - Provid er: Tarik TrujilloN.P., R.N.) levoFLOXacin in D5W IVPB 500 mg (Levaquin) (COMPLETED) 500 mg, intravenous, at 100 mL/hr, Administer over 60 Minutes, Once, On Mon03/10/25 at 1145, For 1 dose, Pre-Op, Drug Monitoring Program: Pharmacist to adjust medication dosing based on indication and drug clearance factors., Indications: Prophylaxis, surgical 1125 (New Bag - Prov ider: Tarik TrujilloN.P., R.N.)1323 (Anesthesia Volume Adjustment - Provider: Zi Mejia APRN, JW, DNACarmela) tranexamic acid in NaCl IVPB 1 g (Cyklokapron) (COMPLETED) 1 g, intravenous, Once, On Mon03/10/25 at 1230, For 1 dose, Intra-Op 1249 (Given - Provid er: Zi Mejia APRN, JW, DNACarmela) Continuous Medication Order 03/08/2025 03/09/2025 03/10/2025 NaCl 0.9 % irrigation solution 3,000 mL 3,000 mL, irrigation, Continuous, Starting on Mon03/10/25 at 1430 1453 (New Bag - Prov ider: Maritza Vigil R.N.) PRN Medication Order 03/08/2025 03/09/2025 03/10/2025 acetaminophen tablet 1,000 mg (TylenoL) 1,000 mg, oral, Every 6 hours PRN, mild pain or score 1-3 of 10, Starting on Mon03/10/25 at 1405 naloxone injection 0.2 mg (Narcan) 0.2 mg, intravenous, As needed, respiratory depression, Starting on Mon03/10/25 at 1405, For RASS Score -4 or less, respiratory rate of less than 8 breaths/min. Notify provider/service and rapid response team (if available at institution). ondansetron (PF) injection 4 mg (Zofran) 4 mg, intravenous, Every 6 hours PRN, nausea, vomiting, Starting on Mon03/10/25 at 1405, For 48 hours, Reassess for nausea or vomiting after at least 10 minutes. If nausea or vomiting persists administer next ordered antiemetic medications (order for antiemetic medication administration ondansetron then haloperidol then prochlorperazine). prochlorperazine injection 5 mg (Compazine) 5 mg, intravenous, Every 6 hours PRN, nausea, vomiting, Starting on Mon03/10/25 at 1405, For 48 hours, RASS must be -2 or higher to administer. Reassess for nausea/vomiting after at least 10 minutes. If nausea or vomiting persists administer next ordered antiemetic medications (order for antiemetic medication administration ondansetron then haloperidol then prochlorperazine) trospium tablet 20 mg (Sanctura) 20 mg, oral, 2 times daily PRN, bladder spasms, Starting on Mon03/10/25 at 1405, PACU & Post-Op, Administer with water at least 1 hr prior to meals., Restriction Criteria (Pharmacy will review and approve if criteria met): Use in patients 65 years of age or older 1600 (Incomplete - Carmela may: Christine Hernandez R.N.) documented in this encounter Care Teams Truss Puller Helper Relationship Specialty Start Date End Date Elsewhere, Pcp PCP - General Internal Medicine 03/10/25 documented as of this encounter
--- OUTSIDE RECORDS SUMMARY | 2025-03-10 12:29 | XMS_ITS | Encounter Summary ---
Author Organization [facility] Address [address] [place] [address] Care Team Providers Care Landscape Artist Name Role Phone Elsewhere, Pcp Primary Care Provider Unavailabl e Encounter Details Date Type Department Care Team (Late st Contact Info) Description 03/10/2025 12:29 PM BODY STRAIGHTENER Anesthesia Event [facility] [address] [place] [address] Renetta Guerrero M.D. [address] [place] [phone] Zi Mejia APRN, CRNA, DNAP [address] [place] [phone] Anesthesia Record Procedure Summary Procedure Name Responsible [...] Anes CS Handoff I, Shanell Haley APRN, BLEACH MACHINE OPERATOR, D.N.P., attest that I have reconciled [...] drink = 0.6 oz pu re alcohol) [facility] Utilities Answer Date Recorded In the past [...] your living situation today? [facility] 06/08/2024 Education Answer Date Recorded What is the highest level of school you have completed or the highest degree you have received? Bachelor's degree (e.g., BA, AB, BS) 03/09/2019 Sex and Gender Information Value Date Recorded Sex Assigned at Male 05/23/2018 5:05 PM BODY STRAIGHTENER Legal Sex Male 4:32 AM BODY STRAIGHTENER Gender Identity Male 05/23/2018 5:05 PM BODY STRAIGHTENER Sexual Orientation Straight 05/23/2018 5: 05 PM BODY STRAIGHTENER documented as of this encounter OR Notes * Anesthesia Postprocedure Evaluation - Renetta Guerrero M.D. - 03/10/2025 4:27 PM CST Patient: Amilcar Diaz Procedure Summary Date: 03/10/25 Room / Location: [address] Formerly [facility] / [facility] in [place], [place] Anesthesia Start: 1229 Anesthesia Stop: 1357 [...] euvolemic Notable Events No notable events documented. STRAIGHTENER * Anesthesia Procedure Notes - Zi Mejia [...] Procedure outcome: successful Notable Events: no complications STRAIGHTENER * Anesthesia Preprocedure Evaluation - Renetta Guerrero M.D. - 03/10/2025 11:55 AM CST Preprocedure Anesthesia & H&P Assessment Procedure Summary Date/Time: 03/10/25 1233 Procedure: TRANSURETHRAL WATERJET ABLATION PROSTATE, 50 grams. Diagnosis: Benign Prostatic Hyperplasia Without Obstruction [N40.0] Symptom Urinary [R39.89] Pre-op diagnosis: Benign Prostatic Hyperplasia Without Obstruction [N40.0], Symptom Urinary [R39.89]. Location: [place] [address] / [facility] in [place], [place] Providers: Rosalia Doyle M.D. Pertinent components [...] CONDITIONS CV (+) Atherosclerotic Heart Disease Of [place] Coronary Artery Without Angina Pectoris (+) Hypertension [...] with patient /legal guardian or through an automotive parts interpreter. Risks/Benefits/Alternatives of Blood transfusion discussed with patient / legal guardian, includingan opportunity to ask questions and/or decline some or all transfusion therapies. The patient / legal guardian consented to the use of all blood products, as deemed medically necessary Approval to Proceed: approved for anesthesia STRAIGHTENER documented in this encounter Plan of Treatment Upcoming Encounters Date Type Department Care Team (Latest Contact Info) Description 05/22/2025 3:30 PM BODY STRAIGHTENER Clinical Communication Virtual Review in [address] [phone] 06/03/2025 11:00 AM BODY STRAIGHTENER Lab Department of Laboratory Medicine and Pathology, [facility] in [address] [phone] Gagandeep Cook M.D. [address] [place] [phone] 06/03/2025 1:15 PM BODY STRAIGHTENER Procedure visit Department of Urology in [address] [phone] Gagandeep Cook M.D. [address] [place] [phone] 06/03/2025 3:00 PM BODY STRAIGHTENER Office Visit Department of Urology in [address] [phone] Darrion Wyatt P.A.-C., M.S. [address] [place] [phone] documented as of this encounter Procedures Procedure Name Priority Date/Time Associated Diagnosis Comments LDA ANE ENDOTRACHEAL AIRWAY Routine 03/10/2025 12:40 PM BODY STRAIGHTENER documented in this encounter Results * LDA ANE ENDOTRACHEAL AIRWAY (03/10/2025 12:40 PM BODY STRAIGHTENER) Narrative Zi Mejia APRN, CRNA DNACarmela - 03/10/2025 12:40 PM BODY STRAIGHTENER Zi Mejia APRN, CRNA, DNAP 03/10/2025 12:43 [...] 1251, Anesthesia Intra-op Given 03/10/2025 12:51 PM BODY STRAIGHTENER 4 mg fentaNYL injection (Sublimaze) intravenous, As needed, Starting on Mon03/10/25 at 1235, Anesthesia Intra-op Given 03/10/2025 1:10 PM BODY STRAIGHTENER 50 mcg Given 03/10/2025 12:35 PM BODY STRAIGHTENER 100 mcg Lactated Ringer's intravenous, Continuous Infusion: Per Instructions PRN, Starting on Mon03/10/25 at 1230, Anesthesia Intra-op New Bag 03/10/2025 12:30 PM BODY STRAIGHTENER lidocaine (PF) (cardiac) injection intravenous, As needed, Starting on Mon03/10/25 at 1235, Anesthesia Intra-op Given 03/10/2025 12:35 PM BODY STRAIGHTENER 80 mg ondansetron (PF) injection (Zofran) intravenous, As needed, Starting on Mon03/10/25 at 1251, Anesthesia Intra-op Given 03/10/2025 12:51 PM BODY STRAIGHTENER 4 mg propofoL injection (Diprivan) intravenous, As needed, Starting on Mon03/10/25 at 1236, Anesthesia Intra-op Given 03/10/2025 12:36 PM BODY STRAIGHTENER 180 m g rocuronium injection (Zemuron) intravenous, As needed, Starting on Mon03/10/25 at 1237, Anesthesia Intra-op Given 03/10/2025 12:37 PM BODY STRAIGHTENER 50 mg sugammadex injection (Bridion) intravenous, As needed, Starting on Mon03/10/25 at 1339, Anesthesia Intra-op Given 03/10/2025 1:39 PM BODY STRAIGHTENER 200 mg tranexamic acid in NaCl IVPB 1 g (Cyklokapron) 1 g, intravenous, Once, On Mon03/10/25 at 1230, For 1 dose, Intra-Op Given 03/10/2025 12:49 PM BODY STRAIGHTENER 1 g documented in this encounter Care Teams Landscape Artist Relationship Specialty Start Date End Date Elsewhere, Pcp PCP - General Internal Medicine 03/10/25 documented as of this encounter
--- OUTSIDE RECORDS SUMMARY | 2025-03-10 12:33 | XMS_ITS | Encounter Summary ---
Author Organization [facility] Address [address] [place] [address] Care Team Providers Care Rotary Helper Name Role Phone Elsewhere, Pcp Primary Care Provider Unavailabl e Encounter Details Date Type Department Care Team (Late st Contact Info) Description 03/10/2025 12:33 PM AIR SURVEILLANCE OPERATOR - 03/10/2025 2:42 PM AIR SURVEILLANCE OPERATOR Surgery [facility] [address] [place] [address] Rosalia Doyle M.D. [address] [place] [address] TRANSURETHRAL WATERJET ABLATION PROSTATE, 50 grams. Social History Tobacco Use Types Packs/Day Years Used Date Smoking Tobacco: Never Smokeless Tobacco: Never Alcohol Use Standard Drinks/Week Comments Yes 14 (1 standard drink = 0.6 oz pu re alcohol) [facility] Utilities Answer Date Recorded In the [...] your living situation today? I have a [facility] place to live 06/08/2024 Education Answer Date Recorded What is the highest level of school you have completed or the highest degree you have received? Bachelor's degree (e.g., BA, AB, BS) 03/09/2019 Sex and Gender Information Value Date Recorded Sex Assigned at Male 05/23/2018 5:05 PM AIR SURVEILLANCE OPERATOR Legal Sex Male 4:32 AM AIR SURVEILLANCE OPERATOR Gender Identity Male 05/23/2018 5:05 PM AIR SURVEILLANCE OPERATOR Sexual Orientation Straight 05/23/2018 5: 05 PM AIR SURVEILLANCE OPERATOR documented as of this encounter Last Filed Vital Signs Vital Sign Reading Time Taken Comments Blood Pressure 150/78 03/10/2025 2:30 PM AIR SURVEILLANCE OPERATOR Pulse 74 03/10/2025 2:30 PM AIR SURVEILLANCE OPERATOR Temperature 36.4 C (97.5 F) 03/10/2025 2:30 PM AIR SURVEILLANCE OPERATOR Respiratory Rate 14 03/10/2025 2:30 PM AIR SURVEILLANCE OPERATOR Oxygen Saturation 94% 03/10/2025 2:30 PM AIR SURVEILLANCE OPERATOR Inhaled Oxygen Concentration - - Weight 67.1 kg (147 lb 14.9 oz) 025 11:01 AM AIR SURVEILLANCE OPERATOR Height 155 cm (5' 1.02) 03/10/2025 11: 01 AM AIR SURVEILLANCE OPERATOR Body Mass Index 27.93 03/10/2025 11:01 AM AIR SURVEILLANCE OPERATOR documented in this encounter Medications at [...] catheter removal. 1 tablet 03/10/2025 4:57 PM AIR SURVEILLANCE OPERATOR 03/10/2025 lidocaine HCL (Glydo) 2 % topical jellyIndications :Benign Prostatic Hyperplasia Without Obstruction Insert 5 mL (1 Application total) into the urethra once. Apply as needed 4 times daily to tip of of penis for catheter pain. You do not need to use the entire applicator. 5 applicator 03/10/2025 4:57 PM AIR SURVEILLANCE OPERATOR 03/10/2025 omega-3 fatty acids-fish oil 360-1,200 mg capsule Take 1 capsule by mouth daily. oxyBUTYnin (Ditropan) 5 mg tablet Take 1 tablet (5 mg total) by mouth 3 (three) times a day. Do not take morning of or night before catheter removal. 21 tablet 03/10/2025 4:57 PM AIR SURVEILLANCE OPERATOR 03/10/2025 sennosides-docus ate sodium (Senna with Docusate Sodium) 8.6-50 mg per tablet Take 1 tablet by mouth 2 (two) times a day. 100 tablet 03/10/2025 documented as of this encounter OR Notes * Op Note - Gagandeep Cook M.D. - 03/10/2025 12:57 PM CST Pre-op Diagnosis Benign Prostatic Hyperplasia Without Obstruction Symptom Urinary Post-op Diagnosis Benign Prostatic Hyperplasia Without Obstruction Symptom Urinary Senior Reservoir Engineer A first front ventilator actively participated and was necessary for one [...] Rosalia Doyle M.D. at 03/11/2025 8:38 AM AIR SURVEILLANCE OPERATOR SURVEILLANCE OPERATOR SURVEILLANCE OPERATOR documented in this encounter Plan of Treatment Upcoming Encounters Date Type Department Care Team (Latest Contact Info) Description 05/22/2025 3:30 PM AIR SURVEILLANCE OPERATOR Clinical Communication Virtual Review in [address] [phone] 06/03/2025 11:00 AM AIR SURVEILLANCE OPERATOR Lab Department of Laboratory Medicine and Pathology, [facility], in [address] [phone] Gagandeep Cook M.D. [address] [place] [phone] 06/03/2025 1:15 PM AIR SURVEILLANCE OPERATOR Procedure visit Department of Urology in [address] [phone] Gagandeep Cook M.D. [address] [place] [phone] 06/03/2025 3:00 PM AIR SURVEILLANCE OPERATOR Office Visit Department of Urology in [address] [phone] Darrion Wyatt P.A.-C., M.S. [address] [place] [phone] Scheduled Orders Name Type Priority Associated Diagnoses [...] ADULT OXYGEN THERAPY Routine 03/10/2025 1:55 PM AIR SURVEILLANCE OPERATOR SURGICAL PATHOLOGY, [facility] Routine 03/10/2025 1:38 PM AIR SURVEILLANCE OPERATOR Benign Prostatic Hyperplasia Without Obstruction Symptom Urinary TRANSURETHRAL WATERJET ABLATION OF THE PROSTATE 03/10/2025 12:14 PM AIR SURVEILLANCE OPERATOR Benign Prostatic Hyperplasia Without Obstruction Symptom Urinary documented in this encounter Results * Surgical Pathology, [facility] (03/10/2025 1:38 PM AIR SURVEILLANCE OPERATOR) 03/13/2025 1:38 PM AIR SURVEILLANCE OPERATOR METH Participated in the Interpretation Maribel Lucas M.D. -Pathology Resident 03/13/2025 1:38 PM AIR SURVEILLANCE OPERATOR METH Report electronically signed by Slava Gatica M.D. I verify that I have examined all relevant slides/materials for the specimen(s) and rendered or confirmed the diagnosis. 03/13/2025 1:38 PM AIR SURVEILLANCE OPERATOR METH Gross Description A. Received fresh labeled prostate chips is a 5.5 gram, 5 x 3.5 x 1.5 cm aggregate of rubbery, aguilar-pink tissue. All submitted for permanent sections. Grossed by Ricki Benavides M.S., PA([facility]). 03/13/2025 1:38 PM AIR SURVEILLANCE OPERATOR METH Block Summary A Prostate chips A1 Prostate chips 1 A2 Prostate chips 2 A3 Prostate chips 3 A4 Prostate chips 4 A5 Prostate chips 5 A6 Prostate chips 6 03/13/2025 1:38 PM AIR SURVEILLANCE OPERATOR METH Interpretation FINAL DIAGNOSIS A. Prostate, transurethral resection: Nodular hyperplasia Digital imaging was used in the diagnostic assessment of this case. 03/13/2025 1:38 PM AIR SURVEILLANCE OPERATOR METH Tissue (Prostate) 03/10/2025 1:38 PM AIR SURVEILLANCE OPERATOR us Rosalia Doyle M.D. LAB SURG PATH ORDERABLES Final R esult [facility] [address] [place] [address], [facility] METH [address] [place] [address] documented in this encounter Visit Diagnoses Diagnosis [...] in preprocedural area. Given 03/10/2025 11:24 AM AIR SURVEILLANCE OPERATOR 1,000 mg levoFLOXacin in D5W IVPB 500 mg (Levaquin) 500 mg, intravenous, at 100 mL/hr, Administer over 60 Minutes, Once, On Mon03/10/25 at 1145, For 1 dose, Pre-Op, Drug Monitoring Program: Pharmacist to adjust medication dosing based on indication and drug clearance factors., Indications: Prophylaxis, surgicalIndications:Prophylax is, surgical New Bag 03/10/2025 11:25 AM AIR SURVEILLANCE OPERATOR 500 mg 100 mL/hr NaCl 0.9 % irrigation solution 3,000 mL 3,000 mL, irrigation, Continuous, Starting on Mon03/10/25 at 1430 New Bag 03/10/2025 2:53 PM AIR SURVEILLANCE OPERATOR 3,000 mL documented in this encounter Active and Recently Administered Medications Times are shown in AIR SURVEILLANCE OPERATOR. Scheduled Medication Order 03/08/2025 03/09/2025 03/10/2025 acetaminophen tablet 1,000 mg (TylenoL) (COMPLETED) 1,000 mg, oral, Once, On Mon03/10/25 at 1145, For 1 dose, Pre-Op, PreOp give in preprocedural area. 1124 (Given - Provid er: Tarik TrujilloNDomitilaP., R.N.) levoFLOXacin in D5W IVPB 500 mg (Levaquin) (COMPLETED) 500 mg, intravenous, at 100 mL/hr, Administer over 60 Minutes, Once, On Mon03/10/25 at 1145, For 1 dose, Pre-Op, Drug Monitoring Program: Pharmacist to adjust medication dosing based on indication and drug clearance factors., Indications: Prophylaxis, surgical 1125 (New Bag - Prov ider: Jose TrujilloP., R.N.)1323 (Anesthesia Volume Adjustment - Provider: Zi Mejia APRN, JW, EDGAR) tranexamic acid in NaCl IVPB 1 g (Cyklokapron) (COMPLETED) 1 g, intravenous, Once, On Mon03/10/25 at 1230, For 1 dose, Intra-Op 1249 (Given - Provid er: Zi Mejia APRN, JW, EDGAR) Continuous Medication Order 03/08/2025 03/09/2025 03/10/2025 NaCl [...] 65 years of age or older 1600 (Garry - Carmela may: Christine Hernandez R.N.) documented in this encounter Care Teams Rotary Helper Relationship Specialty Start Date End Date Elsewhere, Pcp PCP - General Internal Medicine 03/10/25 documented as of this encounter
--- OUTSIDE RECORDS SUMMARY | 2025-03-10 12:40 | XMS_ITS | Encounter Summary ---
Author Organization [facility] Address [address] [place] [address] Care Team Providers Care Direct Care Worker Name Role Phone Elsewhere, Pcp Primary Care Provider Unavailabl e Encounter Details Date Type Department Care Team (Late st Contact Info) Description 03/10/2025 12:40 PM ASSISTANT MEDIA PLANNER Ancillary Procedure Department of General Surgery Social History Tobacco Use Types Packs/Day Years Used Date Smoking Tobacco: Never Smokeless Tobacco: Never Alcohol Use Standard Drinks/Week Comments Yes 14 (1 standard drink = 0.6 oz pu re alcohol) [facility] Utilities Answer Date [...] your living situation today? I have a [facility] place to live 06/08/2024 Education Answer Date Recorded What is the highest level of school you have completed or the highest degree you have received? Bachelor's degree (e.g., BA, AB, BS) 03/09/2019 Sex and Gender Information Value Date Recorded Sex Assigned at Male 05/23/2018 5:05 PM ASSISTANT MEDIA PLANNER Legal Sex Male 4:32 AM ASSISTANT MEDIA PLANNER Gender Identity Male 05/23/2018 5:05 PM ASSISTANT MEDIA PLANNER Sexual Orientation Straight 05/23/2018 5: 05 PM ASSISTANT MEDIA PLANNER documented as of this encounter Plan of Treatment Upcoming Encounters Date Type Department Care Team (Latest Contact Info) Description 05/22/2025 3:30 PM ASSISTANT MEDIA PLANNER Clinical Communication Virtual Review in [address] [phone] 06/03/2025 11:00 AM ASSISTANT MEDIA PLANNER Lab Department of Laboratory Medicine and Pathology, [facility] in [address] [phone] Gagandeep Cook M.D. [address] [place] [phone] 06/03/2025 1:15 PM ASSISTANT MEDIA PLANNER Procedure visit Department of Urology in [address] [phone] Gagandeep Cook M.D. [address] [place] [phone] 06/03/2025 3:00 PM ASSISTANT MEDIA PLANNER Office Visit Department of Urology in [address] [phone] Darrion Wyatt P.A.-C., M.S. [address] [place] [phone] documented as of this encounter Procedures Procedure Name Priority Date/Time Associated Diagnosis Comments SURGERY IMAGE EXAM Routine 03/10/2025 12 :40 PM ASSISTANT MEDIA PLANNER documented in this encounter Results * Surgery Image Exam-Surgery Image Exam (03/10/2025 12:40 PM ASSISTANT MEDIA PLANNER) 03/10/2025 12:3 9 PM ASSISTANT MEDIA PLANNER Narrative IIMS - 03/10/2025 2:03 PM ASSISTANT MEDIA PLANNER This order has been created and auto-finalized to support the import of images acquired without order. The clinical documentation to support these images can be found on the encounter that produced images. us Provider Not In System IMG NON RAD IMAGING PROCE DURES Final Result [facility]IM[facility] NA documented in this encounter Visit Diagnoses Not on filedocumented in this encounter Care Teams Direct Care Worker Relationship Specialty Start Date End Date Elsewhere, Pcp PCP - General Internal Medicine 03/10/25 documented as of this encounter
--- OUTSIDE RECORDS SUMMARY | 2025-03-24 22:10 | XMS_ITS | Encounter Summary ---
Author Organization [facility] Address [address] [place] [address] Care Team Providers Care Content Assistant Name Role Phone Elsewhere, Pcp Primary Care Provider Unavailabl e Encounter Details Date Type Department Care Team (Late st Contact Info) Description 03/14/2025 Clinical Communication Department of Urology in [place], [place] [address] [place] [address] Rosalia Doyle M.D. [address] [place] [address] Social History Tobacco Use Types Packs/Day Years Used Date Smoking Tobacco: Never Smokeless Tobacco: Never Alcohol Use Standard Drinks/Week Comments Yes 14 (1 standard drink = 0.6 oz pu re alcohol) [facility] Utilities Answer Date Recorded In the past 12 months has th e electric, gas, oil, or water [employer] threatened to shut off services in your [...] your living situation today? I have a [facility] place to live 06/08/2024 Education Answer Date Recorded What is the highest level of school you have completed or the highest degree you have received? Bachelor's degree (e.g., BA, AB, BS) 03/09/2019 Sex and Gender Information Value Date Recorded Sex Assigned at Male 05/23/2018 5:05 PM KILN PULLER Legal Sex Male 4:32 AM KILN PULLER Gender Identity Male 05/23/2018 5:05 PM KILN PULLER Sexual Orientation Straight 05/23/2018 5: 05 PM KILN PULLER documented as of this encounter Plan of Treatment Upcoming Encounters Date Type Department Care Team (Latest Contact Info) Description 05/22/2025 3:30 PM KILN PULLER Clinical Communication Virtual Review in [place], [place] [address] [place] [address] 06/03/2025 11:00 AM KILN PULLER Lab Department of Laboratory Medicine and Pathology, [facility], in [place], [place] [address] [place] [phone] Gagandeep Cook M.D. [address] [place] [phone] 06/03/2025 1:15 PM KILN PULLER Procedure visit Department of Urology in [place], [place] [address] [place] [phone] Gagandeep Cook M.D. [address] [place] [phone] 06/03/2025 3:00 PM KILN PULLER Office Visit Department of Urology in [place], [place] [address] [place] [address] Darrion Wyatt P.A.-C., M.S. [address] [place] [address] documented as of this encounter Visit Diagnoses Not on filedocumented in this encounter Care Teams Content Assistant Relationship Specialty Start Date End Date Elsewhere, Pcp PCP - General Internal Medicine 03/10/25 documented as of this encounter
--- OUTSIDE RECORDS SUMMARY | 2025-03-24 22:10 | XMS_ITS | Encounter Summary ---
Author Organization [facility] Address [address] [place] [address] Care Team Providers Care Workforce Staffing Advisor Name Role Phone Elsewhere, Pcp Primary Care Provider Unavailabl e Encounter Details Date Type Department Care Team (Late st Contact Info) Description 03/13/2025 Results Follow-Up Department of Urology in [place], [place] [address] [place] [address] Rosalia Doyle M.D. [address] [place] [address] Surgical Pathology, [facility] Social History Tobacco Use Types Packs/Day Years Used Date Smoking Tobacco: Never Smokeless Tobacco: Never Alcohol Use Standard Drinks/Week Comments Yes 14 (1 standard drink = 0.6 oz pu re alcohol) [facility] Utilities Answer Date Recorded In the [...] living situation today? I have a [facility] place to live 06/08/2024 Education Answer Date Recorded What is the highest level of school you have completed or the highest degree you have received? Bachelor's degree (e.g., BA, AB, BS) 03/09/2019 Sex and Gender Information Value Date Recorded Sex Assigned at Male 05/23/2018 5:05 PM ELECTRICAL EQUIPMENT TESTER Legal Sex Male 4:32 AM ELECTRICAL EQUIPMENT TESTER Gender Identity Male 05/23/2018 5:05 PM ELECTRICAL EQUIPMENT TESTER Sexual Orientation Straight 05/23/2018 5: 05 PM ELECTRICAL EQUIPMENT TESTER documented as of this encounter Plan of Treatment Upcoming Encounters Date Type Department Care Team (Latest Contact Info) Description 05/22/2025 3:30 PM ELECTRICAL EQUIPMENT TESTER Clinical Communication Virtual Review in [address] [phone] 06/03/2025 11:00 AM ELECTRICAL EQUIPMENT TESTER Lab Department of Laboratory Medicine and Pathology, [facility] in [address] [address] Gagandeep Cook M.D. [address] [place] [phone] 06/03/2025 1:15 PM ELECTRICAL EQUIPMENT TESTER Procedure visit Department of Urology in [address] [address] Gagandeep Cook M.D. [address] [place] [phone] 06/03/2025 3:00 PM ELECTRICAL EQUIPMENT TESTER Office Visit Department of Urology in [place], [place] [address] [place] [address] Darrion Wyatt P.A.-C., M.S. [address] [place] [address] documented as of this encounter Visit Diagnoses Not on filedocumented in this encounter Care Teams Workforce Staffing Advisor Relationship Specialty Start Date End Date Elsewhere, Pcp PCP - General Internal Medicine 03/10/25 documented as of this encounter
--- OUTSIDE RECORDS SUMMARY | 2025-03-24 22:10 | XMS_ITS | Encounter Summary ---
Author Organization [facility] Address [address] [place] [address] Care Team Providers Care Industrial Retrofit Designer Name Role Phone Elsewhere, Pcp Primary Care Provider Unavailabl e Encounter Details Date Type Department Care Team (Late st Contact Info) Description 03/03/2025 Orders Only Department of Urology in [place], [place] [address] [place] [address] Gagandeep Cook M.D. [address] [place] [address] Benign Prostatic Hyperplasia Without Obstruction (Primary Dx) Social History Tobacco Use Types Packs/Day Years Used Date Smoking Tobacco: Never Smokeless Tobacco: Never Alcohol Use Standard Drinks/Week Comments Yes 14 (1 standard drink = 0.6 oz pu re alcohol) [facility] Utilities Answer Date Recorded In the past [...] your living situation today? I have a [facility] place to live 06/08/2024 Education Answer Date Recorded What is the highest level of school you have completed or the highest degree you have received? Bachelor's degree (e.g., BA, AB, BS) 03/09/2019 Sex and Gender Information Value Date Recorded Sex Assigned at Male 05/23/2018 5:05 PM GIN POLE OPERATOR Legal Sex Male 4:32 AM GIN POLE OPERATOR Gender Identity Male 05/23/2018 5:05 PM GIN POLE OPERATOR Sexual Orientation Straight 05/23/2018 5: 05 PM GIN POLE OPERATOR documented as of this encounter Plan of Treatment Upcoming Encounters Date Type Department Care Team (Latest Contact Info) Description 05/22/2025 3:30 PM GIN POLE OPERATOR Clinical Communication Virtual Review in [address] [phone] 06/03/2025 11:00 AM GIN POLE OPERATOR Lab Department of Laboratory Medicine and Pathology, [facility], in [address] [address] Gagandeep Cook M.D. [address] [place] [phone] 06/03/2025 1:15 PM GIN POLE OPERATOR Procedure visit Department of Urology in [address] [address] Gagandeep Cook M.D. [address] [place] [phone] 06/03/2025 3:00 PM GIN POLE OPERATOR Office Visit Department of Urology in [place], [place] [address] [place] [address] Darrion Wyatt P.A.-C., M.S. [address] [place] [address] documented as of this encounter Visit Diagnoses Diagnosis Benign Prostatic Hyperplasia Without Obstruction- Primary documented in this encounter Care Teams Industrial Retrofit Designer Relationship Specialty Start Date End Date Elsewhere, Pcp PCP - General Internal Medicine 03/10/25 documented as of this encounter
--- OUTSIDE RECORDS SUMMARY | 2025-03-24 22:11 | XMS_ITS | Encounter Summary ---
Author Organization [facility] Address [address] [place] [address] Care Team Providers Care Digital Producer Name Role Phone Unavailable Primary Care Provider Unavailabl e Encounter Details Date Type Department Care Team (Late st Contact Info) Description 02/17/2025 Orders Only Preoperative Evaluation Center in [place], [place] [address] [place] [address] Yevgeniy Hooks, JUDIE, C.N.P., M.S. [address] [place] [address] Social History Tobacco Use Types Packs/Day Years [...] living situation today? I have a [facility] place to live 06/08/2024 Education Answer Date Recorded What is the highest level of school you have completed or the highest degree you have received? Bachelor's degree (e.g., BA, AB, BS) 03/09/2019 Sex and Gender Information Value Date Recorded Sex Assigned at Male 05/23/2018 5:05 PM COMMUTATOR V RING ASSEMBLER Legal Sex Male 4:32 AM COMMUTATOR V RING ASSEMBLER Gender Identity Male 05/23/2018 5:05 PM COMMUTATOR V RING ASSEMBLER Sexual Orientation Straight 05/23/2018 5: 05 PM COMMUTATOR V RING ASSEMBLER documented as of this encounter Plan of Treatment Upcoming Encounters Date Type Department Care Team (Latest Contact Info) Description 05/22/2025 3:30 PM COMMUTATOR V RING ASSEMBLER Clinical Communication Virtual Review in [address] [phone] 06/03/2025 11:00 AM COMMUTATOR V RING ASSEMBLER Lab Department of Laboratory Medicine and Pathology, [facility] in [address] [address] Gagandeep Cook M.D. [address] [place] [phone] 06/03/2025 1:15 PM COMMUTATOR V RING ASSEMBLER Procedure visit Department of Urology in [address] [address] Gagandeep Cook M.D. [address] [place] [phone] 06/03/2025 3:00 PM COMMUTATOR V RING ASSEMBLER Office Visit Department of Urology in [place], [place] [address] [place] [address] Darrion Wyatt P.A.-C., M.S. [address] [place] [address] documented as of this encounter Visit Diagnoses Not on filedocumented in this encounter
--- OUTSIDE RECORDS SUMMARY | 2025-03-24 22:11 | XMS_ITS | Clinical Summary ---
Author Organization [employer] [facility] Address [address] [place] [id number] Care Team Providers Care Chopper Gun Operator Name Role Phone BatelSuresh MD Primary [...] by mouth. Active famciclovir (FAMVIR) 250 mg tabletIndication s:Hx of cold sores TAKE ONE TABLET BY MOUTH THREE TIMES A DAY NEEDED FOR COLD SORES 24 Tablet 5 Active pantoprazole (PROTONIX) 40 mg delayed-release tabletIndication s:Gastroesophage al reflux disease without esophagitis TAKE ONE TABLET BY MOUTH ONCE DAILY 90 Tablet 3 5 Active atorvastatin (LIPITOR) 40 mg tabletIndication s:ASHD (arterioscleroti c heart disease) Take 1 Tablet (40 mg) by mouth at bedtime. 90 Tablet 3 5 Active alfuzosin (UROXATRAL) 10 mg Sustained-Releas e tabletIndication s:Benign non-nodular prostatic hyperplasia with lower urinary tract symptoms TAKE ONE TABLET (10 MG) BY MOUTH ONCE EVERY DAY WITH A MEAL DIRECTED. 30 Tablet 3 5 Active amLODIPine (NORVASC) 5 mg tabletIndication s:Hypertension, unspecified type Take 1 Tablet (5 mg) by mouth once daily. 90 Tablet 1 5 Active Additional Information Patient not taking.Reported on 02/27/2025 Active Problems Problem Noted Date Diagnosed Date [...] Encounters Date Type Department Care Team Description 03/17/2025 Telephone [facility] [address] [place] [address] Suresh Urias MD Questions (Catheter removal today) 03/14/2025 Telephone [facility] [address] [facility] [place] [address] Suresh Urias MD Appointment (Catheter removal) 03/14/2025 Travel 03/10/2025 Orders Only [facility] Scanner 1 scan: (1-Ord) 03/10, TOTAL AQUABLATION RESECTION, 03/10/2025 03/03/2025 Telephone [facility] [address] [place] [address] Lionel Morse MD Abnormal Lab Results (UC sensitivities to Dr. Shelby Doyle [facility]) 02/27/2025 10:25 AM CDT Office Visit [place] [address] [facility] [place] [address] Suresh Urias MD Concerns (Wants catheter change) 02/27/2025 Travel 02/22/2025 Travel 02/07/2025 10:50 AM CDT Office Visit [address] [address] Jody Estes, DO UTI (Symptoms of urgency, chills, fever, and burning. ) 02/06/2025 Travel 02/05/2025 9:10 AM CDT Office Visit [address] [place] [address] Suresh Urias MD Blood Pressure (Hypertension concerns) 02/04/2025 3:20 PM CDT Nurse/Clinic Staff Only [address] [address] Blood Pressure (179/83) 02/04/2025 Travel 01/28/2025 10:00 AM CDT Office Visit [address] [address] Suresh Urias MD ER Follow up (12/26/24, [place], UTI, catheter) 01/28/2025 Travel 01/23/2025 Travel 01/06/[address] [address] Votel, Suresh Jones MD Refill Request (Alfuzosin) from Last 3 Months Immunizations Immunization Administration [...] isolated from those around you? 0 09/07/2024 Alcohol Use Answer Date Recorded How often do you have a drink containing alcohol ? 4 02/27/2025 How many drinks containing a lcohol do you have on a typical day when you are drinking? 1 02/27/2025 How often do you have five or more drinks on one occasion? 1 02/27/2025 Financial Resource Strain Answer Date R ecorded [...] PM CDT Legal Sex Male 5:26 AM CARDIOVASCULAR DISEASE SPECIALIST Gender Identity Male 11/08/2020 9:25 PM CDT Sexual Orientation Not on file Occupation Industry Job Start Date Job End Date [employer] Not on file Not on file Not on file Obstetrics History Last Filed Vital Signs Vital Sign Reading Time Taken Comments Blood Pressure 177/90 02/27/2025 11:04 AM CDT Pulse 81 02/27/2025 10:25 AM CDT Temperature 36.6 C (97.9 F) 02/07/2025 10:51 AM CDT Respiratory Rate 18 11/09/2017 8:51 AM CDT Oxygen Saturation 98% 02/27/2025 10:25 AM CDT Inhaled Oxygen Concentration - - Weight 67.6 kg (149 lb) 02/27/2025 10:25 AM CDT Height 159 cm (5' 2.6) 02/27/2025 10:25 AM CDT Body Mass Index 26.73 02/27/2025 10:25 AM CDT Plan of Treatment Upcoming Encounters Date Type Department Care Team (Late st Contact Info) Description 2025 9:00 AM CARDIOVASCULAR DISEASE SPECIALIST Office Visit [facility] [address] [place] [address] Shade Fitzgerald MD [address] [facility] [address] [place] [address] Health Maintenance Due Date Last Done Comments RSV vaccine for adults or (1 - Risk 50-74 years 1-dose series) 2000 Hepatitis B series for 19+ ( 2 of 3 - 19+ 3-dose series) 04/09/2019 03/12/2019 Influenza Vaccine (#1) 2024 Depression screening for age 12+ 04/25/2025 04/25/2024, 03/30/2023, 02/15/2022, Additional history exists Medicare Wellness for age 65+ 05/01/2025, 03/30/2023, 02/15/2022, Additional history exists Colonoscopy through age 75 02/05/202602/05, 02/05/2021, 02/05/2021, Additional history exists BMI (ht and wt on same day) for age 18+ 02/27/2026 02/27/2025, 02/05/2025, 01/28/2025, Additional history exists Tetanus booster 10/02/2028 10/02/2018, 09/25/2008 Lipids for age 45-75 01/01/2029 01/02/2024, 03/30/2023, 02/15/2022, Additional history exists Zoster (shingles) series for age 50+ Completed 06/25/2019, 03/05/2019, 10/12/2011 Hepatitis C screening for ag e 18-79 Completed 02/15/2022 Pneumococcal series for age 50+ Completed 02/15/2022, 11/26/2020, 03/12/2019 Procedures Procedure Name Priority Date/Time Associated Diagnosis Comments SCAN-OPERATIVE/PROCE DURE REPORT 03/10/2025 12:00 AM CARDIOVASCULAR DISEASE SPECIALIST URINALYSIS MACROSCOPIC - [facility] ONLY POC DIP ([facility]) Routine 02/27/2025 11:40 AM CDT BPH with urinary obstruction URINE CULTURE Routine 02/27/2025 11:40 AM CDT BPH with urinary obstruction URINALYSIS MICROSCOPIC Routine 02/27/2025 11:40 AM CDT BPH with urinary obstruction URINALYSIS MICROSCOPIC Routine 02/07/2025 10:56 AM CDT Lower urinary tract symptoms URINE CULTURE Routine 02/07/2025 10:56 AM CDT Lower urinary tract symptoms URINALYSIS MACROSCOPIC - [facility] POC DIP ([facility]) Routine 02/07/2025 10:56 AM CDT Lower urinary tract symptoms LIPID PANEL W REFLEX MEASURED LDL Add On 01/02/2024 10:37 AM CDT Dyslipidemia, goal LDL below 70 ANTI HCV Routine 02/15/2022 11:45 AM CDT Need for hepatitis C screening test COLONOSCOPY SCREENING Routine 02/05/2021 9:13 AM CDT History of colon polyps from Last 3 Months or Most Recently Relevant to Health Maintenance Results * SCAN-OPERATIVE/PROCEDURE REPORT (03/10/2025 12:00 AM CARDIOVASCULAR DISEASE SPECIALIST) us Scanner OTHER Final Result * (ABNORMAL) POCT Urinalysis Dipstick Only (02/27/2025 11:40 AM CDT) Only the most recent of2 resultswithin the time period is included. SPECIFIC GRAVITY < OR = 1.005 1.001 - 1.035 02/27/2025 11:53 AM CDT [facility] Comment: Specific Creede values resulted are outside the analytical measurement range of this device. Recommend repeat/additional testing as clinically indicated. PROTEIN NEGATIVE NEGATIVE 02/27/2025 11:53 AM CDT [facility] GLUCOSE NEGATIVE NEGATIVE 02/27/2025 11:53 AM CDT [facility] KETONES NEGATIVE NEGATIVE 02/27/2025 11:53 AM CDT [facility] BILIRUBIN NEGATIVE NEGATIVE 02/27/2025 11:53 AM CDT [facility] OCCULT BLOOD 1+(A) NEGATIVE 02/27/2025 11:53 AM CDT [facility] NITRITE NEGATIVE NEGATIVE 02/27/2025 11:53 AM CDT [facility] PH 7.0 5.0 - 8.0 02/27/2025 11:53 AM CDT [facility] LEUKOCYTE ESTERASE 1+(A) NEGATIVE 02/27/2025 11:53 AM CDT [facility] Urine URINE SPECIMEN / Unknown Non-Blood / Unknown 02/27/2025 11:40 AM CDT 02/27/2025 11:46 AM CDT Suresh Urias MD URINE Final Re sult [facility] [address] [place] [address], [place] [phone] [facility] [address] [place] [address], [place] [phone] * (ABNORMAL) URINALYSIS MICROSCOPIC (02/27/2025 11:40 AM CDT) Only the most recent of2 resultswithin the time period is included. RBC 0-2 0-2, None Seen /HPF 02/27/2025 4:52 PM CDT [facility] WBC 11-25(A) 0-2, 3-5, None Seen /HPF 02/27/2025 4:52 PM CDT [facility] BACTERIA None Seen None Seen, Rare, Few Bacteria/ HPF 02/27/2025 4:52 PM CDT [facility] EPITHELIAL CELLS None Seen None Seen, Few Epi/HPF 02/27/2025 4:52 PM CDT [facility] HYALINE CASTS 0-2 0-2, 3-5 /LPF 02/27/2025 4:52 PM CDT [facility] Urine URINE SPECIMEN / Unknown Non-Blood / Unknown 02/27/2025 11:40 AM CDT 02/27/2025 11:46 AM CDT Suresh Urias MD URINE Final Re sult Performing Organization Address City/[facility]/ZIP Co de Phone Number [facility] [address] [place] [address], * (ABNORMAL) URINE CULTURE (02/27/2025 11:40 AM CDT) Only the most recent of2 resultswithin the time period is included. CULTURE RESULT(A) 03/01/2025 7:28 AM CDT [facility] CULTURE 10,000-50,000 CFU/mL Pseudomonas aeruginosa 03/01/2025 7:28 AM CDT [facility] Urine URINE SPECIMEN / Unknown Non-Blood / Unknown 02/27/2025 11:40 AM CDT 02/27/2025 11:46 AM CDT Narrative Organism Antibiotic Method Susceptibility Pseudomonas aeruginosa CEFTAZIDIME 2: S Pseudomonas aeruginosa LEVOFLOXACIN 0.5: S Pseudomonas aeruginosa CIPROFLOXACIN 0.12: S Pseudomonas aeruginosa PIPERACILLIN/TAZO 8: S Pseudomonas aeruginosa CEFEPIME 2: S Pseudomonas aeruginosa MEROPENEM 1: S Suresh Urias MD MICROBIOLOGY Final Re sult Performing Organization Address City/[facility] Co de Phone Number [facility] [address] [place] [address], * LIPID PANEL W REFLEX MEASURED LDL (01/02/2024 10:37 AM CDT) CHOLESTEROL,TOTAL 124 100 - 199 mg/dL 01/03/2024 1:[address] [facility] Comment: Cholesterol, Total Reference Ranges Desirable <200 mg/dL Borderline 200-239 mg/dL High >=240 mg/dL TRIGLYCERIDES 134 <150 mg/dL 01/03/2024 1:[address] [facility] HDL CHOLESTEROL 60 >40 mg/dL 1:28 AM CDT [facility] NON-HDL CHOLESTEROL 64 <145 mg/dl 01/03/2024 1:28 AM CDT [facility] CHOL/HDL RATIO 2.07 <4.50 01/03/2024 1:28 AM CDT [facility] LDL CHOLESTEROL 37 <=130 mg/dL 01/03/2024 1:28 AM CDT [facility] VLDL CHOLESTEROL 27 <=30 mg/dL 01/03/2024 1:28 AM CDT [facility] PROVIDER ORDERED STATUS RANDOM 01/03/2024 1:28 AM CDT [facility] Blood BLOOD SPECIMEN / Unknown Venipuncture / Unknown 01/02/2024 10:37 AM CDT 01/02/2024 10:37 AM CDT Suresh Urias MD CHEMISTRY Final Re sult [facility] [address] [place] [address], [place] * ANTI HCV [34390.2] (02/15/2022 11:45 AM CDT) HEPATITIS C ANTIBODY Non-React kelsy Non-React kelsy 02/16/2022 5:52 AM CDT [facility] Comment:Antibodies to HCV no t detected; does not exclude the possibility of exposure to HCV. Blood BLOOD SPECIMEN / Unknown Venipuncture / Unknown 02/15/2022 11:45 AM CDT 02/15/2022 11:45 AM CDT us Suresh Urias MD SEND OUTS Final Re sult [facility] [address] [place] [address], [place] * COLONOSCOPY (02/05/2021 9:20 AM CDT) [...] adequate candidate for conscious sedation. The [id number] was passed through the anus and advanced [...] 9:20 AM Procedure Code(s): --- Professional --- 06449, Colonoscopy, flexible; with removalof tumor(s), polyp(s), or other lesion(s) bysnare technique 94281, 59, Colonoscopy, flexible; withbiopsy, single or multiple Diagnosis Code(s): --- Professional --- K63.5, Polyp of colon Z86.010, Personal history of colonicpolyps CPT copyright 2020 [employer]. All rights reserved. The codes documented in this report are preliminary and upon oil laboratory analyst reviewmay be revised to meet current compliance [...] 6:59 PM 01/02/2013 1:20 PM Care Teams Chopper Gun Operator Relationship Specialty Start Date End Date Votel, Suresh Jones MD [address] [place] [address] PCP - General Family Practice 03/27/12
--- OUTSIDE RECORDS SUMMARY | 2025-03-24 22:11 | XMS_ITS | Clinical Summary ---
Author Organization [facility] Address [address] [place] [address] Care Team Providers Care Heat Treat Operator Name Role Phone Elsewhere, Pcp Primary Care Provider Unavailabl e Source Comments Patient records contain information from all sites at [facility]. For routine questions regarding patient records, call [phone] during business hours, M-F 8:00 AM - 5:00 PM Central Time. Record requests for emergency care only can be directed to [phone] at any time.[facility] Allergies Active Allergy Reactions Criticality Noted Date [...] 10 mg by mouth daily. 9 Active levoFLOXacin (Levaquin) 500 mg tabletIndicatio ns:Benign Prostatic Hyperplasia Without Obstruction Take 1 tablet (500 mg total) by mouth daily. 7 tablet 5 Active amLODIPine (Norvasc) 5 mg tablet Take 5 mg by mouth daily. Active acetaminophen (TylenoL) 500 mg tablet Take 1 tablet (500 mg total) by mouth every 6 (six) hours as needed for pain. 100 tablet 5 Active oxyBUTYnin (Ditropan) 5 mg tablet Take 1 tablet (5 mg total) by mouth 3 (three) times a day. Do not take morning of or night before catheter removal. 21 tablet 03/10/2025 4:57 PM FIELD CARE COORDINATOR 5 Active lidocaine HCL (Glydo) 2 % topical jellyIndication s:Benign Prostatic Hyperplasia Without Obstruction Insert 5 mL (1 Application total) into the urethra once. Apply as needed 4 times daily to tip of of penis for catheter pain. You do not need to use the entire applicator. 5 applicator 03/10/2025 4:57 PM FIELD CARE COORDINATOR 5 Active levoFLOXacin (Levaquin) 500 mg tabletIndicatio ns:Benign Prostatic Hyperplasia Without Obstruction Take 1 tablet (500 mg total) by mouth daily. Take morning of catheter removal. 1 tablet 03/10/2025 4:57 PM FIELD CARE COORDINATOR 5 Active sennosides-docu sate sodium (Senna with Docusate Sodium) 8.6-50 mg per tablet Take 1 tablet by mouth 2 (two) times a day. 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 03/13/2025 Results Follow-Up Department of Urology in [place], [place] [address] [place] [address] Rosalia Doyle M.D. Surgical Pathology, Frozen Lab 03/10/2025 12:40 PM FIELD CARE COORDINATOR Ancillary Procedure Department of General Surgery 03/10/2025 12:33 PM FIELD CARE COORDINATOR - 03/10/2025 2:42 PM FIELD CARE COORDINATOR Surgery [facility] [address] [place] [address] Rosalia Doyle M.D. TRANSURETHRAL WATERJET ABLATION PROSTATE, 50 grams. 03/10/2025 12:29 PM FIELD CARE COORDINATOR Anesthesia Event [facility] [address] [place] [address] Renetta Guerrero M.D. Swanson, James W, LIFE SKILLS TRAINER, SCRAP CUTTER, DNAP 03/10/2025 10:39 AM FIELD CARE COORDINATOR - 03/10/2025 4:51 PM FIELD CARE COORDINATOR Hospital Encounter Outpatient Surgery Unit in [place], [place] [address] [place] [address] Rosalia Doyle M.D. Benign Prostatic Hyperplasia Without Obstruction; Symptom Urinary Discharge Disposition: Home or Self Care 03/03/2025 Orders Only Department of Urology in [place], [place] [address] [place] [address] Gagandeep Cook M.D. Benign Prostatic Hyperplasia Without Obstruction (Primary Dx) 02/17/2025 11:00 AM CDT Telemedicine Preoperative Evaluation Center in [place], [place] [address] [place] [phone] Rosalia Doyle M.D. Pauly, Jacob J, APRN, C.N.P., M.S. Preanesthetic Medical Exam (Primary Dx); Benign Prostatic Hyperplasia Hypertrophy With Obstruction; Infection Urinary Tract Personal History; Hypertension Essential Primary; Atherosclerotic Heart Disease Of [place] Coronary Artery Without Angina Pectoris; Coronary Stent Status Post; Patent Foramen Ovale (HCC); Hyperlipidemia; Transient Ischemic Attack Personal History Or Stroke Personal History; Gastroesophageal Reflux Disease; Herpesviral Vesicular Dermatitis; Overweight Body Mass Index 25-29.9 Adult 02/17/2025 Orders Only Preoperative Evaluation Center in [place], [place] [address] [place] [phone] Yevgeniy Hooks APRN, C.N.P., M.S. 02/12/2025 12:30 PM CDT Clinical Communication Virtual Review in [place], [place] [address] [place] [address] Pre-visit Intake 01/15/2025 Orders Only Preoperative Evaluation Center in [address] [phone] Patricia Santiago APRN, C.N.P. Preanesthetic Medical Exam (Primary Dx); Benign Prostatic Hyperplasia Without Obstruction; Atherosclerotic Heart Disease Of [place] Coronary Artery Without Angina Pectoris; Hypertension Essential Primary 12/25/2024 Clinical Communication Department of Urology in [place], [place] [address] [place] [address] Gonzalo Orellana M.D. 12/25/2024 Clinical Communication Department of Urology in [address] [address] Rosalia Doyle M.D. 12/24/2024 4:00 PM CDT Office Visit Department of Urology in [address] [phone] Rosalia Doyle M.D. Benign Prostatic Hyperplasia Without Obstruction (Primary Dx) 12/24/2024 3:30 PM CDT Procedure visit Department of Urology in [address] [phone] Rosalia Doyle M.D. Kisha Hopkins R.N. Hyperplasia Prostate Benign Localized With Obstruction [N40.1, N13.8] (Primary Dx); Benign Prostatic Hyperplasia Without Obstruction 12/24/2024 3:00 PM CDT Procedure visit Department of Urology in [place], [place] [address] [place] [address] Rosalia Doyle M.D. Benign Prostatic Hyperplasia Without Obstruction (Primary Dx) from Last 3 Months [...] Relation Name Comments Alcohol abuse Brother 1 elsi molinaill Liver disease Brother 1 elsi diaz Alcohol abuse Brother 2 kim joe Dementia Brother 2 kim joe Liver disease Brother 2 kim joe Hyperlipidemia (high cholesterol) Brother 3 colt morales eill Hypertension Brother 3 colt joe Coronary artery disease Brother 4 geovany joe Hyperlipidemia (high cholesterol) Brother 4 geovany m cneill Hypertension Brother 4 geovany joe Coronary artery disease Brother 5 XOCHITL Joe Hyperlipidemia (high cholesterol) Brother 5 XOCHITL M cNeill Skin cancer Brother 5 XOCHITL Joe Skin cancer Brother 6 Xochitl Joe Prostate cancer Father Scott Diaz Coronary artery disease Mother haley joe Hyperlipidemia (high cholesterol) Mother haley joe Hypertension Mother haley joe Relation Name Status Comments Brother 1 elsi diaz Brother 2 kim joe Brother 3 colt joe Brother 4 geovany joe Brother 5 XOCHITL Diaz Brother 6 Xochitl Diaz Father Scott Diaz Mother haley diaz Social History Tobacco Use Types Packs/Day Years Used Date Smoking Tobacco: Never Smokeless Tobacco: Never Alcohol Use Standard Drinks/Week Comments Yes 14 (1 standard drink = 0.6 oz pu re alcohol) [facility] Utilities Answer Date Recorded In the past [...] your living situation today? I have a [facility] place to live 06/08/2024 Education Answer Date Recorded What is the highest level of school you have completed or the highest degree you have received? Bachelor's degree (e.g., BA, AB, BS) 03/09/2019 Sex and Gender Information Value Date Recorded Sex Assigned at Male 05/23/2018 5:05 PM FIELD CARE COORDINATOR Legal Sex Male 4:32 AM FIELD CARE COORDINATOR Gender Identity Male 05/23/2018 5:05 PM FIELD CARE COORDINATOR Sexual Orientation Straight 05/23/2018 5: 05 PM FIELD CARE COORDINATOR Last Filed Vital Signs Vital Sign Reading Time Taken Comments Blood Pressure 125/80 03/10/2025 4:00 PM FIELD CARE COORDINATOR Pulse 66 03/10/2025 4:00 PM FIELD CARE COORDINATOR Temperature 36.2 C (97.2 F) 03/10/2025 3:10 PM FIELD CARE COORDINATOR Respiratory Rate 16 03/10/2025 4:00 PM FIELD CARE COORDINATOR Oxygen Saturation 96% 03/10/2025 4:00 PM FIELD CARE COORDINATOR Inhaled Oxygen Concentration - - Weight 67.1 kg (147 lb 14.9 oz) 025 11:01 AM FIELD CARE COORDINATOR Height 155 cm (5' 1.02) 03/10/2025 11: 01 AM FIELD CARE COORDINATOR Body Mass Index 27.93 03/10/2025 11:01 AM FIELD CARE COORDINATOR Plan of Treatment Upcoming Encounters Date Type Department Care Team (Latest Contact Info) Description 05/22/2025 3:30 PM FIELD CARE COORDINATOR Clinical Communication Virtual Review in [address] [address] 06/03/2025 11:00 AM FIELD CARE COORDINATOR Lab Department of Laboratory Medicine and Pathology, [facility] in [address] [address] Gagandeep Cook M.D. [address] [place] [phone] 06/03/2025 1:15 PM FIELD CARE COORDINATOR Procedure visit Department of Urology in [address] [address] Gagandeep Cook M.D. [address] [place] [phone] 06/03/2025 3:00 PM FIELD CARE COORDINATOR Office Visit Department of Urology in [address] [phone] Darrion Wyatt P.A.-C., M.S. [address] [place] [phone] Health Maintenance Due Date Last Done Comments CT Colonography 1950 Cologuard 1950 Hepatitis C Screening 1950 Office Visit for Blood Pressure Check / Re-check 1950 RSV vaccine - (32-36 weeks) or 50+ years (1 - Risk 50-74 years 1-dose series) 2000 Depression Screening (Annual PHQ-2) 05/01/2024 COVID-19 Vaccine (3 - season) 2024 07/24/2020, 07/03/2020 Influenza Vaccine (#1) 2024 03/12/2019 Colonoscopy 02/05/2026 02/05/2021, 11/2020, 05/08/2017 (Performed elsewhere), Additional history exists Colorectal Cancer Surveillance 02/05/2026 Fasting Glucose for Diabetes Screening 01/01/2027 01/02/2024, 03/30/2023, 02/15/2022, Additional history exists DTaP,Tdap,and Td Vaccines (4 - Td or Tdap) 10/02/2028 10/02/2018, 09/25/2008, 09/25/2008 Lipid (Cholesterol) Screening 01/01/2029 01/02/2024, 03/30/2023, 02/15/2022, Additional history exists Zoster Vaccines Completed 06/25/2019, 08/2018, 10/12/2011 Pneumococcal vaccine (50+ years) Completed 02/15/2022, 11/26/2020, 03/12/2019 Fall Risk Screen (Annual) Completed 03/10/2025 IPV Vaccines Aged Out No longer eligi ble based on patient's age to complete this topic Medical Devices Implanted Type Area Salesman/Owner Device Identifier Shelf Expiration Date Model / Serial / Lot Cardiac Stent Cardiac Stent Heart Description:One stent Procedures Procedure Name Priority Date/Time Associated Diagnosis Comments ADULT OXYGEN THERAPY Routine 03/10/2025 1:55 PM FIELD CARE COORDINATOR SURGICAL PATHOLOGY, [facility]EN LAB Routine 03/10/2025 1:38 PM FIELD CARE COORDINATOR Benign Prostatic Hyperplasia Without Obstruction Symptom Urinary SURGERY IMAGE EXAM Routine 03/10/2025 12 :40 PM FIELD CARE COORDINATOR LDA ANE ENDOTRACHEAL AIRWAY Routine 03/10/2025 12:40 PM FIELD CARE COORDINATOR TRANSURETHRAL WATERJET ABLATION OF THE PROSTATE 03/10/2025 12:14 PM FIELD CARE COORDINATOR Benign Prostatic Hyperplasia Without Obstruction Symptom Urinary URO UROFLOW Routine 12/24/2024 3:30 PM CDT Benign Prostatic Hyperplasia Without Obstruction ME US TRANSRECTAL Routine 12/24/2024 3:0 0 PM CDT Benign Prostatic Hyperplasia Without Obstruction ME CYSTOURETHROSCOPY Routine 12/24/2024 3:00 PM CDT Benign Prostatic Hyperplasia Without Obstruction BASIC METABOLIC PANEL, S/P Routine 03/13/2019 6:22 AM FIELD CARE COORDINATOR Cough Chronic from Last 3 Months or Most Recently Relevant to Health Maintenance Results * Surgical Pathology, Frozen Lab (03/10/2025 1:38 PM FIELD CARE COORDINATOR) 03/13/2025 1:38 PM FIELD CARE COORDINATOR METH Participated in the Interpretation Maribel Lucas M.D. -Pathology Resident 03/13/2025 1:38 PM FIELD CARE COORDINATOR METH Report electronically signed by Slava Gatica M.D. I verify that I have examined all relevant slides/materials for the specimen(s) and rendered or confirmed the diagnosis. 03/13/2025 1:38 PM FIELD CARE COORDINATOR METH Gross Description A. Received fresh labeled prostate chips is a 5.5 gram, 5 x 3.5 x 1.5 cm aggregate of rubbery, aguilar-pink tissue. All submitted for permanent sections. Grossed by Ricki Benavides M.S., PA([facility]). 03/13/2025 1:38 PM FIELD CARE COORDINATOR METH Block Summary A Prostate chips A1 Prostate chips 1 A2 Prostate chips 2 A3 Prostate chips 3 A4 Prostate chips 4 A5 Prostate chips 5 A6 Prostate chips 6 03/13/2025 1:38 PM FIELD CARE COORDINATOR METH Interpretation FINAL DIAGNOSIS A. Prostate, transurethral resection: Nodular hyperplasia Digital imaging was used in the diagnostic assessment of this case. 03/13/2025 1:38 PM FIELD CARE COORDINATOR METH Tissue (Prostate) 03/10/2025 1:38 PM FIELD CARE COORDINATOR us Rosalia Doyle M.D. LAB SURG PATH ORDERABLES Final R esult [facility] [address] [place] [address], [facility] [address] [place] [address] * Surgery Image Exam-Surgery Image Exam (03/10/2025 12:40 PM FIELD CARE COORDINATOR) 03/10/2025 12:3 9 PM FIELD CARE COORDINATOR Narrative IIMS - 03/10/2025 2:03 PM FIELD CARE COORDINATOR This order has been created and auto-finalized to support the import of images acquired without order. The clinical documentation to support these images can be found on the encounter that produced images. us Provider Not In System IMG NON RAD IMAGING PROCE DURES Final Result Performing Organization Address City/State/[facility] Co de Phone Number TRACY NA * LDA ANE ENDOTRACHEAL AIRWAY (03/10/2025 12:40 PM FIELD CARE COORDINATOR) Narrative Xochitl Mejia APRN, CRNA, DNAP - 03/10/2025 12:40 PM FIELD CARE COORDINATOR Xochitl Mejia APRN, CRNA DNACarmela 03/10/2025 12:43 PM Airway Date/Time: 03/10/2025 12:40 [...] Procedure outcome: successful Notable Events: no complications us Renetta Guerrero M.D. ANESTHESIA ORDERABLES Final Re sult * URO Uroflow (12/24/2024 3:30 PM CDT) Narrative Ricki Arteaga M.D. - 12/24/2024 3:30 PM CDT Ricki Arteaga M.D. 01/30/2025 8:09 AM REASON FOR VISIT: Uroflow: The patient here for a complex uroflow via calibrated electronic equipment and a residual urine check by ultrasound. FINDINGS: Peak flow 3 ml/sec Average flow 1 ml/sec Total voided volume 36 mls Residual urine 116 ml by ultrasound Flat flow pattern IMPRESSION: Low voided volume with a elevated postvoid residual of 116 cc Differential diagnosis includes bladder outlet obstruction versus hypocontractile bladder. Clinical correlation is recommended. us Rosalia Doyle M.D. UROLOGY ORDERABLES Final Result * ME CYSTOURETHROSCOPY, ME US TRANSRECTAL (12/24/2024 3:00 PM CDT) Narrative Rosalia Doyle M.D. - 12/24/2024 3:00 PM CDT Rosalia Doyle M.D. 12/26/2024 6:28 PM Cysto w/ Prostate US Performed by: Rosalia Doyle M.D. Authorized by: Rosalia Doyle M.D. IMPRESSION Other trilobar prostate Additional procedures performed: cystoscopy and prostate ultrasound PROCEDURE DETAILS Anterior urethra: Normal: yes Prostate: Characteristics: Median lobe present Sphincter: Characteristics: Coapting Ureters: Characteristics: Effluxing clear urine Capacity: Large Quality of urine: Clear Residual upon entry: Large Retroflex view: Normal: no (Large median lobe noted) Prostate: Character: Intravesical protrusion PROCEDURE DETAILS Prostate ultrasound: Patient was placed in the dorsal lithotomy position. Length (mm): 5 Height (mm): 3 Width (mm): 5 Ellipsoid volume: 45 Limitations: none Prostate: hyperechoic findings consistent with prostatic concretions Lesion(s) present: no Seminal vesicles: present bilaterally Ultrasound image guidance used to localize target, identify at risk structures, and dynamically used to direct therapy to the target. Image(s) acquired and saved. Number of images obtained: 5. Blue light imaging agent used: no A flexible cystoscope was inserted through the urethra into the bladder. Cystoscope was removed at the end of procedure. CONSENT Consent obtained: verbal Consent given by: patient The benefits, risks and alternatives to the procedure and the potential need for sedation or anesthesia as well as the names, roles, and responsibilities of healthcare team members performing significant interventional tasks were discussed with the patient and/or decision maker. UNIVERSAL PROTOCOL All relevant documentation and testing were reviewed and available. All required blood products, implants, devices and or special equipment were made available as applicable. Pre-procedure verification was conducted and the correct site was marked if required. A fire risk and smoke assessment were done as applicable. The procedural time-out to verify correct patient, correct side/site, and procedure was conducted prior to performing the procedure and confirmed in a procedural pause. PRE-PROCEDURE DETAILS Procedure purpose: Diagnostic Indications: Urinary retention Appropriate hand hygiene, gown, cap, mask, protective eyewear, sterile gloves, skin preparation, sterile drape, and strict aseptic technique were utilized as applicable for the procedure.: yes Site preparation: Povidone-iodine SEDATION / ANESTHESIA Anesthesia method: topical application Topical application type: lidocaine Rosalia Doyle M.D. UROLOGY ORDERABLES Final Result * Basic Metabolic Panel (03/13/2019 6:22 AM FIELD CARE COORDINATOR) Potassium, S 4.2 3.6 - 5.2 mmol/L 03/13/2019 7:34 AM FIELD CARE COORDINATOR DTL Sodium, S 142 135 - 145 mmol/L 03/13/2019 7:34 AM FIELD CARE COORDINATOR DTL Chloride, S 100 98 - 107 mmol/L 03/13/2019 7:34 AM FIELD CARE COORDINATOR DTL Bicarbonate, S 27 22 - 29 mmol/L 03/13/2019 7:34 AM FIELD CARE COORDINATOR DTL Anion Gap 15 7 - 15 03/13/2019 7:34 AM FIELD CARE COORDINATOR DTL BUN (Blood Urea Nitrogen), S 14 8 - 24 mg/dL 03/13/2019 7:34 AM FIELD CARE COORDINATOR DTL Creatinine 1.13 0.74 - 1.35 mg/dL 03/13/2019 7:34 AM FIELD CARE COORDINATOR DTL eGFR-Non Black/ 66 >=60 mL/min/BSA 03/13/2019 7:34 AM FIELD CARE COORDINATOR DTL Comment: ----ADDITIONAL INFORMATION---- Estimated GFR calculated using the 2009 CKD_EPI creatinine equation. eGFR-Black/Afric an Danish 77 >=60 mL/min/BSA 03/13/2019 7:34 AM FIELD CARE COORDINATOR DTL Comment: ----ADDITIONAL INFORMATION---- Estimated GFR calculated using the 2009 CKD_EPI creatinine equation. Calcium, Total, S 9.7 8.8 - 10.2 mg/dL 03/13/2019 7:34 AM FIELD CARE COORDINATOR DTL Glucose, S 103 70 - 140 mg/dL 03/13/2019 7:34 AM FIELD CARE COORDINATOR DTL Blood (Blood, Venous) 03/13/2019 6:22 AM FIELD CARE COORDINATOR 03/13/2019 6:44 AM FIELD CARE COORDINATOR Alcira Javed M.D. LAB BLOOD ADD-ON Elizabeth l Result [facility] [address] [place] [address], [facility] [address] [place] [address] from Last 3 Months or Most Recently Relevant to Health Maintenance Insurance MEDICARE [facility] Care Teams Heat Treat Operator Relationship Specialty Start Date End Date Elsewhere, Pcp PCP - General Internal Medicine 03/10/25
[2025-03-24 22:38] VITALS: BP 120/68; PULSE 90; RESP 18; TEMP 36.3; O2SAT 99; BMI 25.9
--- NOTE | 2025-03-24 23:13 | ED_ITS ---
HPI - Male Genitourinary General Date Seen: 03/24/25 Chief complaint: Urogenital Problems, Male Stated complaint: bleeding on penis after surgery on 03/10 Time Seen by Provider: 03/24/25 22:41 Source: patient Mode of arrival: ambulatory Limitations: no limitations History of Present Illness HPI Narrative: Patient is a delightful 74-year-old gentleman who presents here post surgical [facility] with Dr. Doyle, from Urology. He did a version of a partial prostatectomy. Had a catheter in, catheter was removed and the bleeding started yesterday, darker brown little bit better, today bright red blood clots starting approximately 3 o'clock edge long clots every time he voids, but he has been able to he thinks evacuate his urine, he has had no dysuria frequency, no fevers or chills, he has only anticoagulant he takes is aspirin., Related Data Home Medications ?Medication ?Instructions ?Recorded ?Confirmed alfuzosin 10 mg tablet,extended 10 mg PO DAILY 03/24/25 release 24 hr aspirin 81 mg capsule 81 mg PO DAILY 03/04/2403/02 atorvastatin 40 mg tablet 40 mg PO DAILY 03/04/2403/02 pantoprazole 40 mg tablet,delayed 40 mg PO DAILY 03/0403/24/25 release amlodipine 5 mg tablet 5 mg PO DAILY 03/17/2503/24 Allergies Allergy/AdvReac Type Severity Reaction Status Date / Time No Known Drug Allergies Allergy Verified 03/24/25 22:44 Review of Systems Status of ROS: Reports: 10 or more systems reviewed and unremarkable except as noted in History and below [facility] Medical History GERD (gastroesophageal reflux disease) ?K21.9 - Gastro-esophageal reflux disease without esophagitis (ICD-10) PFO (patent foramen ovale) ?Q21.12 - Patent foramen ovale (ICD-10) Allergic rhinitis ?J30.9 - Allergic rhinitis, unspecified (ICD-10) CVA (cerebral vascular accident) (12/30/12) ?I63.9 - Cerebral infarction, unspecified (ICD-10) ASHD (arteriosclerotic heart disease) ?I25.10 - Atherosclerotic heart disease of [place] coronary artery without angina pectoris (ICD-10) Surgical History History of coronary artery stent placement (11/08/17) ?Z95.5 - Presence of coronary angioplasty implant and graft (ICD-10) Social History Smoking Status: Never smoker Do you use any of these nicotine containing products: None How often do you have a drink containing alcohol: 4 or more times a week How many standard drinks containing alcohol do you have on a typical day: 1 or 2 AUDIT-C Alcohol total score: 4 Non-prescribed substance use: denies use Exam Narrative: Exam Narrative: On examination here he is in no apparent distress, his abdomen is soft he does percuss out a bladder. There is no tenderness to palpation normal male uncircumcised, with bright red bleeding at the tip, with a bit of a clot. No tenderness and no testicular masses no hernias. Bladder scan shows 120 mL, I spoke to the resident on-call for Urology at the [facility], he was familiar with the case. Home he suggested bladder irrigation with the Fay, leave the Fay in for couple days which then may be removed. He says if we get clear returns and we do not have to worry about anything patient may go home, if there is still continues to be blood or clots, then he is suggest pelvic CT. To quantify how much clot there is. And call back and consider urologic intervention. He will be signed over to the oncoming ER physician at change of shift Const: Vital Signs, click to edit/add: Vital Signs - 24 hr 03/24/25 22:38 Temperature 97.4 F L Pulse Rate [Pulse Oximeter] 90 Respiratory Rate 18 Blood Pressure [Ri ght Upper Arm] 120/68 Pulse Oximetry 99 Oxygen Delivery Me thod Room Air Documenting provider has reviewed patient's vital signs: yes Course Course ED Course: Patient was flushed out with 500 mL, and there is a little bit of a blood tinge, but nothing that I could read newspaper through. Urology suggest leaving the catheter in for couple days. Then it may be pulled out. Further bleeding they recommend that he go to a center with Urology such as [place]. CBC was otherwise normal, urinalysis showed a lot of blood, but no evidence of serious infection. Vital Signs Vital signs: Initial Vital Signs Temperature 97.4 F L 03/24/25 22:38 Temperature Source Temporal Artery Scan 03/24/25 22:38 Pulse Rate 90 03/24/25 22:38 Respiratory Rate 18 03/24/25 22:38 Blood Pressure 120/68 03/24/25 22:38 Blood Pressure Mean 85 03/24/25 22:38 Blood Pressure Position Sitting 03/24/25 22:38 Pulse Oximetry 99 03/24/25 22:38 Oxygen Delivery Method Room Air 03/24/25 22:38 Vital Signs Temperature 97.4 F L 03/24/25 22:38 Pulse Rate 90 03/24/25 22:38 Respiratory Rate 18 03/24/25 22:38 Blood Pressure 120/68 03/24/25 22:38 Pulse Oximetry 99 03/24/25 22:38 Oxygen Delivery Method Room Air 03/24/25 22:38 Temperature 97.4 F L 03/24/25 22:38 Pulse Rate 90 03/24/25 22:38 Respiratory Rate 18 03/24/25 22:38 Blood Pressure 120/68 03/24/25 22:38 Pulse Oximetry 99 03/24/25 22:38 Oxygen Delivery Method Room Air 03/24/25 22:38 MDM - Male Genitourinary MDM Narrative Medical decision making narrative: I discussed with him a bit concerned because any time you disrupt the urethra. There is a chance of we put a catheter in that we may tear this surgery, without knowing exactly the type of surgery he had. I think a reasonable approach here would be to do a bladder scan, urinalysis and then a CBC and talk to [place]. And weight for their recommendation. Medical Records Attestation: I reviewed the patient's medical records. Lab Data Attestation: I reviewed the patient's lab results. Labs: Lab Results 03/24/25 Range/Units 23:17 WBC 5.56 (4.50-11.00) K/uL RBC 4.36 (4.30-5.90) m/uL Hgb 14.2 (13.5-17.5) gm/dL Hct 41.0 (37.0-53.0) % MCV 94 (80-100) fL MCH 33 (26-34) pg MCHC 35 (32-36) gm/dL RDW Coeff of Cordell 13.2 (11.5-15.5) % Plt Count 188 (140-440) K/uL Neut % (Auto) 55.4 (42.0-72.0) % Lymph % (Auto) 30.6 (20-44) % [place] % (Auto) 10.8 (0.0-11.0) % Eos % (Auto) 2.5 (0.0-7.0) % Baso % (Auto) 0.5 (0.0-3.0) % Neut # (Auto) 3.08 (1.7-7.0) K/uL Lymph # (Auto) 1.70 (0.90-2.90) K/uL [place] # (Auto) 0.60 (0.00-0.90) K/UL Eos # (Auto) 0.14 (0.00-0.50) K/uL Baso # (Auto) 0.03 (0.00-0.30) K/uL Abs Immat Gran (auto) 0.01 (0.00-0.30) K/uL Imm/Tot Granulo (auto) 0.2 % Urine Color Red A (Yellow) Urine Appearance Cloudy A (Clear) Urine pH 6.0 (5.0-8.5) Ur Specific [place] 1.010 (1.000-1.030) Urine Protein 3+ A (Negative) Urine Glucose (UA) Negative (Negative) Urine Ketones Negative (Negative) Urine Blood 3+ A (Negative) Urine Nitrite Negative (Negative) Urine Bilirubin 1+ A (Negative) Urine Urobilinogen 0.2 (0.2-1.0) Ur Leukocyte Esterase Trace A (Negative) Urine RBC >100 A (0-2) Urine WBC 5-10 A (0-5) Ur Squamous Epith Cells Few (None-Few) Urine Bacteria Few A (None) Imaging Data Bladder scan: Attestation: I have reviewed the pertinent imaging results. My impression: Initial bladder scan was 120, post catheterization, with irrigation he had 80, Discharge Plan Discharge Clinical Impression: Hematuria, S/P transurethral resection of prostate Patient Disposition: Home, Self-Care Condition: Stable Instructions: Hematuria (ED) Additional Instructions: Home rest lots of fluids. Leave the catheter in for 2-3 days, follow-up with [facility] for to have his pulled. If this occurs again, [place] recommends that you go down there, I think that is a great idea also as we do not have Urology here. Activity Level: Light activity Prescriptions: No Action amlodipine 5 mg tablet 5 mg PO DAILY atorvastatin 40 mg tablet 40 mg PO DAILY pantoprazole 40 mg tablet,delayed release (DR/EC) 40 mg PO DAILY alfuzosin 10 mg tablet extended release 24 hr 10 mg PO DAILY aspirin 81 mg capsule 81 mg PO DAILY Follow Up/Referrals: Suresh Urias MD [Primary Care Provider, Family Practice] Stand Alone Forms: Proformative Info Instructions
[2025-03-24 23:32] LABS: Hematocrit* 41.0 % (37.0-53.0); Hemoglobin* 14.2 gm/dL (13.5-17.5); Immature Granulocytes Abs Auto 0.01 K/uL (0.00-0.30); Immature Granulocytes Pct Auto 0.2 %; Lymphocytes Absolute Auto 1.70 K/uL (0.90-2.90); Mean Corpuscular HGB Conc 35 gm/dL (32-36); Mean Corpuscular Hemoglobin 33 pg (26-34); Mean Corpuscular Volume 94 fL (80-100); RDW Coefficient of Variation % 13.2 % (11.5-15.5); Red Blood Count* 4.36 m/uL (4.30-5.90); White Blood Count* 5.56 K/uL (4.50-11.00)
[2025-03-24 23:36] LABS: Slide Review Reflex No
[2025-03-24 23:38] LABS: Appearance Urine Cloudy (Clear)
[2025-03-24] MEDS: lidocaine HCL 2 % JELLY (TOP) STERILE 6 ML UR (23:50)
[2025-03-25 00:14] VITALS: BP 124/78; PULSE 84; RESP 18; TEMP 36.7; O2SAT 99
== END 2025-03-25 00:18 | disposition home or self-care (01) ==
PROVIDERS: Emergency Provider Family Medicine; PCP Family Medicine
DX: R31.9 Hematuria, unspecified (principal)
CPT/HCPCS: 36415; 51702; 51798; 81001; 85025; 87086; 99284

== ENCOUNTER 2025-03-27 09:06 | Emergency (ER) | payer MEDICARE, BC, SELFPAY ==
--- OUTSIDE RECORDS SUMMARY | 2025-02-12 11:30 | XMS_ITS | Encounter Summary ---
Author Organization [facility] Address [address] [place] [id number] Care Team Providers Care Manager Pe Name Role Phone Unavailable Primary Care Provider Unavailabl e Reason for Visit * Reason Onset Date Comments Pre-visit Intake 02/12/2025 Encounter Details Date Type Department Care Team (Latest Contact Info) Description 02/12/2025 12:30 PM CDT Clinical Communication Virtual Review in [place], [place] 200 [place] [address] Pre-visit Intake Social History Tobacco Use Types Packs/Day Years Used Date Smoking Tobacco: Never Smokeless Tobacco: Never Alcohol Use Standard Drinks/Week Comments Yes 14 (1 standard drink = 0.6 oz pu re alcohol) [facility] Utilities Answer Date Recorded In the past 12 months has [employer], gas, oil, or water [employer] threatened to shut off services in your [...] your living situation today? I have a [facility] place to live 06/08/2024 Education Answer Date Recorded What is the highest level of school you have completed or the highest degree you have received? Bachelor's degree (e.g., BA, AB, BS) 03/09/2019 Sex and Gender Information Value Date Recorded Sex Assigned at Male 05/23/2018 5:05 PM CLAIMS MANAGER Legal Sex Male 4:32 AM CLAIMS MANAGER Gender Identity Male 05/23/2018 5:05 PM CLAIMS MANAGER Sexual Orientation Straight 05/23/2018 5: 05 PM CLAIMS MANAGER documented as of this encounter Plan of Treatment Upcoming Encounters Date Type Department Care Team (Latest Contact Info) Description 05/22/2025 3:30 PM CLAIMS MANAGER Clinical Communication Virtual Review in [address] [phone] 06/03/2025 11:00 AM CLAIMS MANAGER Lab Department of Laboratory Medicine and Pathology, [facility] in [address] [phone] Gagandeep Cook M.D. [address] [place] [phone] 06/03/2025 1:15 PM CLAIMS MANAGER Procedure visit Department of Urology in [address] [phone] Gagandeep Cook M.D. [address] [place] [phone] 06/03/2025 3:00 PM CLAIMS MANAGER Office Visit Department of Urology in [address] [phone] Darrion Wyatt P.A.-C., M.S. [address] [place] [phone] documented as of this encounter Visit Diagnoses Not on filedocumented in this encounter
--- OUTSIDE RECORDS SUMMARY | 2025-02-17 10:00 | XMS_ITS | Encounter Summary ---
Author Organization [facility] Address [address] [place] [address] Care Team Providers Care Fuel Cell Systems Engineer Name Role Phone Unavailable Primary Care Provider Unavailabl e Reason for Visit * Outpatient (Routine) - Closed Specialty Diagnoses / Procedures Referred By Contbecki t Referred To Contact Anesthesiology Diagnoses Benign Prostatic Hyperplasia Without Obstruction Symptom Urinary Rosalia Doyle M.D. [address] [place] [address] Phone: tel: fax: [facility] Referral ID Status Reason Start Date Expiration Date Visits Re quested Visits Authorized [id number] Closed 12/26/2024 06/27/2026 1 1 Encounter Details Date Type Department Care Team (Latest Contact Info) Description 02/17/2025 11:00 AM CDT Telemedicine Preoperative Evaluation Center in [place], [place] [address] [place] [phone] Rosalia Doyle M.D. [address] [place] [phone] Yevgeniy Hooks, JUDIE, C.N.P., M.S. [address] [place] [phone] Preanesthetic Medical Exam (Primary Dx); Benign Prostatic Hyperplasia Hypertrophy With Obstruction; Infection Urinary Tract Personal History; Hypertension Essential Primary; Atherosclerotic Heart Disease Of [place] Coronary Artery Without Angina Pectoris; Coronary Stent Status Post; Patent Foramen Ovale (HCC); Hyperlipidemia; Transient Ischemic Attack Personal History Or Stroke Personal History; Gastroesophageal Reflux Disease; Herpesviral Vesicular Dermatitis; Overweight Body Mass Index 25-29.9 Adult Social History Tobacco Use Types Packs/Day Years Used Date Smoking Tobacco: Never Smokeless Tobacco: Never Alcohol Use Standard Drinks/Week Comments Yes 14 (1 standard drink = 0.6 oz pu re alcohol) [facility] Utilities Answer Date Recorded In the past 12 months has th e electric, gas, oil, or water [employer] threatened to shut off services in your [...] your living situation today? I have a [facility] place to live 06/08/2024 Education Answer Date Recorded What is the highest level of school you have completed or the highest degree you have received? Bachelor's degree (e.g., BA, AB, BS) 03/09/2019 Sex and Gender Information Value Date Recorded Sex Assigned at Male 05/23/2018 5:05 PM LEVEL VIAL INSPECTOR AND TESTER Legal Sex Male 4:32 AM LEVEL VIAL INSPECTOR AND TESTER Gender Identity Male 05/23/2018 5:05 PM LEVEL VIAL INSPECTOR AND TESTER Sexual Orientation Straight 05/23/2018 5: 05 PM LEVEL VIAL INSPECTOR AND TESTER documented as of this encounter Last Filed Vital Signs Vital Sign Reading Time Taken Comments Blood Pressure - - Pulse - - Temperature - - Respiratory Rate - - Oxygen Saturation - - Inhaled Oxygen Concentration - - Weight 64.9 kg (143 lb) 02/17/2025 12:06 PM CDT patient reports Height 160 cm (5' 3) 02/17/2025 12:06 PM CDT [facility] reports Body Mass Index 25.33 02/17/2025 12:06 PM CDT documented in this encounter H&P Notes * Yevgeniy Hooks APRN, C.Polina.Carmela., M.S. - 02/17/2025 11:00 AM CDT REASON FOR VISIT: Preoperative Medical Evaluation REFERRING PHYSICIAN: Rosalia Doyle M.D. 03/10/2025: TRANSURETHRAL WATERJET ABLATION OF THE PROSTATE; Rosalia Doyle M.D. Surgery Specific Risk Classification: Low Risk SUBJECTIVE HISTORY OF PRESENT ILLNESS Consult conducted via real-time audio/video technology by Yevgeniy Hooks APRN, Anne.Polina.Carmela., M.S. in [facility] to the patient in Patient's Home This is a 74 y.o. male who is here for preanesthetic medical examination prior to the planned procedure as listed above. REVIEW OF SYSTEMS Eyes: - Glasses. Genitourinary: - Fay catheter. All other systems reviewed and are negative. Cardiac Risk Scoring: [place] Cardiac Score: 0.06% Revised Cardiac Risk Index 2 Points - Moderate Risk of Cardiac Event (6.6%) DASI Calculations Flowsheet Row Telemedicine from 02/17/2025 in Preoperative Evaluation Center in [place], [place] DASI Total Score 26.95 Estimated V02 Peak 21.19 Estimated MET Level 6.05 OBJECTIVE OBJECTIVE PHYSICAL EXAMINATION General/Constitutional Constitutional Assessment: Normal General State of Health: Healthy appearing Airway (HEENT) TM Distance: >3 FB Neck ROM: Full Mouth Opening: > 3 cm Dental Assessment: Dentition intact Cardiovascular Unable to assess Pulmonary Unable to assess Neurological Neurologic Assessment: Alert Musculoskeletal MSK Assessment: Normal Psychiatric Psychiatric Assessment: Calm Dermatology Skin Assessment: normal Physical exam will be performed by anesthesia the day of procedure. ASSESSMENT / PLAN Anesthesia: Patient denies all other personal/family previous anesthesia related complications. Please see allergy history. PONV treatment requested. CAD status post LAD stent 11/08/2017. PFO status post left occipital stroke 12/30/2012, PFO patent with no surgical history. ASA 81 mg treatment. Airway Hx: No chart review airway. Lab: - 03/10/2025 BMP preop scheduled. ECG: [facility] 03/10/2025 ECG preop scheduled. ECHO: - 04/10/2019 TTE final impression: (stroke indication) 1. Atrial septal aneurysm with hyperdynamic atrial septum and patent foramen ovale. 2. Large cfoal-ri-pxko shunt at atrial level at rest and with Valsalva release. 3. Normal left ventricular chamber size. 4. Estimated left ventricular ejection fraction 60 %. 5. No intracardiac mass or thrombus. 6. Mildly thickened mitral valve. 7. Trivial mitral valve regurgitation. 8. No pericardial effusion. #1 Preanesthetic Medical Exam #2 Benign Prostatic Hyperplasia Hypertrophy With Obstruction #3 Infection Urinary Tract Personal History Kind hearted 74-year-old gentleman here for [facility] visit. Active individual. Able to care for self at home. No ambulation aids. Mets 6.95. Denies acute cardiopulmonary symptoms both at rest and with exertional activity. On exam today denies any fever/chills, cough, nasal drainage, or sinus pressure. BPH medical/surgical history: BPH with urinary retention. Fay catheter (12/04/2024, with recent exchange) with recent UTI 02/07/2025, ciprofloxacin treated. 06/12/2025 PSA 1.53. Father/brother prostate cancer history. No dysuria/hematuria. No low-grade fever. No significant caffeine history. 2-3 alcoholic drink daily history without withdrawal. No smoking/ COVID history. Please see planned procedure and HPI above. Please hold all ibuprofen, aspirin, supplements, minerals, and vitamins 1 week prior to surgery (last dose 03/02/2025). Alfuzosin will continue as prescribed. #4 Hypertension Essential Primary #5 Atherosclerotic Heart Disease Of [place] Coronary Artery Without Angina Pectoris #6 Coronary Stent Status Post #7 Patent Foramen Ovale (HCC) Conservatively managed with no acute cardiopulmonary/angina symptoms on exam. 03/10/2025 BMP. No CHF. Hypertension history, possibly white coat related. Amlodipine history 07/11/2024, discontinued due to hypotension. PFO with left occipital stroke history 12/30/2012, no recurrence. PFO patent, no surgical history. CAD status post LAD stent 11/08/2017, no restenosis. Last evaluated by Dr. Figueroa cardiology 06/25/2019: Evaluation for PFO closure, very large aneurysmal PFO tjdnt-no-exej shunt. No angina/CHF/SOB. No AFib history. PFO closure recommended, working with insurance. (No surgical intervention/cardiology follow-up since.) Counseled to follow-up with [place] cardiology or local cardiology following recovery surgery for cardiology reestablishment of care/evaluation/treatment if indicated. No cardiac ischemia/infarction/surgical/arrhythmic history. No thromboembolism history. Please see cardiac testing above. Home BP 120-130/70-80. White coat history, systolic 150s. Mets 6.95. ASA 81 mg will be held morning of surgery. Reviewed with Dr. Rogers anesthesia 02/17/2025, will not pursue anything further. Surgical team notified 02/17/2025. #8 Hyperlipidemia #9 Transient Ischemic Attack Personal History Or Stroke Personal History Treated with stroke history 12/30/2012 related to PFO, fully recovered. No stroke/\TIA reoccurrence. No recent LFTs/ liver imaging. Atorvastatin will continue as prescribed. #10 Gastroesophageal Reflux Disease Treated with no aspiration pneumonia history. Sleeps elevated. EGD 04/03/2019 indicates small hiatal hernia. No recent hiatal hernia imaging. Pantoprazole will continue as prescribed. 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 Famciclovir will continue as prescribed. #12 Overweight Body Mass Index 25-29.9 Adult BMI 25.33. RECOMMENDATIONS: Patient medically optimized for planned procedure: Yes Further Recommendations: None PATIENT EDUCATION: [facility] Checklist For Surgical Patient's (pamphlet link: Instructions To Get Ready for Your Surgery or Procedure [facility]:[place]). I spent 60 minutes face to face and non-face to face caring for the patient today. documented in this encounter Plan of Treatment Upcoming Encounters Date Type Department Care Team (Latest Contact Info) Description 05/22/2025 3:30 PM LEVEL VIAL INSPECTOR AND TESTER Clinical Communication Virtual Review in [place] [address] [place] [phone] 06/03/2025 11:00 AM LEVEL VIAL INSPECTOR AND TESTER Lab Department of Laboratory Medicine and Pathology, [facility], in [place], [place] [address] [place] [phone] Gagandeep Cook M.D. [address] [place] [phone] 06/03/2025 1:15 PM LEVEL VIAL INSPECTOR AND TESTER Procedure visit Department of Urology in [place], [place] [address] [place] [phone] Gagandeep Cook M.D. [address] [place] [phone] 06/03/2025 3:00 PM LEVEL VIAL INSPECTOR AND TESTER Office Visit Department of Urology in [place], [place] [address] [place] [phone] Darrion Wyatt, PSamuel-C., M.S. [address] [place] [phone] documented as of this encounter Visit Diagnoses Diagnosis Preanesthetic Medical Exam- Primary Benign Prostatic Hyperplasia Hypertrophy With Obstruction Infection Urinary Tract Personal History Hypertension Essential Primary Atherosclerotic Heart Disease Of [place] Coronary Artery Without Angina Pectoris Coronary Stent Status Post Patent Foramen Ovale (HCC) Hyperlipidemia Transient Ischemic Attack Personal History Or Stroke Personal History Gastroesophageal Reflux Disease Herpesviral Vesicular Dermatitis Overweight Body Mass Index 25-29.9 Adult documented in this encounter
--- OUTSIDE RECORDS SUMMARY | 2025-03-10 10:39 | XMS_ITS | Encounter Summary ---
Author Organization [facility] Address [address] [place] [address] Care Team Providers Care Tile Mason Name Role Phone Elsewhere, Pcp Primary Care Provider Unavailabl e Reason for Referral * Medication Prior Authorization - Closed Specialty Diagnoses / Procedures Referred By Contac t Referred To Contact Diagnoses Benign Prostatic Hyperplasia Without Obstruction Gagandeep Cook M.D. [address] [place] [address] Phone: tel: fax: Referral ID Status Reason Start Date Expiration Date Visits Re quested Visits Authorized [id number] Closed 1 1 ED GLASS CROSSCUTTER * Outpatient (Routine) - Authorized Specialty Diagnoses / Procedures Referred By Contac t Referred To Contact Diagnoses Benign Prostatic Hyperplasia Without Obstruction Procedures URO Uroflow Gagandeep Cook M.D. [address] [place] [address] Phone: tel: fax: [facility] Referral ID Status Reason Start Date Expiration Date V isits Requested Visits Authorized [id number] Authorized 03/10/2025 06/10/2026 1 1 ED GLASS CROSSCUTTER * Outpatient (Routine) - Authorized Specialty Diagnoses / Procedures Referred By Sagrario t Referred To Contact Urology Gagandeep Cook M.D. [address] [place] [phone] Phone: tel: fax: Darrion Wyatt P.A.-C., M.S. [address] [place] [phone] Phone: tel: fax: Referral ID Status Reason Start Date Expiration Date V isits Requested Visits Authorized [id number] Authorized 03/10/2025 09/09/2026 1 1 ED GLASS CROSSCUTTER Encounter Details Date Type Department Care Team (Latest Contact Info) Description 03/10/2025 10:39 AM ROLLED GLASS CROSSCUTTER - 03/10/2025 4:51 PM ROLLED [facility] CR[facility]SC[facility] Hospital Encounter Outpatient Surgery Unit in [place], [place] [address] [place] [phone] Rosalia Doyle M.D. [address] [place] [phone] Benign Prostatic Hyperplasia Without Obstruction; Symptom Urinary Discharge Disposition: Home or Self Care Social History Tobacco Use Types Packs/Day Years Used Date Smoking Tobacco: Never Smokeless Tobacco: Never Alcohol Use Standard Drinks/Week Comments Yes 14 (1 standard drink = 0.6 oz pu re alcohol) [facility] Utilities Answer Date Recorded In the past 12 months has [employer] gas, oil, or water Spot Runner threatened to shut off services in your [...] your living situation today? I have a [facility] place to live 06/08/2024 Education Answer Date Recorded What is the highest level of school you have completed or the highest degree you have received? Bachelor's degree (e.g., BA, AB, BS) 03/09/2019 Sex and Gender Information Value Date Recorded Sex Assigned at Male 05/23/2018 5:05 PM ROLLED GLASS CROSSCUTTER Legal Sex Male 4:32 AM ROLLED GLASS CROSSCUTTER Gender Identity Male 05/23/2018 5:05 PM ROLLED GLASS CROSSCUTTER Sexual Orientation Straight 05/23/2018 5: 05 PM ROLLED GLASS CROSSCUTTER documented as of this encounter Last Filed Vital Signs Vital Sign Reading Time Taken Comments Blood Pressure 125/80 03/10/2025 4:00 PM ROLLED GLASS CROSSCUTTER Pulse 66 03/10/2025 4:00 PM ROLLED GLASS CROSSCUTTER Temperature 36.2 C (97.2 F) 03/10/2025 3:10 PM ROLLED GLASS CROSSCUTTER Respiratory Rate 16 03/10/2025 4:0 0 PM ROLLED GLASS CROSSCUTTER Oxygen Saturation 96% 03/10/2025 4:00 PM ROLLED GLASS CROSSCUTTER Inhaled Oxygen Concentration - - Weight 67.1 kg (147 lb 14.9 oz) 025 11:01 AM ROLLED GLASS CROSSCUTTER Height 155 cm (5' 1.02) 03/10/2025 11: 01 AM ROLLED GLASS CROSSCUTTER Body Mass Index 27.93 03/10/2025 11:01 AM ROLLED GLASS CROSSCUTTER documented in this encounter Medications at Time of Discharge acetaminophen (TylenoL) 500 mg tablet Take 1 tablet (500 mg total) by mouth every 6 (six) hours as needed for pain. 100 tablet 03/10/2025 alfuzosin (UROXATRAL) 10 mg 24 hr tablet Take 10 mg by mouth daily. 03/05/2019 amLODIPine (Norvasc) 5 mg tablet Take 5 mg by mouth daily. ascorbic acid, vitamin C, (vitamin C) 1,000 mg tablet Take 1,000 mg by mouth daily. aspirin 81 mg chewable tablet Chew 81 mg daily. 11/08/2017 atorvastatin (LIPITOR) 40 mg tablet Take 40 mg by mouth daily. 03/05/2019 calcium carbonate (TUMS) 500 mg (200 mg calcium) chewable tablet Chew 500 mg as needed. cholecalciferol, vitamin D3, 1,000 Unit tablet Take 1,000 Units by mouth daily. famciclovir (FAMVIR) 250 mg tablet Take 250 mg by mouth as needed. 03/05/2019 levoFLOXacin (Levaquin) 500 mg tabletIndication s:Benign Prostatic Hyperplasia Without Obstruction Take 1 tablet (500 mg total) by mouth daily. 7 tablet 03/03/2025 levoFLOXacin (Levaquin) 500 mg tabletIndication s:Benign Prostatic Hyperplasia Without Obstruction Take 1 tablet (500 mg total) by mouth daily. Take morning of catheter removal. 1 tablet 03/10/2025 4:57 PM ROLLED GLASS CROSSCUTTER 03/10/2025 lidocaine HCL (Glydo) 2 % topical jellyIndications :Benign Prostatic Hyperplasia Without Obstruction Insert 5 mL (1 Application total) into the urethra once. Apply as needed 4 times daily to tip of of penis for catheter pain. You do not need to use the entire applicator. 5 applicator 03/10/2025 4:57 PM ROLLED GLASS CROSSCUTTER 03/10/2025 omega-3 fatty acids-fish oil 360-1,200 mg capsule Take 1 capsule by mouth daily. oxyBUTYnin (Ditropan) 5 mg tablet Take 1 tablet (5 mg total) by mouth 3 (three) times a day. Do not take morning of or night before catheter removal. 21 tablet 03/10/2025 4:57 PM ROLLED GLASS CROSSCUTTER 03/10/2025 pantoprazole (PROTONIX) 40 mg EC tablet Take 40 mg by mouth daily. 02/22/2019 sennosides-docus ate sodium (Senna with Docusate Sodium) 8.6-50 mg per tablet Take 1 tablet by mouth 2 (two) times a day. 100 tablet 03/10/2025 documented as of this encounter OR Notes * Op Note - Gagandeep Cook M.D. - 03/10/2025 12:57 PM CST Pre-op Diagnosis Benign Prostatic Hyperplasia Without Obstruction Symptom Urinary Post-op Diagnosis Benign Prostatic Hyperplasia Without Obstruction Symptom Urinary Automatic Pattern Edger A miller first actively participated and was necessary for one [...] Rosalia Doyle M.D. at 03/11/2025 8:38 AM ROLLED GLASS CROSSCUTTER ED GLASS CROSSCUTTER ED GLASS CROSSCUTTER documented in this encounter Plan of Treatment Upcoming Encounters Date Type Department Care Team (Latest Contact Info) Description 05/22/2025 3:30 PM ROLLED GLASS CROSSCUTTER Clinical Communication Virtual Review in [address] [phone] 06/03/2025 11:00 AM ROLLED GLASS CROSSCUTTER Lab Department of Laboratory Medicine and Pathology, [facility] [place] in [address] [phone] Gagandeep Cook M.D. [address] [place] [phone] 06/03/2025 1:15 PM ROLLED GLASS CROSSCUTTER Procedure visit Department of Urology in [address] [phone] Gagandeep Cook M.D. [address] [place] [phone] 06/03/2025 3:00 PM ROLLED GLASS CROSSCUTTER Office Visit Department of Urology in [address] [phone] Darrion Wyatt P.A.-C., M.S. [address] [place] [phone] Scheduled Orders Name Type Priority Associated Diagnoses [...] ADULT OXYGEN THERAPY Routine 03/10/2025 1:55 PM ROLLED GLASS CROSSCUTTER SURGICAL PATHOLOGY, [facility] Routine 03/10/2025 1:38 PM ROLLED GLASS CROSSCUTTER Benign Prostatic Hyperplasia Without Obstruction Symptom Urinary TRANSURETHRAL WATERJET ABLATION OF THE PROSTATE 03/10/2025 12:14 PM ROLLED GLASS CROSSCUTTER Benign Prostatic Hyperplasia Without Obstruction Symptom Urinary documented in this encounter Results * Surgical Pathology, [facility] Lab (03/10/2025 1:38 PM ROLLED GLASS CROSSCUTTER) 03/13/2025 1:38 PM ROLLED GLASS CROSSCUTTER METH Participated in the Interpretation Maribel Lucas M.D. -Pathology Resident 03/13/2025 1:38 PM ROLLED GLASS CROSSCUTTER METH Report electronically signed by Slava Gatica M.D. I verify that I have examined all relevant slides/materials for the specimen(s) and rendered or confirmed the diagnosis. 03/13/2025 1:38 PM ROLLED GLASS CROSSCUTTER METH Gross Description A. Received fresh labeled prostate chips is a 5.5 gram, 5 x 3.5 x 1.5 cm aggregate of rubbery, aguilar-pink tissue. All submitted for permanent sections. Grossed by Ricki Benavides MDomitilaS., PA([facility]). 03/13/2025 1:38 PM ROLLED GLASS CROSSCUTTER METH Block Summary A Prostate chips A1 Prostate chips 1 A2 Prostate chips 2 A3 Prostate chips 3 A4 Prostate chips 4 A5 Prostate chips 5 A6 Prostate chips 6 03/13/2025 1:38 PM ROLLED GLASS CROSSCUTTER METH Interpretation FINAL DIAGNOSIS A. Prostate, transurethral resection: Nodular hyperplasia Digital imaging was used in the diagnostic assessment of this case. 03/13/2025 1:38 PM ROLLED GLASS CROSSCUTTER METH Tissue (Prostate) 03/10/2025 1:38 PM ROLLED GLASS CROSSCUTTER us Rosalia Doyle M.D. LAB SURG PATH ORDERABLES Final R esult [facility] [address] [place] [address], [facility] METH [address] [facility] [address] [place] [address] documented in this encounter Visit Diagnoses Diagnosis [...] in preprocedural area. Given 03/10/2025 11:24 AM ROLLED GLASS CROSSCUTTER 1,000 mg levoFLOXacin in D5W IVPB 500 mg (Levaquin) 500 mg, intravenous, at 100 mL/hr, Administer over 60 Minutes, Once, On Mon03/10/25 at 1145, For 1 dose, Pre-Op, Drug Monitoring Program: Pharmacist to adjust medication dosing based on indication and drug clearance factors., Indications: Prophylaxis, surgicalIndications:Prophylax is, surgical New Bag 03/10/2025 11:25 AM ROLLED GLASS CROSSCUTTER 500 mg 100 mL/hr NaCl 0.9 % irrigation solution 3,000 mL 3,000 mL, irrigation, Continuous, Starting on Mon03/10/25 at 1430 New Bag 03/10/2025 2:53 PM ROLLED GLASS CROSSCUTTER 3,000 mL documented in this encounter Active and Recently Administered Medications Times are shown in ROLLED GLASS CROSSCUTTER. Scheduled Medication Order 03/08/2025 03/09/2025 03/10/2025 acetaminophen [...] R.N.) documented in this encounter Care Teams Tile Mason Relationship Specialty Start Date End Date Elsewhere, Pcp PCP - General Internal Medicine 03/10/25 documented as of this encounter
--- OUTSIDE RECORDS SUMMARY | 2025-03-10 12:29 | XMS_ITS | Encounter Summary ---
Author Organization [facility] Address [address] [place] [address] Care Team Providers Care Music Sound Light Technician Name Role Phone Elsewhere, Pcp Primary Care Provider Unavailabl e Encounter Details Date Type Department Care Team (Late st Contact Info) Description 03/10/2025 12:29 PM ASSISTANT ELEMENTARY TEACHER Anesthesia Event [facility] [address] [place] [address] Renetta Guerrero M.D. [address] [place] [phone] Zi Mejia APRN, CRNA, DNAP [address] [place] [phone] Anesthesia Record Procedure Summary Procedure Name Responsible Anesthesiologist Anesthesia Start Time Anesthesia Stop Time TRANSURETHRAL WATERJET ABLATION PROSTATE, 50 grams. Renetta Guerrero M.D. 03/10/25 1229 03/10/25 1357 Events Date Time Event Comment 03/10/2025 1155 1229 An Start Machine/Equipme nt Checked Infection Precautions Followed Procedure/Site Verified NPO Status Verified Supine Standard ASA Monitors Applied 1235 An Induction 1240 An Intubation 1240 Anes CS Handoff I, Shanell Haley APRN, SECURITY CONTROL CENTER OPERATOR, D.N.P., attest that I have reconciled the controlled substances and that I have reviewed all the significant information with the next anesthesia provider assuming care of this patient. 1242 Turnover to Proceduralist 1257 Proc Start 1343 Proc Fin 1348 Turnover to ANE Staff 1348 Airway Removal Criteria Met 1348 Extubation/Airway Removed 1348 an stop data 1357 An End I completed my handoff to the receiving staff during which we 1. Identified the patient 2. Identified the responsible provider 3. Reviewed the pertinent medical history 4. Discussed the surgical course 5. Reviewed intra-op anesthesia management and issues during anesthesia 6. Set expectations for post-procedure period 7. Allowed opportunity for questions and acknowledgement of understanding. Meds Name Total fentanyl injection 50 mcg/mL 150 mcg lidocaine 2% (mg) injection 80 mg rocuronium 10 mg/mL injection 50 mg ondansetron 4 mg/2 mL injection 4 mg sugammadex 100 mg/mL injection 200 mg propofol 10 mg/mL injection 180 mg dexAMETHasone (Decadron) injection 4 mg/ mL 4 mg levoFLOXacin in D5W IVPB 500 mg (Levaqui n) Cannot be calculated tranexamic acid in NaCl IVPB 1 g (Cyklok apron) 1 g Lactated Ringers Free Drip 800 mL * Agents No agents on file. * Blood No blood administrations on file. Lines, Drains, and Airways Type Details Placement Removal Indwelling Urinary Catheter Placement Date: 03/10/25; Placement Time: 1327; Inserted by: Dr. Doyle; Size: 22 Fr.; Balloon Size: 30 mL; Urine Returned: Yes 03/10/25 1327 by Adrianna Jaquez, R.N. Peripheral IV Placement Date: 03/10/25; Placement Time: 1110; Catheter Size: 18 G; Orientation: Anterior, Lower, Right; Location: Forearm; Site Prep: Chlorhexidine (Preferred); Technique: Anatomical landmarks; Inserted by: michelle; Insertion Attempts: 1; Removal Date: 03/10/25; Removal Time: 1651; Removal Reason: Patient discharged 03/10/25 1110 by Jeny Pelaez 03/10/25 1651 by Christine Hernandez, R.NDomitila ETT Placement Date: 03/10/25; Placement Time: 1240 (created via procedure documentation); Mask Ventilation: Oral/Nasal airway needed; Technique: Direct laryngoscopy, intubation; Type: Standard ETT; Single Lumen Tube Size: 7.5 mm; Cuffed: Yes; Blade Size: Jones 2; Location: Oral; Grade View: Grade 1; Insertion Attempts: 1; Placement Verification: Bilateral breath sounds, Positive ETCO2, Symmetrical chest wall movement; Airway Comment: mar; Removal Date: 03/10/25; Removal Time: 134703/10/25 1240 by Ivana Haley APRN, JW, D.N.P. 03/10/25 1348 by Zi Mejia APRN, CRNA, DNAP documented in this encounter Social History Tobacco Use Types Packs/Day Years Used Date Smoking Tobacco: Never Smokeless Tobacco: Never Alcohol Use Standard Drinks/Week Comments Yes 14 (1 standard drink = 0.6 oz pu re alcohol) [facility] Utilities Answer Date Recorded In the [...] your living situation today? [facility] 06/08/2024 Education Answer Date Recorded What is the highest level of school you have completed or the highest degree you have received? Bachelor's degree (e.g., BA, AB, BS) 03/09/2019 Sex and Gender Information Value Date Recorded Sex Assigned at Male 05/23/2018 5:05 PM ASSISTANT ELEMENTARY TEACHER Legal Sex Male 4:32 AM ASSISTANT ELEMENTARY TEACHER Gender Identity Male 05/23/2018 5:05 PM ASSISTANT ELEMENTARY TEACHER Sexual Orientation Straight 05/23/2018 5: 05 PM ASSISTANT ELEMENTARY TEACHER documented as of this encounter OR Notes * Anesthesia Postprocedure Evaluation - Renetta Guerrero M.D. - 03/10/2025 4:27 PM CST Patient: Amilcar Diaz Procedure Summary Date: 03/10/25 Room / Location: [address] [facility] / [facility] in [place], [place] Anesthesia Start: 1229 Anesthesia Stop: 1357 Procedure: TRANSURETHRAL WATERJET ABLATION PROSTATE, 50 grams. Diagnosis: Benign Prostatic Hyperplasia Without Obstruction Symptom Urinary (Benign Prostatic Hyperplasia Without Obstruction [N40.0], Symptom Urinary [R39.89].) Providers: Rosalia Doyle M.D. Responsible Provider: Renetta Guerrero M.D. Anesthesia Type: general ASA Status: 3 Anesthesia Type: general Last vitals Vitals Value Taken Time BP 119/73 03/10/25 14:23 Temp 36.7 ??C 03/10/25 13:53 Pulse 73 03/10/25 14:23 Resp 13 03/10/25 14:23 SpO2 97 % 03/10/25 14:23 Please reference Vitals flowsheet for most recent vital signs. Anesthesia Post Evaluation Patient Disposition: dismissal Cardiovascular status: hemodynamics (HR & BP) acceptable Respiratory status: patent airway with spontaneous effort Temperature: normothermic Oxygen requirements: room air Level of consciousness: awake Pain score: pain adequately controlled and/or at baseline Post Op nausea/vomiting: none Hydration status: euvolemic Notable Events No notable events documented. STANT ELEMENTARY TEACHER * Anesthesia Procedure Notes - Zi Mejia APRN, CRNA, DNAP - 03/10/2025 12:43 PM CSTAssociated Order(s): Airway Airway Date/Time: 03/10/2025 12:40 PM Performed by: Ivana Haley APRN, CRNA, D.N.P. Authorized by: Effertz, Renetta, M.D. Patient location during procedure: OR / Procedure Area PROCEDURE DETAILS: Mask difficulty assessment: oral/nasal airway needed Final airway type: direct laryngoscopy, intubation Laryngeal Manipulation: no Final airway difficulty of direct laryngoscopy (DL): 0-easy Final best view of glottic structures - Cormack/Lehane Score: grade 1 ETT location: oral Blade type: Jones 2 Tube size: 7.5 ETT distance at teeth/gum: 23 Oral tube type: standard ETT Cuffed: yes Number of attempt to successful placement: 1 Airway confirmation: bilateral breath sounds, positive ETCO2 and bilateral chest rise Other previous techniques attempted: none Additional Comments mar PRE PROCEDURE DETAILS: Pre evaluation for airway management: procedure Urgency: elective Preop assessment of probable difficulty: no difficulty anticipated Preoxygenation: bag valve mask SEDATION / ANESTHESIA Anesthesia method: anesthesia POST PROCEDURE DETAILS: Procedure outcome: successful Notable Events: no complications STANT ELEMENTARY TEACHER * Anesthesia Preprocedure Evaluation - Renetta Guerrero M.D. - 03/10/2025 11:55 AM CST Preprocedure Anesthesia & H&P Assessment Procedure Summary Date/Time: 03/10/25 1233 Procedure: TRANSURETHRAL WATERJET ABLATION PROSTATE, 50 grams. Diagnosis: Benign Prostatic Hyperplasia Without Obstruction [N40.0] Symptom Urinary [R39.89] Pre-op diagnosis: Benign Prostatic Hyperplasia Without Obstruction [N40.0], Symptom Urinary [R39.89]. Location: [place] [address] / [facility] in [place], [place] Providers: Rosalia Doyle M.D. Pertinent components of the patient's history including current problem list, medical history, surgical history, family history, social history, medications and allergies were reviewed. Present illness and pre-op diagnosis were confirmed. The planned surgery / procedure was verified with the patient / legal guardian. The patient's general health condition remains unchanged RELEVANT COMORBID CONDITIONS CV (+) Atherosclerotic Heart Disease Of [place] Coronary Artery Without Angina Pectoris (+) Hypertension Essential Primary (+) Patent Foramen Ovale (HCC) NEURO (+) Transient Ischemic Attack Personal History Or Stroke Personal History GI (+) Gastroesophageal Reflux Disease Other (+) Overweight Body Mass Index 25-29.9 Adult OBJECTIVE PHYSICAL EXAMINATION Airway (HEENT) Full mar Mallampati: III TM Distance: >3 FB Neck ROM: Full Cardiovascular Rhythm: Regular Cardiovascular Assessment: cardiovascular normal Functional Capacity: >4 METS Pulmonary Pulmonary Assessment: Clear General / Constitutional Constitutional Assessment: Normal Neurological Neurologic Assessment: alert Dental Dental Assessment: dentition intact ASSESSMENT / PLAN ANESTHESIA PLAN ASA: 3 Anesthesia Plan: general Patient seen and allergies reviewed, anesthesia plan and risks discussed directly with patient /legal guardian or through an cnc mill set up operator. Risks/Benefits/Alternatives of Blood transfusion discussed with patient / legal guardian, includingan opportunity to ask questions and/or decline some or all transfusion therapies. The patient / legal guardian consented to the use of all blood products, as deemed medically necessary Approval to Proceed: approved for anesthesia STANT ELEMENTARY TEACHER documented in this encounter Plan of Treatment Upcoming Encounters Date Type Department Care Team (Latest Contact Info) Description 05/22/2025 3:30 PM ASSISTANT ELEMENTARY TEACHER Clinical Communication Virtual Review in [address] [phone] 06/03/2025 11:00 AM ASSISTANT ELEMENTARY TEACHER Lab Department of Laboratory Medicine and Pathology, [facility] in [address] [phone] Gagandeep Cook M.D. [address] [place] [phone] 06/03/2025 1:15 PM ASSISTANT ELEMENTARY TEACHER Procedure visit Department of Urology in [address] [phone] Gagandeep Cook M.D. [address] [place] [phone] 06/03/2025 3:00 PM ASSISTANT ELEMENTARY TEACHER Office Visit Department of Urology in [address] [phone] Darrion Wyatt P.A.-C., M.S. [address] [place] [phone] documented as of this encounter Procedures Procedure Name Priority Date/Time Associated Diagnosis Comments LDA ANE ENDOTRACHEAL AIRWAY Routine 03/10/2025 12:40 PM ASSISTANT ELEMENTARY TEACHER documented in this encounter Results * LDA ANE ENDOTRACHEAL AIRWAY (03/10/2025 12:40 PM ASSISTANT ELEMENTARY TEACHER) Narrative Zi Mejia APRN, CRNA DNACarmela - 03/10/2025 12:40 PM ASSISTANT ELEMENTARY TEACHER Zi Mejia APRN, CRNA, DNAP 03/10/2025 12:43 PM Airway Date/Time: 03/10/2025 12:40 PM Performed by: Ivana Haley APRN, CRNA, D.N.P. Authorized by: Renetta Guerrero M.D. Patient location during procedure: OR / Procedure Area PROCEDURE DETAILS: Mask difficulty assessment: oral/nasal airway needed Final airway type: direct laryngoscopy, intubation Laryngeal Manipulation: no Final airway difficulty of direct laryngoscopy (DL): 0-easy Final best view of glottic structures - Cormack/Lehane Score: grade 1 ETT location: oral Blade type: Jones 2 Tube size: 7.5 ETT distance at teeth/gum: 23 Oral tube type: standard ETT Cuffed: yes Number of attempt to successful placement: 1 Airway confirmation: bilateral breath sounds, positive ETCO2 and bilateral chest rise Other previous techniques attempted: none Additional Comments mar PRE PROCEDURE DETAILS: Pre evaluation for airway management: procedure Urgency: elective Preop assessment of probable difficulty: no difficulty anticipated Preoxygenation: bag valve mask SEDATION / ANESTHESIA Anesthesia method: anesthesia POST PROCEDURE DETAILS: Procedure outcome: successful Notable Events: no complications Renetta Guerrero M.D. ANESTHESIA ORDERABLES Final Re sult documented in this encounter Visit Diagnoses Not on filedocumented in this encounter Administered Medications Inactive Administered Medications - up to 3 most recent administrations Medication Order MAR Action Action Date Dose Rate Site dexAMETHasone injection (Decadron) intravenous, As needed, Starting on Mon03/10/25 at 1251, Anesthesia Intra-op Given 03/10/2025 12:51 PM ASSISTANT ELEMENTARY TEACHER 4 mg fentaNYL injection (Sublimaze) intravenous, As needed, Starting on Mon03/10/25 at 1235, Anesthesia Intra-op Given 03/10/2025 1:10 PM ASSISTANT ELEMENTARY TEACHER 50 mcg Given 03/10/2025 12:35 PM ASSISTANT ELEMENTARY TEACHER 100 mcg Lactated Ringer's intravenous, Continuous Infusion: Per Instructions PRN, Starting on Mon03/10/25 at 1230, Anesthesia Intra-op New Bag 03/10/2025 12:30 PM ASSISTANT ELEMENTARY TEACHER lidocaine (PF) (cardiac) injection intravenous, As needed, Starting on Mon03/10/25 at 1235, Anesthesia Intra-op Given 03/10/2025 12:35 PM ASSISTANT ELEMENTARY TEACHER 80 mg ondansetron (PF) injection (Zofran) intravenous, As needed, Starting on Mon03/10/25 at 1251, Anesthesia Intra-op Given 03/10/2025 12:51 PM ASSISTANT ELEMENTARY TEACHER 4 mg propofoL injection (Diprivan) intravenous, As needed, Starting on Mon03/10/25 at 1236, Anesthesia Intra-op Given 03/10/2025 12:36 PM ASSISTANT ELEMENTARY TEACHER 180 m g rocuronium injection (Zemuron) intravenous, As needed, Starting on Mon03/10/25 at 1237, Anesthesia Intra-op Given 03/10/2025 12:37 PM ASSISTANT ELEMENTARY TEACHER 50 mg sugammadex injection (Bridion) intravenous, As needed, Starting on Mon03/10/25 at 1339, Anesthesia Intra-op Given 03/10/2025 1:39 PM ASSISTANT ELEMENTARY TEACHER 200 mg tranexamic acid in NaCl IVPB 1 g (Cyklokapron) 1 g, intravenous, Once, On Mon03/10/25 at 1230, For 1 dose, Intra-Op Given 03/10/2025 12:49 PM ASSISTANT ELEMENTARY TEACHER 1 g documented in this encounter Care Teams Music Sound Light Technician Relationship Specialty Start Date End Date Elsewhere, Pcp PCP - General Internal Medicine 03/10/25 documented as of this encounter
--- OUTSIDE RECORDS SUMMARY | 2025-03-10 12:33 | XMS_ITS | Encounter Summary ---
Author Organization [facility] Address [address] [place] [address] Care Team Providers Care Manager Cath Lab Name Role Phone Elsewhere, Pcp Primary Care Provider Unavailabl e Encounter Details Date Type Department Care Team (Late st Contact Info) Description 03/10/2025 12:33 PM ROLL COVERER - 03/10/2025 2:42 PM ROLL COVERER Surgery [facility] [address] [place] [address] Rosalia Doyle M.D. [address] [place] [address] TRANSURETHRAL WATERJET ABLATION PROSTATE, 50 grams. Social History Tobacco Use Types Packs/Day Years Used Date Smoking Tobacco: Never Smokeless Tobacco: Never Alcohol Use Standard Drinks/Week Comments Yes 14 (1 standard drink = 0.6 oz pu re alcohol) [facility] Utilities Answer Date Recorded In the past 12 months has e electric, gas, oil, or water Turning [employer] threatened to shut off services in your [...] Sex Assigned at Male 05/23/2018 5:05 PM ROLL COVERER Legal Sex Male 4:32 AM ROLL COVERER Gender Identity Male 05/23/2018 5:05 PM ROLL COVERER Sexual Orientation Straight 05/23/2018 5: 05 PM ROLL COVERER documented as of this encounter Last Filed Vital Signs Vital Sign Reading Time Taken Comments Blood Pressure 150/78 03/10/2025 2:30 PM ROLL COVERER Pulse 74 03/10/2025 2:30 PM ROLL COVERER Temperature 36.4 C (97.5 F) 03/10/2025 2:30 PM ROLL COVERER Respiratory Rate 14 03/10/2025 2:30 PM ROLL COVERER Oxygen Saturation 94% 03/10/2025 2:30 PM ROLL COVERER Inhaled Oxygen Concentration - - Weight 67.1 kg (147 lb 14.9 oz) 025 11:01 AM ROLL COVERER Height 155 cm (5' 1.02) 03/10/2025 11: 01 AM ROLL COVERER Body Mass Index 27.93 03/10/2025 11:01 AM ROLL COVERER documented in this encounter Medications at Time [...] catheter removal. 1 tablet 03/10/2025 4:57 PM ROLL COVERER 03/10/2025 lidocaine HCL (Glydo) 2 % topical jellyIndications :Benign Prostatic Hyperplasia Without Obstruction Insert 5 mL (1 Application total) into the urethra once. Apply as needed 4 times daily to tip of of penis for catheter pain. You do not need to use the entire applicator. 5 applicator 03/10/2025 4:57 PM ROLL COVERER 03/10/2025 omega-3 fatty acids-fish oil 360-1,200 mg capsule Take 1 capsule by mouth daily. oxyBUTYnin (Ditropan) 5 mg tablet Take 1 tablet (5 mg total) by mouth 3 (three) times a day. Do not take morning of or night before catheter removal. 21 tablet 03/10/2025 4:57 PM ROLL COVERER 03/10/2025 pantoprazole (PROTONIX) 40 mg EC tablet [...] Benign Prostatic Hyperplasia Without Obstruction Symptom Urinary Knitting Machine Operator Automatic A preschool assistant director actively participated and was necessary for one [...] Rosalia Doyle M.D. at 03/11/2025 8:38 AM ROLL COVERER COVERER COVERER documented in this encounter Plan of Treatment Upcoming Encounters Date Type Department Care Team (Latest Contact Info) Description 05/22/2025 3:30 PM ROLL COVERER Clinical Communication Virtual Review in [address] [phone] 06/03/2025 11:00 AM ROLL COVERER Lab Department of Laboratory Medicine and Pathology, [facility], in [address] [phone] Gagandeep Cook M.D. [address] [place] [phone] 06/03/2025 1:15 PM ROLL COVERER Procedure visit Department of Urology in [address] [phone] Gagandeep Cook M.D. [address] [place] [phone] 06/03/2025 3:00 PM ROLL COVERER Office Visit Department of Urology in [address] [phone] Darrion Wyatt P.A.-C., M.S. [address] [place] [phone] Scheduled Orders Name Type Priority Associated Diagnoses [...] ADULT OXYGEN THERAPY Routine 03/10/2025 1:55 PM ROLL COVERER SURGICAL PATHOLOGY, [facility] Routine 03/10/2025 1:38 PM ROLL COVERER Benign Prostatic Hyperplasia Without Obstruction Symptom Urinary TRANSURETHRAL WATERJET ABLATION OF THE PROSTATE 03/10/2025 12:14 PM ROLL COVERER Benign Prostatic Hyperplasia Without Obstruction Symptom Urinary documented in this encounter Results * Surgical Pathology, [facility] (03/10/2025 1:38 PM ROLL COVERER) 03/13/2025 1:38 PM ROLL COVERER METH Participated in the Interpretation Maribel Lucas M.D. -Pathology Resident 03/13/2025 1:38 PM ROLL COVERER METH Report electronically signed by Slava Gatica M.D. I verify that I have examined all relevant slides/materials for the specimen(s) and rendered or confirmed the diagnosis. 03/13/2025 1:38 PM ROLL COVERER METH Gross Description A. Received fresh labeled prostate chips is a 5.5 gram, 5 x 3.5 x 1.5 cm aggregate of rubbery, aguilar-pink tissue. All submitted for permanent sections. Grossed by Ricki Benavides M.S., PA([facility]). 03/13/2025 1:38 PM ROLL COVERER METH Block Summary A Prostate chips A1 Prostate chips 1 A2 Prostate chips 2 A3 Prostate chips 3 A4 Prostate chips 4 A5 Prostate chips 5 A6 Prostate chips 6 03/13/2025 1:38 PM ROLL COVERER METH Interpretation FINAL DIAGNOSIS A. Prostate, transurethral resection: Nodular hyperplasia Digital imaging was used in the diagnostic assessment of this case. 03/13/2025 1:38 PM ROLL COVERER METH Tissue (Prostate) 03/10/2025 1:38 PM ROLL COVERER us Rosalia Doyle M.D. LAB SURG PATH ORDERABLES Final R esult [facility] [address] [place] [address], [facility] METH [address] [place] [address] documented in this encounter Visit Diagnoses Diagnosis [...] in preprocedural area. Given 03/10/2025 11:24 AM ROLL COVERER 1,000 mg levoFLOXacin in D5W IVPB 500 mg (Levaquin) 500 mg, intravenous, at 100 mL/hr, Administer over 60 Minutes, Once, On Mon03/10/25 at 1145, For 1 dose, Pre-Op, Drug Monitoring Program: Pharmacist to adjust medication dosing based on indication and drug clearance factors., Indications: Prophylaxis, surgicalIndications:Prophylax is, surgical New Bag 03/10/2025 11:25 AM ROLL COVERER 500 mg 100 mL/hr NaCl 0.9 % irrigation solution 3,000 mL 3,000 mL, irrigation, Continuous, Starting on Mon03/10/25 at 1430 New Bag 03/10/2025 2:53 PM ROLL COVERER 3,000 mL documented in this encounter Active and Recently Administered Medications Times are shown in ROLL COVERER. Scheduled Medication Order 03/08/2025 03/09/2025 03/10/2025 acetaminophen [...] R.N.) documented in this encounter Care Teams Manager Cath Lab Relationship Specialty Start Date End Date Elsewhere, Pcp PCP - General Internal Medicine 03/10/25 documented as of this encounter
--- OUTSIDE RECORDS SUMMARY | 2025-03-10 12:40 | XMS_ITS | Encounter Summary ---
Author Organization [facility] Address [address] [place] [address] Care Team Providers Care Diesel Pile Driver Operator Name Role Phone Elsewhere, Pcp Primary Care Provider Unavailabl e Encounter Details Date Type Department Care Team (Late st Contact Info) Description 03/10/2025 12:40 PM BOARD CATCHER Ancillary Procedure Department of General Surgery Social History Tobacco Use Types Packs/Day Years Used Date Smoking Tobacco: Never Smokeless Tobacco: Never Alcohol Use Standard Drinks/Week Comments Yes 14 (1 standard drink = 0.6 oz pu re alcohol) [facility] Utilities Answer Date Recorded In [...] your living situation today? I have a [facility] place to live 06/08/2024 Education Answer Date Recorded What is the highest level of school you have completed or the highest degree you have received? Bachelor's degree (e.g., BA, AB, BS) 03/09/2019 Sex and Gender Information Value Date Recorded Sex Assigned at Male 05/23/2018 5:05 PM BOARD CATCHER Legal Sex Male 4:32 AM BOARD CATCHER Gender Identity Male 05/23/2018 5:05 PM BOARD CATCHER Sexual Orientation Straight 05/23/2018 5: 05 PM BOARD CATCHER documented as of this encounter Plan of Treatment Upcoming Encounters Date Type Department Care Team (Latest Contact Info) Description 05/22/2025 3:30 PM BOARD CATCHER Clinical Communication Virtual Review in [address] [phone] 06/03/2025 11:00 AM BOARD CATCHER Lab Department of Laboratory Medicine and Pathology, [facility] in [address] [phone] Gagandeep Cook M.D. [address] [place] [phone] 06/03/2025 1:15 PM BOARD CATCHER Procedure visit Department of Urology in [address] [phone] Gagandeep Cook M.D. [address] [place] [phone] 06/03/2025 3:00 PM BOARD CATCHER Office Visit Department of Urology in [address] [address] Darrion Wyatt P.A.-C., M.S. [address] [place] [phone] documented as of this encounter Procedures Procedure Name Priority Date/Time Associated Diagnosis Comments SURGERY IMAGE EXAM Routine 03/10/2025 12 :40 PM BOARD CATCHER documented in this encounter Results * Surgery Image Exam-Surgery Image Exam (03/10/2025 12:40 PM BOARD CATCHER) 03/10/2025 12:3 9 PM BOARD CATCHER Narrative IIMS - 03/10/2025 2:03 PM BOARD CATCHER This order has been created and auto-finalized to support the import of images acquired without order. The clinical documentation to support these images can be found on the encounter that produced images. us Provider Not In System IMG NON RAD IMAGING PROCE DURES Final Result IIMS NA documented in this encounter Visit Diagnoses Not on filedocumented in this encounter Care Teams Diesel Pile Driver Operator Relationship Specialty Start Date End Date Elsewhere, Pcp PCP - General Internal Medicine 03/10/25 documented as of this encounter
--- OUTSIDE RECORDS SUMMARY | 2025-03-27 09:08 | XMS_ITS | Encounter Summary ---
Author Organization [facility] Address [address] [place] [address] Care Team Providers Care Syrup Mixer Name Role Phone Elsewhere, Pcp Primary Care Provider Unavailabl e Encounter Details Date Type Department Care Team (Late st Contact Info) Description 03/13/2025 Results Follow-Up Department of Urology in [place], [place] [address] [place] [address] Rosalia Doyle M.D. [address] [place] [address] Surgical Pathology, Frozen Lab Social History Tobacco Use Types Packs/Day Years Used Date Smoking Tobacco: Never Smokeless Tobacco: Never Alcohol Use Standard Drinks/Week Comments Yes 14 (1 standard drink = 0.6 oz pu re alcohol) [facility] Utilities Answer Date Recorded In the past [...] living situation today? I have a [facility] place to live 06/08/2024 Education Answer Date Recorded What is the highest level of school you have completed or the highest degree you have received? Bachelor's degree (e.g., BA, AB, BS) 03/09/2019 Sex and Gender Information Value Date Recorded Sex Assigned at Male 05/23/2018 5:05 PM REINFORCED CONCRETE INSPECTOR Legal Sex Male 4:32 AM REINFORCED CONCRETE INSPECTOR Gender Identity Male 05/23/2018 5:05 PM REINFORCED CONCRETE INSPECTOR Sexual Orientation Straight 05/23/2018 5: 05 PM REINFORCED CONCRETE INSPECTOR documented as of this encounter Plan of Treatment Upcoming Encounters Date Type Department Care Team (Latest Contact Info) Description 05/22/2025 3:30 PM REINFORCED CONCRETE INSPECTOR Clinical Communication Virtual Review in [address] [phone] 06/03/2025 11:00 AM REINFORCED CONCRETE INSPECTOR Lab Department of Laboratory Medicine and Pathology, [facility] in [address] [address] Gagandeep Cook M.D. [address] [place] [phone] 06/03/2025 1:15 PM REINFORCED CONCRETE INSPECTOR Procedure visit Department of Urology in [address] [address] Gagandeep Cook M.D. [address] [place] [phone] 06/03/2025 3:00 PM REINFORCED CONCRETE INSPECTOR Office Visit Department of Urology in [place], [place] [address] [place] [address] Darrion Wyatt P.A.-C., M.S. [address] [place] [address] documented as of this encounter Visit Diagnoses Not on filedocumented in this encounter Care Teams Syrup Mixer Relationship Specialty Start Date End Date Elsewhere, Pcp PCP - General Internal Medicine 03/10/25 documented as of this encounter
--- OUTSIDE RECORDS SUMMARY | 2025-03-27 09:08 | XMS_ITS | Encounter Summary ---
Author Organization [facility] Address [address] [place] [address] Care Team Providers Care Laundry Route Driver Name Role Phone Elsewhere, Pcp Primary Care Provider Unavailabl e Encounter Details Date Type Department Care Team (Late st Contact Info) Description 03/03/2025 Orders Only Department of Urology in [place], [place] [address] [place] [address] Gagandeep Cook M.D. [address] [place] [address] Benign Prostatic Hyperplasia Without Obstruction (Primary Dx) Social History Tobacco Use Types Packs/Day Years Used Date Smoking Tobacco: Never Smokeless Tobacco: Never Alcohol Use Standard Drinks/Week Comments Yes 14 (1 standard drink = 0.6 oz pu re alcohol) [facility] Utilities Answer Date Recorded In the past [...] your living situation today? I have a [facility] place to live 06/08/2024 Education Answer Date Recorded What is the highest level of school you have completed or the highest degree you have received? Bachelor's degree (e.g., BA, AB, BS) 03/09/2019 Sex and Gender Information Value Date Recorded Sex Assigned at Male 05/23/2018 5:05 PM SPORTS REPORTER Legal Sex Male 4:32 AM SPORTS REPORTER Gender Identity Male 05/23/2018 5:05 PM SPORTS REPORTER Sexual Orientation Straight 05/23/2018 5: 05 PM SPORTS REPORTER documented as of this encounter Plan of Treatment Upcoming Encounters Date Type Department Care Team (Latest Contact Info) Description 05/22/2025 3:30 PM SPORTS REPORTER Clinical Communication Virtual Review in [address] [phone] 06/03/2025 11:00 AM SPORTS REPORTER Lab Department of Laboratory Medicine and Pathology, [facility], in [address] [address] Gagandeep Cook M.D. [address] [place] [phone] 06/03/2025 1:15 PM SPORTS REPORTER Procedure visit Department of Urology in [address] [address] Gagandeep Cook M.D. [address] [place] [phone] 06/03/2025 3:00 PM SPORTS REPORTER Office Visit Department of Urology in [place], [place] [address] [place] [address] Darrion Wyatt P.A.-C., M.S. [address] [place] [address] documented as of this encounter Visit Diagnoses Diagnosis Benign Prostatic Hyperplasia Without Obstruction- Primary documented in this encounter Care Teams Laundry Route Driver Relationship Specialty Start Date End Date Elsewhere, Pcp PCP - General Internal Medicine 03/10/25 documented as of this encounter
--- OUTSIDE RECORDS SUMMARY | 2025-03-27 09:08 | XMS_ITS | Encounter Summary ---
Author Organization [facility] Address [address] [place] [address] Care Team Providers Care Redipper Name Role Phone Elsewhere, Pcp Primary Care Provider Unavailabl e Encounter Details Date Type Department Care Team (Late st Contact Info) Description 03/25/2025 Clinical Communication Department of Urology in [place], [place] [address] [place] [address] Judd Lizama M.D. [address] [place] [address] Social History Tobacco Use Types Packs/Day Years Used Date Smoking Tobacco: Never Smokeless Tobacco: Never Alcohol Use Standard Drinks/Week Comments Yes 14 (1 standard drink = 0.6 oz pu re alcohol) [facility] Utilities Answer Date Recorded In the past 12 months has th e electric, gas, oil, or water [employer] threatened to shut off services in your [...] the money to buy more. Never true 02/08/20 25 Within the past 12 months, t [...] Sex Assigned at Male 05/23/2018 5:05 PM JOURNALISTS AND OTHER WRITERS Legal Sex Male 4:32 AM JOURNALISTS AND OTHER WRITERS Gender Identity Male 05/23/2018 5:05 PM JOURNALISTS AND OTHER WRITERS Sexual Orientation Straight 05/23/2018 5: 05 PM JOURNALISTS AND OTHER WRITERS documented as of this encounter Miscellaneous Notes * Telephone Encounter - Judd Lizama M.D. - 03/25/2025 12:46 AM JOURNALISTS AND OTHER WRITERS Urology ATC call 74-year-old male s/p Transurethral Aquablation of the prostate 50 g on 03/10/25. He presents to outside ED due to worsening passage of clots. Per the ED provider, he passed a largeamount of clot at home and now on arrival in the ED he has passed about 5-10 cc of clot and urine appears bright santana. He is otherwise afebrile and vitally stable. No labs or imaging to review. Recommendations: - Fay catheter placement with hand irrigation. If significant clot burden with hand irrigation, recommend cross-sectional imaging of the abdomen and pelvis to evaluate degree of intravesical clot burden. If large intravesical clot burden on imaging (i.e. greater than 3 cm), recommend transfer to [place] for further care - if urine clears rapidly with hand irrigation or imaging demonstrates minimal intravesical clot, okay to discharge with Fay catheter with follow up with Dr. Doyle's team for catheter removal thiscoming week. Message sent to Dr. Doyle's team for awareness. NALISTS AND OTHER WRITERS documented in this encounter Plan of Treatment Upcoming Encounters Date Type Department Care Team (Latest Contact Info) Description 05/22/2025 3:30 PM JOURNALISTS AND OTHER WRITERS Clinical Communication Virtual Review in [place], [place] [address] [place] [address] 06/03/2025 11:00 AM JOURNALISTS AND OTHER WRITERS Lab Department of Laboratory Medicine and Pathology, [facility] in [place], [place] [address] [place] [phone] Gagandeep Cook M.D. [address] [place] [phone] 06/03/2025 1:15 PM JOURNALISTS AND OTHER WRITERS Procedure visit Department of Urology in [address] [address] Gagandeep Cook M.D. [address] [place] [phone] 06/03/2025 3:00 PM JOURNALISTS AND OTHER WRITERS Office Visit Department of Urology in [address] [address] Darrion Wyatt P.A.-Anne., M.S. [address] [place] [phone] documented as of this encounter Visit Diagnoses Not on filedocumented in this encounter Care Teams Redipper Relationship Specialty Start Date End Date Elsewhere, Pcp PCP - General Internal Medicine 03/10/25 documented as of this encounter
--- OUTSIDE RECORDS SUMMARY | 2025-03-27 09:08 | XMS_ITS | Encounter Summary ---
Author Organization [facility] Address [address] [place] [address] Care Team Providers Care Hr Leader Name Role Phone Unavailable Primary Care Provider Unavailabl e Encounter Details Date Type Department Care Team (Late st Contact Info) Description 02/17/2025 Orders Only Preoperative Evaluation Center in [place], [place] [address] [place] [address] Yevgeniy Hooks, JUDIE, C.N.P., M.S. [address] [place] [address] Social History Tobacco Use Types Packs/Day Years Used Date Smoking Tobacco: Never Smokeless Tobacco: Never Alcohol Use Standard Drinks/Week Comments Yes 14 (1 standard drink = 0.6 oz pu re alcohol) [facility] Utilities Answer Date Recorded In the [...] living situation today? I have a [facility] place to live 06/08/2024 Education Answer Date Recorded What is the highest level of school you have completed or the highest degree you have received? Bachelor's degree (e.g., BA, AB, BS) 03/09/2019 Sex and Gender Information Value Date Recorded Sex Assigned at Male 05/23/2018 5:05 PM STRETCH MACHINE OPERATOR Legal Sex Male 4:32 AM STRETCH MACHINE OPERATOR Gender Identity Male 05/23/2018 5:05 PM STRETCH MACHINE OPERATOR Sexual Orientation Straight 05/23/2018 5: 05 PM STRETCH MACHINE OPERATOR documented as of this encounter Plan of Treatment Upcoming Encounters Date Type Department Care Team (Latest Contact Info) Description 05/22/2025 3:30 PM STRETCH MACHINE OPERATOR Clinical Communication Virtual Review in [address] [phone] 06/03/2025 11:00 AM STRETCH MACHINE OPERATOR Lab Department of Laboratory Medicine and Pathology, [facility] in [address] [address] Gagandeep Cook M.D. [address] [place] [phone] 06/03/2025 1:15 PM STRETCH MACHINE OPERATOR Procedure visit Department of Urology in [address] [address] Gagandeep Cook M.D. [address] [place] [phone] 06/03/2025 3:00 PM STRETCH MACHINE OPERATOR Office Visit Department of Urology in [place], [place] [address] [place] [address] Darrion Wyatt P.A.-C., M.S. [address] [place] [address] documented as of this encounter Visit Diagnoses Not on filedocumented in this encounter
--- OUTSIDE RECORDS SUMMARY | 2025-03-27 09:08 | XMS_ITS | Encounter Summary ---
Author Organization [facility] Address [address] [place] [address] Care Team Providers Care Taxation Economist Name Role Phone Elsewhere, Pcp Primary Care Provider Unavailabl e Encounter Details Date Type Department Care Team (Late st Contact Info) Description 03/14/2025 Clinical Communication Department of Urology in [place], [place] [address] [place] [address] Rosalia Doyle M.D. [address] [place] [address] Social History Tobacco Use Types Packs/Day Years Used Date Smoking Tobacco: Never Smokeless Tobacco: Never Alcohol Use Standard Drinks/Week Comments Yes 14 (1 standard drink = 0.6 oz pu re alcohol) [facility] Utilities Answer Date Recorded In the past 12 months has th e electric, gas, oil, or water [employer] threatened to shut off services in your [...] your living situation today? I have a [facility] place to live 06/08/2024 Education Answer Date Recorded What is the highest level of school you have completed or the highest degree you have received? Bachelor's degree (e.g., BA, AB, BS) 03/09/2019 Sex and Gender Information Value Date Recorded Sex Assigned at Male 05/23/2018 5:05 PM STOCK TRANSFER CLERK Legal Sex Male 4:32 AM STOCK TRANSFER CLERK Gender Identity Male 05/23/2018 5:05 PM STOCK TRANSFER CLERK Sexual Orientation Straight 05/23/2018 5: 05 PM STOCK TRANSFER CLERK documented as of this encounter Plan of Treatment Upcoming Encounters Date Type Department Care Team (Latest Contact Info) Description 05/22/2025 3:30 PM STOCK TRANSFER CLERK Clinical Communication Virtual Review in [place], [place] [address] [place] [address] 06/03/2025 11:00 AM STOCK TRANSFER CLERK Lab Department of Laboratory Medicine and Pathology, [facility], in [place], [place] [address] [place] [phone] Gagandeep Cook M.D. [address] [place] [phone] 06/03/2025 1:15 PM STOCK TRANSFER CLERK Procedure visit Department of Urology in [place], [place] [address] [place] [phone] Gagandeep Cook M.D. [address] [place] [phone] 06/03/2025 3:00 PM STOCK TRANSFER CLERK Office Visit Department of Urology in [place], [place] [address] [place] [address] Darrion Wyatt P.A.-C., M.S. 200 [place] [address] documented as of this encounter Visit Diagnoses Not on filedocumented in this encounter Care Teams Taxation Economist Relationship Specialty Start Date End Date Elsewhere, Pcp PCP - General Internal Medicine 03/10/25 documented as of this encounter
--- OUTSIDE RECORDS SUMMARY | 2025-03-27 09:08 | XMS_ITS | Clinical Summary ---
Author Organization [facility] Address [address] [place] [address] Care Team Providers Care Prison Teacher Name Role Phone BatelSuresh MD Primary Care [...] Type Department Care Team Description 03/17/2025 Telephone [facility] [address] [place] [address] Suresh Urias MD Questions (Catheter removal today) 03/14/2025 Telephone [facility] [address] [facility] [address] Suresh Urias MD Appointment (Catheter removal) 03/14/2025 Travel 03/10/2025 Orders Only [facility] Scanner 1 scan: (1-Ord) 03/10, TOTAL AQUABLATION RESECTION, 03/10/2025 03/03/2025 Telephone [facility] [address] [facility] [place] [address] Lionel Morse MD Abnormal Lab Results (UC sensitivities to Dr. Shelby Doyle [facility]) 02/27/2025 10:25 AM CDT Office Visit [place] [address] [place] [address] Suresh Urias MD Concerns (Wants catheter change) 02/27/2025 Travel 02/22/2025 Travel 02/07/2025 10:50 AM CDT Office Visit [address] [address] Jody Estes, DO UTI (Symptoms of urgency, chills, fever, and burning. ) 02/06/2025 Travel 02/05/2025 9:10 AM CDT Office Visit [address] [place] [address] Suresh Urias MD Blood Pressure (Hypertension concerns) 02/04/2025 3:20 PM CDT Nurse/Clinic Staff Only [address] [address] Blood Pressure (179/83) 02/04/2025 Travel 01/28/2025 10:00 AM CDT Office Visit [address] [address] Suresh Urias MD ER Follow up (12/26/24, [place], UTI, catheter) 01/28/2025 Travel 01/23/2025 Travel 01/06/[address] [address] Votel, Suresh Jones MD Refill Request (Alfuzosin) [...] PM CDT Legal Sex Male 5:26 AM REELER OPERATOR Gender Identity Male 11/08/2020 9:25 PM CDT Sexual Orientation Not on file 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 Not on file Not [...] st Contact Info) Description 2025 9:00 AM REELER OPERATOR Office Visit [facility] [address] [place] [address] Shade Fitzgerald MD [address] [facility] [address] [place] [address] Health Maintenance Due Date Last Done Comments [...] Comments SCAN-OPERATIVE/PROCE DURE REPORT 03/10/2025 12:00 AM REELER OPERATOR URINALYSIS MACROSCOPIC - [facility] ONLY POC [...] Lower urinary tract symptoms URINALYSIS MACROSCOPIC - [facility] ONLY POC DIP (QUEST) Routine 02/07/2025 10:56 [...] Results * SCAN-OPERATIVE/PROCEDURE REPORT (03/10/2025 12:00 AM REELER OPERATOR) us Scanner OTHER Final Result * (ABNORMAL) POCT Urinalysis Dipstick Only (02/27/2025 11:40 AM CDT) Only the most recent of2 resultswithin the time period is included. SPECIFIC GRAVITY < OR = 1.005 1.001 - 1.035 02/27/2025 11:53 AM CDT [facility] Comment: Specific [place] values resulted are outside the analytical measurement range of this device. Recommend repeat/additional testing as clinically indicated. PROTEIN NEGATIVE NEGATIVE 02/27/2025 11:53 AM CDT [facility] GLUCOSE NEGATIVE NEGATIVE 02/27/2025 11:53 AM CDT [facility] KETONES NEGATIVE NEGATIVE 02/27/2025 11:53 AM CDT [facility] BILIRUBIN NEGATIVE NEGATIVE 02/27/2025 11:53 AM CDT [facility] OCCULT BLOOD 1+(A) NEGATIVE 02/27/2025 11:53 AM CDT [facility] NITRITE NEGATIVE NEGATIVE 02/27/2025 11:53 AM CDT [facility] PH 7.0 5.0 - 8.0 02/27/2025 11:53 AM CDT [facility] LEUKOCYTE ESTERASE 1+(A) NEGATIVE 02/27/2025 11:53 AM CDT [facility] Urine URINE SPECIMEN / Unknown Non-Blood / Unknown 02/27/2025 11:40 AM CDT 02/27/2025 11:46 AM CDT Suresh Urias MD URINE Final Re sult [employer] [facility] [address] [place] [address], [place] [phone] [facility] [address] [place] [address], [place] [phone] * (ABNORMAL) URINALYSIS MICROSCOPIC (02/27/2025 11:40 AM CDT) Only the most recent of2 resultswithin the time period is included. RBC 0-2 0-2, None Seen /HPF 02/27/2025 4:52 PM CDT [facility] WBC 11-25(A) 0-2, 3-5, None Seen /HPF 02/27/2025 4:52 PM CDT [facility] BACTERIA None Seen None Seen, Rare, Few Bacteria/ HPF 02/27/2025 4:52 PM CDT [facility] EPITHELIAL CELLS None Seen None Seen, Few Epi/HPF 02/27/2025 4:52 PM CDT [facility] HYALINE CASTS 0-2 0-2, 3-5 /LPF 02/27/2025 4:52 PM CDT [facility] Urine URINE SPECIMEN / Unknown Non-Blood / Unknown 02/27/2025 11:40 AM CDT 02/27/2025 11:46 AM CDT Suresh Urias MD URINE Final Re sult Performing Organization Address City/[facility]/ZIP Co de Phone Number [facility] [address] [place] [address], * (ABNORMAL) URINE CULTURE (02/27/2025 11:40 AM CDT) Only the most recent of2 resultswithin the time period is included. CULTURE RESULT(A) 03/01/2025 7:28 AM CDT [facility] CULTURE 10,000-50,000 CFU/mL Pseudomonas aeruginosa 03/01/2025 7:28 AM CDT [facility] Urine URINE SPECIMEN / Unknown Non-Blood / Unknown 02/27/2025 11:40 AM CDT 02/27/2025 11:46 AM CDT Narrative Organism Antibiotic Method Susceptibility Pseudomonas aeruginosa CEFTAZIDIME 2: S Pseudomonas aeruginosa LEVOFLOXACIN 0.5: S Pseudomonas aeruginosa CIPROFLOXACIN 0.12: S Pseudomonas aeruginosa PIPERACILLIN/TAZO 8: S Pseudomonas aeruginosa CEFEPIME 2: S Pseudomonas aeruginosa MEROPENEM 1: S Suresh Urias MD MICROBIOLOGY Final Re sult Performing Organization Address City/[facility] Co de Phone Number [facility] [address] [place] [address], * LIPID PANEL W REFLEX MEASURED LDL (01/02/2024 10:37 AM CDT) CHOLESTEROL,TOTAL 124 100 - 199 mg/dL 01/03/2024 1:28 AM CDT [facility] Comment: Cholesterol, Total Reference Ranges Desirable <200 mg/dL Borderline 200-239 mg/dL High >=240 mg/dL TRIGLYCERIDES 134 <150 mg/dL 01/03/2024 1:28 AM CDT [facility] HDL CHOLESTEROL 60 >40 mg/dL 1:28 AM CDT [facility] NON-HDL CHOLESTEROL 64 <145 mg/dl 01/03/2024 1:28 AM CDT [facility] CHOL/HDL RATIO 2.07 <4.50 01/03/2024 1:28 AM CDT [facility] LDL CHOLESTEROL 37 <=130 mg/dL 01/03/2024 1:28 AM CDT [facility] VLDL CHOLESTEROL 27 <=30 mg/dL 01/03/2024 1:28 AM CDT [facility] PROVIDER ORDERED STATUS RANDOM 01/03/2024 1:28 AM CDT [facility] Blood BLOOD SPECIMEN / Unknown Venipuncture / Unknown 01/02/2024 10:37 AM CDT 01/02/2024 10:37 AM CDT Suresh Urias MD CHEMISTRY Final Re sult [facility] [address] [place] [address], [place] * ANTI HCV [83027.2] (02/15/2022 11:45 AM CDT) HEPATITIS C ANTIBODY Non-React kelsy Non-React kelsy 02/16/2022 5:52 AM CDT [facility] Comment:Antibodies to HCV no t detected; does not exclude the possibility of exposure to HCV. Blood BLOOD SPECIMEN / Unknown Venipuncture / Unknown 02/15/2022 11:45 AM CDT 02/15/2022 11:45 AM CDT us Suresh Urias MD SEND OUTS Final Re sult [facility] [address] [place] [address], [place] * COLONOSCOPY (02/05/2021 9:20 AM CDT) [...] adequate candidate for conscious sedation. The [id number] was passed through the anus and advanced [...] 9:20 AM Procedure Code(s): --- Professional --- 03458, Colonoscopy, flexible; with removalof tumor(s), polyp(s), or other lesion(s) bysnare technique 27837, 59, Colonoscopy, flexible; withbiopsy, single or multiple Diagnosis Code(s): --- Professional --- K63.5, Polyp of colon Z86.010, Personal history of colonicpolyps CPT copyright 2020 [employer]. All rights reserved. The codes documented in this report are preliminary and upon spectral scientist reviewmay be revised to meet current compliance requirements. Scope In: 9:56:29 AM Scope Withdrawal Time 0 hours 10 minutes 25 seconds Scope Out: 10:09:27 AM us Dl Flor MD PROCEDURE ORD Final Res ult from Last 3 Months or Most Recently Relevant to Health Maintenance Insurance MEDICARE PART A HB ONLY MEDICARE PB ONLY [facility] MEDICARE PART B HB ONLY Advance Directives * Full Code (Latest Code Status on File) Date Activated Date Inactivated Comments 11/08/2017 11:20 AM 11/09/2017 2:34 PM * Full Code Date Activated Date Inactivated Comments 12/30/2012 6:59 PM 01/02/2013 1:20 PM Care Teams Prison Teacher Relationship Specialty Start Date End Date Votel, Suresh Jones MD [address] [place] [address] PCP - General Family Practice 03/27/12
--- OUTSIDE RECORDS SUMMARY | 2025-03-27 09:08 | XMS_ITS | Clinical Summary ---
Author Organization [facility] Address [address] [place] [address] Care Team Providers Care Sound Effects Supervisor Name Role Phone Elsewhere, Pcp Primary Care Provider Unavailabl e Source Comments Patient records contain information from all sites at [facility]. For routine questions regarding patient records, call [phone] during business hours, M-F 8:00 AM - 5:00 PM Central Time. Record requests for emergency care only can be directed to [phone] at any time.[facility] Allergies Active Allergy Reactions Criticality Noted [...] catheter removal. 21 tablet 03/10/2025 4:57 PM PAYROLL ACCOUNTING CLERK 5 Active lidocaine HCL (Glydo) 2 % topical jellyIndication s:Benign Prostatic Hyperplasia Without Obstruction Insert 5 mL (1 Application total) into the urethra once. Apply as needed 4 times daily to tip of of penis for catheter pain. You do not need to use the entire applicator. 5 applicator 03/10/2025 4:57 PM PAYROLL ACCOUNTING CLERK 5 Active levoFLOXacin (Levaquin) 500 mg tabletIndicatio ns:Benign Prostatic Hyperplasia Without Obstruction Take 1 tablet (500 mg total) by mouth daily. Take morning of catheter removal. 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 03/14/2025 Clinical Communication Department of Urology in [place] [address] [place] [phone] Rosalia Doyle M.D. 03/13/2025 Results Follow-Up Department of Urology in [place], [place] [address] [place] [phone] Rosalia Doyle M.D. Surgical Pathology, Frozen Lab 03/10/2025 12:40 PM PAYROLL ACCOUNTING CLERK Ancillary Procedure Department of General Surgery 03/10/2025 12:33 PM PAYROLL ACCOUNTING CLERK - 03/10/2025 2:42 PM PAYROLL ACCOUNTING CLERK Surgery [facility] OR [address] [place] [address] Rosalia Doyle M.D. TRANSURETHRAL WATERJET ABLATION PROSTATE, 50 grams. 03/10/2025 12:29 PM PAYROLL ACCOUNTING CLERK Anesthesia Event [facility] OR [address] [place] [address] Renetta Guerrero M.D. Swanson, James W, LIAISON ENGINEER, PRINCIPAL SYSTEMS ARCHITECT, DNAP 03/10/2025 10:39 AM PAYROLL ACCOUNTING CLERK - 03/10/2025 4:51 PM PAYROLL ACCOUNTING CLERK Hospital Encounter Outpatient Surgery Unit in [place], [place] [address] [place] [address] Rosalia Doyle M.D. Benign Prostatic Hyperplasia Without Obstruction; Symptom Urinary Discharge Disposition: Home or Self Care 03/03/2025 Orders Only Department of Urology in [place], [place] [address] [place] [address] Gagandeep Cook M.D. Benign Prostatic Hyperplasia Without Obstruction (Primary Dx) 02/17/2025 11:00 AM CDT Telemedicine Preoperative Evaluation Center in [address] [address] Rosalia Doyle M.D. Yevgeniy Hooks APRN, C.N.P., M.S. Preanesthetic Medical Exam (Primary Dx); Benign Prostatic Hyperplasia Hypertrophy With Obstruction; Infection Urinary Tract Personal History; Hypertension Essential Primary; Atherosclerotic Heart Disease Of [place] Coronary Artery Without Angina Pectoris; Coronary Stent Status Post; Patent Foramen Ovale (HCC); Hyperlipidemia; Transient Ischemic Attack Personal History Or Stroke Personal History; Gastroesophageal Reflux Disease; Herpesviral Vesicular Dermatitis; Overweight Body Mass Index 25-29.9 Adult 02/17/2025 Orders Only Preoperative Evaluation Center in [address] [address] Yevgeniy Hooks, JUDIE, C.N.P., M.S. 02/12/2025 12:30 PM CDT Clinical Communication Virtual Review in [place], [place] [address] [place] [address] Pre-visit Intake 01/15/2025 Orders Only Preoperative Evaluation Center in [address] [address] Patricia Santiago APRN, C.N.P. 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 12/25/2024 Clinical Communication Department of Urology in [address] [address] Rosalia Doyle M.D. from Last 3 Months Immunizations Immunization Administration [...] Name Comments Alcohol abuse Brother 1 elsi joe Liver disease Brother 1 elsi joe Alcohol abuse Brother 2 kim joe [...] XOCHITL Joe Skin cancer Brother 6 Xochitl StuartNeill Prostate cancer Father Scott StuartNeill Coronary artery disease Mother haley joe Hyperlipidemia (high cholesterol) Mother haley joe Hypertension Mother haley joe Relation Name Status Comments Brother 1 elsi stuartneill Brother 2 kim joe Brother 3 colt joe Brother 4 geovany joe Brother 5 XOCHITL Joe Brother 6 Xochitl Joe Father Scott StuartNeill Mother haley stuartneill Social History Tobacco Use Types Packs/Day Years Used Date Smoking Tobacco: Never Smokeless Tobacco: Never Alcohol Use Standard Drinks/Week Comments Yes 14 (1 standard drink = 0.6 oz pu re alcohol) [facility] Utilities Answer Date Recorded In the past 12 months has e electric, gas, oil, or water [employer] threatened to shut off services in your [...] your living situation today? I have a [facility] to live 06/08/2024 Education Answer Date Recorded What is the highest level of school you have completed or the highest degree you have received? Bachelor's degree (e.g., BA, AB, BS) 03/09/2019 Sex and Gender Information Value Date Recorded Sex Assigned at Male 05/23/2018 5:05 PM PAYROLL ACCOUNTING CLERK Legal Sex Male 4:32 AM PAYROLL ACCOUNTING CLERK Gender Identity Male 05/23/2018 5:05 PM PAYROLL ACCOUNTING CLERK Sexual Orientation Straight 05/23/2018 5: 05 PM PAYROLL ACCOUNTING CLERK Last Filed Vital Signs Vital Sign Reading Time Taken Comments Blood Pressure 125/80 03/10/2025 4:00 PM PAYROLL ACCOUNTING CLERK Pulse 66 03/10/2025 4:00 PM PAYROLL ACCOUNTING CLERK Temperature 36.2 C (97.2 F) 03/10/2025 3:10 PM PAYROLL ACCOUNTING CLERK Respiratory Rate 16 03/10/2025 4:00 PM PAYROLL ACCOUNTING CLERK Oxygen Saturation 96% 03/10/2025 4:00 PM PAYROLL ACCOUNTING CLERK Inhaled Oxygen Concentration - - Weight 67.1 kg (147 lb 14.9 oz) 025 11:01 AM PAYROLL ACCOUNTING CLERK Height 155 cm (5' 1.02) 03/10/2025 11: 01 AM PAYROLL ACCOUNTING CLERK Body Mass Index 27.93 03/10/2025 11:01 AM PAYROLL ACCOUNTING CLERK Plan of Treatment Upcoming Encounters Date Type Department Care Team (Latest Contact Info) Description 05/22/2025 3:30 PM PAYROLL ACCOUNTING CLERK Clinical Communication Virtual Review in [place], [place] [address] [place] [address] 06/03/2025 11:00 AM PAYROLL ACCOUNTING CLERK Lab Department of Laboratory Medicine and Pathology, [facility], in [place], [place] [address] [place] [phone] Gagandeep Cook M.D. [address] [place] [phone] 06/03/2025 1:15 PM PAYROLL ACCOUNTING CLERK Procedure visit Department of Urology in [place], [place] [address] [place] [phone] Ggaandeep Cook M.D. [address] [place] [phone] 06/03/2025 3:00 PM PAYROLL ACCOUNTING CLERK Office Visit Department of Urology in [place], [place] [address] [place] [phone] Darrion Wyatt P.A.-C., M.S. [address] [place] [phone] Health Maintenance Due Date Last Done Comments CT Colonography 1950 Cologuard 1950 Hepatitis C Screening 1950 Office Visit for Blood Pressure Check / Re-check 1950 RSV vaccine - (32-36 weeks) or 50+ years (1 - Risk 50-74 years 1-dose series) 2000 Depression Screening (Annual PHQ-2) 05/01/2024 COVID-19 Vaccine ( season) 2024 07/24/2020, 07/03/2020 Influenza Vaccine (#1) 2024 03/12/2019 Colonoscopy 02/05/2026 02/05/2021, 1011/2020, 05/08/2017 (Performed elsewhere), Additional history exists Colorectal [...] this topic Medical Devices Implanted Type Area Compound Filler Device Identifier Shelf Expiration Date Model / Serial / Lot Cardiac Stent Cardiac Stent Heart Description:One stent Procedures Procedure Name Priority Date/Time Associated Diagnosis Comments ADULT OXYGEN THERAPY Routine 03/10/2025 1:55 PM PAYROLL ACCOUNTING CLERK SURGICAL PATHOLOGY, [facility]EN LAB Routine 03/10/2025 1:38 PM PAYROLL ACCOUNTING CLERK Benign Prostatic Hyperplasia Without Obstruction Symptom Urinary SURGERY IMAGE EXAM Routine 03/10/2025 12 :40 PM PAYROLL ACCOUNTING CLERK LDA ANE ENDOTRACHEAL AIRWAY Routine 03/10/2025 12:40 PM PAYROLL ACCOUNTING CLERK TRANSURETHRAL WATERJET ABLATION OF THE PROSTATE 03/10/2025 12:14 PM PAYROLL ACCOUNTING CLERK Benign Prostatic Hyperplasia Without Obstruction Symptom Urinary BASIC METABOLIC PANEL, S/P Routine 03/13/2019 6:22 AM PAYROLL ACCOUNTING CLERK Cough Chronic from Last 3 Months or Most Recently Relevant to Health Maintenance Results * Surgical Pathology, Frozen Lab (03/10/2025 1:38 PM PAYROLL ACCOUNTING CLERK) 03/13/2025 1:38 PM PAYROLL ACCOUNTING CLERK METH Participated in the Interpretation Maribel Lucas M.D. -Pathology Resident 03/13/2025 1:38 PM PAYROLL ACCOUNTING CLERK METH Report electronically signed by Slava Gatica M.D. I verify that I have examined all relevant slides/materials for the specimen(s) and rendered or confirmed the diagnosis. 03/13/2025 1:38 PM PAYROLL ACCOUNTING CLERK METH Gross Description A. Received fresh labeled prostate chips is a 5.5 gram, 5 x 3.5 x 1.5 cm aggregate of rubbery, aguilar-pink tissue. All submitted for permanent sections. Grossed by Ricki Benavides M.S., PA([facility]). 03/13/2025 1:38 PM PAYROLL ACCOUNTING CLERK METH Block Summary A Prostate chips A1 Prostate chips 1 A2 Prostate chips 2 A3 Prostate chips 3 A4 Prostate chips 4 A5 Prostate chips 5 A6 Prostate chips 6 03/13/2025 1:38 PM PAYROLL ACCOUNTING CLERK METH Interpretation FINAL DIAGNOSIS A. Prostate, transurethral resection: Nodular hyperplasia Digital imaging was used in the diagnostic assessment of this case. 03/13/2025 1:38 PM PAYROLL ACCOUNTING CLERK METH Tissue (Prostate) 03/10/2025 1:38 PM PAYROLL ACCOUNTING CLERK Rosalia Doyle M.D. LAB SURG PATH ORDERABLES Final R esult [facility] [address] [place] [address], [facility] METH [address] [place] [address] * Surgery Image Exam-Surgery Image Exam (03/10/2025 12:40 PM PAYROLL ACCOUNTING CLERK) 03/10/2025 12:3 9 PM PAYROLL ACCOUNTING CLERK Narrative IIMS - 03/10/2025 2:03 PM PAYROLL ACCOUNTING CLERK This order has been created and auto-finalized to support the import of images acquired without order. The clinical documentation to support these images can be found on the encounter that produced images. us Provider Not In System IMG NON RAD IMAGING PROCE DURES Final Result IIMS NA * LDA ANE ENDOTRACHEAL AIRWAY (03/10/2025 12:40 PM PAYROLL ACCOUNTING CLERK) Narrative Xochitl Mejia APRN, JW, DNAP - 03/10/2025 12:40 PM PAYROLL ACCOUNTING CLERK Xochitl Mejia APRN, JW, DNAP 03/10/2025 12:43 PM Airway Date/Time: 03/10/2025 12:40 PM Performed by: Ivana Haley APRN, JW, D.N.P. Authorized by: Renetta Guerrero M.D. Patient [...] M.D. ANESTHESIA ORDERABLES Final Re sult * Basic Metabolic Panel (03/13/2019 6:22 AM PAYROLL ACCOUNTING CLERK) Potassium, S 4.2 3.6 - 5.2 mmol/L 03/13/2019 7:34 AM PAYROLL ACCOUNTING CLERK DTL Sodium, S 142 135 - 145 mmol/L 03/13/2019 7:34 AM PAYROLL ACCOUNTING CLERK DTL Chloride, S 100 98 - 107 mmol/L 03/13/2019 7:34 AM PAYROLL ACCOUNTING CLERK DTL Bicarbonate, S 27 22 - 29 mmol/L 03/13/2019 7:34 AM PAYROLL ACCOUNTING CLERK DTL Anion Gap 15 7 - 15 03/13/2019 7:34 AM PAYROLL ACCOUNTING CLERK DTL BUN (Blood Urea Nitrogen), S 14 8 - 24 mg/dL 03/13/2019 7:34 AM PAYROLL ACCOUNTING CLERK DTL Creatinine 1.13 0.74 - 1.35 mg/dL 03/13/2019 7:34 AM PAYROLL ACCOUNTING CLERK DTL eGFR-Non Black/ 66 >=60 mL/min/BSA 03/13/2019 7:34 AM PAYROLL ACCOUNTING CLERK DTL Comment: ----ADDITIONAL INFORMATION---- Estimated GFR calculated using the 2009 CKD_EPI creatinine equation. eGFR-Black/Afric an Indonesian 77 >=60 mL/min/BSA 03/13/2019 7:34 AM PAYROLL ACCOUNTING CLERK DTL Comment: ----ADDITIONAL INFORMATION---- Estimated GFR calculated using the 2009 CKD_EPI creatinine equation. Calcium, Total, S 9.7 8.8 - 10.2 mg/dL 03/13/2019 7:34 AM PAYROLL ACCOUNTING CLERK DTL Glucose, S 103 70 - 140 mg/dL 03/13/2019 7:34 AM PAYROLL ACCOUNTING CLERK DTL Blood (Blood, Venous) 03/13/2019 6:22 AM PAYROLL ACCOUNTING CLERK 03/13/2019 6:44 AM PAYROLL ACCOUNTING CLERK Alcira Javed M.D. LAB BLOOD ADD-ON Elizabeth l Result [facility] [address] [place] [address], [facility] [address] [place] [address] from Last 3 Months or Most Recently Relevant to Health Maintenance Insurance MEDICARE [facility] Care Teams Sound Effects Supervisor Relationship Specialty Start Date End Date Elsewhere, Pcp PCP - General Internal Medicine 03/10/25
[2025-03-27 09:10] VITALS: BP 146/90; PULSE 93; RESP 16; TEMP 35.8; O2SAT 96; BMI 25.2
--- NOTE | 2025-03-27 09:32 | ED.GENADULT ---
HPI - General Adult General Chief complaint: Urogenital Problems, Male Stated complaint: blocked catheter Time Seen by Provider: 03/27/25 09:32 History of Present Illness HPI narrative: Pt reports he was here recently for a catheter placement following issues post?prostate surgery. Catheter was bleeding a lot last night and then stopped draining. Now is not draining into bag and urine is leaking out of penis around catheter. 74-year-old man presenting to the emergency department with concern of occluded Fay catheter. On 03/10 had some form of partial prostatectomy/TURP. The catheter remained in a week and removed without apparent difficulty. Presented to this emergency department with recurrence of hematuria 3 days ago and in consultation with Urology Fay was replaced and had bladder irrigation. Mr. Dalton notes that Fay had been operating normally, urine flow was normal though blood tinged and then about 2 hours prior to arrival in the emergency department he noted very minimal output. He has not seen any clots. Became concerned and is interested in having this fully removed. Is not experiencing any pain or sensation of distension/fullness. No fever. Related Data Home Medications ?Medication ?Instructions ?Recorded ?Confirmed alfuzosin 10 mg tablet,extended 10 mg PO DAILY 03/04/24 03/29/25 release 24 hr atorvastatin 40 mg tablet 40 mg PO DAILY 03/04/24 03/29/25 pantoprazole 40 mg tablet,delayed 40 mg PO DAILY 03/04/24 03/29/25 release amlodipine 5 mg tablet 5 mg PO DAILY 03/17/25 03/29/25 Allergies Allergy/AdvReac Type Severity Reaction Status Date / Time No Known Drug Allergies Allergy Verified 03/29/25 09:14 Review of Systems Status of ROS: Reports: 6 or more systems reviewed and unremarkable except as noted in History and below [facility] Medical History GERD (gastroesophageal reflux disease) ?K21.9 - Gastro-esophageal reflux disease without esophagitis (ICD-10) PFO (patent foramen ovale) ?Q21.12 - Patent foramen ovale (ICD-10) Allergic rhinitis ?J30.9 - Allergic rhinitis, unspecified (ICD-10) CVA (cerebral vascular accident) (12/30/12) ?I63.9 - Cerebral infarction, unspecified (ICD-10) ASHD (arteriosclerotic heart disease) ?I25.10 - Atherosclerotic heart disease of [place] coronary artery without angina pectoris (ICD-10) Surgical History History of coronary artery stent placement (11/08/17) ?Z95.5 - Presence of coronary angioplasty implant and graft (ICD-10) Social History Smoking Status: Never smoker Do you use any of these nicotine containing products: None Second hand tobacco smoke exposure: No How often do you have a drink containing alcohol: 4 or more times a week How many standard drinks containing alcohol do you have on a typical day: 1 or 2 AUDIT-C Alcohol total score: 4 Non-prescribed substance use: denies use Exam Narrative: Exam Narrative: Pleasant. NAD. Calm. Breathing easily. Abdomen is generally soft. Nontender. Does feel full though in the suprapubic area. Does have a little trouble relaxing the abdomen. There is no fluid in the catheter tubing but very small amount of slightly blood-tinged urine in the bag. Const: Vital Signs, click to edit/add: Vital Signs - 24 hr 03/27/25 09:10 Temperature 96.4 F L Pulse Rate [Pulse Oximeter] 93 Respiratory Rate 16 Blood Pressure [Ri ght Upper Arm] 146/90 H Pulse Oximetry 96 Oxygen Delivery Me thod Room Air Documenting provider has reviewed patient's vital signs: yes Course Vital Signs Vital signs: Initial Vital Signs Temperature 96.4 F L 03/27/25 09:10 Temperature Source Temporal Artery Scan 03/27/25 09:10 Pulse Rate 93 03/27/25 09:10 Respiratory Rate 16 03/27/25 09:10 Blood Pressure 146/90 H 03/27/25 09:10 Blood Pressure Mean 108 H 03/27/25 09:10 Blood Pressure Position Sitting 03/27/25 09:10 Pulse Oximetry 96 03/27/25 09:10 Oxygen Delivery Method Room Air 03/27/25 09:10 Vital Signs Temperature 96.4 F L 03/27/25 09:10 Pulse Rate 93 03/27/25 09:10 Respiratory Rate 16 03/27/25 09:10 Blood Pressure 146/90 H 03/27/25 09:10 Pulse Oximetry 96 03/27/25 09:10 Oxygen Delivery Method Room Air 03/27/25 09:10 Temperature 96.4 F L 03/27/25 09:10 Pulse Rate 93 03/27/25 09:10 Respiratory Rate 16 03/27/25 09:10 Blood Pressure 146/90 H 03/27/25 09:10 Pulse Oximetry 96 03/27/25 09:10 Oxygen Delivery Method Room Air 03/27/25 09:10 Medical Decision Making MDM Narrative Medical decision making narrative: I am not certain that there is a problem at this point. This was in the contracts attorney hours. He has been drinking water now. Will do bladder scan though. He would like this Fay removed. Might ultrasound to quantify clot? Other imaging? Anticipating irrigation and monitoring. Bladder scan for 261 mL. Mr. Diaz with urgent urge to urinate. Was able to do this and evidently dislodging a clot and catheter was draining well. No further interventions appear necessary. Urinalysis primarily looks to be with blood than frankly infected but will culture. His preference is still to have the Fay removed if possible and to get to [employer] festivities. Does not sound as though it was a particularly difficult placement and we can certainly place again if necessary. See patient discharge plan for further discussion Continue to hydrate. Return if you feel you are beginning to obstruct. I would message your urology clinic updating them and see if they need anything more done. Happy Thanksgiving Medical Records Medical records reviewed: Yes I reviewed the patient's medical records Lab Data Lab results reviewed: Yes I reviewed the patient's lab results Discharge Plan Discharge Clinical Impression: Obstructed Fay catheter, Hematuria Patient Disposition: Home, Self-Care Condition: Improved Additional Instructions: Continue to hydrate. Return if you feel you are beginning to obstruct. I would message your urology clinic updating them and see if they need anything more done. Happy Thanksgiving Prescriptions: No Action amlodipine 5 mg tablet 5 mg PO DAILY atorvastatin 40 mg tablet 40 mg PO DAILY pantoprazole 40 mg tablet,delayed release (DR/EC) 40 mg PO DAILY alfuzosin 10 mg tablet extended release 24 hr 10 mg PO DAILY Follow Up/Referrals: Suresh Urias MD [Primary Care Provider, Family Practice] Stand Alone Forms: [email or web address] Info Instructions
== END 2025-03-27 10:38 | disposition home or self-care (01) ==
PROVIDERS: Emergency Provider Family Medicine; PCP Family Medicine
DX: T83.098A Other mechanical complication of other urinary catheter, initial encounter (principal); R31.9 Hematuria, unspecified
CPT/HCPCS: 99283; 99284

== ENCOUNTER 2025-03-29 09:21 | Outpatient (CLI) | payer MEDICARE, BC, SELFPAY | END 2025-03-29 09:22 | disposition home or self-care (01) | LOC: NFLDREF 04-02 00:48 | PROVIDERS: PCP Family Medicine; Referring Provider Family Medicine | DX: N30.01 Acute cystitis with hematuria (principal) | CPT/HCPCS: 87086 ==